=== PATIENT | male | born 1965 | race Caucasian/White ===

== ENCOUNTER 2016-06-27 19:06 | Emergency (ER) | payer OTHER, MEDICARE ==
[~2016-06-27 19:06] MED LIST: <VITAMIN> A + D1 APP TOP; ACCUPRIL20 MG PO; ACETAMINOPHEN325 M1 PO; ADVAIR DISKUS 21 DSK INH; ALBUTEROL 3 ML3 ML INH; AMITRIPTYLINE100 M1 PO; AMITRIPTYLINE100 M2 PO; AMITRIPTYLINE100 MG PO; AMITRIPTYLINE50 MG PO; AMMONIUM LACTATE121 TD; ASPIR 8181 MG PO; AZITHROMYCIN500 MG PO; BACTRIM 400 MG-1 TAB PO; BUSPIRONE HCL10 M1 PO; BUSPIRONE HCL10 MG PO; CARAFATE 1GM1000 MG PO; CARAFATE1 G1 PO; CLOPIDOGREL75 MG PO; CRESTOR 10MG10 MG PO; CRESTOR10 M1 PO; DAILY MULTIPLE1 EACH PO; DILAUDID2 MG PO; DULOXETINE HCL30 MG PO; DULOXETINE30 MG PO; DULOXETINE60 MG PO; DURAGESIC25 MCG TOP; Desitin TOP; ECOTRIN81 M1 PO; FOLIC ACID 1 MG PO; FOLIC ACID0.4 MG PO; FOLIC ACID0.8 M2 PO; FOLIC ACID0.8 MG PO; FUROSEMIDE20 MG PO; GABAPENTIN400 MG PO; GABAPENTIN800 MG PO; GLUCERNA 240 M240 ML PO; IBUPROFEN800 MG PO; LANTUS INS100 UNITS/ SC; LANTUS SOLOS100 U/ML SC; LANTUS100 U/ML SC; LANTUS100 UNIT/1 SC; LEVEMIR 10100 UNITS/ SC; LEVEMIR FL300 UNITS/ SC; LEVEMIR100 U/ML SC; LEVEMIR100 UNIT/1 SC; LISINOPRIL20 MG PO; LOTRIMIN CR1 %/30 GM TOP; MAG-OX 400400 MG PO; MAGNESIUM OXID400 MG PO; MAGNESIUM400 M1 PO; MEROPENEM1 GM IV; MIRALAX17 GM PO; MIRTAZAPINE15 MG PO; MOTRIN 400 MG400 MG PO; MOTRIN 400MG (400 MG PO; MULTIVITAMIN PO; MYSOLINE PO; NEURONTIN800 M1 PO; NEURONTIN800 M2 PO; NEXIUM 40MG40 MG PO; NORVASC 5MG TAB5 MG PO; NOVOLOG FLEX100 U/ML; NOVOLOG100 U/ML SC; NOVOLOG100 UNIT/2 SC; OXYCODONE HCL30 MG PO; PERCOCET 325 MG1 TA2 PO; PRIMIDONE50 M1 PO; PRINIVIL10 MG PO; PROAIR HFA0.09 MG/Ac PO; PROPRANOLOL HCL20 M1 PO; PROPRANOLOL HCL20 MG PO; PROPRANOLOL HCL40 MG PO; QUETIAPINE FUM300 MG PO; QUINAPRIL HCL20 MG PO; QUINAPRIL20 MG PO; RANITIDINE300 MG PO; ROCEPHIN1 GM IM; ROXICODONE30 MG PO; SENOKOT S 50 MG1 TAB PO; SEROQUEL 100MG100 MG PO; SEROQUEL100 M1 PO; SEROQUEL100 MG PO; SEROQUEL300 M1 PO; SPIRIVA 18 MCG18 MCG INH; SUBOXONE 8 MG-1 EACH SL; SUBOXONE 8 MG-21 TAB SL; Senokot S PO; TRAMADOL HCL50 M1 PO; TRAMADOL HCL50 MG PO; TRAMADOL50 MG PO; VANCOMYCIN HC1000 MG IV; VANCOMYCIN1 GM/250 M IV; VITAMIN D1000 UNIT PO; ZANTAC 150MG150 MG PO; ZOFRAN 4 MG TABL4 MG PO
--- NOTE | 2016-06-27 19:37 | ED GI/GU/ABDOMINAL COMPLAINT ---
History of Present Illness General Chief Complaint: General Adult Stated Complaint: HYPERGLYCEMIA Source: patient Exam Limitations: no limitations Allergies Coded Allergies: NO KNOWN ALLERGIES (07/16/15) Reconcile Medications Amitriptyline HCl 100 MG TABLET 1 TAB PO QHS UNKNOWN (Reported) Aspirin (Ecotrin) 81 MG TABLET. 1 TAB PO QAM HEART/BLOOD (Reported) BUPRENORPHINE HCL/NALOXONE HCL (Suboxone 8 MG-2 MG Sl Film) 8 MG-2 MG FILM 3 FILM SL DAILY PAIN (Reported) Buspirone HCl 10 MG TABLET 1 TAB PO TID MENTAL HEALTH (Reported) Cholecalciferol (Vitamin D3) (Vitamin D) 1,000 UNIT TABLET 1 TAB PO QAM SUPPLEMENT (Reported) Duloxetine HCl 30 MG CAPSULE. 1 CAP PO QAM DEPRESSION (Reported) Folic Acid 0.8 MG TABLET 1 TAB PO QAM SUPPLEMENT (Reported) Gabapentin (Neurontin) 800 MG TAB 2 TAB PO QAM NEUROPATHIC PAIN (Reported) Gabapentin (Neurontin) 800 MG TAB 3 TAB PO QPM NEUROPATHIC PAIN (Reported) Insulin Aspart (Novolog) 100 UNIT/1 ML VIAL DIABETES (Reported) glucose insulin dose 80-150mg/dl 5 units 151-200mg/dl 6 units 201-250mg/dl 7 units 251-300mg/dl 8 units 301-350mg/dl 9 units 351-400mg/dl 10units more than 400 please let MD know. Insulin Detemir (Levemir) 100 UNIT/1 ML VIAL 16 UNITS SC BID diabtes Magnesium Oxide (Magnesium) 400 MG CAPSULE 1 CAP PO BID SUPPLEMENT (Reported) Multivitamin (Daily Multiple Vitamin) 1 EACH TABLET 1 TAB PO QAM SUPPLEMENT ( Reported) Primidone 50 MG TABLET 100 MG PO TID UNKNOWN (Reported) Propranolol HCl 20 MG TABLET 1 TAB PO BID BP (Reported) Quetiapine Fumarate (Seroquel) 100 MG TABLET 1 TAB PO 8AM, NOON, 6PM MENTAL HEALTH (Reported) Quetiapine Fumarate (Seroquel) 300 MG TABLET 1 TAB PO QHS MENTAL HEALTH ( Reported) Quinapril HCl (Accupril) 20 MG TABLET 1 TAB PO QAM HEART (Reported) Rosuvastatin Calcium (Crestor) 10 MG TABLET 1 TAB PO QHS CHOLESTEROL ( Reported) Sucralfate (Carafate) 1 GM TABLET 1 TAB PO 4 TIMES/DAY GI (Reported) Tramadol HCl 50 MG TABLET 1 TAB PO Q4H PAIN (Reported) Vancomycin/0.9 % Sod Chloride (Vancomycin-0.9% NaCl 1 G/250) 1 GM/250 ML PLAST..BAG 1 VIAL IV BID osteomyelitis Please draw vancomycin trough levels every week. Vancomycin/0.9 % Sod Chloride (Vancomycin-0.9% NaCl 1 G/250) 1 GM/250 ML PLAST..BAG 1 VIAL IV BID osteomyelitis Please draw vancomycin trough levels every week. PLEASE DOSE VANCOMYCIN FOR A TOTAL OF 4 WEEKS AFTER DEBRIDEMENT. PLEASE TALK TO YOUR RECREATION OFFICER ABOUT THE DURATION. Triage Note: PT BIBA FROM HOME AFTER HAVING >500 READING OF BS TODAY. PT STATES HE HAS NO APPEPTITE. PT HAS A LEFT BELOW THE KNOW AMP AND SORES COVERING HIS WHOLE BODY IN DIFFERENT PROGRESSIONS OF HEALING. Triage Nurses Notes Reviewed? yes HPI: This patient is a 51-year-old male with past medical history including diabetes who is brought in by ambulance today after he had a blood sugar reading at home greater than 500. The patient reported that over the last couple of days he has not had an appetite. He denied any fevers, chills, chest pain, difficulty breathing, abdominal pain, nausea, vomiting, diarrhea, or any urinary symptoms. The patient reported that he checks his blood sugar regularly. He reported that he does take his insulin when he took this morning, but does not remember the name or dosage of his insulin. (ROSALINE STEIN,ALLI) Vital Signs & Intake/Output Vital Signs & Intake/Output Vital Signs Date Time Temp Pulse Resp B/P Pulse O2 O2 Flow FiO2 Ox Delivery Rate 06/28 0156 93 Room Air 06/28 0148 97.8 98 18 146/85 93 Room Air 06/27 2056 97.5 107 18 112/70 93 ED Intake and Output 06/28 0000 06/27 1200 Intake Total 3000 Output Total 200 Balance 2800 Intake, IV 3000 Output, Urine 200 Past History Medical History Any Pertinent Medical History? 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 No (ALLI WAGGONER PA-C) Review of Systems Review of Systems Constitutional: Reports: see HPI. EENTM: Reports: no symptoms. Respiratory: Reports: no symptoms. Cardiovascular: Reports: no symptoms. GI: Reports: no symptoms. Genitourinary: Reports: no symptoms. Musculoskeletal: Reports: no symptoms. Skin: Reports: no symptoms. Neurological/Psychological: Reports: no symptoms. Hematologic/Endocrine: Reports: see HPI. All Other Systems: Reviewed and Negative (ALLI WAGGONER PA-C) Physical Exam Physical Exam Gastrointestinal: normal bowel sounds, soft, non-tender, no organomegaly, NO REBOUND OR GUARDING. NO PERITONEAL SIGNS. NONDISTENDED. NO MASSES APPRECIATED Comments: Well-developed well-nourished person in no acute distress HEENT: Normal EENT exam, head normocephalic, moist mucous membranes Pupils equally round and reactive to light. Neck: Supple, no lymphadenopathy Back: Normal inspection Cardiovascular: Regular rate and rhythm and rhythm with no murmurs, rubs, or gallops Respiratory: Chest nontender. No respiratory distress. Breath sounds clear to auscultation bilaterally Extremity: Normal equal pulses Neuro: Alert oriented x3, cranial nerves II through XII grossly intact. Skin: No appreciable rash on exposed skin, skin is warm and dry. Scattered wounds to the extremities and multiple stages of healing Psych: Mood and affect is normal, memory and judgment is normal. Core Measures ACS in differential dx? No Severe Sepsis Present: No Septic Shock Present: No (ALLI WAGGONER PA-C) Progress Differential Diagnosis: AMI, appendicitis, biliary colic, bowel obstruction, colon cancer, cholecystitis, diverticulitis, gastritis, hepatitis, ischemic bowel, inflamm bowel dis, pancreatitis, PUD/GERD, perforated viscous, UTI/pyelo, hyperglycemia, DKA Initial ED EKG: none (ALLI WAGGONER PA-C) Plan of Care: Orders Procedure Date/time Status COMPREHENSIVE METABOLIC PANEL 06/27 2324 Complete ACETONE 06/27 2324 Complete Add-on Test (ER Only) 06/27 1933 Active LACTIC ACID 06/27 1928 Complete ACETONE 06/27 1928 Complete COMPREHENSIVE METABOLIC PANEL 06/27 1922 Complete CBC WITHOUT DIFFERENTIAL 06/27 1922 Complete Laboratory Tests 06/28/16 0012: Anion Gap 9, Estimated GFR > 60, BUN/Creatinine Ratio 23.0, Glucose 316 H, Calcium 8.0 L, Total Bilirubin 0.3, AST 9 L, ALT 20 L, Alkaline Phosphatase 149 H, Total Protein 6.0 L, Albumin 2.6 L, Globulin 3.4, Albumin/Globulin Ratio 0.8 L, Acetone Level NEGATIVE 06/27/161928: Anion Gap 15, Estimated GFR > 60, BUN/Creatinine Ratio 20.8, Glucose 616 *H, Lactic Acid 2.5 H, Calcium 9.1, Total Bilirubin 0.5, AST 15 L, ALT 21, Alkaline Phosphatase 192 H, Total Protein 7.4, Albumin 3.4 L, Globulin 4.0, Albumin/Globulin Ratio 0.9 L, CBC w Diff NO MAN DIFF REQ, RBC 4.97, MCV 79.3 L , MCH 25.9 L, RDW 16.1 H, MPV 7.1 L, Gran % 86.0 H, Lymphocytes % 10.5 L, Monocytes % 2.8, Eosinophils % 0.5, Basophils % 0.2, Absolute Granulocytes 10.5 H, Absolute Lymphocytes 1.3, Absolute Monocytes 0.3, Absolute Eosinophils 0.1, Absolute Basophils 0, PUBS MCHC 32.7 L, Acetone Level POSITIVE AT 1:4 DIL Departure Departure Disposition: HOME OR SELF CARE Condition: Stable Clinical Impression Primary Impression: Hyperglycemia Referrals: MARILYN WU,FERNANDO Bond (PCP/Family) Additional Instructions: take medicaiton as directed Departure Forms: Customer Survey General Discharge Information (ROSALINE STEIN,ALLI) PA/GROUNDING ENGINEER Co-Sign Statement Statement: ED Attending supervision documentation- [] I saw and evaluated the patient. I have also reviewed all the pertinent lab results and diagnostic results. I agree with the findings and the plan of care as documented in the PA's/GROUNDING ENGINEER's documentation. [X] I have reviewed the ED Record and agree with the PA's/GROUNDING ENGINEER's documentation. [] Additions or exceptions (if any) to the PAs/GROUNDING ENGINEER's note and plan are summarized below: [] (KIKI WU,FERNANDO Kwon)
[2016-06-27 19:40] LABS: ABSOLUTE BASOPHIL COUNT 0 /CUMM (0.0-0.2); ABSOLUTE EOSINOPHIL COUNT 0.1 /CUMM (0.0-0.7); ABSOLUTE GRANULOCYTE CT 10.5 /CUMM (1.4-6.5); ABSOLUTE LYMPH COUNT 1.3 /CUMM (1.2-3.4); ABSOLUTE MONOCYTE COUNT 0.3 /CUMM (0.10-0.60); BASOPHIL % 0.2 % (0.0-2.0); EOSINOPHIL % 0.5 % (0-5); HEMATOCRIT 39.4 % (42-52); MEAN CORPUSCULAR HGB 25.9 PG (27.0-31.0); MEAN CORPUSCULAR HGB CONC 32.7 G/DL (33.0-37.0); MEAN CORPUSCULAR VOLUME 79.3 FL (80.0-94.0); MEAN PLATELET VOLUME 7.1 FL (7.4-10.4); PLATELET COUNT 354 /CUMM (130-400); RBC DISTRIBUTION WIDTH 16.1 % (11.5-14.5); RED BLOOD CELL CT 4.97 /CUMM (4.70-6.10); WHITE BLOOD CELL COUNT 12.2 /CUMM (4.8-10.8)
[2016-06-28 01:48] VITALS: BP 146/85
[2016-09-07] MEDS ORDERED: KEFLEX500 M1 PO (21:42)
== END 2016-06-28 02:01 ==
LOC: ERH 19:06
PROVIDERS: Physician Assistant
DX: E11.65 Type 2 diabetes mellitus with hyperglycemia (principal); Z79.4 Long term (current) use of insulin
CPT/HCPCS: 96372; 96374; 96376; J1815

== ENCOUNTER 2016-08-04 20:27 | Emergency (ER) | payer OTHER, MEDICARE ==
--- NOTE | 2016-08-04 20:37 | ED AMS/SEIZURE/WEAK/DIZZY ---
History of Present Illness General Chief Complaint: General Adult Stated Complaint: BIBA HYPERGLYCEMIA, AMS Source: patient Exam Limitations: no limitations Vital Signs & Intake/Output Vital Signs & Intake/Output Vital Signs Date Time Temp Pulse Resp B/P B/P Pulse O2 O2 Flow FiO2 Mean Ox Delivery Rate 08/05 0203 97.1 122 18 136/84 95 Room Air 08/04 2332 97.8 126 20 126/78 97 Room Air 08/04 2038 99.9 131 20 144/91 96 Room Air Allergies Coded Allergies: NO KNOWN ALLERGIES (07/16/15) Reconcile Medications Amitriptyline HCl 100 MG TABLET 1 TAB PO QHS UNKNOWN (Reported) Aspirin (Ecotrin) 81 MG TABLET.DR 1 TAB PO QAM HEART/BLOOD (Reported) BUPRENORPHINE HCL/NALOXONE HCL (Suboxone 8 MG-2 MG Sl Film) 8 MG-2 MG FILM 3 FILM SL DAILY PAIN (Reported) Buspirone HCl 10 MG TABLET 1 TAB PO TID MENTAL HEALTH (Reported) Cholecalciferol (Vitamin D3) (Vitamin D) 1,000 UNIT TABLET 1 TAB PO QAM SUPPLEMENT (Reported) Duloxetine HCl 30 MG CAPSULE.DR 1 CAP PO QAM DEPRESSION (Reported) Folic Acid 0.8 MG TABLET 1 TAB PO QAM SUPPLEMENT (Reported) Gabapentin (Neurontin) 800 MG TAB 2 TAB PO QAM NEUROPATHIC PAIN (Reported) Gabapentin (Neurontin) 800 MG TAB 3 TAB PO QPM NEUROPATHIC PAIN (Reported) Insulin Aspart (Novolog) 100 UNIT/1 ML VIAL DIABETES (Reported) glucose insulin dose 80-150mg/dl 5 units 151-200mg/dl 6 units 201-250mg/dl 7 units 251-300mg/dl 8 units 301-350mg/dl 9 units 351-400mg/dl 10units more than 400 please let MD know. Insulin Detemir (Levemir) 100 UNIT/1 ML VIAL 16 UNITS SC BID diabtes Magnesium Oxide (Magnesium) 400 MG CAPSULE 1 CAP PO BID SUPPLEMENT (Reported) Multivitamin (Daily Multiple Vitamin) 1 EACH TABLET 1 TAB PO QAM SUPPLEMENT ( Reported) Primidone 50 MG TABLET 100 MG PO TID UNKNOWN (Reported) Propranolol HCl 20 MG TABLET 1 TAB PO BID BP (Reported) Quetiapine Fumarate (Seroquel) 100 MG TABLET 1 TAB PO 8AM, NOON, 6PM MENTAL HEALTH (Reported) Quetiapine Fumarate (Seroquel) 300 MG TABLET 1 TAB PO QHS MENTAL HEALTH ( Reported) Quinapril HCl (Accupril) 20 MG TABLET 1 TAB PO QAM HEART (Reported) Rosuvastatin Calcium (Crestor) 10 MG TABLET 1 TAB PO QHS CHOLESTEROL ( Reported) Sucralfate (Carafate) 1 GM TABLET 1 TAB PO 4 TIMES/DAY GI (Reported) Tramadol HCl 50 MG TABLET 1 TAB PO Q4H PAIN (Reported) Vancomycin/0.9 % Sod Chloride (Vancomycin-0.9% NaCl 1 G/250) 1 GM/250 ML PLAST..BAG 1 VIAL IV BID osteomyelitis Please draw vancomycin trough levels every week. Vancomycin/0.9 % Sod Chloride (Vancomycin-0.9% NaCl 1 G/250) 1 GM/250 ML PLAST..BAG 1 VIAL IV BID osteomyelitis Please draw vancomycin trough levels every week. PLEASE DOSE VANCOMYCIN FOR A TOTAL OF 4 WEEKS AFTER DEBRIDEMENT. PLEASE TALK TO YOUR IMPLANT COORDINATOR ABOUT THE DURATION. Triage Nurses Notes Reviewed? yes Onset: Abrupt Duration: hour(s): Timing: single episode today Injury Environment: home Severity: mild, moderate Modifying Factors: Improves With: rest. Associated Symptoms: elevated sugar HPI: 51-year-old gentleman history of peripheral vascular disease and diabetes presents with increased lethargy and a glucose greater than 500. Upon arrival, he states that he feels fine. He would like to go home. He states that his girlfriend called, "but I don't know why. I feel fine." He denies fever chills nausea vomiting diarrhea. he states that his glucoses normally in the 200 to 300s. He denies chest pain shortness of breath fever cough phlegm diarrhea. Past History Medical History Any Pertinent Medical History? 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 No Review of Systems Review of Systems Constitutional: Reports: no symptoms. EENTM: Reports: no symptoms. Respiratory: Reports: no symptoms. Cardiovascular: Reports: no symptoms. GI: Reports: no symptoms. Genitourinary: Reports: no symptoms. Musculoskeletal: Reports: no symptoms. Skin: Reports: no symptoms. Neurological/Psychological: Reports: no symptoms. Hematologic/Endocrine: Reports: no symptoms. Immunologic/Allergic: Reports: no symptoms. All Other Systems: Reviewed and Negative Physical Exam Physical Exam General Appearance: well developed/nourished, no apparent distress Head: atraumatic, normal appearance Eyes: Bilateral: normal appearance. Ears, Nose, Throat: normal pharynx, normal ENT inspection Neck: normal inspection, supple, full range of motion Respiratory: normal breath sounds, chest non-tender, no respiratory distress, quiet respiration, lungs clear Cardiovascular: regular rate/rhythm Gastrointestinal: normal bowel sounds, soft, non-tender, no organomegaly Back: normal inspection, normal range of motion Extremities: left BKA. Right lower extremity with a quarter size deep ulceration. No sign of active infection or drainage. Nontender palpation. Neurologic/Psych: no motor/sensory deficits, awake, alert, oriented x 3 Skin: intact, normal color, warm/dry Core Measures ACS in differential dx? No CVA/TIA Diagnosis: No Severe Sepsis Present: No Septic Shock Present: No Progress Differential Diagnosis: hyperglycemia versus dehydration versus other. Plan of Care: Orders Procedure Date/time Status MIXED VENOUS BLOOD GAS (GEN) 08/04 2038 Complete TROPONIN LEVEL 08/04 2038 Complete ETHANOL 08/04 2038 Complete COMPREHENSIVE METABOLIC PANEL 08/04 2038 Complete CBC WITHOUT DIFFERENTIAL 08/04 2038 Complete ACETONE 08/04 2038 Complete Current Medications Sig/Jonny Start time Last Medication Dose Stop Time Status Admin Insulin Human Regular 10 UNITS ONCE ONE 08/05 329 CAN (NovoLIN R) 08/05 033 Laboratory Tests 08/04/162124: Bicarbonate Actual 23, Mixed VBG pH 7.37, Mixed VBG pCO2 39 L, Mixed VBG O2 Saturation 33 L, Carboxyhemoglobin 1.1 L, O2 Concentration % R/A, Phlebotomy Draw Site VENOUS 08/04/162054: Anion Gap 15, Estimated GFR > 60, BUN/Creatinine Ratio 17.0, Glucose 348 H, Calcium 8.8, Total Bilirubin 0.4, AST 14 L, ALT 26, Alkaline Phosphatase 228 H , Troponin I 0.02, Total Protein 8.0, Albumin 3.9, Globulin 4.1, Albumin/ Globulin Ratio 1.0 L, CBC w Diff MAN DIFF ORDERED, RBC 5.07, MCV 80.3, MCH 26.3 L, RDW 16.7 H, MPV 6.7 L, Gran % 91.3 H, Lymphocytes % 5.2 L, Monocytes % 3.4, Eosinophils % 0, Basophils % 0.1, Absolute Granulocytes 11.6 H, Segmented Neutrophils 80 H, Band Neutrophils 7 H, Absolute Lymphocytes 0.7 L, Lymphocytes 9 L, Monocytes 4, Absolute Monocytes 0.4, Absolute Eosinophils 0, Absolute Basophils 0, Platelet Estimate ADEQUATE, Normochromic RBCs VERIFIED, PUBS MCHC 32.7 L, Serum Alcohol < 10.0, Acetone Level POSITIVE AT 1:4 DIL 08/04/162038: Urine Color Cancelled, Urine Clarity Cancelled, Urine pH Cancelled, Ur Specific [place] Cancelled, Urine Protein Cancelled, Urine Ketones Cancelled, Urine Nitrite Cancelled, Urine Bilirubin Cancelled, Urine Urobilinogen Cancelled, Ur Leukocyte Esterase Cancelled, Ur Microscopic Cancelled, Urine Hemoglobin Cancelled, Urine Glucose Cancelled Diagnostic Imaging: Viewed by Me: Radiology Read. Discussed w/RAD: Radiology Read. CXR Impression: no acute abnormality, no infiltrates, normal size heart, normal mediastinum Initial ED EKG: normal axis, normal intervals, normal p-waves, normal QRS complex, normal sinus rhythm Comments: PATIENT: BRANDIN PEREA PRESENT AGE: 51 PATIENT ACCOUNT NO: [id number] : 65 LOCATION: [facility] ORDERING PHYSICIAN: CORRINA REN MD SERVICE DATE: 08/04/16 EXAM TYPE: RAD - XRY-PORTABLE CHEST XRAY EXAMINATION: XR PORTABLE CHEST CLINICAL INFORMATION: Cough COMPARISON: Prior chest July 2015 TECHNIQUE: Portable frontal view of the chest was obtained. FINDINGS: No significant abnormality is noted involving the heart, lungs, mediastinum, bony thorax or soft tissues. IMPRESSION: Unremarkable examination. DICTATED BY: ELENA CASTILLO MD DATE/TIME DICTATED:08/04/162246 STOCK SUPERVISOR:ROXANNA DATE/TIME TRANSCRIBED:08/04/162246 CONFIDENTIAL, DO NOT COPY WITHOUT APPROPRIATE AUTHORIZATION. <Electronically signed in Other Vendor System> SIGNED BY: ELENA CASTILLO MD 08/04 Departure Departure Disposition: HOME OR SELF CARE Condition: Stable Clinical Impression Primary Impression: Hyperglycemia Referrals: FERNANDO SANDERS MD (PCP/Family) Departure Forms: Customer Survey General Discharge Information Comments 08/05/2016, 0 20 a.m.: Patient feels well. He pulled out his IV. He declined a head CT. He is ANO 3. He denies pain discomfort. He would like to go home. He has no concerns. He was given insulin. His glucose readings have improved. 08/05/16, 5:06am... glucose in 200's... pt safe for discharge.
[2016-08-04 21:06] LABS: ABSOLUTE BASOPHIL COUNT 0 /CUMM (0.0-0.2); ABSOLUTE EOSINOPHIL COUNT 0 /CUMM (0.0-0.7); ABSOLUTE GRANULOCYTE CT 11.6 /CUMM (1.4-6.5); ABSOLUTE LYMPH COUNT 0.7 /CUMM (1.2-3.4); ABSOLUTE MONOCYTE COUNT 0.4 /CUMM (0.10-0.60); BASOPHIL % 0.1 % (0.0-2.0); EOSINOPHIL % 0 % (0-5); GRANULOCYTE % 91.3 % (42.2-75.2); HEMATOCRIT 40.8 % (42-52); MEAN CORPUSCULAR HGB 26.3 PG (27.0-31.0); MEAN CORPUSCULAR HGB CONC 32.7 G/DL (33.0-37.0); MEAN CORPUSCULAR VOLUME 80.3 FL (80.0-94.0); MEAN PLATELET VOLUME 6.7 FL (7.4-10.4); PLATELET COUNT 398 /CUMM (130-400); RBC DISTRIBUTION WIDTH 16.7 % (11.5-14.5); RED BLOOD CELL CT 5.07 /CUMM (4.70-6.10); WHITE BLOOD CELL COUNT 12.7 /CUMM (4.8-10.8)
--- NOTE | 2016-08-04 22:51 | RADIOLOGY REPORT ---
EXAMINATION: XR PORTABLE CHEST CLINICAL INFORMATION: Cough COMPARISON: Prior chest July 2015 TECHNIQUE: Portable frontal view of the chest was obtained. FINDINGS: No significant abnormality is noted involving the heart, lungs, mediastinum, bony thorax or soft tissues. IMPRESSION: Unremarkable examination.
[2016-08-05 02:03] VITALS: BP 136/84
[2016-08-05] MEDS ORDERED: LANTUS SOL100 UNIT/1 SC (16:58)
[2016-08-05] MEDS ORDERED: PROPRANOLOL HCL40 M1 PO (17:00)
[2016-08-05] MEDS ORDERED: NEXIUM40 M1 PO (17:00)
[2016-08-05] MEDS ORDERED: REGRANEX15 GM TOP (17:00)
[2016-08-05] MEDS ORDERED: VENTOLIN HFA18 GM INH (17:01)
[2016-08-05] MEDS ORDERED: ADVAIR 250-501 EACH INH (17:01)
[2016-08-05] MEDS ORDERED: RANITIDINE HCL300 M1 PO (17:01)
[2016-09-07] MEDS ORDERED: KEFLEX500 M1 PO (21:42)
== END 2016-08-05 06:42 ==
LOC: ERH 20:27
PROVIDERS: Pediatrics
DX: E10.65 Type 1 diabetes mellitus with hyperglycemia (principal)
CPT/HCPCS: 96372; 96374; G0480; J1815

== ENCOUNTER 2016-08-05 16:15 | Inpatient (IN) | payer OTHER, MEDICARE ==
[~2016-08-05] VITALS: Ht 177.8 cm; Wt 61.2 kg
--- NOTE | 2016-08-05 16:24 | ED GENERAL ADULT ---
History of Present Illness General Chief Complaint: General Adult Stated Complaint: BIBA WITH LATHARGIC Source: patient, family, old records, EMS Exam Limitations: no limitations Vital Signs & Intake/Output Vital Signs & Intake/Output Vital Signs Date Time Temp Pulse Resp B/P B/P Pulse O2 O2 Flow FiO2 Mean Ox Delivery Rate 08/05 2130 98.7 118 18 164/82 100 08/05 2049 98.6 119 14 141/83 08/05 1910 Nasal 2.0L Cannula 08/05 1910 98.6 123 18 142/79 100 Nasal 2.0L Cannula 08/05 1825 123 15 146/78 08/05 1618 97.6 126 14 130/78 100 Nasal 4.0L Cannula Allergies Coded Allergies: NO KNOWN ALLERGIES (07/16/15) Reconcile Medications Albuterol Sulfate (Ventolin Hfa) 90 MCG HFA.AER.AD 2 PUF INH PRN COPD ( Reported) Amitriptyline HCl 100 MG TABLET 1 TAB PO QHS UNKNOWN (Reported) Becaplermin (Regranex) 0.01 % GEL..GRAM. 1 AAMIR TOP DAILY WOUND RIGHT FOOT ( Reported) Buprenorphine HCl/Naloxone HCl (Suboxone 8 MG-2 MG Sl Film) 8 MG-2 MG FILM 3 STR SL DAILY CHRONIC PAIN (Reported) Buspirone HCl 10 MG TABLET 1 TAB PO TID MENTAL HEALTH (Reported) Duloxetine HCl 30 MG CAPSULE.DR 1 CAP PO QAM DEPRESSION (Reported) Esomeprazole (Nexium) 40 MG CAPSULE.DR 1 CAP PO DAILY GI (Reported) Fluticasone/Salmeterol (Advair 250-50 Diskus) 250 MCG-50 MCG/DOSE BLST.W.DEV 1 PUF INH BID COPD (Reported) Gabapentin (Neurontin) 800 MG TABLET 2 TAB PO QAM NERVE PAIN (Reported) Gabapentin (Neurontin) 800 MG TABLET 3 TAB PO QPM NERVE PAIN (Reported) Insulin Aspart (Novolog) 100 UNIT/1 ML VIAL DIABETES (Reported) glucose insulin dose 80-150mg/dl 5 units 151-200mg/dl 6 units 201-250mg/dl 7 units 251-300mg/dl 8 units 301-350mg/dl 9 units 351-400mg/dl 10units more than 400 please let know. Insulin Glargine,Hum.rec.anlog (Lantus Solostar) 100 UNIT/ML (3 ML) INSULN.PEN 21 UNITS SC BID DM (Reported) Primidone 50 MG TABLET 100 MG PO TID UNKNOWN (Reported) Propranolol HCl 40 MG TABLET 1 TAB PO BID BP (Reported) Quetiapine Fumarate (Seroquel) 100 MG TABLET 1 TAB PO 8AM, NOON, 6PM MENTAL HEALTH (Reported) Quetiapine Fumarate (Seroquel) 300 MG TABLET 1 TAB PO QHS MENTAL HEALTH ( Reported) Quinapril HCl (Accupril) 20 MG TABLET 1 TAB PO QAM HEART (Reported) Ranitidine HCl 300 MG TABLET 1 TAB PO QPM GI (Reported) Rosuvastatin Calcium (Crestor) 10 MG TABLET 1 TAB PO QHS CHOLESTEROL ( Reported) Sucralfate (Carafate) 1 GM TABLET 1 TAB PO 4 TIMES/DAY GI (Reported) Tramadol HCl 50 MG TABLET 1 TAB PO Q4H PAIN (Reported) Triage Nurses Notes Reviewed? yes HPI: Patient was seen in the emergency department last night for anorexia and hyperglycemia. Patient was hydrated and he felt better and he was sent home. This morning he was lethargic. The visiting nurse came out and changed his bandages on his chronic wounds. This afternoon the lethargy got worse and his sugar again went up into the 300s. Patient returns for reevaluation. Patient states he has nausea and dry heaving but there is no vomiting. There is no diarrhea. He denies any chest pain or shortness of breath. He had some chills and he had a tympanic temperature 99.9 on the ambulance however he is afebrile here. (KIKI WU,FERNANDO Kwon) Past History Travel History Traveled to [place] past 21 day No Medical History Any Pertinent Medical History? 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 No (KIKI WU,FERNANDO Kwon) Review of Systems Review of Systems Constitutional: Reports: see HPI, malaise, weakness. EENTM: Reports: no symptoms. Respiratory: Reports: no symptoms. Cardiovascular: Reports: no symptoms. GI: Reports: see HPI, nausea. Genitourinary: Reports: no symptoms. Musculoskeletal: Reports: no symptoms. Skin: Reports: no symptoms. Neurological/Psychological: Reports: no symptoms. Hematologic/Endocrine: Reports: no symptoms. Immunologic/Allergic: Reports: no symptoms. All Other Systems: Reviewed and Negative (KIKI WU,FERNANDO Kwon) Physical Exam Physical Exam General Appearance: well developed/nourished, alert, awake, moderate distress Head: atraumatic, normal appearance Eyes: Bilateral: PERRL, EOMI. Ears, Nose, Throat: normal pharynx, DRY MUCOSA Neck: normal inspection, supple, full range of motion Respiratory: normal breath sounds, chest non-tender, no respiratory distress, lungs clear Cardiovascular: regular rate/rhythm, normal peripheral pulses Gastrointestinal: normal bowel sounds, soft, non-tender, no organomegaly Extremities: CHRONIC WOUNDS AND CHRONIC ISCHEMIC CHANGES Neurologic/Psych: no motor/sensory deficits, awake, alert, oriented x 3, normal mood/affect Skin: CHRONIC ISCHEMIC CHANGES Core Measures ACS in differential dx? No CVA/TIA Diagnosis: No Severe Sepsis Present: No Septic Shock Present: No (FERNANDO SWANSON MD) Progress Differential Diagnoses I considered the following diagnoses in my evaluation of the patient: [DKA, ELECTROLYTE ABNORMALITY, AMI] Plan of Care: Orders Procedure Date/time Status Admit to inpatient 08/05 2225 Active Add-on Test (ER Only) 08/05 170 Active EKG 08/05 1708 Active MIXED VENOUS BLOOD GAS (GEN) 08/05 161 Active BLOOD CULTURE 08/05 161 Active URINALYSIS 08/05 161 Complete TROPONIN LEVEL 08/05 161 Complete COMPREHENSIVE METABOLIC PANEL 08/05 161 Complete CBC WITHOUT DIFFERENTIAL 08/05 1618 Complete ACETONE 08/05 161 Complete Laboratory Tests 08/05/16 2150: Urinalysis LIGHT H, Urine Color YEL, Urine Clarity CLEAR, Urine pH 6.0, Ur Specific Vaughan 1.025, Urine Protein >=300 H, Urine Ketones 15 H, Urine Nitrite NEG, Urine Bilirubin NEG@ICTO, Urine Urobilinogen 0.2, Ur Leukocyte Esterase NEG, Ur Microscopic SEDIMENT EXAMINED, Urine RBC 25-50 H, Urine WBC RARE, Urine Bacteria RARE H, Granular Casts FEW H, Urine Mucus RARE, Urine Hemoglobin LARGE H, Urine Glucose >=1000 H 08/05/161928: Anion Gap 16, Estimated GFR > 60, BUN/Creatinine Ratio 25.5 H, Glucose 444 H, Calcium 8.5, Total Bilirubin 0.5, AST 16 L, ALT 33, Alkaline Phosphatase 202 H , Troponin I < 0.01, Total Protein 7.6, Albumin 3.6, Globulin 4.0, Albumin/ Globulin Ratio 0.9 L, CBC w Diff NO MAN DIFF REQ, RBC 4.78, MCV 79.9 L, MCH 26.0 L, RDW 16.7 H, MPV 6.6 L, Gran % 88.7 H, Lymphocytes % 6.0 L, Monocytes % 5.0, Eosinophils % 0.2, Basophils % 0.1, Absolute Granulocytes 8.4 H, Absolute Lymphocytes 0.6 L, Absolute Monocytes 0.5, Absolute Eosinophils 0, Absolute Basophils 0, PUBS MCHC 32.6 L, Acetone Level POSITIVE AT 1:4 DIL Microbiology 08/05 161 BLOOD: Blood Culture - ORD 08/05 1618 BLOOD: Blood Culture - ORD Initial ED EKG: S TACH, NSSTT CHANGES Prior EKG: unchanged Hand-Off Endorsed To: BERRY WU,SHAHRZAD Allen Endorsed Time: 1899 Pending: labs (FERNANDO SWANSON MD) Departure Departure Disposition: STILL A PATIENT Condition: Stable Clinical Impression Primary Impression: Hyperglycemia Referrals: FERNANDO SANDERS MD (PCP/Family) Departure Forms: Customer Survey General Discharge Information (FERNANDO SWANSON MD) Admission Note Spoke With: ROSA KUMAR MD (BERRY WU,SHAHRZAD Allen) Critical Care Note Critical Care Note Critical Care Time: non-applicable (FERNANDO SWANSON MD)
--- NOTE | 2016-08-05 16:38 | NUR ---
EX AT BEDSIDE TO PROVIDE BETTER HISTORY. PT LETHARGIC. ONLY TALKING WHEN FORCED TO. UNABLE TO ANSWER QUESTIONS ABOUT HEIGHT AND WEIGHT. PT WITH VERY POOR VEINS. ATTEMPTED X2 TO PLACE IV AND GET LABS.
--- NOTE | 2016-08-05 16:38 | NUR ---
DANI FROM HOME AFTER EX FOUND HIM TO BE LETHARGIC AND WARM TO TOUCH. PT IDDM WITH GLUCOSE IN THE HIGH 300S. WAS DISCHARGED FROM [facility] LAST NIGHT FOR ELEVATED GLUCOSE AND POOR PO INTAKE. EX STATES HE HAS NOT EATEN IN 3 DAYS. UPON ARRIVAL PT AWAKE, LETHARGIC. SKIN COOL AND DRY. DRESSING ON RIGHT FOOT, RECENT TRANS MET AMP. DENIES PAIN OR SOB. PT NOT TALKING UNLESS FORCED.
[2016-08-05] MEDS ORDERED: LANTUS SOL100 UNIT/1 SC (16:58)
[2016-08-05] MEDS ORDERED: PROPRANOLOL HCL40 M1 PO (17:00)
[2016-08-05] MEDS ORDERED: REGRANEX15 GM TOP (17:00)
[2016-08-05] MEDS ORDERED: NEXIUM40 M1 PO (17:00)
[2016-08-05] MEDS ORDERED: RANITIDINE HCL300 M1 PO (17:01)
[2016-08-05] MEDS ORDERED: VENTOLIN HFA18 GM INH (17:01)
[2016-08-05] MEDS ORDERED: ADVAIR 250-501 EACH INH (17:01)
--- NOTE | 2016-08-05 17:18 | NUR ---
3 UNSUCCESSFUL IV ATTEMPTS
--- NOTE | 2016-08-05 18:26 | NUR ---
22 GUAGE IV PLACED IN UPPER ARM. IVF BOLUS STARTED. UNABLE TO OBTAIN LAB WORK AT PRESENT DUE TO NO SUITABLE VEINS FOR VENIPUNCTURE
--- NOTE | 2016-08-05 19:08 | NUR ---
2 UNSUCCESSFUL ATTEMPTS AT GETTING LAB WORK AND BLOOD CULTURES.
--- NOTE | 2016-08-05 19:37 | NUR ---
DR SMART NOTIFIED THAT BLOOD CULTURES WERE NOT ABLE TO BE DRAWN DUE TO NO VEINS SUITABLE FOR VENIPUNCTURE. SST AND LAV TOP OBTAINED. IVF BOLUS INFUSING. PT REMAINS TACHY AT 125. WILL SEE HOW HEART RATE RESPONDS TO FLUID BOLUS. BERRY AWARE OF TACHYCARDIA. PT GIVEN WATER TO DRINK
[2016-08-05 19:38] LABS: ABSOLUTE BASOPHIL COUNT 0 /CUMM (0.0-0.2); ABSOLUTE EOSINOPHIL COUNT 0 /CUMM (0.0-0.7); ABSOLUTE GRANULOCYTE CT 8.4 /CUMM (1.4-6.5); ABSOLUTE LYMPH COUNT 0.6 /CUMM (1.2-3.4); ABSOLUTE MONOCYTE COUNT 0.5 /CUMM (0.10-0.60); BASOPHIL % 0.1 % (0.0-2.0); EOSINOPHIL % 0.2 % (0-5); GRANULOCYTE % 88.7 % (42.2-75.2); HEMATOCRIT 38.2 % (42-52); MEAN CORPUSCULAR HGB CONC 32.6 G/DL (33.0-37.0); MEAN CORPUSCULAR VOLUME 79.9 FL (80.0-94.0); MEAN PLATELET VOLUME 6.6 FL (7.4-10.4); PLATELET COUNT 371 /CUMM (130-400); RBC DISTRIBUTION WIDTH 16.7 % (11.5-14.5); RED BLOOD CELL CT 4.78 /CUMM (4.70-6.10); WHITE BLOOD CELL COUNT 9.4 /CUMM (4.8-10.8)
--- NOTE | 2016-08-05 20:03 | NUR ---
PT LOGROLL TO REFRESH LINEN AND CHANGE PAJAMA TOP. PT WITH INTACT SKIN TO BUTTOCKS BUT SKIN IS DARK IN COLOR. OPEN SORE ON RIGHT LUCAS. MULIPLE LESIONS IN VARIOUS STAGES OF HEALING ALL OVER BODY. PER FAMILY, DRESSING TO RIGHT FOOT WAS CHANGED BY VISITING NURSE THIS AM.
--- NOTE | 2016-08-05 20:06 | NUR ---
UNABLE TO PROVIDE URINE SAMPLE AT THIS TIME
--- NOTE | 2016-08-05 21:56 | NUR ---
PT VOIDED 350 ML CLEAR, DARK WILLEM URINE. UA SENT TO LAB
--- NOTE | 2016-08-05 23:57 | NUR ---
FINGERSTICK GLUCOSE LEVEL READING 353
--- NOTE | 2016-08-06 00:35 | NUR ---
HOUSE STAFF HERE TO GILDA.
--- NOTE | 2016-08-06 00:42 | History & Physical ---
GHAZALA RODRIGUEZ 08/06/16 0041: General Information and HPI MD Statement: I have seen and personally examined BRANDIN BNOILLA and documented this H&P. The patient is a 51 year old M who presented with a patient stated chief complaint of [DKA]. Source of Information: patient Exam Limitations: patient not a good historian History of Present Illness: This is a 50 YO gentleman with significant past medical history of type 1 diabetes mellitus, previous IV drug user( ?used oxycontin in iv form), osteomyelitis status post left fourth and fifth toe amputation as well as right metatarsal amputation, peripheral vascular disease, depression, previous seizure disorder (not on any seizure medications currently), hypertension, hyperlipidemia, GERD,chronic pain disorder on Suboxone, previous MRSA infection, severe diabetic neuropathy, seen on 08/05/2016 i.e one day prior to today's presentation for elevated blood sugar > 500,however did not want to get admitted , he pulled out his IV and declined a head CT, he left the ER wanting to go home , he was given insulin and as his sugar improved into 200s he was discharged from the ER. However, today morning he comes back again to Er after being sent by girlfriend,as his blood sugar was greater than 450, he was having dry heaves, he was coughing. She says that he hadn't been eating for last 3 days and therefore was concerned, she said she wasn't expecting him to come back from the ER the previous day, as he needed medical care. The patient was reluctant to provide us with any history and just kept saying that his sugar was high and he was just not feeling good.He did not give us any other symptoms. However we talked with the girlfriend ,who said that he has not eaten anything for last 3-4 days, he was taking his regular long-acting insulin but they were little skeptical on giving the short-acting because he wasn't eating. His blood sugar have been a problem to control for last few days. He has been more lethargic and tired.She sees him daily while at home. He denied any fever, chills, diarrhea, constipation, nausea, vomiting.He was dry heaving when his GF saw him. Allergies/Medications Allergies: Coded Allergies: NO KNOWN ALLERGIES (07/16/15) Home Med list Albuterol Sulfate (Ventolin Hfa) 90 MCG HFA.AER.AD 2 PUF INH PRN COPD ( Reported) Amitriptyline HCl 100 MG TABLET 1 TAB PO QHS UNKNOWN (Reported) Becaplermin (Regranex) 0.01 % GEL..GRAM. 1 AAMIR TOP DAILY WOUND RIGHT FOOT ( Reported) Buprenorphine HCl/Naloxone HCl (Suboxone 8 MG-2 MG Sl Film) 8 MG-2 MG FILM 3 STR SL DAILY CHRONIC PAIN (Reported) Buspirone HCl 10 MG TABLET 1 TAB PO TID MENTAL HEALTH (Reported) Duloxetine HCl 30 MG CAPSULE. 1 CAP PO QAM DEPRESSION (Reported) Esomeprazole (Nexium) 40 MG CAPSULE. 1 CAP PO DAILY GI (Reported) Fluticasone/Salmeterol (Advair 250-50 Diskus) 250 MCG-50 MCG/DOSE BLST.W.DEV 1 PUF INH BID COPD (Reported) Gabapentin (Neurontin) 800 MG TABLET 2 TAB PO QAM NERVE PAIN (Reported) Gabapentin (Neurontin) 800 MG TABLET 3 TAB PO QPM NERVE PAIN (Reported) Insulin Aspart (Novolog) 100 UNIT/1 ML VIAL DIABETES (Reported) glucose insulin dose 80-150mg/dl 5 units 151-200mg/dl 6 units 201-250mg/dl 7 units 251-300mg/dl 8 units 301-350mg/dl 9 units 351-400mg/dl 10units more than 400 please let know. Insulin Glargine,Hum.rec.anlog (Lantus Solostar) 100 UNIT/ML (3 ML) INSULN.PEN 21 UNITS SC BID DM (Reported) Primidone 50 MG TABLET 100 MG PO TID UNKNOWN (Reported) Propranolol HCl 40 MG TABLET 1 TAB PO BID BP (Reported) Quetiapine Fumarate (Seroquel) 100 MG TABLET 1 TAB PO 8AM, NOON, 6PM MENTAL HEALTH (Reported) Quetiapine Fumarate (Seroquel) 300 MG TABLET 1 TAB PO QHS MENTAL HEALTH ( Reported) Quinapril HCl (Accupril) 20 MG TABLET 1 TAB PO QAM HEART (Reported) Ranitidine HCl 300 MG TABLET 1 TAB PO QPM GI (Reported) Rosuvastatin Calcium (Crestor) 10 MG TABLET 1 TAB PO QHS CHOLESTEROL ( Reported) Sucralfate (Carafate) 1 GM TABLET 1 TAB PO 4 TIMES/DAY GI (Reported) Tramadol HCl 50 MG TABLET 1 TAB PO Q4H PAIN (Reported) Compliance With Home Meds: FAIR Past History Travel History Traveled to [place] past 21 day No Medical History Neurological: peripheral neuropathy EENT: NONE Cardiovascular: hypertension, PVD Respiratory: COPD Gastrointestinal: diverticulitis, GERD, GASTROPARESIS Hepatic: NONE Renal: NONE Musculoskeletal: osteomyelitis, multiple amputations Psychiatric: anxiety, chronic pain disorder, depression Endocrine: diabetes, diabetic ketoacidosis Blood Disorders: MRSA Cancer(s): NONE 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 Home Who Do You Live With? self Services at Home: Nursing Primary Language: [place] Smoking Status: Current Everyday Smoker ETOH Use: denies use Illicit Drug Use: denies illicit drug use Name of POA/HCP: Spencer Chaudhari Functional Ability ADLs Independent: dressing, eating, toileting, bathing. Ambulation: cane, walker IADLs Independent: finances. Unknown: shopping, housework, food prep, telephone, transportation, medication admin. Review of Systems Review of Systems Constitutional: Reports: malaise, weakness. Denies: chills, diaphoresis, fever, unexplained weight loss. EENTM: Denies: blurred vision, double vision, visual changes, eye pain, eye drainage. Cardiovascular: Denies: chest pain, edema, orthopena, palpitations, peripheral edema. Respiratory: Denies: cough, hemoptysis, orthopnea, short of breath, sputum production. GI: Reports: abdominal pain, nausea. Denies: bloating, constipation, diarrhea, distention, bowel incontinence, melena, bloody stool, changes in stool, vomiting , steatorrhea. Genitourinary: Denies: discharge, dysuria, frequency, hematuria. Musculoskeletal: Denies: back pain, gout, joint pain, joint swelling. Skin: Reports: erythema, lesions. Neurological/Psychological: Reports: no symptoms. Hematologic/Endocrine: Reports: no symptoms. Immunologic/Allergic: Reports: no symptoms. All Other Systems: Reviewed and Negative Exam & Diagnostic Data Last 24 Hrs of Vital Signs/I&O Vital Signs Date Time Temp Pulse Resp B/P B/P Pulse O2 O2 Flow FiO2 Mean Ox Delivery Rate 08/06 0329 98 Nasal 2.0L Cannula 08/06 0311 97.7 128 20 180/100 98 Nasal 2.0L Cannula 08/06 0108 115 20 135/98 100 Nasal Cannula 08/05 2131 98.7 118 18 164/82 100 08/05 2050 98.6 119 14 141/83 08/05 1911 Nasal 2.0L Cannula 08/05 191 98.6 123 18 142/79 100 Nasal 2.0L Cannula 08/05 1825 123 15 146/78 08/05 1618 97.6 126 14 130/78 100 Nasal 4.0L Cannula Intake & Output 08/06 0800 08/06 0000 08/05 1600 Intake Total 1500 1000 Output Total 400 350 Balance 1100 650 Intake, IV 1500 1000 Output, Urine 400 350 Patient 63.503 kg Weight Weight Estimated Measurement Method Physical Exam General Appearance Alert, Oriented X3, very minimal talking Skin lesion on the right foot, small 2 cm lesion, pus present, base nonhealing, pale, another lesion on the montiel of right tibia, oval 2X4cm, again pale with some pus on pressing from side, another lesion og the lateral aspect of left hand, few other small lesions 2/2 to picking. Skin Temp/Moisture Exam: Cool/Dry Sepsis Skin Exam (color): Normal for Ethnicity HEENT Atraumatic, PERRLA, EOMI Neck Supple, No JVD, No thryomegaly Lymphatic no lad Cardiovascular Normal S1, Normal S2, No Murmurs, tachycardic Lungs Clear to Auscultation, Normal Air Movement Abdomen Normal Bowel Sounds, Soft, No Tenderness Neurological Normal Speech, Strength at 5/5 X4 Ext, Normal Tone, Sensation Intact Extremities No Clubbing, No Cyanosis, No Edema, Normal Pulses, lesion as described in skin Vascular Normal Pulses Sepsis Peripheral Pulse Location: Radial Sepsis Peripheral Pulse Exam: Normal Sepsis Cap Refill Exam: <2 Sec Last 24 Hrs of Labs/Bart: Laboratory Tests 08/06/16 0045: Anion Gap 13, Estimated GFR > 60, BUN/Creatinine Ratio 28.9 H, Glucose 307 H, Calcium 7.8 L, Total Bilirubin 0.4, AST 15 L, ALT 24, Alkaline Phosphatase 149 H, Total Protein 6.2 L, Albumin 2.8 L, Globulin 3.4, Albumin/Globulin Ratio 0.8 L 08/05/162149: Urinalysis LIGHT H, Urine Color YEL, Urine Clarity CLEAR, Urine pH 6.0, Ur Specific [place] 1.025, Urine Protein >=300 H, Urine Ketones 15 H, Urine Nitrite NEG, Urine Bilirubin NEG@ICTO, Urine Urobilinogen 0.2, Ur Leukocyte Esterase NEG, Ur Microscopic SEDIMENT EXAMINED, Urine RBC 25-50 H, Urine WBC RARE, Urine Bacteria RARE H, Granular Casts FEW H, Urine Mucus RARE, Urine Hemoglobin LARGE H, Urine Glucose >=1000 H 08/05/161928: Anion Gap 16, Estimated GFR > 60, BUN/Creatinine Ratio 25.5 H, Glucose 444 H, Calcium 8.5, Total Bilirubin 0.5, AST 16 L, ALT 33, Alkaline Phosphatase 202 H , Troponin I < 0.01, Total Protein 7.6, Albumin 3.6, Globulin 4.0, Albumin/ Globulin Ratio 0.9 L, CBC w Diff NO MAN DIFF REQ, RBC 4.78, MCV 79.9 L, MCH 26.0 L, RDW 16.7 H, MPV 6.6 L, Gran % 88.7 H, Lymphocytes % 6.0 L, Monocytes % 5.0, Eosinophils % 0.2, Basophils % 0.1, Absolute Granulocytes 8.4 H, Absolute Lymphocytes 0.6 L, Absolute Monocytes 0.5, Absolute Eosinophils 0, Absolute Basophils 0, PUBS MCHC 32.6 L, Acetone Level POSITIVE AT 1:4 DIL Microbiology 08/06 57 LOWER RESP: Respiratory Culture - ORD 08/06 57 LOWER RESP: Gram Stain - ORD 08/05 2149 URINE ROUT: Urine Culture - RECD 08/05 1618 BLOOD: Blood Culture - ORD 08/05 1618 BLOOD: Blood Culture - ORD Diagnostic Data EKG Results Sinus rhythm, tachycardic at 123, OR of 168, QTC of 447 Assessment/Plan Assessment: In summary this is a 50-year-old gentleman with past medical history of type 1 diabetes mellitus complicated with diabetic neuropathy, osteomyelitis status post left fourth and fifth toe amputation as well as right metatarsal amputation , peripheral vascular disease, depression, hypertension, hyperlipidemia, chronic pain disorder on some oxygen on, previous MRSA infection, chronic nonhealing lesions on the foot as well as montiel of tibia, on the left hand and various other places (worsened due to uncontrolled scratching behavior), seen in the ER yesterday for hyperglycemia, sent home as the patient did not want to stay after blood sugar in 200s, was sent intact to [facility] ER today due to concern of worsening lethargy, hyperglycemia, decreased by mouth intake. Vitals at the emergency department were MAXIMUM TEMPERATURE of 97.6, pulse of 126, respiration of 14, blood pressure 130/78, he was 100% saturating on 4 L, was gradually titrated down to 2 L. Relevant lab : No white count, A/H of 12.5/38.2 (stable), platelets 371. Sodium of 125, when corrected for hyperglycemia of 444, sodium was 133, Ag : 16, bicarb :18 Liver function tests, mostly normal, alkaline phosphatase 202, troponin negative less than 0.01. Blood cultures, urine cultures, lower respiratory cultures prior to giving antibiotics. EKG showed normal sinus tachycardia. UA showed protein greater than 300, ketones positive, rare WBCs,25 to 50 RBCs. Problem list alongwith assesment and plan : #1 Mild diabetic ketoacidosis * Mr. Bonilla was found to be hyperglycemic at 444, serum acetone was positive, anion gap was 16, bicarbonate was low at 18. * Patient was started on insulin drip. * Ct insulin Gtt, titrate per protocol,ct tomonitor fingersticks and continue IV normal saline with KCl,once her sugars are below 250 will switch to D5 half- normal saline. * Case discussed with , he is to see the patient in a.m. * We'll switch to subcutaneous insulin in the morning. * keep patient npo for now,Once switch to oral diet,start novolog SS. * Patient does not have a white count, is tachycardic, however the blood pressure is stable, 1 point for sepsis, looking for trigger that put the patient into DKA, there is a likely possibility that his chronic wound in the foot are infected as they have been draining pus. * He has had a history of previous MRSA infection. * Due to the repeated presentation with lethargy, weakness, decreased by mouth intake, tachycardia, DKA with hyperglycemia, even though the patient does not have typical signs of sepsis,we would like to cover him with one time of IV vancomycin and Unasyn, ID consult in a.m. for further management of the chronic wound. #2 Diabetic foot. * The wounds in the right lower leg are pretty much in nonhealing status with pockets of pus. * We will start of IV vancomycin 1 gm q12 and IV Unasyn q6 * Continue to follow blood cultures, jorge cultures. * MRI of right foot, also tibial montiel area to rule out Osteomyelitis. * ID consult in a.m. * Dr. Denise consult in a.m. for the chronic nonhealing wound, MRI of the foot to rule out osteomyelitis. * Wound care consult for chronic nonhealing wound secondary to scratching. * Check HbA1c. #3 History of depression, anxiety, chronic pain syndrome. * We will hold all his medications for now however will restart it from tomorrow once the patient starts taking by mouth. * Continue Seroquel 300 mg every afternoon. * Continue gabapentin 1600 mg every morning, patient takes gabapentin 3 tablets of 800 mg QPM i.e 2400 mg which is a very high dosage. * We'll hold off ordering the p.m. dose for now. * I confirmed the dosage with patient's GF and however need further confirmation in am. * Ct buspirone 10 mg 3 times a day from a.m. tomorrow once the patient starts eating. #4 Diabetic nueropathy. * Continue Cymbalta 30 mg every morning. * Follow hba1c * Dr Feliz to see patient in am. #5 H/o HTN. * Ct quinipril at home dosage * monitor BP closely. #6 H/o hyperlipidemia * Ct crestor #7 H/o GERD * Ct prevacid. #8 H/o chronic pain syndrome. * Patient takes suboxone * Please confirm in am. #9 H/O picking disorder * ct primidone and propanolol at home dosage. We discussed the CODE STATUS this patient, he said that he does not want resuscitation or intubation however when we talked with the GF she said that she discussed this with him earlier that the evening and she will be talking to him about being full code tomorrow, he did say to her that he wanted everything done therefore we'll keep him full code untill tomorrow when the girlfriend talks to him and clarifies the CODE STATUS. FC for now. Patient is nothing by mouth, switch to consistent carbohydrate 3 once takes oral diet. Mild/moderate and severe pain pathway. DVT prophylaxis with Lovenox. As Ranked By This Provider Problem List: 1. DIABETIC KETOACIDOSIS Core Measures/Miscellaneous Acute Coronary Syndrome ACS Diagnosis: No Cerebrovascular Accident CVA/TIA Diagnosis: No Congestive Heart Failure CHF Diagnosis: No Venous Thromboembolism VTE Risk Factors: Age > 40 No Mech VTE prophylaxis d/t: No contraindications No VTE Pharm Prophylaxis d/t: No contraindications VTE Diagnosis: No VTE Type: NONE VTE Confirmed by (Test): NONE Severe Sepsis Severe Sepsis Present: No Septic Shock Septic Shock Present: No Miscellaneous Documentation Attending Case Discussed With: ROSA KUMAR MD Primary Care Physician: FERNANDO FELIZ MD Patient sees these Specialists Dr feliz Level of Patient Care: Critical Care (CRI) Resident Review Statement Resident Statement: admitted by resident ROSA KUMAR 08/06/16 0404: Attending MD Review Statement Attending Statement Attending MD Statement: examined this patient, discuss w/resident/PA/CORRECTIONAL OFFICER SERGEANT, agreed w/resident/PA/CORRECTIONAL OFFICER SERGEANT, reviewed EMR data (avail), reviewed images, amended to note Attending Assessment/Plan: Cc: Lethargy and weakness PMH: COPD, depression, anxiety, insulin-dependent diabetes, HTN, HLD, diabetic neuropathy, current smoker, history of opiate dependence and IV abuse, tendency of skin picking, left lower extremity BKA, right lower extremity transMetatarsal amputation, multiple osteomyelitis, PVD Patient was brought in ER by his girlfriend for decreased by mouth intake, generalized lethargy and weakness. Patient was just not himself according to her. Patient was brought in yesterday in ER for hyperglycemia, was hydrated with IV fluids given insulin and was discharged home once blood sugars were under control. Patient had been having hyperglycemia since last 3 days according to home health nurse visits even though patient is not eating anything. Because patient was not eating much they have not been giving him his sliding scale insulin. Patient has chronic nonhealing wounds, girlfriend called the patient was not particularly worried about any of these wounds.. Patient has skin picking habit. Patient does not provide any detailed history and denies everything Except honestly admitting that he picks on his skin. Vitals: Afebrile, tachycardia, RR 20, blood pressure 130/78, saturating well on room air On exam: A O 3, no acute distress, lethargic, cachectic, no JVD, mucosa dry, multiple skin scars throughout the body. superficial wounds: Lateral aspect of left upper extremity, lateral aspect of right upper extremity, lateral aspect near the right knee. Patient has superficial wound on montiel on the right side, with superficial punctate pus discharge. The right lower extremity has transmetatarsal amputation plantar aspect has 2 cm ulcer deep, boggy feeling on the plantar aspect, squeezes pus out from the ulcer. CVS: S1-S2 tachycardia. RS: Clear to auscultate bilaterally. Abdomen: Soft, NT, ND, bowel sounds present. Peripheral pulses decreased in volume Labs: WBC 9.4, neutrophils 88%, hemoglobin 12.5, hematocrit 38.2, platelet 371. At presentation sodium 125, chloride 92, bicarbonate 18, anion gap 16, BUN 28, creatinine 1.1, glucose 444, calcium 8.5, AST 16, ALT 33, alkaline phosphatase 202. Acetone level positive 1:4 dilution UA positive for ketones, RBC 25-50 A and P Patient is poor historian, history obtained from his friend who helps him and his medications and daily activities but does not live with him. She found him more lethargic and not himself in last 2-3 days, decreased by mouth intake, hyperglycemia so she brought him in the ER. Patient has chronic nonhealing wound on right lower extremity for which he follows up with [facility], visit 1 week back. Patient denies any recent antibiotic use or any recent infections. On a examination right lower extremity foot ulcer and montiel lesion looks secondarily infected with pus discharge. Plantar aspect ulcer has a bogginess to palpate and squeezes pus. Patient also is in mild DKA with hyperglycemia. Has been persistently hyperglycemic in last 3 days. Patient was started on insulin drip in ER + DKA + Diabetic foot infection + Uncontrolled diabetes + Depression, anxiety + Previous MRSA infection + Diabetic neuropathy - Admit to ICU - BMP every 4 hours - Continue insulin drip, titrate to every hourly fingersticks - Consult endocrinology in a.m. - Once the gap closes change insulin deep trip to basal and sliding scale insulin - Continue aggressive hydration as patient persists to be tachycardic - Nothing by mouth - Check lactic acid - Repeat EKG in a.m. - Trend troponin 1 more set - Podiatry consultation - Wound care consult, ID consult - Continue vancomycin and Unasyn - MRI of the right foot - Blood cultures, UA urine culture, U tox - Continue all his home medications Patient states that he does not want to be resuscitated and wants to be DNR/DNI. Patient's girlfriend states that patient is severely depressed and previously when she had discussed with him patient was full code, currently she request him to be full code and she will come and speak to him again in morning regarding the CODE STATUS. TTS 30 min
--- NOTE | 2016-08-06 00:50 | NUR ---
CMP DRAWN AFTER GREAT DIFFICULTY AND SENT TO LAB.
--- NOTE | 2016-08-06 00:59 | NUR ---
FINGERSTICK GLUCOSE LEVEL READING 287
--- NOTE | 2016-08-06 01:30 | NUR ---
HOUSE STAFF HERE. DR PENA AT BEDSIDE--DRSGS REMOVED FROM RLE --OPEN WOUND PRESENT OOZING SEROUS AND PURULENT DRAINAGE. REDRESSED W/GAUZE AND CHASE. OP SITES APPLIED TO OPEN WOUNDS PRESENT ON BOTH ELBOWS AND R CALF.
--- NOTE | 2016-08-06 01:59 | NUR ---
FINGERSTICK GLUCOSE LEVEL READING 310
--- NOTE | 2016-08-06 02:25 | NUR ---
REPORT CALLED TO ADRY WHITTAKER
[2016-08-06 03:11] VITALS: BP 180/100
--- NOTE | 2016-08-06 03:34 | NUR ---
ADMITTD A 51 YEAR OLD MALE FROM HOME BECAUSE OF ELEVATED BS. FAMILY STATED THAT HE WAS LETHARGIC. HE WAS GIVEN 2LITERS OF NS IN THE ER. ACCUCHECKS WAS IN THE 300'S IN THE ER. PT WAS STARTED ON INSULIN GTT. NS +40 MEQ KCL AT 100ML/H STARTED WELL
--- NOTE | 2016-08-06 04:06 | Admission Certification ---
Admission Certification Certification Statement - As attending physician, I certify that at the time of - admission, based on clinical presentation, severity of - symptoms, need for further diagnostic testing and - therapeutic interventions, and risk of adverse outcomes - without in-hospital treatment, in my clinical assessment, - this patient requires an acute hospital stay for a minimum - of two nights or longer. I have also considered psychsocial - factors such as support system, advanced age, financial - issues, cognitive issues, and failed out-patient treatments, - past re-admission history, safety of patient, and lack of - compliance as applicable. Specific rationale supporting this admission is: DKA, diabetic foot infection
--- NOTE | 2016-08-06 05:13 | NUR ---
ACCUCHECK Q1H, INSULIN GTT AT 2MG ORDERED. D51/2NS + 20 MEQ KCL AT 100 INFUSING ORDERED. SATURATION 99% ON 2L O2. DENIES PAIN AT HIS TIME.
--- NOTE | 2016-08-06 07:46 | NUR ---
Physical therapy: Orders for PT eval and treat received. Per nsg, patient not stable at this time for PT eval. Will cancel PT for today and follow up with patient tomorrow as appropriate. Thank you.
--- NOTE | 2016-08-06 07:58 | PN- Housestaff ---
SONIA WU,LISA 08/06/16 0758: Subjective Follow-up For: DKA Diabetic foot infection Uncontrolled DM Depression, anxiety Previous MRSA infection Diabetic neuropathy Complaints: Patient hungry for food and thirsty Tele-Events Since Last Visit: No telemetry events, NSR. Subjective: Patient seen and examined at bedside this AM. He was sitting comfortably in bed in no acute distress requesting a diet as he is hungry and thirsty. He denies chest pain, shortness of breath, nauea, vomiting or other complaints. Review of Systems Constitutional: Denies: chills, fever. EENTM: Denies: visual changes, hearing changes, nasal congestion. Cardiovascular: Denies: chest pain, palpitations. Respiratory: Denies: cough, short of breath. Gastrointestinal: Denies: abdominal pain, nausea, vomiting. Genitourinary: Denies: dysuria. Musculoskeletal: Denies: joint pain. Skin: Reports: lesions (R foot 2cm with pus). Denies: rash. Neurological/Psychological: Denies: confusion, headache. Hematologic/Endocrine: Denies: bruising. Objective Last 24 Hrs of Vital Signs/I&O Vital Signs Date Time Temp Pulse Resp B/P B/P Pulse O2 O2 Flow FiO2 Mean Ox Delivery Rate 08/06 0914 118 180/90 08/06 0800 100.0 126 22 158/82 100 Nasal 2.0L Cannula 08/06 0800 100 Nasal 2.0L Cannula 08/06 0400 99 Nasal 2.0L Cannula 08/06 0329 98 Nasal 2.0L Cannula 08/06 0311 97.7 128 20 180/100 98 Nasal 2.0L Cannula 08/06 0108 115 20 135/98 100 Nasal Cannula 08/05 2131 98.7 118 18 164/82 100 08/05 2050 98.6 119 14 141/83 08/05 1911 Nasal 2.0L Cannula 08/05 191 98.6 123 18 142/79 100 Nasal 2.0L Cannula 08/05 1825 123 15 146/78 08/05 1618 97.6 126 14 130/78 100 Nasal 4.0L Cannula Intake & Output 08/06 1600 08/06 0800 08/06 0000 Intake Total 2108 1000 Output Total 800 350 Balance 1308 650 Intake, IV 2007 1000 Intake, Oral 100 Output, Urine 800 350 Patient 135 lb 140 lb Weight Weight Estimated Measurement Method Physical Exam General Appearance: Alert, Oriented X3, Cooperative, No Acute Distress Skin: Right foot 2 cm lesion with pus present, right tibial montiel 2x4 cm lesion that is pale with some pus noted Skin Temp/Moisture Exam: Warm/Dry HEENT: Atraumatic, PERRLA, Slightly dry mucous membranes Neck: Supple, No JVD Lymphatic: Cervical nl Cardiovascular: Regular Rate, Normal S1, Normal S2 Lungs: Normal Air Movement Abdomen: Normal Bowel Sounds, Soft, No Tenderness Neurological: Normal Speech, Normal Tone Extremities: No Clubbing, No Cyanosis, No Edema Current Medications: Current Medications Sig/Jonny Start time Last Medication Dose Route Stop Time Status Admin Amitriptyline HCl 100 MG AT BEDTIME 08/06 2199 AC PO Ampicillin Sodium/ 1,500 MG Q6H 08/06 0930 AC Sulbactam Sodium IV Sodium Chloride 100 ML Atorvastatin Calcium 40 MG QPM 08/06 2200 AC PO Buspirone HCl 10 MG TID 08/06 1000 AC 08/06 PO 0914 Duloxetine HCl 30 MG QAM 08/06 1000 AC 08/06 PO 0914 Gabapentin 1,600 MG QAM 08/06 1000 DC PO Gabapentin 1,600 MG QAM 08/06 1000 AC 08/06 PO 0915 Insulin Aspart 0 TIDAC 08/06 1200 DC SC Insulin Aspart 0 TIDAC/HS 08/06 1200 AC 08/06 SC 1135 Insulin Detemir 15 UNITS BID 08/06 1000 08/06 SC 0924 Insulin Human Regular 100 UNIT Q24H 08/06 0045 AC 08/06 Sodium Chloride 100 ML IV 0230 Insulin Human Regular 100 UNIT ONCE ONE 08/05 2030 DC 08/05 Sodium Chloride 100 ML IV 08/05 Magnesium Oxide 400 MG ONE ONE 08/06 1215 UNVr PO 08/06 1216 Omeprazole 40 MG DAILY AC 08/06 0700 AC 08/06 PO 0914 Potassium Chloride 20 MEQ Q10H 08/06 0415 DC 08/06 Dextrose/Sodium 1,000 ML IV 0520 Chloride Potassium Chloride 40 MEQ Q10H 08/06 0115 DC 08/06 Sodium Chloride 1,000 ML IV 0125 Potassium Chloride 40 MEQ .Q10H 08/06 0030 CAN Sodium Chloride 1,000 ML IV Primidone 100 MG TID 08/06 1000 AC 08/06 PO 0914 Propranolol HCl 40 MG BID 08/06 1000 AC 08/06 PO 0914 Quetiapine Fumarate 300 MG QPM 08/06 2200 AC PO Quetiapine Fumarate 100 MG 0800,1200,1800 08/06 0800 AC 08/06 PO 1136 Sodium Chloride 1,000 ML Q13H 08/06 1100 AC 08/06 IV 1139 Sodium Chloride 1,000 ML BOLUS ONE 08/05 1630 DC 08/05 IV 08/05 1729 1830 Sodium Chloride 1,000 ML BOLUS ONE 08/05 1630 DC 08/05 IV 08/05 1729 2003 Vancomycin HCl 1,000 MG 0800,2000 08/06 0800 AC 08/06 Sodium Chloride 250 ML IV 1000 Last 24 Hrs of Lab/Bart Results Last 24 Hrs of Labs/Mics: Laboratory Tests 08/06/16 0940: Anion Gap 12, Estimated GFR > 60, Glucose 259 H, Calcium 8.2 L, Phosphorus 2.7 , Magnesium 1.6, Total Bilirubin 0.3, AST 13 L, ALT 18 L, Troponin I Pending, Albumin 3.1 L 08/06/16 0848: Lactic Acid Cancelled 08/06/16 0700: Lactic Acid 1.0, CBC w Diff MAN DIFF ORDERED, RBC 3.92 L, MCV 80.3, MCH 26.4 L , RDW 16.7 H, MPV 7.5, Gran % 85.3 H, Lymphocytes % 6.8 L, Monocytes % 7.2, Eosinophils % 0.2, Basophils % 0.5, Absolute Granulocytes 8.7 H, Segmented Neutrophils 80 H, Band Neutrophils 6 H, Absolute Lymphocytes 0.7 L, Lymphocytes 8 L, Monocytes 6, Absolute Monocytes 0.7 H, Absolute Eosinophils 0 , Absolute Basophils 0, Platelet Estimate VERIFIED BY SMEAR, Anisocytosis 1+, PUBS MCHC 32.8 L 08/06/16 0045: Anion Gap 13, Estimated GFR > 60, BUN/Creatinine Ratio 28.9 H, Glucose 307 H, Calcium 7.8 L, Total Bilirubin 0.4, AST 15 L, ALT 24, Alkaline Phosphatase 149 H, Total Protein 6.2 L, Albumin 2.8 L, Globulin 3.4, Albumin/Globulin Ratio 0.8 L 08/05/16 2150: Urine Opiates Screen 108.00, Methadone Screen 91, Barbiturate Screen 740 H, Ur Phencyclidine Scrn < 6.00, Amphetamines Screen < 100, U Benzodiazepines Scrn > 800 H, Urine Cocaine Screen < 50, Urine Cannabis Screen < 5.00, Urinalysis LIGHT H, Urine Color YEL, Urine Clarity CLEAR, Urine pH 6.0, Ur Specific [place] 1.025, Urine Protein >=300 H, Urine Ketones 15 H, Urine Nitrite NEG, Urine Bilirubin NEG@ICTO, Urine Urobilinogen 0.2, Ur Leukocyte Esterase NEG, Ur Microscopic SEDIMENT EXAMINED, Urine RBC 25-50 H, Urine WBC RARE, Urine Bacteria RARE H, Granular Casts FEW H, Urine Mucus RARE, Urine Hemoglobin LARGE H, Urine Glucose >=1000 H 08/05/161928: Anion Gap 16, Estimated GFR > 60, BUN/Creatinine Ratio 25.5 H, Glucose 444 H, Hemoglobin A1c Pending, Calcium 8.5, Total Bilirubin 0.5, AST 16 L, ALT 33, Alkaline Phosphatase 202 H, Troponin I < 0.01, Total Protein 7.6, Albumin 3.6, Globulin 4.0, Albumin/Globulin Ratio 0.9 L, CBC w Diff NO MAN DIFF REQ, RBC 4.78, MCV 79.9 L, MCH 26.0 L, RDW 16.7 H, MPV 6.6 L, Gran % 88.7 H, Lymphocytes % 6.0 L, Monocytes % 5.0, Eosinophils % 0.2, Basophils % 0.1, Absolute Granulocytes 8.4 H, Absolute Lymphocytes 0.6 L, Absolute Monocytes 0.5, Absolute Eosinophils 0, Absolute Basophils 0, PUBS MCHC 32.6 L, Acetone Level POSITIVE AT 1:4 DIL Microbiology 08/06 0940 BLOOD: Blood Culture - RECD 08/06 09 BLOOD: Blood Culture - RECD 08/06 0400 UPPER RESP: Surveillance Culture - RECD 08/06 57 LOWER RESP: Respiratory Culture - COLB 08/06 57 LOWER RESP: Gram Stain - COLB 08/05 2149 URINE ROUT: Urine Culture - RECD 08/05 1618 BLOOD: Blood Culture - CAN Cancelled: 08/05 1618 BLOOD: Blood Culture - CAN Cancelled: SPECIMEN NOT RECEIVED IN LABORATORY Assessment/Plan Assessment: Mr. Bonilla is a 51 year old male with PMH COPD, IDDM, diabetic neuropathy, HTN, HLD, current tobacco abuse, history of opiate abuse, depression, anxiety, LLE BKA, RLE transmetatarsal amputation, several episdoes of osteomyelitis and PVD who presents with chief complaint of weakness, lethargy, decreased oral intake and high blood glucose levels. Of note, patient was noted to have decreased oral intake for three days prior to admission and therefore was not given his sliding scale insulin by his visiting nurse. In the ED: Vital signs showed T 97.6, HR 126, RR 14, BP 130/78 and O2 saturation of 100% on 4 L NC. Labs showed WBC 9.4, 88% neutrophils, H&H 12.5/38.2, Plt 371, Na 125, Cl 92, HCO3 18, AG 16, BUN/cre 28/1.1, Glu 444, + acetone, Ca 8.5, AST 16, ALT 33, Alk phos 202, UA with +ketones and 25-50 RBCs. EKG showed sinus tachycardia. Patient was admitted to the ICU and the following is the management: 1. DKA in the setting of uncontrolled IDDM * Patient initially admitted to ICU for insulin drip, DMP Q4 hours and aggressive hydration/electrolyte repletion * Anion gap and bicarbonate have normalized * Endocrinology consult appreciated * Patient's FSGs more appropriate this AM, insulin drip discontinued and patient started on 15 U SC levemir BID with NSS before meals and at bedtime as instructed by Dr. Mariely MD * Accuchecks changed from Q1 to TIDAC/HS * NS at 75 cc/h as patient remains hyponatremic * Diabetic diet (CC2) * Continue with electrolyte/BMP monitoring and aggressively replete electrolytes 2. 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 Michael MD) pending cultures * MRI right foot is pending * Continue neurontin for peripheral neuropathy * Blood cultures drawn this AM given before first dose of antibiotics! Follow up results 3. Depression, anxiety, chronic pain syndrome, picking disorder * Patient denies SI/HI at this point in time * Continue home medications, including amitriptyline, buspar, cymbalta, seroquel * Continue primidone and propanolol at home doses * Suboxone prescribed by Dr. Giovanni Ramsay MD in [place] according to patient - office contacted without answer, will need to confirm suboxone dose tomorrow 4. Previous MRSA infection * Continue isolation 5. HTN, HLD, GERD * Continue prilosec 40 mg PO daily * Lipitor 40 mg PO QPM * Quinipril on hold as SBP 90-100, restart once BP more stable FULL CODE DVTP: Lovenox SC Diet: CC2 Problem List: 1. Diabetes 2. DKA (diabetic ketoacidoses) Pain Ratin Pain Location: n/a Pain Goal: Remain pain free Pain Plan: PRN mild pain pathway. Tomorrow's Labs & Rationales: CBC (monitor for leukocytosis) ICU bundle (electrolyte repletion in setting of DKA) SERJIO WU,[facility] 08/06/16 1243: Attending MD Review Statement Attending Statement Attending MD Statement: examined this patient, discuss w/resident/PA/PEGA DEVELOPER, agreed w/resident/PA/PEGA DEVELOPER, discussed with family, reviewed EMR data (avail), discussed with nursing, discussed with case mgmt, reviewed images, amended to note Attending Assessment/Plan: Patient sitting comfortably in bed. Did not offer any complaints other than he was hungry and thirsty. Was admitted for early diabetic ketoacidosis. Has been seen by solution sales senior executive, appreciate their input. Follow-up endocrine recommendations. Follow-up wound care and podiatry. Continue with the current antibiotic regimen for now. Blood cultures were not sent and were canceled last evening , please resend the blood cultures and Follow-up results. ? Blood culture results reliability given patient has already received antibiotics.
[2016-08-06 08:00] VITALS: BP 158/82
[2016-08-06 08:15] LABS: ABSOLUTE BASOPHIL COUNT 0 /CUMM (0.0-0.2); ABSOLUTE EOSINOPHIL COUNT 0 /CUMM (0.0-0.7); ABSOLUTE GRANULOCYTE CT 8.7 /CUMM (1.4-6.5); ABSOLUTE LYMPH COUNT 0.7 /CUMM (1.2-3.4); ABSOLUTE MONOCYTE COUNT 0.7 /CUMM (0.10-0.60); BASOPHIL % 0.5 % (0.0-2.0); EOSINOPHIL % 0.2 % (0-5); GRANULOCYTE % 85.3 % (42.2-75.2); MEAN CORPUSCULAR HGB 26.4 PG (27.0-31.0); MEAN CORPUSCULAR HGB CONC 32.8 G/DL (33.0-37.0); MEAN CORPUSCULAR VOLUME 80.3 FL (80.0-94.0); MEAN PLATELET VOLUME 7.5 FL (7.4-10.4); PLATELET COUNT 354 /CUMM (130-400); RBC DISTRIBUTION WIDTH 16.7 % (11.5-14.5); RED BLOOD CELL CT 3.92 /CUMM (4.70-6.10); WHITE BLOOD CELL COUNT 10.2 /CUMM (4.8-10.8)
[2016-08-06 08:28] LABS: HEMATOCRIT 31.5 % (42-52)
--- NOTE | 2016-08-06 09:29 | Cons- Endocrinology ---
General Information and HPI Consulting Request Date of Consult: 08/06/16 Requested By: medical team Reason for Consult: Diabetic ketoacidosis Source of Information: patient, old records Exam Limitations: no limitations History of Present Illness: This 51-year-old male with a known history of diabetes mellitus type 1 with was sent to the emergency room by ambulance by his friend because he was lethargic. The patient had some nausea and vomiting. In speaking with the patient he readily admits that he has not been taking all of his insulin. He takes a cardiac medication for chronic pain syndrome and sometimes sleeps through his pre-meal insulin. He is very noncompliant on his diabetic regimen at home. Unfortunately he has had a left [id number] amputation for peripheral vascular disease and infection and still has infection despite a partial amputation in his other foot which is the right foot. He is followed by Dr. Patiño, a computer specialist in [place]. He denies any fever or chills. In the ER he was found to have diabetic ketoacidosis. Allergies/Medications Allergies: Coded Allergies: NO KNOWN ALLERGIES (07/16/15) Home Med List: Albuterol Sulfate (Ventolin Hfa) 90 MCG HFA.AER.AD 2 PUF INH PRN COPD ( Reported) Amitriptyline HCl 100 MG TABLET 1 TAB PO QHS UNKNOWN (Reported) Becaplermin (Regranex) 0.01 % GEL..GRAM. 1 AAMIR TOP DAILY WOUND RIGHT FOOT ( Reported) Buprenorphine HCl/Naloxone HCl (Suboxone 8 MG-2 MG Sl Film) 8 MG-2 MG FILM 3 STR SL DAILY CHRONIC PAIN (Reported) Buspirone HCl 10 MG TABLET 1 TAB PO TID MENTAL HEALTH (Reported) Duloxetine HCl 30 MG CAPSULE.DR 1 CAP PO QAM DEPRESSION (Reported) Esomeprazole (Nexium) 40 MG CAPSULE.DR 1 CAP PO DAILY GI (Reported) Fluticasone/Salmeterol (Advair 250-50 Diskus) 250 MCG-50 MCG/DOSE BLST.W.DEV 1 PUF INH BID COPD (Reported) Gabapentin (Neurontin) 800 MG TABLET 2 TAB PO QAM NERVE PAIN (Reported) Gabapentin (Neurontin) 800 MG TABLET 3 TAB PO QPM NERVE PAIN (Reported) Insulin Aspart (Novolog) 100 UNIT/1 ML VIAL DIABETES (Reported) glucose insulin dose 80-150mg/dl 5 units 151-200mg/dl 6 units 201-250mg/dl 7 units 251-300mg/dl 8 units 301-350mg/dl 9 units 351-400mg/dl 10units more than 400 please let know. Insulin Glargine,Hum.rec.anlog (Lantus Solostar) 100 UNIT/ML (3 ML) INSULN.PEN 21 UNITS SC BID DM (Reported) Primidone 50 MG TABLET 100 MG PO TID UNKNOWN (Reported) Propranolol HCl 40 MG TABLET 1 TAB PO BID BP (Reported) Quetiapine Fumarate (Seroquel) 100 MG TABLET 1 TAB PO 8AM, NOON, 6PM MENTAL HEALTH (Reported) Quetiapine Fumarate (Seroquel) 300 MG TABLET 1 TAB PO QHS MENTAL HEALTH ( Reported) Quinapril HCl (Accupril) 20 MG TABLET 1 TAB PO QAM HEART (Reported) Ranitidine HCl 300 MG TABLET 1 TAB PO QPM GI (Reported) Rosuvastatin Calcium (Crestor) 10 MG TABLET 1 TAB PO QHS CHOLESTEROL ( Reported) Sucralfate (Carafate) 1 GM TABLET 1 TAB PO 4 TIMES/DAY GI (Reported) Tramadol HCl 50 MG TABLET 1 TAB PO Q4H PAIN (Reported) Current Medications: Current Medications Sig/Jonny Start time Last Medication Dose Route Stop Time Status Admin Amitriptyline HCl 100 MG AT BEDTIME 08/06 2199 AC PO Ampicillin Sodium/ 1,500 MG Q6H 08/06 0930 AC Sulbactam Sodium IV Sodium Chloride 100 ML Atorvastatin Calcium 40 MG QPM 08/06 2200 AC PO Buspirone HCl 10 MG TID 08/06 1000 AC 08/06 PO 0914 Duloxetine HCl 30 MG QAM 08/06 1000 AC 08/06 PO 0914 Gabapentin 1,600 MG QAM 08/06 1000 DC PO Gabapentin 1,600 MG QAM 08/06 1000 AC 08/06 PO 0915 Insulin Aspart 0 TIDAC 08/06 1200 AC SC Insulin Detemir 15 UNITS BID 08/06 1000 AC 08/06 SC 0924 Insulin Human Regular 100 UNIT Q24H 08/06 0045 AC 08/06 Sodium Chloride 100 ML IV 0230 Insulin Human Regular 100 UNIT ONCE ONE 08/05 2029 DC 08/05 Sodium Chloride 100 ML IV 08/05 Omeprazole 40 MG DAILY AC 08/06 0700 AC 08/06 PO 0914 Potassium Chloride 20 MEQ Q10H 08/06 0415 AC 08/06 Dextrose/Sodium 1,000 ML IV 0520 Chloride Potassium Chloride 40 MEQ Q10H 08/06 0115 DC 08/06 Sodium Chloride 1,000 ML IV 0125 Potassium Chloride 40 MEQ .Q10H 08/06 0030 CAN Sodium Chloride 1,000 ML IV Primidone 100 MG TID 08/06 1000 AC 08/06 PO 0914 Propranolol HCl 40 MG BID 08/06 1000 AC 08/06 PO 0914 Quetiapine Fumarate 300 MG QPM 08/06 2200 AC PO Quetiapine Fumarate 100 MG 0800,1200,1800 08/06 0800 AC 08/06 PO 0915 Sodium Chloride 1,000 ML BOLUS ONE 08/05 1630 DC 08/05 IV 08/05 1729 1830 Sodium Chloride 1,000 ML BOLUS ONE 08/05 1630 DC 08/05 IV 08/05 1729 2004 Vancomycin HCl 1,000 MG 0800,2000 08/06 0800 AC Sodium Chloride 250 ML IV Review of Systems Review of Systems Constitutional: Denies: chills, fever. Cardiovascular: Denies: chest pain. Respiratory: Denies: short of breath. GI: Denies: nausea, vomiting. Musculoskeletal: Denies: back pain. Skin: Reports: lesions (right foot). Neurological/Psychological: Reports: anxiety, depressed, numbness, paresthesia. Hematologic/Endocrine: Reports: polyuria, polydipsia. 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 Home Who Do You Live With? self Services at Home: Nursing Primary Language: Indonesian Smoking Status: Current Everyday Smoker ETOH Use: denies use Illicit Drug Use: denies illicit drug use Name of POA/HCP: Spencer Chaudhari Functional Ability ADLs Independent: dressing, eating, toileting, bathing. Ambulation: cane, walker IADLs Independent: finances. Unknown: shopping, housework, food prep, telephone, transportation, medication admin. ECHO Results (as available) Date of last Echo 07/19/15 EF% 60 Exam & Diagnostic Data Last 24 Hrs of Vital Signs/I&O Vital Signs Date Time Temp Pulse Resp B/P B/P Pulse O2 O2 Flow FiO2 Mean Ox Delivery Rate 08/06 0400 99 Nasal 2.0L Cannula 08/06 0329 98 Nasal 2.0L Cannula 08/06 310 97.7 128 20 180/100 98 Nasal 2.0L Cannula 08/06 0108 115 20 135/98 100 Nasal Cannula 08/05 2130 98.7 118 18 164/82 100 08/05 2049 98.6 119 14 141/83 08/05 1910 Nasal 2.0L Cannula 08/05 1910 98.6 123 18 142/79 100 Nasal 2.0L Cannula 08/05 1825 123 15 146/78 08/05 161 97.6 126 14 130/78 100 Nasal 4.0L Cannula Intake & Output 08/06 1600 08/06 0800 08/06 0000 Intake Total 2108 1000 Output Total 800 350 Balance 1308 650 Intake, IV 2007 1000 Intake, Oral 100 Output, Urine 800 350 Patient 135 lb 140 lb Weight Weight Estimated Measurement Method Vital Signs Date Time Temp Pulse Resp B/P B/P Pulse O2 O2 Flow FiO2 Mean Ox Delivery Rate 08/06 0400 99 Nasal 2.0L Cannula 08/06 328 98 Nasal 2.0L Cannula 08/06 310 97.7 128 20 180/100 98 Nasal 2.0L Cannula 08/06 0108 115 20 135/98 100 Nasal Cannula 08/05 2130 98.7 118 18 164/82 100 08/05 2049 98.6 119 14 141/83 08/05 1910 Nasal 2.0L Cannula 08/05 1910 98.6 123 18 142/79 100 Nasal 2.0L Cannula 08/05 1825 123 15 146/78 08/05 1618 97.6 126 14 130/78 100 Nasal 4.0L Cannula Intake & Output 08/06 1600 08/06 0800 08/06 0000 Intake Total 8 1000 Output Total 800 350 Balance 1308 650 Intake, IV 2007 1000 Intake, Oral 100 Output, Urine 800 350 Patient 135 lb 140 lb Weight Weight Estimated Measurement Method Physical Exam General Appearance: alert, awake, thin Head: normal appearance Eyes: Bilateral: normal appearance. Neck: normal inspection Respiratory: normal breath sounds Cardiovascular: regular rate/rhythm Gastrointestinal: normal bowel sounds, soft Extremities: left [id number]-[id number] amputation. Right foot is bandaged and draining Skin: infection right foot Labs/Bart Results: Laboratory Tests 08/06 08/06 08/06 0848 0700 0045 Chemistry Sodium (137 - 145 mmol/L) 126 L Potassium (3.5 - 5.1 mmol/L) 3.9 Chloride (98 - 107 mmol/L) 98 Carbon Dioxide (22 - 30 mmol/L) 15 L Anion Gap (5 - 16) 13 BUN (9 - 20 mg/dL) 26 H Creatinine (0.7 - 1.2 mg/dL) 0.9 Estimated GFR (>60 ml/min) > 60 BUN/Creatinine Ratio (7 - 25 %) 28.9 H Glucose (65 - 99 mg/dL) 307 H Lactic Acid (0.7 - 2.1 mmol/L) Cancelled 1.0 Calcium (8.4 - 10.2 mg/dL) 7.8 L Total Bilirubin (0.2 - 1.3 mg/dL) 0.4 AST (17 - 59 U/L) 15 L ALT (21 - 72 U/L) 24 Alkaline Phosphatase (< 127 U/L) 149 H Total Protein (6.3 - 8.2 g/dL) 6.2 L Albumin (3.5 - 5.0 g/dL) 2.8 L Globulin (1.9 - 4.2 gm/dL) 3.4 Albumin/Globulin Ratio (1.1 - 2.2 %) 0.8 L Hematology CBC w Diff MAN DIFF ORDERED WBC (4.8 - 10.8 /CUMM) 10.2 RBC (4.70 - 6.10 /CUMM) 3.92 L Hgb (14.0 - 18.0 G/DL) 10.3 L Hct (42 - 52 %) 31.5 L MCV (80.0 - 94.0 FL) 80.3 MCH (27.0 - 31.0 PG) 26.4 L RDW (11.5 - 14.5 %) 16.7 H Plt Count (130 - 400 /CUMM) 354 MPV (7.4 - 10.4 FL) 7.5 Gran % (42.2 - 75.2 %) 85.3 H Lymphocytes % (20.5 - 51.1 %) 6.8 L Monocytes % (1.7 - 9.3 %) 7.2 Eosinophils % (0 - 5 %) 0.2 Basophils % (0.0 - 2.0 %) 0.5 Absolute Granulocytes (1.4 - 6.5 /CUMM) 8.7 H Segmented Neutrophils (42.2 - 75.2 %) Pending Absolute Lymphocytes (1.2 - 3.4 /CUMM) 0.7 L Absolute Monocytes (0.10 - 0.60 /CUMM) 0.7 H Absolute Eosinophils (0.0 - 0.7 /CUMM) 0 Absolute Basophils (0.0 - 0.2 /CUMM) 0 PUBS MCHC (33.0 - 37.0 G/DL) 32.8 L 05/20 2150 Toxicology Urine Opiates Screen (>2000 NG/ML) 108.00 Methadone Screen (>300 NG/ML) 91 Barbiturate Screen (>200 NG/ML) 740 H Ur Phencyclidine Scrn (>25 NG/ML) < 6.00 Amphetamines Screen (>1000 NG/ML) < 100 U Benzodiazepines Scrn (>200 NG/ML) > 800 H Urine Cocaine Screen (>300 NG/ML) < 50 Urine Cannabis Screen (>50 NG/ML) < 5.00 Urines Urinalysis LIGHT H Urine Color (YEL,AMB,STR) YEL Urine Clarity (CLEAR) CLEAR Urine pH (5.0 - 8.0) 6.0 Ur Specific [place] (1.001 - 1.035) 1.025 Urine Protein (NEG,<30 MG/DL) >=300 H Urine Ketones (NEG) 15 H Urine Nitrite (NEG) NEG Urine Bilirubin (NEG) NEG@ICTO Urine Urobilinogen (0.1 - 1.0 EU/dl) 0.2 Ur Leukocyte Esterase (NEG) NEG Ur Microscopic SEDIMENT EXAMINED Urine RBC (0 - 5 /HPF) 25-50 H Urine WBC (0 - 2 /HPF) RARE Urine Bacteria (NEG/NONE) RARE H Granular Casts (NONE /LPF) FEW H Urine Mucus (FEW,NONE) RARE Urine Hemoglobin (NEG) LARGE H Urine Glucose (N MG/DL) >=1000 H 08/05 1928 Chemistry Sodium (137 - 145 mmol/L) 125 L Potassium (3.5 - 5.1 mmol/L) 4.9 Chloride (98 - 107 mmol/L) 92 L Carbon Dioxide (22 - 30 mmol/L) 18 L Anion Gap (5 - 16) 16 BUN (9 - 20 mg/dL) 28 H Creatinine (0.7 - 1.2 mg/dL) 1.1 Estimated GFR (>60 ml/min) > 60 BUN/Creatinine Ratio (7 - 25 %) 25.5 H Glucose (65 - 99 mg/dL) 444 H Hemoglobin A1c (4.2 - 5.8 %) Pending Calcium (8.4 - 10.2 mg/dL) 8.5 Total Bilirubin (0.2 - 1.3 mg/dL) 0.5 AST (17 - 59 U/L) 16 L ALT (21 - 72 U/L) 33 Alkaline Phosphatase (< 127 U/L) 202 H Troponin I (<0.11 ng/ml) < 0.01 Total Protein (6.3 - 8.2 g/dL) 7.6 Albumin (3.5 - 5.0 g/dL) 3.6 Globulin (1.9 - 4.2 gm/dL) 4.0 Albumin/Globulin Ratio (1.1 - 2.2 %) 0.9 L Hematology CBC w Diff NO MAN DIFF REQ WBC (4.8 - 10.8 /CUMM) 9.4 RBC (4.70 - 6.10 /CUMM) 4.78 Hgb (14.0 - 18.0 G/DL) 12.5 L Hct (42 - 52 %) 38.2 L MCV (80.0 - 94.0 FL) 79.9 L MCH (27.0 - 31.0 PG) 26.0 L RDW (11.5 - 14.5 %) 16.7 H Plt Count (130 - 400 /CUMM) 371 MPV (7.4 - 10.4 FL) 6.6 L Gran % (42.2 - 75.2 %) 88.7 H Lymphocytes % (20.5 - 51.1 %) 6.0 L Monocytes % (1.7 - 9.3 %) 5.0 Eosinophils % (0 - 5 %) 0.2 Basophils % (0.0 - 2.0 %) 0.1 Absolute Granulocytes (1.4 - 6.5 /CUMM) 8.4 H Absolute Lymphocytes (1.2 - 3.4 /CUMM) 0.6 L Absolute Monocytes (0.10 - 0.60 /CUMM) 0.5 Absolute Eosinophils (0.0 - 0.7 /CUMM) 0 Absolute Basophils (0.0 - 0.2 /CUMM) 0 PUBS MCHC (33.0 - 37.0 G/DL) 32.6 L Toxicology Acetone Level (NEGATIVE) POSITIVE AT 1:4 DIL Assessment/Plan Assessment/Plan This 51-year-old male with a known history of type 1 diabetes with severe complications came to emergency room because of lethargy nausea and vomiting. He was found to be in early diabetic ketoacidosis. He was treated with an insulin drip overnight. His anion gap has normalized and his bicarbonate is normal. The patient still has evidence of hyponatremia. I would continue him on normal saline today at 75 mL per hour repeat his labs later on today around 4 PM. At this point we can order a diabetic diet and switch the patient to subcutaneous insulin. We should begin Levemir 15 units twice a day the first dose stat. We should also place him on sliding scale NovoLog before meals. Sliding-scale NovoLog before meals should be 80-150 give 6 units NovoLog, 151- 200 give 8 units NovoLog, 201-250 give 10 units NovoLog, 251-300 give 11 units NovoLog, 301-350 give 12 units NovoLog, 351-400 give 13 units NovoLog. The insulin drip can be shut off one hour after the first dose of Levemir and the first dose of NovoLog. A separate sliding-scale NovoLog should be written for bedtime. Bedtime sliding -scale NovoLog should be less than 250 give no insulin, 251-300 give 2 units NovoLog, 301-350 give 3 units NovoLog, 351-400 give 4 units NovoLog. The patient needs to be pancultured in view of the infection in his foot. Consult Acknowledgment - Thank you for your consult request.
--- NOTE | 2016-08-06 15:20 | NUR ---
Wound Care Assessment: Patient presents with multiple areas of skin breakdown that were present on admission. Bilateral upper extremities present with full thickness wounds to each forarms with a mixture of moist white/yellow slough and pale pink wound beds- Areas do not appear to be related to pressure. Coccyx and buttocks appear intact with no areas of pressure injury however buttocks is hyperpigmented. He is s/p a right transmetatarsal amputation- surgical site is healed however a diabetic ulcer is noted to the platar aspect of the amp site measuring 2.5 X 2 X 0.5cm. 100% pale pink moist wound bed. with no s/s of infection- Right montiel presets with a full thickness wound measuring 7.5 X 4cm- wound bed is mixed with moist yellow slough and moist pale pink tissue. Periwound is unremarkable. Scant amounts of serosangenous drainage is noted. Multiple areas of healed previous wounds are noted to his BLE- An additional full thickness wound is noted to his right outter thigh. 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 He is currently admitted to the [facility] but is a general medicine hold. Impression: Diabetic ulcer. noted to the r amp site. Multiple areas of full thickness wounds to his extremties. Healed areas also noted. Recommendations: Dr. Denise consulted and to be in for evaluation. Wounds currently cleaned by this RN- petroleum gauze applied to areas FB a DPD. Patient remains on a catergory 2 mattress. He was educated on turning and repositioning as well as wound care. Nutrition consult. Please follow up podiatry recommendations on wound care once evaluated. Full thickness wounds to BUE can be cleaned with normal saline daily followed by adaptic (petroleum gauze if adaptic not available) and then a DPD. Please notify wound care with any further decline.
--- NOTE | 2016-08-06 15:47 | Event Note ---
Event Note Event Note: Patient's pain specialist Dr. Spencer Ramsay MD ([phone]) was contacted in regards to patient's suboxone dose. Dr. Ramsay reported that Peterson takes 24 mg total, with 2 tabs in the AM and 1 tab in the evening. This has been ordered. Dr. Sobia MD is available for any further questions and can be contacted at the number above.
[2016-08-06 16:00] VITALS: BP 136/82
--- NOTE | 2016-08-06 18:16 | NUR ---
PATIENT HAVING LOW GRADE FEVERS THROUGHOUT THE DAY: 100.0, 99.5, 100.4, 100.0. 650 MG PO TYLENOL GIVEN AND DR. SCOTT AWARE. PATIENT DENIES FEELING WARM/HEAT AND DOES NOT FEEL WARM TO THE TOUCH. TURNED HEAT DOWN IN THE ROOM. CONTINUING TO MONITOR,
[2016-08-06 22:53] VITALS: BP 132/78
--- NOTE | 2016-08-07 03:58 | NUR ---
NURSE NOTE: PT HAS YET TO VOID SINCE I ARRIVED AT 7PM. SCHOOL PSYCHOMETRIST AWARE. PT REFUSING STRAIGHT CATH AT THIS TIME. SCHOOL PSYCHOMETRIST TO COME TALK TO PATIENT.WILL CONTINUE TO MONITOR.
[2016-08-07 07:12] VITALS: BP 106/62
--- NOTE | 2016-08-07 07:13 | PN- Housestaff ---
GUSTAVO WU,JON 08/07/16 0713: Subjective Follow-up For: dka possibly right foot osteomyelitis Subjective: patient's sugar was 66,166,70,169,263,278,281,284. we decreased levemir and novolog ss as per Dr. Schuster [facility]. patient adamently refuses MRI of right foot, and does not want any other ase certified technician to see him. He wants to follow up with Dr. Scott Patiño at [facility]. Despite multiple attempts by Dr. Jackson, Dr. Schmid, and myself to convince him to get the MRI here and we would forward the results to Dr. Patiño, he still refused. labs reviewed, na still 130, k 3.6, repleted with 1x kdur. leukocytosis improved. Review of Systems Constitutional: Reports: see HPI. Objective Last 24 Hrs of Vital Signs/I&O Vital Signs Date Time Temp Pulse Resp B/P B/P Pulse O2 O2 Flow FiO2 Mean Ox Delivery Rate 08/07 1259 105 110/70 08/07 0712 98.6 83 18 106/62 94 Room Air 08/06 2253 99.0 64 18 132/78 98 Room Air 08/06 2133 64 130/78 08/06 1721 100.0 08/06 1600 98 Room Air Room Air 08/06 1600 100.0 88 18 136/82 98 Room Air Room Air Intake & Output 08/07 1600 08/07 0800 08/07 0000 Intake Total 840 465 Output Total 375 Balance 465 465 Intake, IV 600 225 Intake, Oral 240 240 Output, Urine 375 Physical Exam General Appearance: Alert, Oriented X3, Cooperative, No Acute Distress HEENT: Atraumatic, PERRLA Cardiovascular: Regular Rate, Normal S1, Normal S2, No Murmurs Lungs: Clear to Auscultation, Normal Air Movement Abdomen: Normal Bowel Sounds, Soft, No Tenderness Neurological: Normal Speech Extremities: left bka right transmetatarsal amputation draining purulent material Current Medications: Current Medications Sig/Jonny Start time Last Medication Dose Route Stop Time Status Admin Acetaminophen 650 MG ONCE ONE 08/06 1715 DC 08/06 PO 08/06 1716 1721 Amitriptyline HCl 100 MG AT BEDTIME 08/06 2199 AC 08/06 PO 2127 Atorvastatin Calcium 40 MG QPM 08/06 2199 AC 08/06 PO 2128 Buprenorphine/ 2 TAB 0800 08/07 0800 AC 08/07 Naloxone SL 0824 Buprenorphine/ 1 TAB QPM 08/06 2200 AC 08/06 Naloxone SL 204 Buspirone HCl 10 MG TID 08/06 1000 AC 08/07 PO 0948 Ceftazidime 1,000 MG IQ8 08/06 1600 AC 08/07 IV 0807 Duloxetine HCl 30 MG QAM 08/06 1000 AC 08/07 PO 0948 Enoxaparin Sodium 40 MG DAILY 08/06 1306 AC 08/07 SC 0948 Gabapentin 1,600 MG QAM 08/06 1000 AC 08/07 PO 0948 Insulin Aspart 0 TIDAC/HS 08/06 1200 AC 08/07 SC 1257 Insulin Detemir 12 UNITS BID 08/07 1000 AC 08/07 SC 1257 Insulin Detemir 15 UNITS BID 08/06 1000 DC 08/06 SC 2315 Magnesium Sulfate 1 GM ONCE ONE 08/06 1630 OH 08/06 Dextrose/Water 100 ML IV 08/06 2028 1714 Metronidazole 500 MG IQ8 08/06 1600 AC 08/07 N/A 1 UNIT IV 0808 Omeprazole 40 MG DAILY AC 08/06 0700 08/07 PO 0533 Patient Medication 1 ED .STK-MED ONE 08/07 1249 DC Teaching ED 08/07 1250 Phosphate 250 MG PC AND AT BEDTIME 08/07 1300 AC 08/07 PO 08/07 210 1257 Phosphate 250 MG ONCE ONE 08/06 1630 DC 08/06 PO 08/06 1631 1720 Potassium Chloride 40 MEQ ONCE ONE 08/07 0900 DC 08/07 PO 08/07 0901 0949 Primidone 100 MG TID 08/06 1000 AC 08/07 PO 0949 Propranolol HCl 40 MG BID 08/06 1000 AC 08/07 PO 1259 Quetiapine Fumarate 300 MG QPM 08/06 2200 AC 08/06 PO 2128 Quetiapine Fumarate 100 MG 0800,1200,1800 08/06 0800 AC 08/07 PO 1258 Sodium Chloride 1,000 ML Q13H 08/06 1100 AC 08/06 IV 1139 Vancomycin HCl 1,000 MG 0800,2000 08/06 0800 AC 08/06 Sodium Chloride 250 ML IV 2128 Last 24 Hrs of Lab/Bart Results Last 24 Hrs of Labs/Mics: Laboratory Tests 08/07/16 0745: Anion Gap 7, Estimated GFR > 60, Glucose 65, Calcium 7.7 L, Phosphorus 2.3 L, Magnesium 1.9, Total Bilirubin 0.2, AST 21, ALT 29, Albumin 2.3 L, TSH 1.380, Free T4 1.41, Cortisol AM Sample 24.4 H, CBC w Diff NO MAN DIFF REQ, RBC 3.36 L, MCV 80.1, MCH 26.5 L, RDW 17.0 H, MPV 6.8 L, Gran % 78.8 H, Lymphocytes % 12.2 L, Monocytes % 7.9, Eosinophils % 0.9, Basophils % 0.2, Absolute Granulocytes 6.2, Absolute Lymphocytes 1.0 L, Absolute Monocytes 0.6, Absolute Eosinophils 0.1, Absolute Basophils 0, PUBS MCHC 33.1 08/06/16 2345: Anion Gap 9, Estimated GFR > 60, Glucose 166 H, Calcium 7.5 L, Phosphorus 2.4 L, Magnesium 1.9, Total Bilirubin 0.3, AST 32, ALT 21, Albumin 2.4 L 08/06/16 1600: Sodium Cancelled, Potassium Cancelled, Chloride Cancelled, Carbon Dioxide Cancelled, Anion Gap Cancelled, BUN Cancelled, Creatinine Cancelled, Glucose Cancelled, Calcium Cancelled, Phosphorus Cancelled, Magnesium Cancelled, Total Bilirubin Cancelled, AST Cancelled, ALT Cancelled, Albumin Cancelled 08/06/16 1520: Anion Gap 8, Estimated GFR > 60, Glucose 150 H, Calcium 7.9 L, Phosphorus 2.4 L, Magnesium 1.6, Total Bilirubin 0.2, AST 14 L, ALT 23, Troponin I 0.02, Albumin 2.9 L Assessment/Plan Assessment: Mr. Bonilla is a 51 year old male with PMH COPD, IDDM, diabetic neuropathy, HTN, HLD, current tobacco abuse, history of opiate abuse, depression, anxiety, LLE BKA, RLE transmetatarsal amputation, several episodes of osteomyelitis and PVD who presents with chief complaint of weakness, lethargy, decreased oral intake and high blood glucose levels. Of note, patient was noted to have decreased oral intake for three days prior to admission and therefore was not given his sliding scale insulin by his visiting nurse. In the ED: Vital signs showed T 97.6, HR 126, RR 14, BP 130/78 and O2 saturation of 100% on 4 L NC. Labs showed WBC 9.4, 88% neutrophils, H&H 12.5/38.2, Plt 371, Na 125, Cl 92, HCO3 18, AG 16, BUN/cre 28/1.1, Glu 444, + acetone, Ca 8.5, AST 16, ALT 33, Alk phos 202, UA with +ketones and 25-50 RBCs. EKG showed sinus tachycardia. Patient was admitted to the ICU for DKA and subsequently was transferred to general medicine once he was off the insulin drip and transitioned to SC insulin. # DKA in the setting of uncontrolled IDDM - Anion gap and bicarbonate have normalized * Patient initially admitted to ICU for insulin drip, now on GM on SC insulin * Endocrinology consult appreciated * Insulin levemir 12 bid, and novolog ss as per Dr. Schuster * Accuchecks TIDAC/HS * NS at 75 cc/h as patient remains hyponatremic * Diabetic diet (CC2) * Continue with electrolyte/BMP monitoring and aggressively replete electrolytes # Diabetic foot infection - Right foot lesion noted on admission, 2 cm with nonhealing base that is pale and there is noted pus drainage * Wound care consult placed, thinks it is all diabetic ulcers * Patient refuses further workup with MRI, refuses to be seen by other podiatrists. Wants to follow up with his own ase certified technician, Dr. 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 Michael MD) pending cultures. Blood cultures was drawn before first dose of antibiotics! Follow up results * Continue neurontin for peripheral neuropathy # Depression, anxiety, chronic pain syndrome, picking disorder * Patient denies SI/HI at this point in time * Continue home medications, including amitriptyline, buspar, cymbalta, seroquel * Continue primidone and propanolol at home doses * Suboxone prescribed by Dr. Giovanni Ramsay MD in [place], continue 24 mg daily # Previous MRSA infection * Continue isolation # HTN, HLD, GERD * Continue prilosec 40 mg PO daily * Lipitor 40 mg PO QPM * Quinipril on hold as SBP around 100, restart once BP more stable FULL CODE DVTP: Lovenox SC Diet: CC2 Problem List: 1. DIABETIC KETOACIDOSIS 2. Foot osteomyelitis, right Pain Ratin Pain Location: none Pain Goal: Remain pain free Pain Plan: mild pp Tomorrow's Labs & Rationales: cbc bep mg phos electrolyte repletion droppin h/h DVT/Prophylaxis: mechanical, pharmacological FANIANNA 08/07/16 1442: Attending MD Review Statement Attending Statement Attending MD Statement: examined this patient, discuss w/resident/PA/OIL BOILER, agreed w/resident/PA/OIL BOILER, discussed with family, reviewed EMR data (avail), discussed with nursing, discussed with case mgmt, reviewed images, amended to note Attending Assessment/Plan: Patient admitted for early DKA, possible foot infection, vital stable, refusing MRI of foot. + Diabetes uncontrolled. + DKA resolved + Possible diabetic infection. + Diabetic neuropathy - f/u endocrinology, insulin at d/c. - refusing Podiatry consultation and Eval of diabetic foot. refusing MRI. - ID consulted on broad spectrum abx, f/u ID and abx choice f/u cultures - MRI of the right foot. - Pain control - gi/dvt prophylaxis Patient non coperative with further eval, abx as per ID. anticipate d/c soon.
--- NOTE | 2016-08-07 07:45 | PN- Diabetes ---
Assessment/Plan Assessment: Patient states he feels okay this morning. States that he is eating well. However his blood sugar was low both after supper last night and also this morning his fingerstick sugar before breakfast is only 66. We need to reduce the patient's insulin. Plan: Suggest reduce the patient's Levemir to 12 units twice a day. In addition we need to adjust the patient's sliding scale NovoLog. Sliding-scale NovoLog before meals should be 80-150 give 4 units NovoLog, 151- 200 give 5 units NovoLog, 201-250 give 6 units NovoLog, 251-300 give 7 units NovoLog, 301-350 give 8 units NovoLog, 351-400 give 9 units NovoLog. Bedtime sliding-scale NovoLog can stay the same. The patient has drainage from his right foot and we need to await his blood cultures. His serum sodium when last on was 129 and we should keep him on the normal saline today. We should check a free T4, TSH and a.m. cortisol. Subjective Subjective: Feels okay Review of Systems Constitutional: Denies: chills, fever. Cardiovascular: Denies: chest pain. Respiratory: Denies: short of breath. Gastrointestinal: Denies: abdominal pain, nausea, vomiting. Skin: Reports: no symptoms. Objective Last 24 Hrs of Vital Signs/I&O Vital Signs Date Time Temp Pulse Resp B/P B/P Pulse O2 O2 Flow FiO2 Mean Ox Delivery Rate 08/08 711 98.6 83 18 106/62 94 Room Air 08/06 2253 99.0 64 18 132/78 98 Room Air 08/06 2133 64 130/78 08/06 1721 100.0 08/06 1600 98 Room Air Room Air 08/06 1600 100.0 88 18 136/82 98 Room Air Room Air 08/06 0914 118 180/90 08/06 0800 100.0 126 22 158/82 100 Nasal 2.0L Cannula 08/06 0800 100 Nasal 2.0L Cannula Intake & Output 08/07 0800 08/07 0000 08/06 1600 Intake Total 798 206 5639 Output Total 375 450 Balance 036 715 6716 Intake, IV 848 016 9771 Intake, Oral 240 240 400 Output, Urine 375 450 Vital Signs Date Time Temp Pulse Resp B/P B/P Pulse O2 O2 Flow FiO2 Mean Ox Delivery Rate 05/22 0712 98.6 83 18 106/62 94 Room Air 08/06 2253 99.0 64 18 132/78 98 Room Air 08/06 2133 64 130/78 08/06 1721 100.0 08/06 1600 98 Room Air Room Air 08/06 1600 100.0 88 18 136/82 98 Room Air Room Air 08/06 0914 118 180/90 08/06 0800 100.0 126 22 158/82 100 Nasal 2.0L Cannula 08/06 0800 100 Nasal 2.0L Cannula Intake & Output 08/07 0800 08/07 0000 08/06 1600 Intake Total 339 210 3200 Output Total 375 450 Balance 850 423 2785 Intake, IV 100 311 9324 Intake, Oral 240 240 400 Output, Urine 375 450 Physical Exam General Appearance: no apparent distress, alert, awake, thin Head: normal appearance Neck: normal inspection Respiratory: normal breath sounds Abdomen: normal bowel sounds Extremities: Right foot bandaged and draining Current Medications: Vital Signs Result Date Time Pulse Ox 94 08/07 0712 B/P 106/62 08/07 0712 O2 Delivery Room Air 08/07 07 Temp 98.6 08/07 0712 Pulse 83 08/07 0712 Resp 18 08/07 0712 O2 Flow Rate Room Air 08/06 1600 Current Medications Sig/Jonny Start time Last Medication Dose Route Stop Time Status Admin Acetaminophen 650 MG ONCE ONE 08/06 1715 DC 08/06 PO 08/06 1716 1721 Amitriptyline HCl 100 MG AT BEDTIME 08/06 2200 AC 08/06 PO 2127 Ampicillin Sodium/ 1,500 MG Q6H 08/06 0930 DC Sulbactam Sodium IV Sodium Chloride 100 ML Atorvastatin Calcium 40 MG QPM 08/06 2200 AC 08/06 PO 212 Buprenorphine/ 2 TAB 0800 08/07 0800 AC Naloxone SL Buprenorphine/ 1 TAB QPM 08/06 2200 AC 08/06 Naloxone SL 2042 Buspirone HCl 10 MG TID 08/06 1000 AC 08/06 PO 212 Ceftazidime 1,000 MG IQ8 08/06 1600 AC 08/07 IV 0000 Duloxetine HCl 30 MG QAM 08/06 1000 AC 08/06 PO 0914 Enoxaparin Sodium 40 MG DAILY 08/06 1306 AC 08/06 SC 1505 Gabapentin 1,600 MG QAM 08/06 1000 DC PO Gabapentin 1,600 MG QAM 08/06 1000 AC 08/06 PO 0915 Insulin Aspart 0 TIDAC 08/06 1200 DC SC Insulin Aspart 0 TIDAC/HS 08/06 1200 AC 08/06 SC 1720 Insulin Detemir 15 UNITS BID 08/06 1000 AC 08/06 SC 2315 Insulin Human Regular 100 UNIT Q24H 08/06 0045 DC 08/06 Sodium Chloride 100 ML IV 0230 Magnesium Oxide 400 MG ONE ONE 08/06 1215 DC 08/06 PO 08/06 1216 1505 Magnesium Sulfate 1 GM ONCE ONE 08/06 1630 DC 08/06 Dextrose/Water 100 ML IV 08/06 2029 1714 Metronidazole 500 MG IQ8 08/06 1600 AC 08/07 N/A 1 UNIT IV 0000 Omeprazole 40 MG DAILY AC 08/06 0700 AC 08/07 PO 0533 Phosphate 250 MG ONCE ONE 08/06 1630 DC 08/06 PO 08/06 1631 1720 Potassium Chloride 20 MEQ Q10H 08/06 0415 DC 08/06 Dextrose/Sodium 1,000 ML IV 0520 Chloride Primidone 100 MG TID 08/06 1000 AC 08/06 PO 2128 Propranolol HCl 40 MG BID 08/06 1000 AC 08/06 PO 2133 Quetiapine Fumarate 300 MG QPM 08/06 2200 AC 08/06 PO 2128 Quetiapine Fumarate 100 MG 0800,1200,1800 08/06 0800 AC 08/06 PO 1715 Sodium Chloride 1,000 ML Q13H 08/06 1100 AC 08/06 IV 1139 Vancomycin HCl 1,000 MG 0800,2000 08/06 0800 AC 08/06 Sodium Chloride 250 ML IV 2128 Findings Pertinent Lab/Bart Results: Laboratory Tests 08/06 08/06 08/06 08/06 08/06 2345 1600 1520 0940 0848 Chemistry Sodium (137 - 145 mmol/L) 129 L Cancelled 130 L 131 L Potassium (3.5 - 5.1 mmol/L) 3.9 Cancelled 4.1 4.3 Chloride (98 - 107 mmol/L) 100 Cancelled 100 98 Carbon Dioxide (22 - 30 mmol/L) 20 L Cancelled 23 20 L Anion Gap (5 - 16) 9 Cancelled 8 12 BUN (9 - 20 mg/dL) 17 Cancelled 17 20 Creatinine (0.7 - 1.2 mg/dL) 0.8 Cancelled 0.9 0.9 Estimated GFR (>60 ml/min) > 60 > 60 > 60 Glucose (65 - 99 mg/dL) 166 H Cancelled 150 H 259 H Lactic Acid Cancelled Calcium (8.4 - 10.2 mg/dL) 7.5 L Cancelled 7.9 L 8.2 L Phosphorus (2.5 - 4.5 mg/dL) 2.4 L Cancelled 2.4 L 2.7 Magnesium (1.6 - 2.3 mg/dL) 1.9 Cancelled 1.6 1.6 Total Bilirubin (0.2 - 1.3 mg/dL) 0.3 Cancelled 0.2 0.3 AST (17 - 59 U/L) 32 Cancelled 14 L 13 L ALT (21 - 72 U/L) 21 Cancelled 23 18 L Troponin I (<0.11 ng/ml) 0.02 0.03 Albumin (3.5 - 5.0 g/dL) 2.4 L Cancelled 2.9 L 3.1 L
[2016-08-07 08:51] LABS: ABSOLUTE BASOPHIL COUNT 0 /CUMM (0.0-0.2); ABSOLUTE EOSINOPHIL COUNT 0.1 /CUMM (0.0-0.7); ABSOLUTE GRANULOCYTE CT 6.2 /CUMM (1.4-6.5); ABSOLUTE MONOCYTE COUNT 0.6 /CUMM (0.10-0.60); BASOPHIL % 0.2 % (0.0-2.0); EOSINOPHIL % 0.9 % (0-5); GRANULOCYTE % 78.8 % (42.2-75.2); HEMATOCRIT 26.9 % (42-52); MEAN CORPUSCULAR HGB 26.5 PG (27.0-31.0); MEAN CORPUSCULAR HGB CONC 33.1 G/DL (33.0-37.0); MEAN CORPUSCULAR VOLUME 80.1 FL (80.0-94.0); MEAN PLATELET VOLUME 6.8 FL (7.4-10.4); PLATELET COUNT 289 /CUMM (130-400); RED BLOOD CELL CT 3.36 /CUMM (4.70-6.10); WHITE BLOOD CELL COUNT 7.9 /CUMM (4.8-10.8)
--- NOTE | 2016-08-07 14:33 | Discharge Summary ---
See Addendum Visit Information Visit Dates Admission Date: 08/05/16 Discharge Date: 08/08/16 Hospital Course Course Attending Physician: ANNA MOHR MD Primary Care Physician: FERNANDO SCHUSTER MD Hospital Course: Mr. Bonilla is a 51 year old male with PMH COPD, IDDM, diabetic neuropathy, HTN, HLD, current tobacco abuse, history of opiate abuse, depression, anxiety, LLE BKA, RLE transmetatarsal amputation, several episodes of osteomyelitis and PVD who presents with chief complaint of weakness, lethargy, decreased oral intake and high blood glucose levels. Of note, patient was noted to have decreased oral intake for three days prior to admission and therefore was not given his sliding scale insulin by his visiting nurse. In the ED: Vital signs showed T 97.6, HR 126, RR 14, BP 130/78 and O2 saturation of 100% on 4 L NC. Labs showed WBC 9.4, 88% neutrophils, H&H 12.5/38.2, Plt 371, Na 125, Cl 92, HCO3 18, AG 16, BUN/cre 28/1.1, Glu 444, + acetone, Ca 8.5, AST 16, ALT 33, Alk phos 202, UA with +ketones and 25-50 RBCs. EKG showed sinus tachycardia. Patient was admitted to the ICU for DKA and subsequently was transferred to general medicine once he was off the insulin drip and transitioned to SC insulin. On the day of discharge, the patient has an episode of hypoglycemia, with blood sugar of 50. We gave juices to him, but even after that his blood sugar remained low. We gave IV, 25 gram of dextrose. After 20 minutes, blood sugar, came up to 80. We discussed with Dr. Schuster, and he changed the sliding scale and advised to observe the patient for next 24-hour period. After getting IV dextrose, patient felt more comfortable and wanted to go home. We told him about the risk of having hypoglycemia and its complication including fall, seizures, including . He was adament about leaving. He called the ride and wanted to leave without even taking the discharge prescriptions. We gave him prescription, and he left absconded. 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 Patient adamently refuses MRI of right foot to evaluate for possible osteomyelitis, and does not want any other section maintainer to see him. He wants to follow up with Dr. Kurt Patiño at [facility]. Despite multiple attempts by Dr. Mohr, Dr. Schmid, and myself to convince him to get the MRI here and we would forward the results to Dr. Patiño, he still refused. On further ID evaluation by Dr. Rodriguez, he felt that although he may have underlying osteomyelitis of the right foot, there does not appear to be any acute inflammation of the foot and his right anterior tibial ulcer does not have any surrounding cellulitis; therefore he can be followed off antibiotics and followed up at [facility]. Allergies: Coded Allergies: NO KNOWN ALLERGIES (07/16/15) Disposition Summary Disposition Principal Diagnosis: Diabetic ketoacidosis Additional Diagnosis: Right foot infection, possible osteomyelitis Discharge Disposition: home health services Discharge Instructions General Discharge Information Code Status: Full Code Patient's Diet: Diabetic diet Patient's Activity: As tolerated Follow-Up Instructions/Appts: You were seen/treated for: Diabetic ketoacidosis Special Instructions: Please follow up with Dr. Schuster and Dr. Patiño in 1 week. You need further workup for your foot infection. patient had episode of hypoglycemia and advised to stay in hospital for 24 hrs but he refused for it. he denies to stay . we told him risk of fall, seizures, including but he refused for it. Medications at Discharge Discharge Medications: Stop taking the following medications: Insulin Glargine,Hum.rec.anlog (Lantus Solostar) 100 UNIT/ML (3 ML) INSULN.PEN Inject into fatty tissue TWICE DAILY Continue taking these medications: Buprenorphine HCl/Naloxone HCl (Suboxone 8 MG-2 MG Sl Film) 8 MG-2 MG FILM 3 Strip SUBLINGUAL DAILY Instructions: 2 in am 1 in pm Comments: Last Taken: 08/08/16 Time: 8:30 AM Gabapentin (Neurontin) 800 MG TABLET 2 Tablet ORAL Every Morning Comments: Last Taken: 08/08/16 Time: 9:30 AM (1600MG GIVEN IN AM) Gabapentin (Neurontin) 800 MG TABLET 3 Tablet ORAL Every night Comments: NOT GIVEN IN HOSPITAL Quinapril HCl (Accupril) 20 MG TABLET 1 Tablet ORAL Every Morning Comments: Last Taken: 08/08/16 Time: 9:30 AM (RECEIVED LISINOPRIL 20MG PO) Rosuvastatin Calcium (Crestor) 10 MG TABLET 1 Tablet ORAL TAKE AT BEDTIME Comments: Last Taken: 08/07/16 Time: 9:30 PM Quetiapine Fumarate (Seroquel) 100 MG TABLET 1 Tablet ORAL 8AM, NOON, 6PM Comments: Last Taken:07/23/15 Time:1200 Quetiapine Fumarate (Seroquel) 300 MG TABLET 1 Tablet ORAL TAKE AT BEDTIME Comments: Last Taken: 08/08/15 Time: 9:30 PM Buspirone HCl (Buspirone HCl) 10 MG TABLET 1 Tablet ORAL THREE TIMES DAILY Comments: Last Taken: 08/09/15 Time: 9:30 AM Amitriptyline HCl (Amitriptyline HCl) 100 MG TABLET 1 Tablet ORAL TAKE AT BEDTIME Comments: Last Taken: 08/08/15 Time: 9:30 PM Duloxetine HCl (Duloxetine HCl) 30 MG CAPSULE.DR 1 Capsule ORAL Every Morning Comments: Last Taken: 08/09/15 Time: 9:30 AM Primidone (Primidone) 50 MG TABLET 100 Milligram ORAL THREE TIMES DAILY Comments: Last Taken: 08/09/15 Time: 9:30 AM Sucralfate (Carafate) 1 GM TABLET 1 Tablet ORAL 4 TIMES A DAY Comments: Last Taken:07/23/15 Time:0900 Tramadol HCl (Tramadol HCl) 50 MG TABLET 1 Tablet ORAL Q4H Comments: NOT GIVEN IN HOSPITAL Becaplermin (Regranex) 0.01 % GEL..GRAM. 1 Application On the skin DAILY Qty = 15 Comments: NOT GIVEN IN HOSPITAL Esomeprazole (Nexium) 40 MG CAPSULE.DR 1 Capsule ORAL DAILY Qty = 30 Comments: NOT GIVEN IN HOSPITAL Propranolol HCl (Propranolol HCl) 40 MG TABLET 1 Tablet ORAL TWICE DAILY Qty = 60 Comments: Last Taken: 08/08/16 Time: 9:30 AM Albuterol Sulfate (Ventolin Hfa) 90 MCG HFA.AER.AD 2 Puff Inhale through mouth as needed for COPD Qty = 18 Comments: NOT GIVEN IN HOSPITAL Fluticasone/Salmeterol (Advair 250-50 Diskus) 250 MCG-50 MCG/DOSE BLST.W.DEV 1 Puff Inhale through mouth TWICE DAILY Qty = 60 Comments: NOT GIVEN IN HOSPITAL Ranitidine HCl (Ranitidine HCl) 300 MG TABLET 1 Tablet ORAL Every night Qty = 30 Comments: NOT GIVEN IN HOSPITAL Start taking the following new medications: Insulin Aspart (Novolog) 100 UNIT/ML VIAL 0 Units Inject into fatty tissue BEFORE MEALS AND AT BEDTIME Qty = 60 No Refills Instructions: blood sugar before meals less than 80 initiate hypoglycemia 80-150 4 units 151-200 5 units 201-250 6 units 251-300 7 units 301-350 8 units 351-400 9 units more than 400 10 units, call MD bed time insulin below 80 - initiate hypoglycemia protocol below 250 - no insulin 251-300 - 2 units 301-350 - 3 units 351-400 - 4 units If more than 400 Units - 4 units, call MD Comments: Last Taken: 08/08/16 Time: 8:30 AM Insulin Detemir (Levemir) 100 UNIT/ML VIAL 12 Units Inject into fatty tissue TWICE DAILY Days = 30 No Refills Comments: Last Taken: 08/08/16 Time: 9:30 AM Copies To: MARILYN WU,FERNANDO Bond; KURT PATIÑO DPM Attending MD Review Statement Documenting Attending: FANI WU,ANNA
[2016-08-07] MEDS ORDERED: LEVEMIR100 UNIT/1 SC (14:35)
[2016-08-07] MEDS ORDERED: NOVOLOG100 UNIT/2 SC (14:35)
--- NOTE | 2016-08-07 14:38 | Patient Discharge Instructions ---
Discharge Instructions General Discharge Information You were seen/treated for: Diabetic ketoacidosis Special Instructions: Please follow up with Dr. Schuster and Dr. Patiño in 1 week. You need further workup for your foot infection. patient had episode of hypoglycemia and advised to stay in hospital for 24 hrs but he refused for it. he denies to stay . we told him risk of fall, seizures, including but he refused for it. Diet Continue normal diet: Yes Recommended Diet: Diabetic Activity Full Activity/No Limits: Yes Acute Coronary Syndrome Inclusion Criteria At DC or during hospital stay patient has or had the following: ACS DIAGNOSIS No Discharge Core Measures Meds if any: Prescribed or Continued at Discharge Meds if any: NOT Prescribed or Continued at Discharge Congestive Heart Failure Inclusion Criteria At DC or during hospital stay patient has or had the following: CHF DIAGNOSIS No Discharge Core Measures Meds if any: Prescribed or Continued at Discharge Meds if any: NOT Prescribed or Continued at Discharge Cerebrovascular accident Inclusion Criteria At DC or during hospital stay patient has or had the following: CVA/TIA Diagnosis No Discharge Core Measures Meds if any: Prescribed or Continued at Discharge Meds if any: NOT Prescribed or Continued at Discharge Venous thromboembolism Inclusion Criteria VTE Diagnosis No VTE Type NONE VTE Confirmed by (Test) NONE Discharge Core Measures - Per Current guidelines, there needs to be overlap - treatment for the first 5 days of Warfarin therapy. - If discharged on Warfarin prior to 5 days of - overlap therapy, the patient will need to be - assessed for post discharge needs including - *Post discharge parental anticoagulation - *Warfarin and/or parental anticoagulation education - *Follow up date to check INR post discharge At least 5 days overlap therapy as Inpatient No Meds if any: Prescribed or Continued at Discharge Note: Overlap Therapy is Warfarin and Anticoagulant Meds if any: NOT Prescribed or Continued at Discharge
[2016-08-07 15:01] VITALS: BP 110/60
--- NOTE | 2016-08-07 16:20 | Cons- Infect Disease ---
General Information and HPI Consulting Request Date of Consult: 08/07/16 Requested By: ANNA MOHR MD Reason for Consult: Rule out osteomyelitis right foot Source of Information: patient, old records History of Present Illness: This is a 51-year-old man with diabetes, with peripheral vascular disease, status post left BKA within the past year and a more remote right TMA, with a chronic nonhealing ulcer on the plantar aspect of the right foot, followed regularly by Dr. 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 On admission he was awake but lethargic. He was afebrile. Laboratory data revealed a white blood cell count of 9000, glucose 444, BUN/creatinine 28 and 1.1, sodium 125, acetone positive at 1:4, alkaline phosphatase 202. Urinalysis 25-50 RBC/rare WBC'. Chest x-ray was negative. He was given IV fluids, placed on an insulin drip and admitted to the ICU. On August 06 he had a low-grade fever of 100 and he was begun on Vancomycin and Unasyn. After discussion with me, given the report of purulent drainage from his foot, his antibiotics were changed to Vancomycin, Flagyl and Ceftazidime. He continued to have a low-grade fever during the day but has since defervesced and his white blood cell count has remained normal. His blood sugars have been low and his insulin is being corrected. At present he offers no complaints. This morning he was catheterized for 375 mL of urine but he states he has voided on his own since. He does not want any further evaluation of his right foot here as he is followed at [facility]. Allergies/Medications Allergies: Coded Allergies: NO KNOWN ALLERGIES (07/16/15) Home Med List: Albuterol Sulfate (Ventolin Hfa) 90 MCG HFA.AER.AD 2 PUF INH PRN COPD ( Reported) Amitriptyline HCl 100 MG TABLET 1 TAB PO QHS UNKNOWN (Reported) Becaplermin (Regranex) 0.01 % GEL..GRAM. 1 AAMIR TOP DAILY WOUND RIGHT FOOT ( Reported) Buprenorphine HCl/Naloxone HCl (Suboxone 8 MG-2 MG Sl Film) 8 MG-2 MG FILM 3 STR SL DAILY CHRONIC PAIN (Reported) 2 in am 1 in pm Buspirone HCl 10 MG TABLET 1 TAB PO TID MENTAL HEALTH (Reported) Duloxetine HCl 30 MG CAPSULE. 1 CAP PO QAM DEPRESSION (Reported) Esomeprazole (Nexium) 40 MG CAPSULE. 1 CAP PO DAILY GI (Reported) Fluticasone/Salmeterol (Advair 250-50 Diskus) 250 MCG-50 MCG/DOSE BLST.W.DEV 1 PUF INH BID COPD (Reported) Gabapentin (Neurontin) 800 MG TABLET 2 TAB PO QAM NERVE PAIN (Reported) Gabapentin (Neurontin) 800 MG TABLET 3 TAB PO QPM NERVE PAIN (Reported) Insulin Aspart (Novolog) 100 UNIT/1 ML VIAL DIABETES (Reported) glucose insulin dose 80-150mg/dl 5 units 151-200mg/dl 6 units 201-250mg/dl 7 units 251-300mg/dl 8 units 301-350mg/dl 9 units 351-400mg/dl 10units more than 400 please let know. Insulin Aspart (Novolog) 100 UNIT/ML VIAL 0 UNITS SC TIDAC/HS diabetes blood sugar before meals bedtime less than 80 initiate hypoglycemia initiate hypoglycemia 80-150 4 units 0 unit 151-200 5 units 0 unit 201-250 6 units 0 unit 251-300 7 units 2 units 301-350 8 units 3 units 351-400 9 units 4 units more than 400 10 units, call 4 units, call Insulin Detemir (Levemir) 100 UNIT/ML VIAL 12 UNITS SC BID diabetes Insulin Glargine,Hum.rec.anlog (Lantus Solostar) 100 UNIT/ML (3 ML) INSULN.PEN 21 UNITS SC BID DM (Reported) Primidone 50 MG TABLET 100 MG PO TID UNKNOWN (Reported) Propranolol HCl 40 MG TABLET 1 TAB PO BID BP (Reported) Quetiapine Fumarate (Seroquel) 100 MG TABLET 1 TAB PO 8AM, NOON, 6PM MENTAL HEALTH (Reported) Quetiapine Fumarate (Seroquel) 300 MG TABLET 1 TAB PO QHS MENTAL HEALTH ( Reported) Quinapril HCl (Accupril) 20 MG TABLET 1 TAB PO QAM HEART (Reported) Ranitidine HCl 300 MG TABLET 1 TAB PO QPM GI (Reported) Rosuvastatin Calcium (Crestor) 10 MG TABLET 1 TAB PO QHS CHOLESTEROL ( Reported) Sucralfate (Carafate) 1 GM TABLET 1 TAB PO 4 TIMES/DAY GI (Reported) Tramadol HCl 50 MG TABLET 1 TAB PO Q4H PAIN (Reported) Past History Travel History Traveled to [place] past 21 day No Medical History Neurological: peripheral neuropathy EENT: NONE Cardiovascular: hypertension, PVD, MRSA endocarditis Respiratory: COPD Gastrointestinal: diverticulitis, GERD, GASTROPARESIS Hepatic: NONE Renal: NONE Musculoskeletal: osteomyelitis Psychiatric: anxiety, chronic pain disorder, depression Endocrine: diabetes, diabetic ketoacidosis Blood Disorders: MRSA Cancer(s): NONE 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 Home Who Do You Live With? self Services at Home: Nursing Primary Language: Albanian Smoking Status: Current Everyday Smoker ETOH Use: denies use Illicit Drug Use: denies illicit drug use Name of POA/HCP: Spencer Chaudhari Functional Ability ADLs Independent: dressing, eating, toileting, bathing. Ambulation: cane, walker IADLs Independent: finances. Unknown: shopping, housework, food prep, telephone, transportation, medication admin. ECHO Results (as available) Date of last Echo 07/19/15 EF% 60 Review of Systems Review of Systems All Other Systems: Reviewed and Negative Exam & Diagnostic Data Last 24 Hrs of Vital Signs/I&O Vital Signs Date Time Temp Pulse Resp B/P B/P Pulse O2 O2 Flow FiO2 Mean Ox Delivery Rate 08/07 1501 98.0 80 18 110/60 94 Room Air 08/07 1259 105 110/70 08/07 0712 98.6 83 18 106/62 94 Room Air 08/06 2253 99.0 64 18 132/78 98 Room Air 08/06 2133 64 130/78 08/06 1721 100.0 Intake & Output 08/07 1600 08/07 0800 08/07 0000 Intake Total 840 465 Output Total 400 375 Balance -400 465 465 Intake, IV 600 225 Intake, Oral 240 240 Output, Urine 400 375 Patient 135 lb Weight Physical Exam Other Physical Findings: He is awake and alert in no acute distress. MAXIMUM TEMPERATURE 100. Skin reveals multiple excoriations/scars/superficial ulcerations. HEENT exam is negative. Neck is supple with no adenopathy. Lungs are clear. Heart regular rhythm with no murmur. Abdomen is soft, nontender with positive bowel sounds. Back no CVA tenderness. Extremities status post left BKA; status post right TMA with a plantar ulcer, with no surrounding inflammation; right anterior tibial ulcer with no surrounding inflammation. Neuro neuropathy right foot. Last 24 Hours of Lab Results: Laboratory Tests 08/07 08/06 0745 2345 Chemistry Sodium (137 - 145 mmol/L) 130 L 129 L Potassium (3.5 - 5.1 mmol/L) 3.6 3.9 Chloride (98 - 107 mmol/L) 102 100 Carbon Dioxide (22 - 30 mmol/L) 21 L 20 L Anion Gap (5 - 16) 7 9 BUN (9 - 20 mg/dL) 14 17 Creatinine (0.7 - 1.2 mg/dL) 0.8 0.8 Estimated GFR (>60 ml/min) > 60 > 60 Glucose (65 - 99 mg/dL) 65 166 H Calcium (8.4 - 10.2 mg/dL) 7.7 L 7.5 L Phosphorus (2.5 - 4.5 mg/dL) 2.3 L 2.4 L Magnesium (1.6 - 2.3 mg/dL) 1.9 1.9 Total Bilirubin (0.2 - 1.3 mg/dL) 0.2 0.3 AST (17 - 59 U/L) 21 32 ALT (21 - 72 U/L) 29 21 Albumin (3.5 - 5.0 g/dL) 2.3 L 2.4 L TSH (0.270 - 4.200 uIU/mL) 1.380 Free T4 (0.64 - 1.79 ng/dL) 1.41 Cortisol AM Sample (4.46 - 22.7 ug/dL) 24.4 H Hematology CBC w Diff NO MAN DIFF REQ WBC (4.8 - 10.8 /CUMM) 7.9 RBC (4.70 - 6.10 /CUMM) 3.36 L Hgb (14.0 - 18.0 G/DL) 8.9 L Hct (42 - 52 %) 26.9 L MCV (80.0 - 94.0 FL) 80.1 MCH (27.0 - 31.0 PG) 26.5 L RDW (11.5 - 14.5 %) 17.0 H Plt Count (130 - 400 /CUMM) 289 MPV (7.4 - 10.4 FL) 6.8 L Gran % (42.2 - 75.2 %) 78.8 H Lymphocytes % (20.5 - 51.1 %) 12.2 L Monocytes % (1.7 - 9.3 %) 7.9 Eosinophils % (0 - 5 %) 0.9 Basophils % (0.0 - 2.0 %) 0.2 Absolute Granulocytes (1.4 - 6.5 /CUMM) 6.2 Absolute Lymphocytes (1.2 - 3.4 /CUMM) 1.0 L Absolute Monocytes (0.10 - 0.60 /CUMM) 0.6 Absolute Eosinophils (0.0 - 0.7 /CUMM) 0.1 Absolute Basophils (0.0 - 0.2 /CUMM) 0 PUBS MCHC (33.0 - 37.0 G/DL) 33.1 Last 24 Hours of Bart Results: Blood cultures 2 August 06 negative Urine culture August 05 negative Diagnostic Data Recent Imaging Findings: Chest x-ray August 04 negative Assessment/Plan Assessment/Plan Impression: This is a 51-year-old man with diabetes, with secondary peripheral neuropathy and peripheral vascular disease, status post left BKA and right TMA, with a chronic, nonhealing plantar ulcer on the right foot, followed regularly at [facility], admitted on August 05 with DKA, and found to have a low-grade fever with a normal white blood cell count. Though he may have underlying osteomyelitis of the right foot there does not appear to be any acute inflammation of the foot and his right anterior tibial ulcer does not have any surrounding cellulitis; therefore I feel he can be followed off antibiotics and followed up at [facility]. Suggestion: 1. Further management of his right foot per his psychiatric orderly at [facility] 2. Discontinue Vancomycin, Flagyl and Ceftazidime and follow off antibiotics Consult Acknowledgment - Thank you for your consult request.
[2016-08-07 21:31] VITALS: BP 134/80
[2016-08-08 07:21] VITALS: BP 124/80
--- NOTE | 2016-08-08 07:25 | PN- Housestaff ---
See Addendum MOE WU,BARRY 08/08/16 0724: Subjective Follow-up For: Diabetic ketoacidosis Right foot osteomyelitis Complaints: no complaints Subjective: Patient is seen and examined at bedside. He was not having any active complaints.. Review of Systems Constitutional: Denies: no symptoms. Comments: Patient denies for any active complaints Objective Last 24 Hrs of Vital Signs/I&O Vital Signs Date Time Temp Pulse Resp B/P B/P Pulse O2 O2 Flow FiO2 Mean Ox Delivery Rate 08/08 0721 98.5 86 18 124/80 91 Room Air 08/07 2131 99 18 134/80 95 Room Air 08/07 2125 99 134/86 08/07 1501 98.0 80 18 110/60 94 Room Air 08/07 1259 105 110/70 Intake & Output 08/08 0800 08/08 0000 08/07 1600 Intake Total 600 Output Total 1250 952 400 Balance -1250 -352 -400 Intake, IV 600 Output, Stool 2 Output, Urine 1250 950 400 Patient 61.235 kg Weight Physical Exam General Appearance: Alert, Oriented X3, Cooperative, No Acute Distress Skin: areas of hyperpigmentation and wounds are dressed. HEENT: Atraumatic, PERRLA, EOMI Neck: Supple, No JVD Cardiovascular: Normal S1, Normal S2 Lungs: Clear to Auscultation, Normal Air Movement Abdomen: Soft, No Tenderness Neurological: Normal Speech Extremities: right foot is dressed, left foot is BKA Vascular: weak pulses Current Medications: Current Medications Sig/Jonny Start time Last Medication Dose Route Stop Time Status Admin Amitriptyline HCl 100 MG AT BEDTIME 08/06 2199 AC 08/07 PO 2120 Atorvastatin Calcium 40 MG QPM 08/06 2200 AC 08/07 PO 2120 Buprenorphine/ 2 TAB 0800 08/07 0800 AC 08/07 Naloxone SL 0824 Buprenorphine/ 1 TAB QPM 08/06 2199 AC 08/07 Naloxone SL 211 Buspirone HCl 10 MG TID 08/06 1000 AC 08/07 PO 212 Ceftazidime 1,000 MG IQ8 08/06 1600 DC 08/07 IV 1634 Duloxetine HCl 30 MG QAM 08/06 1000 AC 08/07 PO 0948 Enoxaparin Sodium 40 MG DAILY 08/06 1306 AC 08/07 SC 0948 Gabapentin 1,600 MG QAM 08/06 1000 AC 08/07 PO 0948 Insulin Aspart 0 TIDAC/HS 08/06 1200 AC 08/07 SC 1832 Insulin Detemir 12 UNITS BID 08/07 1000 AC 08/07 SC 2118 Metronidazole 500 MG IQ8 08/06 1600 DC 08/07 N/A 1 UNIT IV 0808 Omeprazole 40 MG DAILY AC 08/06 0700 AC 08/08 PO 0509 Patient Medication 1 ED .STK-MED ONE 08/07 1249 DC Teaching ED 08/07 1250 Phosphate 250 MG PC AND AT BEDTIME 08/07 1300 DC 08/07 PO 08/07 2101 2122 Potassium Chloride 40 MEQ ONCE ONE 08/07 0900 DC 08/07 PO 08/07 0901 0949 Primidone 100 MG TID 08/06 1000 AC 08/07 PO 2121 Propranolol HCl 40 MG BID 08/06 1000 AC 08/07 PO 2125 Quetiapine Fumarate 300 MG QPM 08/06 2200 AC 08/07 PO 2120 Quetiapine Fumarate 100 MG 0800,1200,1800 08/06 0800 AC 08/07 PO 1833 Sodium Chloride 1,000 ML Q13H 08/06 1100 AC 08/07 IV 2127 Vancomycin HCl 1,000 MG 0800,2000 08/06 0800 DC 08/07 Sodium Chloride 250 ML IV 1633 Last 24 Hrs of Lab/Bart Results Last 24 Hrs of Labs/Mics: Laboratory Tests 08/08/16 0737: Sodium Pending, Potassium Pending, Chloride Pending, Carbon Dioxide Pending, Anion Gap Pending, BUN Pending, Creatinine Pending, BUN/Creatinine Ratio Pending , Phosphorus Pending, Magnesium Pending, CBC w Diff Pending, WBC Pending, RBC Pending, Hgb Pending, Hct Pending, MCV Pending, MCH Pending, RDW Pending, Plt Count Pending, MPV Pending, PUBS MCHC Pending Assessment/Plan Assessment: Mr. Bonilla is a 51 year old male with PMH COPD, IDDM, diabetic neuropathy, HTN, HLD, current tobacco abuse, history of opiate abuse, depression, anxiety, LLE BKA, RLE transmetatarsal amputation, several episodes of osteomyelitis and PVD who presents with chief complaint of weakness, lethargy, decreased oral intake and high blood glucose levels. Of note, patient was noted to have decreased oral intake for three days prior to admission and therefore was not given his sliding scale insulin by his visiting nurse. In the ED: Vital signs showed T 97.6, HR 126, RR 14, BP 130/78 and O2 saturation of 100% on 4 L NC. Labs showed WBC 9.4, 88% neutrophils, H&H 12.5/38.2, Plt 371, Na 125, Cl 92, HCO3 18, AG 16, BUN/cre 28/1.1, Glu 444, + acetone, Ca 8.5, AST 16, ALT 33, Alk phos 202, UA with +ketones and 25-50 RBCs. EKG showed sinus tachycardia. Patient was admitted to the ICU for DKA and subsequently was transferred to general medicine once he was off the insulin drip and transitioned to SC insulin. Vital signs -temperature 98.5, pulse 86, respiratory rate 18, blood pressure 120 /80, SPO2 91% on room air Blood sugar -134, 150, 105, 66 Plan - Patient Left Absconded - I was told that the patient has an episode of hypoglycemia, with blood sugar of 50. We gave juices to him, but even after that his blood sugar remained low. We gave IV, 25 gram of dextrose. After 20 minutes, blood sugar, came up to 80. We discussed with Dr. Schuster, and he changed the sliding scale and advised to observe the patient for next 24-hour period. After giving IV dextrose. Patient felt more comfortable and later he started saying that he wanted to go home. We told him about the risk of having hypoglycemia and its complication including fall, seizures, including . Despite of all mesures, he wanted to leave. He called the ride and wanted to leave without even taking the discharge prescriptions. We gave him prescription, and he left absconded. # DKA in the setting of uncontrolled IDDM # Diabetic foot infection # Depression, anxiety, chronic pain syndrome, picking disorder # Previous MRSA infection # HTN, HLD, GERD CODE status -FULL CODE DVTP - Lovenox SC Diet - CC2 Problem List: 1. DKA (diabetic ketoacidoses) 2. Foot osteomyelitis, right 3. Hyponatremia 4. Anemia of chronic disorder Pain Ratin Pain Location: right foot Pain Goal: Remain pain free Pain Plan: Avoid NSAIDs Tomorrow's Labs & Rationales: none required as patient is discharging DVT/Prophylaxis: mechanical, pharmacological FANIANNA 08/08/16 1043: Attending MD Review Statement Attending Statement Attending MD Statement: examined this patient, discuss w/resident/PA/CLIENT ACCOUNT SPECIALIST, agreed w/resident/PA/CLIENT ACCOUNT SPECIALIST, discussed with family, reviewed EMR data (avail), discussed with nursing, discussed with case mgmt, reviewed images, amended to note Attending Assessment/Plan: Patient admitted for early DKA, possible foot infection, vital stable, refusing MRI of foot. + Diabetes uncontrolled. + DKA resolved + Possible diabetic infection. + Diabetic neuropathy - f/u endocrinology, insulin at d/c. - refusing Podiatry consultation and Eval of diabetic foot. refusing MRI. - ID consulted on broad spectrum abx, f/u ID recommend monitor off abx as he is not coperative. - MRI of the right foot as o/p. - Pain control - gi/dvt prophylaxis Patient discharge today and need to follow up with his [employer] supervisor as soon as possible. + Diabetes uncontrolled. + DKA resolved + Possible diabetic infection. + Diabetic neuropathy - f/u endocrinology, insulin at d/c. - refusing Podiatry consultation and Eval of diabetic foot. refusing MRI. - ID consulted on broad spectrum abx, f/u ID recommend monitor off abx as he is not coperative. - MRI of the right foot as o/p. - Pain control - gi/dvt prophylaxis Patient discharge today and need to follow up with his [employer] supervisor as soon as possible.
--- NOTE | 2016-08-08 07:42 | PN- Diabetes ---
Assessment/Plan Assessment: Patient states he feels okay this morning. States that he is eating well. We reduced his insulin yesterday. He is presently on Levemir 12 units twice a day and sliding scale NovoLog starting with 4 units for sugar of 80-150. Fingerstick blood sugars yesterday were improved. He had no further low blood sugars. The patient's serum sodium was 1:30 yesterday. His thyroid tests and his serum cortisol are in a good range. Plan: Suggest continue the present insulin. Recheck labs. If his sodium is improved we can discontinue the IV fluids. The patient needs further attention to the infection in his right foot but he prefers that he see his usual sales merchandising specialist Dr. Patiño. The patient's insulin at home is different than the doses we are using in the hospital. This is because he often forgets to take his insulin. He was on 20 of Lantus twice a day at home. We have sent the nurse to his house to try to bring about compliance but he is alone a great deal of the time. We should encourage him to be on a regimen similar to what we are using in the hospital Subjective Subjective: Feels okay Review of Systems Constitutional: Denies: chills, fever. Cardiovascular: Denies: chest pain. Respiratory: Denies: short of breath. Gastrointestinal: Denies: nausea, vomiting. Objective Last 24 Hrs of Vital Signs/I&O Vital Signs Date Time Temp Pulse Resp B/P B/P Pulse O2 O2 Flow FiO2 Mean Ox Delivery Rate 08/08 720 98.5 86 18 124/80 91 Room Air 08/07 2130 99 18 134/80 95 Room Air 08/07 2124 99 134/86 08/07 1501 98.0 80 18 110/60 94 Room Air 08/07 1259 105 110/70 Intake & Output 08/08 0800 08/08 0000 08/07 1600 Intake Total 600 Output Total 1250 952 400 Balance -1250 -352 -400 Intake, IV 600 Output, Stool 2 Output, Urine 1250 950 400 Patient 135 lb Weight Vital Signs Date Time Temp Pulse Resp B/P B/P Pulse O2 O2 Flow FiO2 Mean Ox Delivery Rate 08/08 0621 98.5 86 18 124/80 91 Room Air 08/07 2130 99 18 134/80 95 Room Air 05/22 2125 99 134/86 08/07 1501 98.0 80 18 110/60 94 Room Air 08/07 1259 105 110/70 Intake & Output 08/08 0800 08/08 0000 08/07 1600 Intake Total 600 Output Total 1250 952 400 Balance -1250 -352 -400 Intake, IV 600 Output, Stool 2 Output, Urine 1250 950 400 Patient 135 lb Weight Physical Exam General Appearance: alert, awake, comfortable Head: normal appearance Neck: normal inspection Respiratory: normal breath sounds Cardiovascular: regular rate/rhythm Abdomen: normal bowel sounds Extremities: right foot bandaged Current Medications: Current Medications Sig/Jonny Start time Last Medication Dose Route Stop Time Status Admin Amitriptyline HCl 100 MG AT BEDTIME 08/06 2200 AC 08/07 PO 2120 Atorvastatin Calcium 40 MG QPM 08/06 2200 AC 08/07 PO 212 Buprenorphine/ 2 TAB 0800 08/07 0800 AC 08/07 Naloxone SL 0824 Buprenorphine/ 1 TAB QPM 08/06 2200 AC 08/07 Naloxone SL 211 Buspirone HCl 10 MG TID 08/06 1000 AC 08/07 PO 212 Ceftazidime 1,000 MG IQ8 08/06 1600 DC 08/07 IV 1634 Duloxetine HCl 30 MG QAM 08/06 1000 AC 08/07 PO 0948 Enoxaparin Sodium 40 MG DAILY 08/06 1306 AC 08/07 SC 0948 Gabapentin 1,600 MG QAM 08/06 1000 AC 08/07 PO 0948 Insulin Aspart 0 TIDAC/HS 08/06 1200 AC 08/07 IA 1832 Insulin Detemir 12 UNITS BID 08/07 1000 AC 08/07 IA 2118 Insulin Detemir 15 UNITS BID 08/06 1000 DC 08/06 IA 2315 Metronidazole 500 MG IQ8 08/06 1600 DC 08/07 N/A 1 UNIT IV 0808 Omeprazole 40 MG DAILY AC 08/06 0700 AC 08/08 PO 0509 Patient Medication 1 ED .STK-MED ONE 08/07 1249 DC Teaching ED 08/07 1250 Phosphate 250 MG PC AND AT BEDTIME 08/07 1300 DC 08/07 PO 08/07 2100 212 Potassium Chloride 40 MEQ ONCE ONE 08/07 0900 DC 08/07 PO 08/07 0901 0949 Primidone 100 MG TID 08/06 1000 AC 08/07 PO 212 Propranolol HCl 40 MG BID 08/06 1000 AC 08/07 PO 2125 Quetiapine Fumarate 300 MG QPM 08/06 2200 AC 08/07 PO 2120 Quetiapine Fumarate 100 MG 0800,1200,1800 08/06 0800 AC 08/07 PO 1833 Sodium Chloride 1,000 ML Q13H 08/06 1100 AC 08/07 IV 2127 Vancomycin HCl 1,000 MG 0800,2000 08/06 0800 DC 08/07 Sodium Chloride 250 ML IV 1633 Findings Pertinent Lab/Bart Results: Laboratory Tests 08/08 08/07 0737 0745 Chemistry Sodium (137 - 145 mmol/L) Pending 130 L Potassium (3.5 - 5.1 mmol/L) Pending 3.6 Chloride (98 - 107 mmol/L) Pending 102 Carbon Dioxide (22 - 30 mmol/L) Pending 21 L Anion Gap (5 - 16) Pending 7 BUN (9 - 20 mg/dL) Pending 14 Creatinine (0.7 - 1.2 mg/dL) Pending 0.8 Estimated GFR (>60 ml/min) > 60 BUN/Creatinine Ratio Pending Glucose (65 - 99 mg/dL) 65 Calcium (8.4 - 10.2 mg/dL) 7.7 L Phosphorus (2.5 - 4.5 mg/dL) Pending 2.3 L Magnesium (1.6 - 2.3 mg/dL) Pending 1.9 Total Bilirubin (0.2 - 1.3 mg/dL) 0.2 AST (17 - 59 U/L) 21 ALT (21 - 72 U/L) 29 Albumin (3.5 - 5.0 g/dL) 2.3 L TSH (0.270 - 4.200 uIU/mL) 1.380 Free T4 (0.64 - 1.79 ng/dL) 1.41 Cortisol AM Sample (4.46 - 22.7 ug/dL) 24.4 H Hematology CBC w Diff Pending NO MAN DIFF REQ WBC (4.8 - 10.8 /CUMM) Pending 7.9 RBC (4.70 - 6.10 /CUMM) Pending 3.36 L Hgb (14.0 - 18.0 G/DL) Pending 8.9 L Hct (42 - 52 %) Pending 26.9 L MCV (80.0 - 94.0 FL) Pending 80.1 MCH (27.0 - 31.0 PG) Pending 26.5 L RDW (11.5 - 14.5 %) Pending 17.0 H Plt Count (130 - 400 /CUMM) Pending 289 MPV (7.4 - 10.4 FL) Pending 6.8 L Gran % (42.2 - 75.2 %) 78.8 H Lymphocytes % (20.5 - 51.1 %) 12.2 L Monocytes % (1.7 - 9.3 %) 7.9 Eosinophils % (0 - 5 %) 0.9 Basophils % (0.0 - 2.0 %) 0.2 Absolute Granulocytes (1.4 - 6.5 /CUMM) 6.2 Absolute Lymphocytes (1.2 - 3.4 /CUMM) 1.0 L Absolute Monocytes (0.10 - 0.60 /CUMM) 0.6 Absolute Eosinophils (0.0 - 0.7 /CUMM) 0.1 Absolute Basophils (0.0 - 0.2 /CUMM) 0 PUBS MCHC (33.0 - 37.0 G/DL) Pending 33.1
[2016-08-08] MEDS ORDERED: NOVOLOG100 UNIT/2 SC ×4 (07:51→13:02)
[2016-08-08 09:01] LABS: ABSOLUTE BASOPHIL COUNT 0 /CUMM (0.0-0.2); ABSOLUTE EOSINOPHIL COUNT 0.2 /CUMM (0.0-0.7); ABSOLUTE GRANULOCYTE CT 5.9 /CUMM (1.4-6.5); ABSOLUTE MONOCYTE COUNT 0.5 /CUMM (0.10-0.60); BASOPHIL % 0.1 % (0.0-2.0); EOSINOPHIL % 2.3 % (0-5); GRANULOCYTE % 78.5 % (42.2-75.2); HEMATOCRIT 29.5 % (42-52); MEAN CORPUSCULAR HGB 26.2 PG (27.0-31.0); MEAN CORPUSCULAR HGB CONC 32.9 G/DL (33.0-37.0); MEAN CORPUSCULAR VOLUME 79.8 FL (80.0-94.0); MEAN PLATELET VOLUME 6.9 FL (7.4-10.4); PLATELET COUNT 326 /CUMM (130-400); RBC DISTRIBUTION WIDTH 17.6 % (11.5-14.5); WHITE BLOOD CELL COUNT 7.5 /CUMM (4.8-10.8)
[2016-08-08 09:29] VITALS: BP 126/82
--- NOTE | 2016-08-08 12:46 | NUR ---
NURSING NOTE: AT 1140 BS <50 NIGHAT ROSA #[id number] AWARE AND 2 JUICES GIVEN. AT 1200 BS RECHECKED AND STILL <50 PT REFUSING TO EAT OR DRINK ANYTHING ELSE PT STILL DROWSY BUT AROUSABLE HE WAS THIS AM. NIGHAT ROSA #[id number] AWARE AND CAME TO BEDSIDE TO ASSESS 12.5GM OF DEXTOSE GIVEN IV AT 1206 AND ANOTHER 12.5GM AT 1213. BS RECHECKED AT 1240 AND WAS 84. NIGHAT ROSA #176 AWARE. DISCHARGE CANCELLED AT PRESENT. PT BECOMING VERY AGTITATED AND STATING HE IS GOING TO LEAVE. NIGHAT ROSA #[id number] AND FINN [facility] #[id number] AWARE. PT REFUSING TO STAY FOR MONITIORING. . TO COME TO ROOM TO DISCUSS WITH PT.
--- NOTE | 2016-08-08 13:08 | NUR ---
NURSING NOTE: PT LEFT AMA. REFUSED TO SIGN AMA PAPERWORK WITH THE MD OR NURSING. PT ALSO REFUSED TO WAIT FOR PRECRIPTIONS AND PAPERWORK TO BE PRINTED. DR. MOHR AT BEDSIDE ALSO TO TALK WITH PT BUT PT STILL REFUSES TO STAY.
--- NOTE | 2016-08-08 13:09 | Event Note ---
Event Note Event Note: I was told that the patient has an episode of hypoglycemia, with blood sugar of 50. We gave juices to him, but even after that his blood sugar remained low. We gave IV, 25 gram of dextrose. After 20 minutes, blood sugar, came up to 80. We discussed with Dr. Schuster, and he changed the sliding scale and advised to observe the patient for next 24-hour period. After giving IV dextrose. Patient felt more comfortable and later he started saying that he wanted to go home. We told him about the risk of having hypoglycemia and its complication including fall, seizures, including . Despite of all mesures, he wanted to leave. He called the ride and wanted to leave without even taking the discharge prescriptions. We gave him prescription, and he left absconded. Resident Dr Schmid and Dr Jackson is aware.
--- NOTE | 2016-08-08 16:01 | Discharge Summary ---
Visit Information Visit Dates Admission Date: 08/05/16 Discharge Date: 08/08/16 Hospital Course Course Attending Physician: ANNA MOHR MD Primary Care Physician: FERNANDO SCHUSTER MD Hospital Course: Mr. Bonilla is a 51 year old male with PMH COPD, IDDM, diabetic neuropathy, HTN, HLD, current tobacco abuse, history of opiate abuse, depression, anxiety, LLE BKA, RLE transmetatarsal amputation, several episodes of osteomyelitis and PVD who presents with chief complaint of weakness, lethargy, decreased oral intake and high blood glucose levels. In the ED: Vital signs showed T 97.6, HR 126, RR 14, BP 130/78 and O2 saturation of 100% on 4 L NC. Labs showed WBC 9.4, 88% neutrophils, H&H 12.5/38.2, Plt 371, Na 125, Cl 92, HCO3 18, AG 16, BUN/cre 28/1.1, Glu 444, + acetone, Ca 8.5, AST 16, ALT 33, Alk phos 202, UA with +ketones and 25-50 RBCs. EKG showed sinus tachycardia. Diabetic ketoacidosis, episodes of hypoglycemia - Patient was admitted to the ICU for DKA and subsequently was transferred to general medicine once he was off the insulin drip and transitioned to SC insulin. Dr. Schuster was regularly followed him and was adjusting his sliding scale according to the requirement. On 08/08/2016, he had an episode of hypoglycemia of 50 milligram of blood sugar and required IV dextrose supplementation. We adjusted his sliding-scale and advised him for 24 hours of observation. He declined for any measures and remained adamant to go home. We discussed about the consequences of episodes of recurrent hypoglycemia including falls, seizures and even . Despite of knowing all the consequences. He wanted to go home.He called his ride and left. He wanted to leave, even without the prescription and discharge recommendation. Anyhow, we were able to give him the scale of insulin dosing according to blood sugar level. Allergies: Coded Allergies: NO KNOWN ALLERGIES (07/16/15) Disposition Summary Disposition Principal Diagnosis: Diabetic ketoacidosis, recurrent hypoglycemia Additional Diagnosis: type 1 diabetes mellitus, diabetic neuropathy osteomyelitis status post left fourth and fifth toe amputation as well as right metatarsal amputation Left below-knee amputation Hyperlipidemia Hypertension GERD Chronic pain medication-on Suboxone History of MRSA infection History of IV drug abuse Discharge Disposition: Left against medical advise Discharge Instructions General Discharge Information Code Status: Full Code Patient's Diet: Diabetic heart healthy diet Patient's Activity: As tolerated Follow-Up Instructions/Appts: Please follow-up with your log chain worker and primary care physician as soon as possible. Please take the insulin as advised Please watch for episodes of hypoglycemia, which may lead to dizziness, seizures , falls and even . Medications at Discharge Discharge Medications: Stop taking the following medications: Insulin Glargine,Hum.rec.anlog (Lantus Solostar) 100 UNIT/ML (3 ML) INSULN.PEN Inject into fatty tissue TWICE DAILY Continue taking these medications: Buprenorphine HCl/Naloxone HCl (Suboxone 8 MG-2 MG Sl Film) 8 MG-2 MG FILM 3 Strip SUBLINGUAL DAILY Instructions: 2 in am 1 in pm Comments: Last Taken: 08/08/16 Time: 8:30 AM Gabapentin (Neurontin) 800 MG TABLET 2 Tablet ORAL Every Morning Comments: Last Taken: 08/08/16 Time: 9:30 AM (1600MG GIVEN IN AM) Gabapentin (Neurontin) 800 MG TABLET 3 Tablet ORAL Every night Comments: NOT GIVEN IN HOSPITAL Quinapril HCl (Accupril) 20 MG TABLET 1 Tablet ORAL Every Morning Comments: Last Taken: 08/08/16 Time: 9:30 AM (RECEIVED LISINOPRIL 20MG PO) Rosuvastatin Calcium (Crestor) 10 MG TABLET 1 Tablet ORAL TAKE AT BEDTIME Comments: Last Taken: 08/07/16 Time: 9:30 PM Quetiapine Fumarate (Seroquel) 100 MG TABLET 1 Tablet ORAL 8AM, NOON, 6PM Comments: Last Taken:07/23/15 Time:1200 Quetiapine Fumarate (Seroquel) 300 MG TABLET 1 Tablet ORAL TAKE AT BEDTIME Comments: Last Taken: 08/08/15 Time: 9:30 PM Buspirone HCl (Buspirone HCl) 10 MG TABLET 1 Tablet ORAL THREE TIMES DAILY Comments: Last Taken: 08/09/15 Time: 9:30 AM Amitriptyline HCl (Amitriptyline HCl) 100 MG TABLET 1 Tablet ORAL TAKE AT BEDTIME Comments: Last Taken: 08/08/15 Time: 9:30 PM Duloxetine HCl (Duloxetine HCl) 30 MG CAPSULE.DR 1 Capsule ORAL Every Morning Comments: Last Taken: 08/09/15 Time: 9:30 AM Primidone (Primidone) 50 MG TABLET 100 Milligram ORAL THREE TIMES DAILY Comments: Last Taken: 08/09/15 Time: 9:30 AM Sucralfate (Carafate) 1 GM TABLET 1 Tablet ORAL 4 TIMES A DAY Comments: Last Taken:07/23/15 Time:0900 Tramadol HCl (Tramadol HCl) 50 MG TABLET 1 Tablet ORAL Q4H Comments: NOT GIVEN IN HOSPITAL Becaplermin (Regranex) 0.01 % GEL..GRAM. 1 Application On the skin DAILY Qty = 15 Comments: NOT GIVEN IN HOSPITAL Esomeprazole (Nexium) 40 MG CAPSULE.DR 1 Capsule ORAL DAILY Qty = 30 Comments: NOT GIVEN IN HOSPITAL Propranolol HCl (Propranolol HCl) 40 MG TABLET 1 Tablet ORAL TWICE DAILY Qty = 60 Comments: Last Taken: 08/08/16 Time: 9:30 AM Albuterol Sulfate (Ventolin Hfa) 90 MCG HFA.AER.AD 2 Puff Inhale through mouth as needed for COPD Qty = 18 Comments: NOT GIVEN IN HOSPITAL Fluticasone/Salmeterol (Advair 250-50 Diskus) 250 MCG-50 MCG/DOSE BLST.W.DEV 1 Puff Inhale through mouth TWICE DAILY Qty = 60 Comments: NOT GIVEN IN HOSPITAL Ranitidine HCl (Ranitidine HCl) 300 MG TABLET 1 Tablet ORAL Every night Qty = 30 Comments: NOT GIVEN IN HOSPITAL Start taking the following new medications: Insulin Aspart (Novolog) 100 UNIT/ML VIAL 0 Units Inject into fatty tissue BEFORE MEALS AND AT BEDTIME Qty = 60 No Refills Instructions: blood sugar before meals less than 80 initiate hypoglycemia 80-150 4 units 151-200 5 units 201-250 6 units 251-300 7 units 301-350 8 units 351-400 9 units more than 400 10 units, call bed time insulin below 80 - initiate hypoglycemia protocol below 250 - no insulin 251-300 - 2 units 301-350 - 3 units 351-400 - 4 units If more than 400 Units - 4 units, call Comments: Last Taken: 08/08/16 Time: 8:30 AM Insulin Detemir (Levemir) 100 UNIT/ML VIAL 12 Units Inject into fatty tissue TWICE DAILY Days = 30 No Refills Comments: Last Taken: 08/08/16 Time: 9:30 AM Copies To: MARILYN WU,FERNANDO Bond Attending MD Review Statement Documenting Attending: ANNA MOHR MD
[2016-09-07] MEDS ORDERED: KEFLEX500 M1 PO (21:42)
== END 2016-08-08 13:07 | disposition left against medical advice (07) | DRG 638 ==
LOC: ERH 16:15 → ERHI 22:25 → 2NB 22:25 → ENRESERV 08-06 02:04 → CRI 08-06 02:25 → 2NB 08-06 18:38 → ENPENDDIS 08-08 11:01 → 2NB 08-08 13:07
PROVIDERS: Emergency Medicine; Internal Medicine; Radiology Diagnostic Radiology; Student in an Organized Health Care Education/Training Program; ADMIT Internal Medicine
DX: E10.10 Type 1 diabetes mellitus with ketoacidosis without coma (principal); F11.20 Opioid dependence, uncomplicated; E10.621 Type 1 diabetes mellitus with foot ulcer; G62.9 Polyneuropathy, unspecified; E10.42 Type 1 diabetes mellitus with diabetic polyneuropathy; E87.1 Hypo-osmolality and hyponatremia; Z79.4 Long term (current) use of insulin; F17.210 Nicotine dependence, cigarettes, uncomplicated; Z91.14 Patient's other noncompliance with medication regimen; I10 Essential (primary) hypertension; J44.9 Chronic obstructive pulmonary disease, unspecified; K21.9 Gastro-esophageal reflux disease without esophagitis; F41.8 Other specified anxiety disorders; E78.5 Hyperlipidemia, unspecified; F17.200 Nicotine dependence, unspecified, uncomplicated; Z89.512 Acquired absence of left leg below knee
CPT/HCPCS: 2NBP; ERO; 36415; 80307; 81001; 82436; 87040; 87070; 87086; 93005; 93010; 96361; 96372; 96374; 97161-GP; G0480; J0713; J1650; J1815; J3370; J7040; J7042

== ENCOUNTER 2016-08-25 18:34 | Emergency (ER) | payer OTHER, MEDICARE ==
[~2016-08-25] VITALS: Ht 177.8 cm; Wt 68.0 kg
[~2016-08-25 18:34] MED LIST changes: +ADVAIR 250-501 EACH INH; +LANTUS SOL100 UNIT/1 SC; +NEXIUM40 M1 PO; +PROPRANOLOL HCL40 M1 PO; +RANITIDINE HCL300 M1 PO; +REGRANEX15 GM TOP; +VENTOLIN HFA18 GM INH
--- NOTE | 2016-08-25 18:47 | ED AMS/SEIZURE/WEAK/DIZZY ---
History of Present Illness General Chief Complaint: General Adult Stated Complaint: BIBA FOR HYPOGLYCEMIA Source: patient, old records, EMS Exam Limitations: poor historian Vital Signs & Intake/Output Vital Signs & Intake/Output Vital Signs Date Time Temp Pulse Resp B/P B/P Pulse O2 O2 Flow FiO2 Mean Ox Delivery Rate 08/26 2155 97.4 103 20 161/96 97 Nasal 4.0L Cannula 08/25 1853 96.9 100 20 140/85 95 Nasal Cannula 08/25 1851 94 Nasal 4.0L Cannula 08/25 1836 95.6 103 20 118/65 91 Nasal 4.0L Cannula Allergies Coded Allergies: NO KNOWN ALLERGIES (07/16/15) Reconcile Medications Albuterol Sulfate (Ventolin Hfa) 90 MCG HFA.AER.AD 2 PUF INH PRN COPD ( Reported) Amitriptyline HCl 100 MG TABLET 1 TAB PO QHS UNKNOWN (Reported) Becaplermin (Regranex) 0.01 % GEL..GRAM. 1 AAMIR TOP DAILY WOUND RIGHT FOOT ( Reported) Buprenorphine HCl/Naloxone HCl (Suboxone 8 MG-2 MG Sl Film) 8 MG-2 MG FILM 3 STR SL DAILY CHRONIC PAIN (Reported) 2 in am 1 in pm Buspirone HCl 10 MG TABLET 1 TAB PO TID MENTAL HEALTH (Reported) Duloxetine HCl 30 MG CAPSULE.DR 1 CAP PO QAM DEPRESSION (Reported) Esomeprazole (Nexium) 40 MG CAPSULE.DR 1 CAP PO DAILY GI (Reported) Fluticasone/Salmeterol (Advair 250-50 Diskus) 250 MCG-50 MCG/DOSE BLST.W.DEV 1 PUF INH BID COPD (Reported) Gabapentin (Neurontin) 800 MG TABLET 2 TAB PO QAM NERVE PAIN (Reported) Gabapentin (Neurontin) 800 MG TABLET 3 TAB PO QPM NERVE PAIN (Reported) Insulin Aspart (Novolog) 100 UNIT/ML VIAL 0 UNITS SC TIDAC/HS diabetes blood sugar before meals less than 80 initiate hypoglycemia 80-150 4 units 151-200 5 units 201-250 6 units 251-300 7 units 301-350 8 units 351-400 9 units more than 400 10 units, call bed time insulin below 80 - initiate hypoglycemia protocol below 250 - no insulin 251-300 - 2 units 301-350 - 3 units 351-400 - 4 units If more than 400 Units - 4 units, call Insulin Detemir (Levemir) 100 UNIT/ML VIAL 12 UNITS SC BID diabetes Primidone 50 MG TABLET 100 MG PO TID UNKNOWN (Reported) Propranolol HCl 40 MG TABLET 1 TAB PO BID BP (Reported) Quetiapine Fumarate (Seroquel) 100 MG TABLET 1 TAB PO 8AM, NOON, 6PM MENTAL HEALTH (Reported) Quetiapine Fumarate (Seroquel) 300 MG TABLET 1 TAB PO QHS MENTAL HEALTH ( Reported) Quinapril HCl (Accupril) 20 MG TABLET 1 TAB PO QAM HEART (Reported) Ranitidine HCl 300 MG TABLET 1 TAB PO QPM GI (Reported) Rosuvastatin Calcium (Crestor) 10 MG TABLET 1 TAB PO QHS CHOLESTEROL ( Reported) Sucralfate (Carafate) 1 GM TABLET 1 TAB PO 4 TIMES/DAY GI (Reported) Tramadol HCl 50 MG TABLET 1 TAB PO Q4H PAIN (Reported) Triage Nurses Notes Reviewed? yes HPI: Patient presents for evaluation of a hypoglycemic episode. Patient treated initially with oral glucose but then upon a coal inspector intercept, patient was administered IM glucagon (IV unable to be established). Initial blood glucose level in the field 20. This dropped to 17. Upon arrival to the emergency department the patient seems to be waking up. He knows he is in the [facility] emergency department. He has virtually no recall of the events prior to his arrival. (BERRY WU,SHAHRZAD Allen) Past History Travel History Traveled to [place] past 21 day No Medical History Any Pertinent Medical History? 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 No (MIKAL WU,CORRINA Watts) Review of Systems Review of Systems Constitutional: Reports: no symptoms. EENTM: Reports: no symptoms. Respiratory: Reports: no symptoms. Cardiovascular: Reports: no symptoms. GI: Reports: no symptoms. Genitourinary: Reports: no symptoms. Musculoskeletal: Reports: no symptoms. Skin: Reports: no symptoms. Neurological/Psychological: Reports: no symptoms. Hematologic/Endocrine: Reports: no symptoms. Immunologic/Allergic: Reports: no symptoms. All Other Systems: Reviewed and Negative (BERRY WU,SHAHRZAD Allen) Physical Exam Physical Exam General Appearance: SEE BELOW Comments: Gen.: Thin but otherwise Well-nourished, well-developed, lethargic. Head: Normocephalic, atraumatic. Eyes: Normal inspection bilaterally Ears: Normal inspection bilaterally Nose: Normal inspection Throat/mouth : Moist mucosa Neck: Supple, full range of motion, no goiter Heart: Regular rate and rhythm, no murmurs rubs or gallops Lungs: Clear to auscultation bilaterally with normal air entry Chest: Nontender Back: Normal range of motion Abdomen: Soft, nontender, nondistended, normal bowel sounds Extremities: Normal range of motion grossly, equal radial pulses, no cyanosis clubbing or edema Neurologic: Cranial nerves grossly intact, paucity of speech Skin: warm and dry Psychiatric: Calm, cooperative, no apparent delusions or hallucinations (BERRY WU,SHAHRZAD Allen) Core Measures ACS in differential dx? No CVA/TIA Diagnosis: No Severe Sepsis Present: No Septic Shock Present: No (MIKAL WU,CORRINA Watts) Progress Differential Diagnosis: INSULIN INDUCED HYPOGLYCEMIA Plan of Care: Orders Procedure Date/time Status Regular Diet 08/26 B Active TSH REFLEX 08/25 1845 Complete LIPASE 08/25 1845 Complete COMPREHENSIVE METABOLIC PANEL 08/25 1845 Complete CBC WITHOUT DIFFERENTIAL 08/25 1845 Complete Laboratory Tests 08/25/161926: Anion Gap 12, Estimated GFR 53 L, BUN/Creatinine Ratio 14.3, Glucose 183 H, Calcium 9.8, Total Bilirubin 0.4, AST 16 L, ALT 25, Alkaline Phosphatase 203 H , Total Protein 8.6 H, Albumin 3.9, Globulin 4.7 H, Albumin/Globulin Ratio 0.8 L, Lipase 13 L, TSH &T3 &Free T4 Intrp 1.030, CBC w Diff NO MAN DIFF REQ, RBC 4.99, MCV 81.1, MCH 25.9 L, RDW 18.3 H, MPV 6.7 L, Gran % 81.3 H, Lymphocytes % 12.9 L, Monocytes % 4.0, Eosinophils % 1.2, Basophils % 0.6, Absolute Granulocytes 8.4 H, Absolute Lymphocytes 1.3, Absolute Monocytes 0.4, Absolute Eosinophils 0.1, Absolute Basophils 0.1, PUBS MCHC 31.9 L Initial ED EKG: none Comments: 193: Patient is awake alert and conversant. His memory is coming back regarding the events of today. Patient signed out to Dr. Horowitz for repeat fingerstick blood glucose determination. (BERRY WU,SHAHRZAD Allen) Departure Departure Condition: Stable Referrals: MARILYN WU,FERNANDO Bond (PCP/Family) Departure Forms: Customer Survey General Discharge Information (BERRY WU,SHAHRZAD Allen) Departure Disposition: HOME OR SELF CARE Clinical Impression Primary Impression: Hypoglycemia Comments 08/25/16, 22:10.... pt feeling better... glucose in low 300's. He is feeling well and would like to go home... Given that he just had low glucose, and his baseline glucose is in the 200's, we will not give more insulin this evening. He will resume his insulin regimen in the AM. (MIKAL WU,CORRINA Watts)
[2016-08-25 19:49] LABS: ABSOLUTE BASOPHIL COUNT 0.1 /CUMM (0.0-0.2); ABSOLUTE EOSINOPHIL COUNT 0.1 /CUMM (0.0-0.7); ABSOLUTE GRANULOCYTE CT 8.4 /CUMM (1.4-6.5); ABSOLUTE LYMPH COUNT 1.3 /CUMM (1.2-3.4); ABSOLUTE MONOCYTE COUNT 0.4 /CUMM (0.10-0.60); BASOPHIL % 0.6 % (0.0-2.0); EOSINOPHIL % 1.2 % (0-5); GRANULOCYTE % 81.3 % (42.2-75.2); HEMATOCRIT 40.5 % (42-52); MEAN CORPUSCULAR HGB 25.9 PG (27.0-31.0); MEAN CORPUSCULAR HGB CONC 31.9 G/DL (33.0-37.0); MEAN CORPUSCULAR VOLUME 81.1 FL (80.0-94.0); MEAN PLATELET VOLUME 6.7 FL (7.4-10.4); PLATELET COUNT 450 /CUMM (130-400); RBC DISTRIBUTION WIDTH 18.3 % (11.5-14.5); RED BLOOD CELL CT 4.99 /CUMM (4.70-6.10); WHITE BLOOD CELL COUNT 10.3 /CUMM (4.8-10.8)
[2016-08-25 21:56] VITALS: BP 161/96
[2016-09-07] MEDS ORDERED: KEFLEX500 M1 PO (21:42)
== END 2016-08-25 22:25 ==
LOC: ERH 18:34
PROVIDERS: Emergency Medicine
DX: E11.649 Type 2 diabetes mellitus with hypoglycemia without coma (principal); Z79.4 Long term (current) use of insulin
CPT/HCPCS: 96374

== ENCOUNTER 2017-02-26 13:34 | Observation (INO) | payer OTHER, MEDICARE ==
[~2017-02-26] VITALS: Ht 177.8 cm; Wt 68.0 kg
[~2017-02-26 13:34] MED LIST changes: +AUGMENTIN 875-1 EACH PO; +BACTRIM DS TAB1 EACH PO; +KALEXATE15 GM PO; +KEFLEX500 M1 PO; +MAGNESIUM OXID400 M1 PO; +SPIRIVA18 MCG INH; +VITAMIN D31000 UNI2 PO
--- NOTE | 2017-02-26 14:43 | ED GENERAL ADULT ---
History of Present Illness General Chief Complaint: General Adult Stated Complaint: HERE FOR ADMISSION Source: patient, old records Exam Limitations: no limitations Vital Signs & Intake/Output Vital Signs & Intake/Output Vital Signs Date Time Temp Pulse Resp B/P B/P Pulse O2 O2 Flow FiO2 Mean Ox Delivery Rate 02/26 1447 98.6 98 16 123/78 02/26 1340 98.6 103 18 95/62 98 Room Air Allergies Coded Allergies: NO KNOWN ALLERGIES (07/16/15) Reconcile Medications Albuterol Sulfate (Ventolin Hfa) 90 MCG HFA.AER.AD 2 PUF INH PRN COPD ( Reported) Amitriptyline HCl 100 MG TABLET 1 TAB PO QHS UNKNOWN (Reported) Amoxicillin/Potassium Clav (Augmentin 875-125 Tablet) 875 MG-125 MG TABLET 1 TAB PO BID ABSCESS Buprenorphine HCl/Naloxone HCl (Suboxone 8 MG-2 MG Sl Film) 8 MG-2 MG FILM 2 STR SL DAILY CHRONIC PAIN (Reported) Buprenorphine HCl/Naloxone HCl (Suboxone 8 MG-2 MG Sl Film) 8 MG-2 MG FILM 1 STR SL QPM CHRONIC PAIN (Reported) Buspirone HCl 10 MG TABLET 1 TAB PO TID MENTAL HEALTH (Reported) Cholecalciferol (Vitamin D3) 1,000 UNIT TABLET 1 TAB PO DAILY VITAMIN SUPPORT (Reported) Duloxetine HCl 30 MG CAPSULE.DR 1 CAP PO QAM DEPRESSION (Reported) Esomeprazole (Nexium) 40 MG CAPSULE.DR 1 CAP PO DAILY GI (Reported) Fluticasone/Salmeterol (Advair 250-50 Diskus) 250 MCG-50 MCG/DOSE BLST.W.DEV 1 PUF INH BID COPD (Reported) Folic Acid 0.8 MG TABLET 1 TAB PO DAILY VITAMIN SUPPORT (Reported) Gabapentin (Neurontin) 800 MG TABLET 1 TAB PO TID PAIN (Reported) Insulin Aspart (Novolog) 100 UNIT/ML VIAL 0 UNITS SC TIDAC/HS diabetes blood sugar before meals less than 80 initiate hypoglycemia 80-150 4 units 151-200 5 units 201-250 6 units 251-300 7 units 301-350 8 units 351-400 9 units more than 400 10 units, call bed time insulin below 80 - initiate hypoglycemia protocol below 250 - no insulin 251-300 - 2 units 301-350 - 3 units 351-400 - 4 units If more than 400 Units - 4 units, call Insulin Glargine,Hum.rec.anlog (Lantus Solostar) 100 UNIT/ML (3 ML) INSULN.PEN 20 UNITS SC BID DM (Reported) Magnesium Oxide 400 MG TABLET 1 TAB PO BID SUPPLEMENT (Reported) Multivitamin (Daily Multiple Vitamin) 1 EACH TABLET 1 TAB PO DAILY VITAMIN SUPPORT (Reported) Primidone 50 MG TABLET 100 MG PO TID UNKNOWN (Reported) Propranolol HCl 40 MG TABLET 1 TAB PO BID BP (Reported) Quetiapine Fumarate (Seroquel) 100 MG TABLET 1 TAB PO 8AM, NOON, 6PM MENTAL HEALTH (Reported) Quetiapine Fumarate (Seroquel) 300 MG TABLET 1 TAB PO QHS MENTAL HEALTH ( Reported) Quinapril HCl (Accupril) 20 MG TABLET 1 TAB PO QAM HEART (Reported) Rosuvastatin Calcium (Crestor) 10 MG TABLET 1 TAB PO QHS CHOLESTEROL ( Reported) Sodium Polystyrene Sulfonate (Kalexate) 15 GRAM POWD.PACK 15 G PO ONCE DAILY PRN HYPER K Sucralfate (Carafate) 1 GM TABLET 1 TAB PO 4 TIMES/DAY GI (Reported) Sulfamethoxazole/Trimethoprim (Bactrim Ds Tablet) 800 MG-160 MG TABLET 1 TAB PO BID ABSCESS Tiotropium [place] (Spiriva) 18 MCG CAP.W.DEV 1 CAP INH DAILY BREATHING PROBLEMS (Reported) Tramadol HCl 50 MG TABLET 1 TAB PO Q4H PRN PAIN (Reported) Triage Note: 52 YO MALE TO TRIAGE FOR ADMISSION FOR ABNL EKG AND POTASSIUM 5.2. Triage Nurses Notes Reviewed? yes Onset: Abrupt Duration: day(s):, constant, continues in ED Timing: recent history No Modifying Factors: none HPI: 52-year-old male comes into emergency room for further evaluation of high potassium. Patient was seen here oh today. Patient had an elevated potassium with any EKG changes. Patient left AMA. He comes back in for admission at this time. Currently denies any chest pain or shortness of breath. Patient has a history of diabetes. Denies any other associated symptoms with her (Herson Lim) Past History Travel History Traveled to [place] past 21 day No Medical History Any Pertinent Medical History? 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 No (Herson Lim) Review of Systems Review of Systems Constitutional: Reports: no symptoms. EENTM: Reports: no symptoms. Respiratory: Reports: no symptoms. Cardiovascular: Reports: no symptoms. GI: Reports: no symptoms. Genitourinary: Reports: no symptoms. Musculoskeletal: Reports: no symptoms. Skin: Reports: see HPI. Neurological/Psychological: Reports: no symptoms. Hematologic/Endocrine: Reports: no symptoms. Immunologic/Allergic: Reports: no symptoms. All Other Systems: Reviewed and Negative (Herson Lim) Physical Exam Physical Exam General Appearance: well developed/nourished, alert, awake Head: atraumatic Eyes: Bilateral: normal appearance, EOMI. Ears, Nose, Throat: normal ENT inspection, hearing grossly normal Neck: normal inspection Respiratory: no respiratory distress Cardiovascular: regular rate/rhythm Back: normal inspection Extremities: no edema, WOUND LEFT ANTERIOR SHOULDER, NO ERYTHEMA, SOME WHITE DISCHARGE IN cENTER, CRUSTING SCAB, Neurologic/Psych: awake, alert, oriented x 3 Skin: warm/dry Core Measures ACS in differential dx? No CVA/TIA Diagnosis: No Sepsis Present: No Sepsis Focused Exam Completed? No (Herson Lim) Progress Differential Diagnoses I considered the following diagnoses in my evaluation of the patient: Hyperkalemia, dehydration, DKA, hyperglycemia, cardiac arrhythmia, Plan of Care: Orders Procedure Date/time Status Consistent Carbohydrate 3 02/27 B Active CBC WITHOUT DIFFERENTIAL 02/27 500 Active BASIC ELECTROLYTES PLUS BUN&CR 02/27 500 Active EKG 02/27 0500 Active Consistent Carbohydrate 3 02/26 D Complete BASIC ELECTROLYTES PLUS BUN&CR 02/26 2100 Active Saline Lock 02/26 1722 Active Pathway - chart 02/26 1722 Active House Staff 02/26 1722 Active Code Status 02/26 1722 Active Patient Data 02/[address] in observation 02/26 1611 Active ED Holding Orders 02/26 1611 Active Vital Signs 02/26 1611 Active Code Status 02/26 1611 Complete Telemetry/Briefcase Sewer 02/26 1447 Active MAGNESIUM 02/26 1447 Complete CBC WITHOUT DIFFERENTIAL 02/26 1447 Complete BASIC METABOLIC PANEL 02/26 1447 Complete EKG 02/26 1447 Active VTE Mechanical Prophylaxis 02/26 UNK Active Vital Signs 02/26 UNK Active Intake & Output 02/26 UNK Active FingerStick- Glucose 02/26 UNK Active Current Medications Sig/Jonny Start time Last Medication Dose Stop Time Status Admin Dextrose 12.5 GM ONCE ONE 02/26 1800 UNVr (Dextrose 50%) 02/26 1801 Insulin Aspart 0 TIDAC 02/26 1730 UNVr (NovoLOG) Acetaminophen 500 MG Q6P PRN 02/26 1715 UNVr (Tylenol) Laboratory Tests 02/26/17 1510: Anion Gap 10, Estimated GFR 53 L, BUN/Creatinine Ratio 12.1, Glucose 169 H, Calcium 9.2, Magnesium 1.9, CBC w Diff NO MAN DIFF REQ, RBC 4.07 L, MCV 78.0 L , MCH 25.0 L, RDW 18.8 H, MPV 6.4 L, Gran % 68.0, Lymphocytes % 23.8, Monocytes % 6.9, Eosinophils % 1.1, Basophils % 0.2, Absolute Granulocytes 6.5, Absolute Lymphocytes 2.3, Absolute Monocytes 0.7 H, Absolute Eosinophils 0.1, Absolute Basophils 0, PUBS MCHC 32.0 L Initial ED EKG: normal sinus rhythm, rate (93) (Herson Lim) Departure Departure Disposition: STILL A PATIENT Condition: Stable Clinical Impression Primary Impression: Acute electrocardiogram changes Secondary Impressions: Hyperkalemia Referrals: Nader Schuster MD (PCP/Family) Departure Forms: Customer Survey General Discharge Information (Herson Lim) Observation Note Spoke With: Jade WU,Shanda Spencer Physician Advisor Notified: KIKI WU,JESSIE. Place Patient In: Non-ED OBS Care Area Rationale for Observation: My rational for observation is as follows [HYPERGLYCEMIA AND HYPERKALEMIA WITH EKG CHANGES. CALCIUM, INSULIN, IV FLUIDS, ENDOCRINE CONSULT]. PA/LIBRARY TECHNICAL ASSISTANT Co-Sign Statement Statement: ED Attending supervision documentation- [X] I saw and evaluated the patient. I have also reviewed all the pertinent lab results and diagnostic results. I agree with the findings and the plan of care as documented in the PA's/LIBRARY TECHNICAL ASSISTANT's documentation. [X] I have reviewed the ED Record and agree with the PA's/LIBRARY TECHNICAL ASSISTANT's documentation. [] Additions or exceptions (if any) to the PAs/LIBRARY TECHNICAL ASSISTANT's note and plan are summarized below: [SEE ABOVE NOTE] (Kiki WU,Nader Kwon) Critical Care Note Critical Care Note Critical Care Time: 30-74 min (35) (Herson Lim)
[2017-02-26 15:23] LABS: ABSOLUTE BASOPHIL COUNT 0 /CUMM (0.0-0.2); ABSOLUTE EOSINOPHIL COUNT 0.1 /CUMM (0.0-0.7); ABSOLUTE GRANULOCYTE CT 6.5 /CUMM (1.4-6.5); ABSOLUTE LYMPH COUNT 2.3 /CUMM (1.2-3.4); ABSOLUTE MONOCYTE COUNT 0.7 /CUMM (0.10-0.60); BASOPHIL % 0.2 % (0.0-2.0); EOSINOPHIL % 1.1 % (0-5); HEMATOCRIT 31.7 % (42-52); MEAN PLATELET VOLUME 6.4 FL (7.4-10.4); PLATELET COUNT 704 /CUMM (130-400); RBC DISTRIBUTION WIDTH 18.8 % (11.5-14.5); RED BLOOD CELL CT 4.07 /CUMM (4.70-6.10); WHITE BLOOD CELL COUNT 9.6 /CUMM (4.8-10.8)
--- NOTE | 2017-02-26 16:58 | History & Physical ---
NaseemLua 02/26/17 6980: General Information and HPI MD Statement: I have seen and personally examined BRANDIN PEREA and documented this H&P. The patient is a 52 year old M who presented with a patient stated chief complaint of increased serum potassium level and EKG changes. []. Source of Information: patient, family, old records, ED note Exam Limitations: no limitations History of Present Illness: 52-year-old male, current smoker (30 cigarettes per day since the age of 16), past medical history of hypertension, DM, peripheral neuropathy, peripheral vascular disease, MRSA endocarditis, COPD, diverticulitis, GERD, gastroparesis, osteomyelitis, chronic pain syndrome, depression, diabetic ketoacidosis, hyperlipidemia, opiate abuse on Suboxone, left leg below-knee amputation, right foot transmetatarsal amputation and anxiety came to ED today for follow-up his left shoulder wound and was found to have hyperkalemia with EKG changes. Patient was with his power of commercial real estate attorney who brought the patient for follow-up of left shoulder wound. Patient reported that he came in to ED on last Sunday and in ED his left shoulder abscess was drained and the check the blood work and patient was found to have hyperkalemia. He was given Kayexalate 2 doses in ED and was sent home. On Sunday again patient came for follow-up of left shoulder on and us and was done and he was sent home. Today again he came in for the follow-up of wound and blood work was done to see potassium level and he was found to have hyperkalemia and EKG was done that was showing T-wave changes. Patient reported that he is following Dr. Schuster as a primary care and patient also having visiting nurse at home who is coming 3 times a week and is in close contact with Dr. Schuster. He should also reported that he is scheduled for right little toe amputation tomorrow morning with Dr. Aguirre's office. He also reported that he has appointment with senior marketing data analyst on coming Sunday. Patient was admitted last time in June 2016 and [facility] for diabetic ketoacidosis. Patient also reported that he is following a out patient Addiction clinic for Suboxone. Patient was addicted to OxyContin and she used to take 80 mg 5 times a day. Now he is trying to get rid of the OxyContin addiction and on Suboxone. ED course: Vitals: Temperature 98.6, pulse 103, respiratory 18, blood pressure 95/62, oxygen saturation 98% on room air. Labs: WBC count 9.6, hemoglobin 10.2, hematocrit 31.7, platelet count 704, sodium 136, potassium 5.4, BUN 17, creatinine 1.4 glucose 511, 169, calcium 9.2, Patient had hyperglycemia and hyperkalemia in ED and given insulin and iv fluids with calcium gluconate. His glucose level improved with insulin and iv fluids. 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 self Services at Home: Nursing Primary Language: Wolof Name of POA/HCP: Spencer Chaudhari Functional Ability ADLs Independent: dressing, eating, toileting, bathing. Ambulation: cane, walker IADLs Independent: finances. Unknown: shopping, housework, food prep, telephone, transportation, medication admin. Review of Systems Review of Systems Constitutional: Reports: no symptoms. EENTM: Reports: no symptoms. Cardiovascular: Reports: no symptoms. Respiratory: Reports: no symptoms. GI: Reports: no symptoms. Genitourinary: Reports: no symptoms. Musculoskeletal: Reports: no symptoms. Skin: Reports: no symptoms. Neurological/Psychological: Reports: no symptoms. Exam & Diagnostic Data Last 24 Hrs of Vital Signs/I&O Vital Signs Date Time Temp Pulse Resp B/P B/P Pulse O2 O2 Flow FiO2 Mean Ox Delivery Rate 02/26 1447 98.6 98 16 123/78 02/26 1340 98.6 103 18 95/62 98 Room Air Intake & Output 02/26 1600 02/26 0800 02/26 0000 Intake Total Output Total Balance Patient 150 lb Weight Weight Reported by Patient Measurement Method Physical Exam General Appearance Alert, Oriented X3, Cooperative, No Acute Distress Skin WOUND ON LEFT SHOULDER Skin Temp/Moisture Exam: Warm/Dry Sepsis Skin Exam (color): Normal for Ethnicity HEENT Atraumatic, PERRLA, EOMI Neck Supple Cardiovascular Normal S1, Normal S2 Lungs Clear to Auscultation, decreased breath sounds on left side compare to right side. Abdomen Soft, No Tenderness Neurological Normal Speech, Normal Tone Extremities No Edema, Left LEG BKA, RIGHT FOOT TRANSMETATARSAL AMPUTATION Assessment/Plan Assessment: 52-year-old male, current smoker (30 cigarettes per day since the age of 16), past medical history of hypertension, DM, peripheral neuropathy, peripheral vascular disease, MRSA endocarditis, COPD, diverticulitis, GERD, gastroparesis, osteomyelitis, chronic pain syndrome, depression, diabetic ketoacidosis, hyperlipidemia, opiate abuse on Suboxone, left leg below-knee amputation, right foot transmetatarsal amputation and anxiety came to ED today for follow-up his left shoulder wound and was found to have hyperkalemia with EKG changes. Considering patient's significant past medical history of cardiac risk factor including diabetes, peripheral vascular disease and amputations due to diabetes. Also considering patient's hyperkalemia with EKG changes we will keep the patient in telemetry unit under observation for 24 hours. We will risk stratify the patient for cardiac event in perioperative period. Hyperkalemia with EKG changes; -We will monitor the BEP for potassium and EKGs for cardiac event. -Serial EKGs and drops to rule out any cardiac ischemic injury. -Cardiac consult and possible echocardiogram for cardiac risk stratification for perioperative. -Calcium gluconate for hyperkalemia with EKG changes to protect the heart for arrhythmia. -In dextrose IV 50% with NovoLog insulin. -Kayexalate if needed. Acute kidney injury: -Could be due to decreased oral intake, Bactrim use and use of ARBs can precipitate the injury. -Gentle iv hydration -we will check the BEP tomorrow. -Monitor input and output -Hold the ARBs for now considering renal dysfunction. -we will hold the Bactrim for now. History of COPD: We'll continue the home medication including albuterol and spiriva inhaler. -TRC nebulize as needed. Diabetic foot wound on right little finger: Patient is scheduled for right middle finger amputation tomorrow. -We'll keep the patient nothing by mouth overnight for amputation tomorrow. -If patient remained stable overnight and his hyperkalemia would improve, possibly patient can get amputation tomorrow from Dr. Aguirre. -We will follow the cardiology recommendation if he clears the patient for surgery tomorrow. DM: -We will continue his home dose of levemir 18 units twice a day and novolog on sliding scale. -Accu-check Opioid dependency: -Patient is getting suboxane for opioid dependency, we will continue it. DVT Prophylaxis: Mechanical and heparin s/c CODE STATUS: Full code As Ranked By This Provider Problem List: 1. Hyperkalemia 2. Acute kidney injury Core Measures/Misc (12/03) Acute Coronary Syndrome ACS Diagnosis: No Congestive Heart Failure Congestive Heart Failure Diagnosis No Cerebrovascular Accident CVA/TIA Diagnosis: No VTE (View Protocol) VTE Risk Factors Age>40 No Mechanical VTE Prophylaxis d/t N/A MechProphylax Ordered No VTE Pharm Prophylaxis d/t NA PharmProphylax ordered Sepsis (View protocol) Sepsis Present: No Ry Vogt 02/26/171956: Resident Review Statement Resident Statement: examined this patient, discussed with r d intern, agreed with r d intern, reviewed EMR data (avail), discussed with nursing, discussed with case mgmt, reviewed images, amended to note Other Findings: This is 52-year-old male, current smoker, with a history of hypertension, DM- insulin-dependent, peripheral neuropathy, peripheral vascular disease, MRSA endocarditis, COPD, diverticulitis, GERD, gastroparesis, osteomyelitis, chronic pain syndrome, depression, diabetic ketoacidosis, hyperlipidemia, opiate abuse on Suboxone, left leg below-knee amputation, right foot transmetatarsal amputation and anxiety came to ED today for follow-up his left shoulder wound and was found to have hyperkalemia with EKG changes. Patient was with his power of commercial real estate attorney who brought the patient for follow-up of left shoulder wound. Patient came to the ED for dressing change and to check his wound and Detrol for him And he signed AMA to follow-up with his methadone clinic pain the patient came back to get the rest of the treatment as his potassium was elevated that was 5.4. In the ED patient received 10 units of regular insulin, dextrose, calcium gluconate and he received Kayexalate. The EKG showed tented T waves that the secondary to hyperkalemia most likely. The patient is scheduled to get his right first finger operation with the plastic surgeon Dr. Aguirre tomorrow morning, will inform Dr. Aguirre and he stated that his potassium under control he was taken tomorrow at 7:30 AM and that will be under local anesthesia with some IV sedation. She was started on Augmentin and Bactrim due to the left shoulder lesion, the culture of the left shoulder came back as staph aureus. Physical examination, lab and imaging as above. Assessment: -Hyperkalemia/EKG changes: This is most likely mild multifactorial keeping the patient presentation to the ED with blood glucose of 511, also the patient on ARBs medication that exacerbate the potassium level. -Right finger lesion: If the patient remained stable overnight patient will go to the OR with Dr. Aguirre. We will need to check his potassium and EKG prior to that. -EVIE: That can be due to his decrease oral intake with this hydration also it can be due to the Bactrim that he is on and Augmentin. Plan: -Admit patient to telemetry floor -Vitals every shift -Check the patient potassium level at 9 PM -Hold the patient HOME medication of ARBs -Redose with by mouth Kayexalate if needed -Continue the patient by mouth antibiotic -IV fluid hydration at 125 mL per hour -Recheck the patient BEP 5 AM -EKG to be done at 5 AM -Accu-Chek, insulin sliding scale, Levemir 18 units twice a day -TRC nebs as needed -Carbohydrate consistent diet, keep the patient nothing by mouth midnight -Continue the patient home medication -Pain pathway -DVT prophylaxis patient will get only 1 dose for subcutaneous heparin and will hold it for the OR in the morning. -Full code Marian Hansenjovan 03/06/17 1026: General Information and HPI Allergies/Medications Home Med list Albuterol Sulfate (Ventolin Hfa) 90 MCG HFA.AER.AD 2 PUF INH PRN COPD ( Reported) Amitriptyline HCl 100 MG TABLET 1 TAB PO QHS UNKNOWN (Reported) Buprenorphine HCl/Naloxone HCl (Suboxone 8 MG-2 MG Sl Film) 8 MG-2 MG FILM 2 STR SL DAILY CHRONIC PAIN (Reported) Buprenorphine HCl/Naloxone HCl (Suboxone 8 MG-2 MG Sl Film) 8 MG-2 MG FILM 1 STR SL QPM CHRONIC PAIN (Reported) Buspirone HCl 10 MG TABLET 1 TAB PO TID MENTAL HEALTH (Reported) Cholecalciferol (Vitamin D3) 1,000 UNIT TABLET 1 TAB PO DAILY VITAMIN SUPPORT (Reported) Duloxetine HCl 30 MG CAPSULE. 1 CAP PO QAM DEPRESSION (Reported) Esomeprazole (Nexium) 40 MG CAPSULE. 1 CAP PO DAILY GI (Reported) Fluticasone/Salmeterol (Advair 250-50 Diskus) 250 MCG-50 MCG/DOSE BLST.W.DEV 1 PUF INH BID COPD (Reported) Folic Acid 0.8 MG TABLET 1 TAB PO DAILY VITAMIN SUPPORT (Reported) Gabapentin (Neurontin) 800 MG TABLET 1 TAB PO TID PAIN (Reported) Insulin Aspart (Novolog) 100 UNIT/ML VIAL 0 UNITS SC TIDAC/HS DM BEFORE MEALS Blood Insulin Sugar Units <80 0 81-150 4 151-200 6 201-250 8 251-300 10 301-350 12 351-400 14 >400 16 and Call Doctor AT BEDTIME Blood Insulin Sugar Units <80 0 81-100 0 101-200 0 201-250 0 251-300 2 301-350 3 351-400 4 >400 5 Insulin Glargine,Hum.rec.anlog (Lantus Solostar) 100 UNIT/ML (3 ML) INSULN.PEN 16 UNIT SC BID DM . Magnesium Oxide 400 MG TABLET 1 TAB PO BID SUPPLEMENT (Reported) Multivitamin (Daily Multiple Vitamin) 1 EACH TABLET 1 TAB PO DAILY VITAMIN SUPPORT (Reported) Primidone 50 MG TABLET 100 MG PO TID UNKNOWN (Reported) Propranolol HCl 40 MG TABLET 1 TAB PO BID BP (Reported) Quetiapine Fumarate (Seroquel) 100 MG TABLET 1 TAB PO 8AM, NOON, 6PM MENTAL HEALTH (Reported) Quetiapine Fumarate (Seroquel) 300 MG TABLET 1 TAB PO QHS MENTAL HEALTH ( Reported) Quinapril HCl (Accupril) 20 MG TABLET 1 TAB PO QAM HEART (Reported) Rosuvastatin Calcium (Crestor) 10 MG TABLET 1 TAB PO QHS CHOLESTEROL ( Reported) Sucralfate (Carafate) 1 GM TABLET 1 TAB PO 4 TIMES/DAY GI (Reported) Sulfamethoxazole/Trimethoprim (Bactrim Ds Tablet) 800 MG-160 MG TABLET 1 TAB PO BID ABSCESS Tiotropium [place] (Spiriva) 18 MCG CAP.W.DEV 1 CAP INH DAILY BREATHING PROBLEMS (Reported) Tramadol HCl 50 MG TABLET 1 TAB PO Q4H PRN PAIN (Reported) Attending MD Review Statement Attending Statement Attending MD Statement: examined this patient, discuss w/resident/PA/SCORER HELPER, agreed w/resident/PA/SCORER HELPER, reviewed EMR data (avail), discussed with nursing Attending Assessment/Plan: Agree with the above assessment and plan. Please see my separate attending note for more details.
--- NOTE | 2017-02-26 17:02 | PN- Att Addend ---
Attending MD Review Statement Attending Statement Attending MD Statement: examined this patient, discuss w/resident/PA/LABORATORY SAMPLER, agreed w/resident/PA/LABORATORY SAMPLER, reviewed EMR data (avail), discussed w/nursing, discussed w/ case mgmt Attending Assessment/Plan: Laboratory Tests 02/26/17 1510: Anion Gap 10, Estimated GFR 53 L, BUN/Creatinine Ratio 12.1, Glucose 169 H, Calcium 9.2, Magnesium 1.9, CBC w Diff NO MAN DIFF REQ, RBC 4.07 L, MCV 78.0 L , MCH 25.0 L, RDW 18.8 H, MPV 6.4 L, Gran % 68.0, Lymphocytes % 23.8, Monocytes % 6.9, Eosinophils % 1.1, Basophils % 0.2, Absolute Granulocytes 6.5, Absolute Lymphocytes 2.3, Absolute Monocytes 0.7 H, Absolute Eosinophils 0.1, Absolute Basophils 0, PUBS MCHC 32.0 L Vital Signs Date Time Temp Pulse Resp B/P B/P Pulse O2 O2 Flow FiO2 Mean Ox Delivery Rate 02/26 1447 98.6 98 16 123/78 02/26 1340 98.6 103 18 95/62 98 Room Air 52 year M with PMH COPD- active 1PPD smoker since age 16, IDDM- non compliant, diabetic neuropathy, HTN, HLD, history of opiate abuse- on suboxone , depression , anxiety, LLE BKA in june of 2015, RLE transmetatarsal amputation, several episodes of osteomyelitis and PVD who was recently seen in ER on 02/21/17 and was put on kayexelate for hyperkalemai. Pt came back for recheck this am and was found to have high K and EKG changes but pt left AMA as he had to go to suboxone clinic. Pt came back this afternoon and was found to have high BS in 500 range and still high K and EKG changes from hyperkalemia. Pt was given calcium gluconate, insulin and iv fluids by ER . Hyperkalemia- monitor on telemetry. repeat K in few hours. control BS better. EVIE- baseline creatinine around 1.0, will give him iv fluids . control bs better. Hyperglycemia-his BS are better now after insulin given by ER and will restart on his home regimen. Pt non complaint with his diet and his Last A1c was 11 according to pt. last a1c in system was around 13 in july of this year. will get endo consult Ulcer on hand- pt says he is scheduled for surgery with Dr Aguirre tomorrow. ER is going to inform him about the patieng being in the hospital.
[2017-02-26 21:31] VITALS: BP 136/82
[2017-02-27 07:00] LABS: ABSOLUTE BASOPHIL COUNT 0 /CUMM (0.0-0.2); ABSOLUTE EOSINOPHIL COUNT 0.2 /CUMM (0.0-0.7); ABSOLUTE GRANULOCYTE CT 6.5 /CUMM (1.4-6.5); ABSOLUTE LYMPH COUNT 1.7 /CUMM (1.2-3.4); ABSOLUTE MONOCYTE COUNT 0.7 /CUMM (0.10-0.60); BASOPHIL % 0.2 % (0.0-2.0); EOSINOPHIL % 1.7 % (0-5); GRANULOCYTE % 71.9 % (42.2-75.2); MEAN CORPUSCULAR HGB CONC 32.7 G/DL (33.0-37.0); MEAN CORPUSCULAR VOLUME 76.4 FL (80.0-94.0); MEAN PLATELET VOLUME 6.3 FL (7.4-10.4); PLATELET COUNT 646 /CUMM (130-400); RBC DISTRIBUTION WIDTH 18.1 % (11.5-14.5); RED BLOOD CELL CT 3.32 /CUMM (4.70-6.10)
[2017-02-27 07:05] VITALS: BP 124/72
[2017-02-27 07:12] LABS: HEMATOCRIT 25.3 % (42-52)
--- NOTE | 2017-02-27 08:43 | Operative Report ---
Operative/Inv Procedure Report Surgery Date: 02/27/17 Name of Procedure: Amputation right small finger Pre-Operative Diagnosis: Rule out osteomyelitis chronic wound right small finger Post-Operative Diagnosis: Same Estimated Blood Loss: scant Surgeon/Care Nurse Rn: Ba Ivan MD Anesthesia: moderate sedation Operative/Procedure Note Note: Patient was counseled Feliz procedure the alternatives risks and expected outcomes as relates to his request for surgical intervention to remove the right small finger that is nonfunctional has had a chronic wound and continues to drain from the PIP joint dorsally and is likely chronically infected. Informed consent was signed. Was taken to the operative room placed supine on the table. Intravenous sedation was given. A digital block was placed. A volar flap was developed fishmouth fashion and after completing amputation through the proximal portion of the proximal phalanx it was sutured into position. Specimen was sent for pathologic analysis. As applied ends dictation
--- NOTE | 2017-02-27 08:48 | PN- Plastic Surgery ---
Surgical Brief Attending Note Brief Attending Note: Patient is status post right small finger amputation. Sutures dissolve. Patient may wash hands with soap and water daily and cover with Band-Aid and mupirocin each day. If the wound opens it will not be closed and will be allowed to granulate. No long-term antibiotics needed as likely infected portion (or not) has been removed. Patient has history of VRE and MRSA but is on ? Amoxicillin.
--- NOTE | 2017-02-27 09:18 | PN- Housestaff ---
NaseemLua 02/27/17 0918: Subjective Follow-up For: Post amputation of right little finger Hyperkalemia EVIE Tele-Events Since Last Visit: No overnight events patient remained in sinus rhythm with heart rate 8792 Subjective: No overnight events patient remained afebrile overnight. Patient seen and examined this morning on bedside. He was lying in bed comfortably. He was nothing by mouth and waiting to go for amputation of the right hand little finger. He denied any chest pain, short of breath, nausea, vomiting, chills, fever, abdominal pain dysuria. Review of Systems Constitutional: Reports: no symptoms. EENTM: Reports: no symptoms. Cardiovascular: Reports: no symptoms. Respiratory: Reports: no symptoms. Gastrointestinal: Reports: no symptoms. Genitourinary: Reports: no symptoms. Musculoskeletal: Reports: no symptoms. Neurological/Psychological: Reports: no symptoms. Objective Last 24 Hrs of Vital Signs/I&O Vital Signs Date Time Temp Pulse Resp B/P B/P Pulse O2 O2 Flow FiO2 Mean Ox Delivery Rate 02/27 1016 89 110/70 02/27 0930 94 Nasal 2.0L Cannula 02/27 0705 97.7 124 20 124/72 93 Nasal Cannula 02/27 0024 87 128/84 02/26 2131 97.9 96 20 136/82 92 Room Air 02/26 2031 96.6 88 18 137/94 92 02/26 1830 97.8 75 18 133/75 98 Room Air 02/26 1605 96 Room Air 02/26 1447 98.6 98 16 123/78 02/26 1340 98.6 103 18 95/62 98 Room Air Intake & Output 02/27 1600 02/27 0800 02/27 0000 Intake Total 1100 Output Total 450 Balance -450 1100 Intake, IV 1100 Output, Urine 450 Patient 150 lb Weight Physical Exam General Appearance: Alert, Oriented X3, Cooperative, No Acute Distress Skin Temp/Moisture Exam: Warm/Dry HEENT: Atraumatic, PERRLA, EOMI Neck: Supple Cardiovascular: Normal S1, Normal S2 Lungs: Clear to Auscultation Abdomen: Soft, No Tenderness Neurological: Normal Speech, Normal Tone Extremities: No Edema, Left leg BKA, Right foot transmetatarsal amputation Assessment/Plan Assessment: 52-year-old male, current smoker (30 cigarettes per day since the age of 16), past medical history of hypertension, DM, peripheral neuropathy, peripheral vascular disease, MRSA endocarditis, COPD, diverticulitis, GERD, gastroparesis, osteomyelitis, chronic pain syndrome, depression, diabetic ketoacidosis, hyperlipidemia, opiate abuse on Suboxone, left leg below-knee amputation, right foot transmetatarsal amputation and anxiety came to ED today for follow-up his left shoulder wound and was found to have hyperkalemia with EKG changes. Considering patient's significant past medical history of cardiac risk factor including diabetes, peripheral vascular disease and amputations due to diabetes. Also considering patient's hyperkalemia with EKG changes we will keep the patient in telemetry unit under observation for 24 hours. We will risk stratify the patient for cardiac event in perioperative period. Patient got the amputation of right little finger and he already have uncontrolled diabetes mellitus so due to surgical stress his blood sugar level will go up so patient might need inpatient admission to control his blood sugar level and also hyperkalemia. Post amputation of right little finger: -Patient went for the amputation of right little finger today. -Considering stress of surgery there is a risk that patients blood sugar will remain on control and might be patient need inpatient admission. We will also check patient's potassium level. -We will follow the surgery recommendations. Hyperkalemia with EKG changes; -We will monitor the BEP for potassium and EKGs for cardiac event. -Serial EKGs and drops to rule out any cardiac ischemic injury. -Cardiac consult and possible echocardiogram for cardiac risk stratification for perioperative. -Calcium gluconate for hyperkalemia with EKG changes to protect the heart for arrhythmia. -In dextrose IV 50% with NovoLog insulin. -Kayexalate if needed. Acute kidney injury: -Could be due to decreased oral intake, Bactrim use and use of ARBs can precipitate the injury. -Gentle iv hydration -we will check the BEP tomorrow. -Monitor input and output -Hold the ARBs for now considering renal dysfunction. -we will hold the Bactrim for now. History of COPD: We'll continue the home medication including albuterol and spiriva inhaler. -TRC nebulize as needed. DM: -We will continue his home dose of levemir 18 units twice a day and novolog on sliding scale. -Accu-check Opioid dependency: -Patient is getting suboxane for opioid dependency, we will continue it. DVT Prophylaxis: Mechanical and heparin s/c CODE STATUS: Full code Problem List: 1. Hyperkalemia 2. Acute kidney injury 3. Amputation of right little finger 4. Status post amputation Pain Ratin Pain Location: none Pain Goal: Remain pain free Pain Plan: tylenol for mild pain Tomorrow's Labs & Rationales: cbc/bep Yael Jackson 02/27/17 1100: Attending MD Review Statement Attending Statement Attending MD Statement: examined this patient, discuss w/resident/PA/FIRE PROTECTION SPECIALIST, agreed w/resident/PA/FIRE PROTECTION SPECIALIST, discussed with family, reviewed EMR data (avail), discussed with nursing, discussed with case mgmt, reviewed images, amended to note Attending Assessment/Plan: 52 o/m with pmh of DM inuslin dependent poor compliacne comes to ER wit generalsied weakness and now seen s/p amputation of his right hand finger done by plastic surgery during this admission. Patient is admitted to telemetry with hyperkalemia and hyperglycemia with acute kidney injury. Patient creatinine has improved with fluids. Patient hyperglycemia is still uncontrolled. Endocrinoogy consult. Cont routine wound care. His blood sugars control remains challenge in view of his non complaince and surgery. I anticipate >2 midnight stay 2/2 his acute medical problems.
--- NOTE | 2017-02-27 12:00 | Cons- Endocrinology ---
General Information and HPI Consulting Request Date of Consult: 02/27/17 Requested By: medical team Reason for Consult: management of diabetes type 1 Source of Information: patient, old records Exam Limitations: no limitations History of Present Illness: 52-year-old male, current smoker with past medical history of hypertension, DM type 1 with multiple DKA in the past, peripheral neuropathy, peripheral vascular disease, MRSA endocarditis, COPD, diverticulitis, GERD, gastroparesis, osteomyelitis, chronic pain, depression, hyperlipidemia, opiate abuse on Suboxone, left below-knee amputation, right foot transmetatarsal amputation and anxiety was admitted for his left shoulder infection along with hyperglycemia, hyperkalemia with EKG changes. Clinically he is better. he underwent right 5th finger surgical removal this morning. Patient was back to the floor. He is still on NS 125 ml/hour. He was put on Levemir 18 units twice a day, Novolog coverage before meals. His FSGs were in the 200s. Allergies/Medications Allergies: Coded Allergies: NO KNOWN ALLERGIES (07/16/15) Home Med List: Albuterol Sulfate (Ventolin Hfa) 90 MCG HFA.AER.AD 2 PUF INH PRN COPD ( Reported) Amitriptyline HCl 100 MG TABLET 1 TAB PO QHS UNKNOWN (Reported) Amoxicillin/Potassium Clav (Augmentin 875-125 Tablet) 875 MG-125 MG TABLET 1 TAB PO BID ABSCESS Buprenorphine HCl/Naloxone HCl (Suboxone 8 MG-2 MG Sl Film) 8 MG-2 MG FILM 2 STR SL DAILY CHRONIC PAIN (Reported) Buprenorphine HCl/Naloxone HCl (Suboxone 8 MG-2 MG Sl Film) 8 MG-2 MG FILM 1 STR SL QPM CHRONIC PAIN (Reported) Buspirone HCl 10 MG TABLET 1 TAB PO TID MENTAL HEALTH (Reported) Cholecalciferol (Vitamin D3) 1,000 UNIT TABLET 1 TAB PO DAILY VITAMIN SUPPORT (Reported) Duloxetine HCl 30 MG CAPSULE.DR 1 CAP PO QAM DEPRESSION (Reported) Esomeprazole (Nexium) 40 MG CAPSULE.DR 1 CAP PO DAILY GI (Reported) Fluticasone/Salmeterol (Advair 250-50 Diskus) 250 MCG-50 MCG/DOSE BLST.W.DEV 1 PUF INH BID COPD (Reported) Folic Acid 0.8 MG TABLET 1 TAB PO DAILY VITAMIN SUPPORT (Reported) Gabapentin (Neurontin) 800 MG TABLET 1 TAB PO TID PAIN (Reported) Insulin Aspart (Novolog) 100 UNIT/ML VIAL 0 UNITS SC TIDAC/HS diabetes blood sugar before meals less than 80 initiate hypoglycemia 80-150 4 units 151-200 5 units 201-250 6 units 251-300 7 units 301-350 8 units 351-400 9 units more than 400 10 units, call bed time insulin below 80 - initiate hypoglycemia protocol below 250 - no insulin 251-300 - 2 units 301-350 - 3 units 351-400 - 4 units If more than 400 Units - 4 units, call Insulin Glargine,Hum.rec.anlog (Lantus Solostar) 100 UNIT/ML (3 ML) INSULN.PEN 20 UNITS SC BID DM (Reported) Magnesium Oxide 400 MG TABLET 1 TAB PO BID SUPPLEMENT (Reported) Multivitamin (Daily Multiple Vitamin) 1 EACH TABLET 1 TAB PO DAILY VITAMIN SUPPORT (Reported) Primidone 50 MG TABLET 100 MG PO TID UNKNOWN (Reported) Propranolol HCl 40 MG TABLET 1 TAB PO BID BP (Reported) Quetiapine Fumarate (Seroquel) 100 MG TABLET 1 TAB PO 8AM, NOON, 6PM MENTAL HEALTH (Reported) Quetiapine Fumarate (Seroquel) 300 MG TABLET 1 TAB PO QHS MENTAL HEALTH ( Reported) Quinapril HCl (Accupril) 20 MG TABLET 1 TAB PO QAM HEART (Reported) Rosuvastatin Calcium (Crestor) 10 MG TABLET 1 TAB PO QHS CHOLESTEROL ( Reported) Sodium Polystyrene Sulfonate (Kalexate) 15 GRAM POWD.PACK 15 G PO ONCE DAILY PRN HYPER K Sucralfate (Carafate) 1 GM TABLET 1 TAB PO 4 TIMES/DAY GI (Reported) Sulfamethoxazole/Trimethoprim (Bactrim Ds Tablet) 800 MG-160 MG TABLET 1 TAB PO BID ABSCESS Tiotropium Geronimo (Spiriva) 18 MCG CAP.W.DEV 1 CAP INH DAILY BREATHING PROBLEMS (Reported) Tramadol HCl 50 MG TABLET 1 TAB PO Q4H PRN PAIN (Reported) Review of Systems Review of Systems Constitutional: Reports: see HPI. Cardiovascular: Denies: chest pain. Respiratory: Denies: short of breath. GI: Denies: abdominal pain. Genitourinary: Denies: dysuria. Hematologic/Endocrine: Denies: polyuria, polydipsia. 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 self Services at Home: Nursing Primary Language: Norwegian Smoking Status: Current Everyday Smoker Name of POA/HCP: Spencer Chaudhari Functional Ability ADLs Independent: dressing, eating, toileting, bathing. Ambulation: cane, walker IADLs Independent: finances. Unknown: shopping, housework, food prep, telephone, transportation, medication admin. Exam & Diagnostic Data Last 24 Hrs of Vital Signs/I&O Vital Signs Date Time Temp Pulse Resp B/P B/P Pulse O2 O2 Flow FiO2 Mean Ox Delivery Rate 02/27 1100 Nasal 2.0L Cannula 02/27 1100 94 Nasal 2.0L Cannula 02/27 1016 89 110/70 02/27 0930 94 Nasal 2.0L Cannula 02/27 0705 97.7 124 20 124/72 93 Nasal Cannula 02/27 0024 87 128/84 02/26 2131 97.9 96 20 136/82 92 Room Air 02/26 2031 96.6 88 18 137/94 92 02/26 1830 97.8 75 18 133/75 98 Room Air 02/26 1605 96 Room Air 02/26 1447 98.6 98 16 123/78 02/26 1340 98.6 103 18 95/62 98 Room Air Intake & Output 02/27 1600 02/27 0800 02/27 0000 Intake Total 1100 Output Total 450 Balance -450 1100 Intake, IV 1100 Output, Urine 450 Patient 150 lb 150 lb Weight Physical Exam General Appearance: no apparent distress Neck: normal inspection Respiratory: lungs clear Cardiovascular: regular rate/rhythm Gastrointestinal: soft Extremities: s/p amputations Labs/Bart Results: Laboratory Tests 02/27 02/27 02/26 0710 0600 2120 Chemistry Sodium (137 - 145 mmol/L) 134 L 132 L 135 L Potassium (3.5 - 5.1 mmol/L) 5.2 H 5.6 H 5.1 Chloride (98 - 107 mmol/L) 104 103 103 Carbon Dioxide (22 - 30 mmol/L) 25 25 25 Anion Gap (5 - 16) 5 4 L 8 BUN (9 - 20 mg/dL) 16 16 15 Creatinine (0.7 - 1.2 mg/dL) 1.2 1.3 H 1.4 H Estimated GFR (>60 ml/min) > 60 58 L 53 L BUN/Creatinine Ratio (7 - 25 %) 13.3 12.3 10.7 Hematology CBC w Diff MAN DIFF ORDERED WBC (4.8 - 10.8 /CUMM) 9.0 RBC (4.70 - 6.10 /CUMM) 3.32 L Hgb (14.0 - 18.0 G/DL) 8.3 L Hct (42 - 52 %) 25.3 L MCV (80.0 - 94.0 FL) 76.4 L MCH (27.0 - 31.0 PG) 25.0 L RDW (11.5 - 14.5 %) 18.1 H Plt Count (130 - 400 /CUMM) 646 H MPV (7.4 - 10.4 FL) 6.3 L Gran % (42.2 - 75.2 %) 71.9 Lymphocytes % (20.5 - 51.1 %) 18.7 L Monocytes % (1.7 - 9.3 %) 7.5 Eosinophils % (0 - 5 %) 1.7 Basophils % (0.0 - 2.0 %) 0.2 Absolute Granulocytes (1.4 - 6.5 /CUMM) 6.5 Absolute Lymphocytes (1.2 - 3.4 /CUMM) 1.7 Absolute Monocytes (0.10 - 0.60 /CUMM) 0.7 H Absolute Eosinophils (0.0 - 0.7 /CUMM) 0.2 Absolute Basophils (0.0 - 0.2 /CUMM) 0 Platelet Estimate (ADEQUATE) INCREASED Hypochromic-Microcytic 1+ Anisocytosis 1+ Microcytic Cells 1+ PUBS MCHC (33.0 - 37.0 G/DL) 32.7 L 02/26 1510 Chemistry Sodium (137 - 145 mmol/L) 136 L Potassium (3.5 - 5.1 mmol/L) 5.4 H Chloride (98 - 107 mmol/L) 103 Carbon Dioxide (22 - 30 mmol/L) 23 Anion Gap (5 - 16) 10 BUN (9 - 20 mg/dL) 17 Creatinine (0.7 - 1.2 mg/dL) 1.4 H Estimated GFR (>60 ml/min) 53 L BUN/Creatinine Ratio (7 - 25 %) 12.1 Glucose (65 - 99 mg/dL) 169 H Calcium (8.4 - 10.2 mg/dL) 9.2 Magnesium (1.6 - 2.3 mg/dL) 1.9 Hematology CBC w Diff NO MAN DIFF REQ WBC (4.8 - 10.8 /CUMM) 9.6 RBC (4.70 - 6.10 /CUMM) 4.07 L Hgb (14.0 - 18.0 G/DL) 10.2 L Hct (42 - 52 %) 31.7 L MCV (80.0 - 94.0 FL) 78.0 L MCH (27.0 - 31.0 PG) 25.0 L RDW (11.5 - 14.5 %) 18.8 H Plt Count (130 - 400 /CUMM) 704 H MPV (7.4 - 10.4 FL) 6.4 L Gran % (42.2 - 75.2 %) 68.0 Lymphocytes % (20.5 - 51.1 %) 23.8 Monocytes % (1.7 - 9.3 %) 6.9 Eosinophils % (0 - 5 %) 1.1 Basophils % (0.0 - 2.0 %) 0.2 Absolute Granulocytes (1.4 - 6.5 /CUMM) 6.5 Absolute Lymphocytes (1.2 - 3.4 /CUMM) 2.3 Absolute Monocytes (0.10 - 0.60 /CUMM) 0.7 H Absolute Eosinophils (0.0 - 0.7 /CUMM) 0.1 Absolute Basophils (0.0 - 0.2 /CUMM) 0 PUBS MCHC (33.0 - 37.0 G/DL) 32.0 L Assessment/Plan Assessment/Plan 52-year-old male, current smoker with past medical history of hypertension, DM type 1 with multiple DKA in the past, peripheral neuropathy, peripheral vascular disease, MRSA endocarditis, COPD, diverticulitis, GERD, gastroparesis, osteomyelitis, chronic pain, depression, hyperlipidemia, opiate abuse on Suboxone, left below-knee amputation, right foot transmetatarsal amputation and anxiety was admitted for his left shoulder infection along with hyperglycemia, hyperkalemia with EKG changes. Clinically he is better. he underwent right 5th finger surgical removal this morning. DM management: 1. discontinue IVF; 2. continue Levemir 18 units twice a day; 3. adjust Novolog coverage before meals and add Novolog coverage at bedtime; detail see the inpatient DM orders; 4. monitor FSGs. will follow. Inpatient Diabetes Orders Before Each Meal: Bolus Insulin: Novolog < 80 mg/dl: no coverage 80-100 mg/dl: 4 units 101-120 mg/dl: 4 units 121-150 mg/dl: 4 units 151-200 mg/dl: 6 units 201-250 mg/dl: 8 units 251-300 mg/dl: 10 units 301-350 mg/dl: 12 units 351-400 mg/dl: 14 units > 400 mg/dl: 16 units Bedtime: Bolus Insulin: Novolog < 80 mg/dl: no coverage 80-100 mg/dl: no coverage 101-120 mg/dl: no coverage 121-150 mg/dl: no coverage 151-200 mg/dl: no coverage 201-250 mg/dl: no coverage 251-300 mg/dl: 2 units 301-350 mg/dl: 3 units 351-400 mg/dl: 4 units > 400 mg/dl: 5 units Consult Acknowledgment - Thank you for your consult request.
[2017-02-27 15:10] VITALS: BP 136/88
[2017-02-27 22:51] VITALS: BP 154/98
--- NOTE | 2017-02-28 05:42 | Patient Discharge Instructions ---
Discharge Instructions General Discharge Information You were seen/treated for: Hyperglycemia Hyperkalemia Amputation of right little finger Watch for these problems: Lightheadedness, nausea, vomiting, chest pain and weakness. If you experience any of these symptoms come to ED or call to your pcp. Special Instructions: Follow up with your primary care physician in one week. Follow up with DR. Ivan in one week. Follow up with endo to adjust your suger medication Diet Recommended Diet: Diabetic Activity Activity Self Limited: Yes Acute Coronary Syndrome Inclusion Criteria At DC or during hospital stay patient has or had the following: ACS DIAGNOSIS No Discharge Core Measures Meds if any: Prescribed or Continued at Discharge Meds if any: NOT Prescribed or Continued at Discharge Congestive Heart Failure Inclusion Criteria At DC or during hospital stay patient has or had the following: CHF DIAGNOSIS No Discharge Core Measures Meds if any: Prescribed or Continued at Discharge Meds if any: NOT Prescribed or Continued at Discharge Cerebrovascular accident Inclusion Criteria At DC or during hospital stay patient has or had the following: CVA/TIA Diagnosis No Discharge Core Measures Meds if any: Prescribed or Continued at Discharge Meds if any: NOT Prescribed or Continued at Discharge Venous thromboembolism Inclusion Criteria VTE Diagnosis No VTE Type NONE VTE Confirmed by (Test) NONE Discharge Core Measures - Per Current guidelines, there needs to be overlap - treatment for the first 5 days of Warfarin therapy. - If discharged on Warfarin prior to 5 days of - overlap therapy, the patient will need to be - assessed for post discharge needs including - *Post discharge parental anticoagulation - *Warfarin and/or parental anticoagulation education - *Follow up date to check INR post discharge At least 5 days overlap therapy as Inpatient No Meds if any: Prescribed or Continued at Discharge Note: Overlap Therapy is Warfarin and Anticoagulant Meds if any: NOT Prescribed or Continued at Discharge
[2017-02-28 06:47] VITALS: BP 116/80
--- NOTE | 2017-02-28 08:06 | PN- Housestaff ---
[place] 02/28/17 0806: Subjective Follow-up For: Post amputation of right little finger Hyperkalemia EVIE Tele-Events Since Last Visit: No overnight events patient remained in sinus rhythm with heart rate [id number] Subjective: No overnight events patient remained afebrile overnight. Patient seen and examined this morning her bedside. He denied any chest pain, short of breath, nausea, vomiting, chills comfortably, abdominal pain dysuria. Patient got the impression of right little finger yesterday. His blood sugar is under control this morning it was 71 and there is no complaint of pain in right hand. Review of Systems Constitutional: Reports: no symptoms. EENTM: Reports: no symptoms. Cardiovascular: Reports: no symptoms. Respiratory: Reports: no symptoms. Gastrointestinal: Reports: no symptoms. Genitourinary: Reports: no symptoms. Musculoskeletal: Reports: no symptoms. Neurological/Psychological: Reports: no symptoms. Objective Last 24 Hrs of Vital Signs/I&O Vital Signs Date Time Temp Pulse Resp B/P B/P Pulse O2 O2 Flow FiO2 Mean Ox Delivery Rate 02/28 0910 82 116/80 02/28 0647 98.5 97 20 116/80 96 Room Air 02/28 0000 Room Air Room Air 02/27 2251 99.6 107 16 154/98 94 Room Air 02/27 2126 114 02/27 1600 Room Air 02/27 1510 98.4 91 20 136/88 94 Room Air 02/27 1100 Nasal 2.0L Cannula 02/27 1100 94 Nasal 2.0L Cannula Intake & Output 02/28 1600 02/28 0800 02/28 0000 Intake Total 400 580 Output Total 925 Balance 400 -345 Intake, Oral 400 580 Output, Urine 925 Physical Exam General Appearance: Alert, Oriented X3, Cooperative, No Acute Distress Skin Temp/Moisture Exam: Warm/Dry HEENT: Atraumatic, PERRLA, EOMI Neck: Supple Cardiovascular: Normal S1, Normal S2 Lungs: Clear to Auscultation Abdomen: Soft, No Tenderness Neurological: Normal Speech, Normal Tone Extremities: LEFT BKA and right transmetatarsal amputation., right hand little finger amputation with dressing. Assessment/Plan Assessment: 52-year-old male, current smoker (30 cigarettes per day since the age of 16), past medical history of hypertension, DM, peripheral neuropathy, peripheral vascular disease, MRSA endocarditis, COPD, diverticulitis, GERD, gastroparesis, osteomyelitis, chronic pain syndrome, depression, diabetic ketoacidosis, hyperlipidemia, opiate abuse on Suboxone, left leg below-knee amputation, right foot transmetatarsal amputation and anxiety came to ED today for follow-up his left shoulder wound and was found to have hyperkalemia with EKG changes. Considering patient's significant past medical history of cardiac risk factor including diabetes, peripheral vascular disease and amputations due to diabetes. Also considering patient's hyperkalemia with EKG changes we will keep the patient in telemetry unit under observation for 24 hours. We will risk stratify the patient for cardiac event in perioperative period. Patient got the amputation of right little finger and he already have uncontrolled diabetes mellitus so due to surgical stress his blood sugar level will go up so patient might need inpatient admission to control his blood sugar level and also hyperkalemia. Post amputation of right little finger: -Patient went for the amputation of right little finger today. -Considering stress of surgery there is a risk that patients blood sugar will remain on control and might be patient need inpatient admission. We will also check patient's potassium level. -We will follow the surgery recommendations. -Patient will follow Dr. Aguirre as outpatient for further recommendations of wound care of the right amputated little finger. And patient will follow Dr. Schuster who is his primary care physician for diabetes.(02/28/17) Hyperkalemia with EKG changes;(resolved) -We will monitor the BEP for potassium and EKGs for cardiac event. -Serial EKGs and drops to rule out any cardiac ischemic injury. -Cardiac consult and possible echocardiogram for cardiac risk stratification for perioperative. -Calcium gluconate for hyperkalemia with EKG changes to protect the heart for arrhythmia. -In dextrose IV 50% with NovoLog insulin. -Kayexalate if needed. -Today his potassium level is 4.8.(02/28/17) Acute kidney injury:(improving) -Could be due to decreased oral intake, Bactrim use and use of ARBs can precipitate the injury. -Gentle iv hydration -we will check the BEP tomorrow. -Monitor input and output -Hold the ARBs for now considering renal dysfunction. -we will hold the Bactrim for now. -Today his creatinine level is 1.2.(02/28/17) History of COPD: We'll continue the home medication including albuterol and spiriva inhaler. -TRC nebulize as needed. DM: -We will continue his home dose of levemir 18 units twice a day and novolog on sliding scale. -Accu-check -We'll change the Levemir dose to 16 units twice a day and also NovoLog sliding scale according to the duco polisher recommendations.(02/28/17) Opioid dependency: -Patient is getting suboxane for opioid dependency, we will continue it. DVT Prophylaxis: Mechanical and heparin s/c CODE STATUS: Full code Problem List: 1. Status post amputation 2. Amputation of right little finger 3. Hyperkalemia 4. Acute kidney injury Pain Ratin Pain Location: none Pain Goal: Remain pain free Pain Plan: tyelnol for mild pain Tomorrow's Labs & Rationales: none Yael Jackson 02/28/17 1053: Attending MD Review Statement Attending Statement Attending MD Statement: examined this patient, discuss w/resident/PA/[employer], agreed w/resident/PA/[employer], discussed with family, reviewed EMR data (avail), discussed with nursing, discussed with case mgmt, reviewed images, amended to note Attending Assessment/Plan: 52 o/m with pmh of DM inuslin dependent poor compliacne comes to ER with generalsied weakness and now seen s/p amputation of his right hand finger done by plastic surgery during this admission. Patient is admitted to telemetry with hyperkalemia and hyperglycemia with acute kidney injury. Patient creatinine has improved with fluids. Patient hyperglycemia is getting better with Endocrinology consult. Cont routine wound care. His blood sugars control remains challenge in view of his non complaince and surgery. Patient needs to follow up closely with his PCP and endocrinology. Patient reinforced compliance and diabetes education.
--- NOTE | 2017-02-28 08:40 | PN- Diabetes ---
Assessment/Plan Assessment: 52-year-old male, current smoker with past medical history of hypertension, DM type 1 with multiple DKA in the past, peripheral neuropathy, peripheral vascular disease, MRSA endocarditis, COPD, diverticulitis, GERD, gastroparesis, osteomyelitis, chronic pain, depression, hyperlipidemia, opiate abuse on Suboxone, left below-knee amputation, right foot transmetatarsal amputation and anxiety was admitted for his left shoulder infection along with hyperglycemia, hyperkalemia with EKG changes. He underwent right 5th finger surgical removal on 02/27/2017. Patient is going home today. He was put on Levemir 18 units twice a day, Novolog coverage beforte meals and Novolog coverage at bedtime. His FSGs were 204, 137, 194, 202 and 76. Plan: 1. decrease Levemir to 16 units twice a day; 2. continue the current Novolog coverage before meals and Novolog coverage at bedtime; 3. monitor FSGs. 4. The discharge plan for diabetes: ---Lantus 16 units twice a day; ---current Novolog coverage before meals; ---f/u in office with Dr. Schuster after discharge ( as per patient, f/u scheduled on 03/06) will follow. Subjective Subjective: He feels better. Objective Last 24 Hrs of Vital Signs/I&O Vital Signs Date Time Temp Pulse Resp B/P B/P Pulse O2 O2 Flow FiO2 Mean Ox Delivery Rate 02/28 0647 98.5 97 20 116/80 96 Room Air 02/28 0000 Room Air Room Air 02/27 2251 99.6 107 16 154/98 94 Room Air 02/27 2126 114 02/27 1600 Room Air 02/27 1510 98.4 91 20 136/88 94 Room Air 02/27 1100 Nasal 2.0L Cannula 02/27 1100 94 Nasal 2.0L Cannula 02/27 1016 89 110/70 02/27 0930 94 Nasal 2.0L Cannula Intake & Output 02/28 1600 02/28 0800 02/28 0000 Intake Total 400 580 Output Total 925 Balance 400 -345 Intake, Oral 400 580 Output, Urine 925 Findings Pertinent Lab/Bart Results: Laboratory Tests 02/28 0615 Chemistry Sodium (137 - 145 mmol/L) 132 L Potassium (3.5 - 5.1 mmol/L) 4.8 Chloride (98 - 107 mmol/L) 103 Carbon Dioxide (22 - 30 mmol/L) 22 Anion Gap (5 - 16) 7 BUN (9 - 20 mg/dL) 16 Creatinine (0.7 - 1.2 mg/dL) 1.2 Estimated GFR (>60 ml/min) > 60 BUN/Creatinine Ratio (7 - 25 %) 13.3
[2017-02-28 09:10] VITALS: BP 116/80
[2017-02-28] MEDS ORDERED: LANTUS SOL100 UNIT/1 SC ×2 (09:33→09:44)
[2017-02-28] MEDS ORDERED: NOVOLOG100 UNIT/2 SC ×2 (09:44→09:58)
[2017-02-28] MEDS ORDERED: BACTRIM DS TAB1 EACH PO (09:50)
--- NOTE | 2017-02-28 10:46 | Discharge Summary ---
Visit Information Visit Dates Admission Date: 02/26/17 Discharge Date: 02/28/17 Hospital Course Course Attending Physician: Yael Jackson MD Primary Care Physician: Nader Schuster MD Hospital Course: 52-year-old male, current smoker (30 cigarettes per day since the age of 16), past medical history of hypertension, DM, peripheral neuropathy, peripheral vascular disease, MRSA endocarditis, COPD, diverticulitis, GERD, gastroparesis, osteomyelitis, chronic pain syndrome, depression, diabetic ketoacidosis, hyperlipidemia, opiate abuse on Suboxone, left leg below-knee amputation, right foot transmetatarsal amputation and anxiety came to ED today for follow-up his left shoulder wound and was found to have hyperkalemia with EKG changes. ED course: Vitals: Temperature 98.6, pulse 103, respiratory 18, blood pressure 95/62, oxygen saturation 98% on room air. Labs: WBC count 9.6, hemoglobin 10.2, hematocrit 31.7, platelet count 704, sodium 136, potassium 5.4, BUN 17, creatinine 1.4 glucose 511, 169, calcium 9.2, Patient had hyperglycemia and hyperkalemia in ED and given insulin and iv fluids with calcium gluconate. His glucose level improved with insulin and iv fluids. Amputation of right little finger: Patient was already scheduled for amputation of right little finger with Dr. Ivan. Patient was kept nothing by mouth in night before and amputation was done next morning. Patient was kept 1 more night after the amputation considering his risk to have hyperglycemia again due to stress of surgery. Patient's blood sugar average remained under control by following the insulin regimen and he was discharged. He was instructed to follow Dr. Ivan as outpatient for further recommendation for wound care. Hyperkalemia with EKG changes: And initially patient was treated for hyperkalemia with calcium gluconate considering his EKG changes. He was found to have hyperglycemia and given IV fluids that improved his hyperglycemia. Later on dextrose 50% along with NovoLog insulin was given to treat the hyperlipidemia. His potassium level came back to 4.8 before he is being discharged. Acute kidney injury: Patient presented with acute kidney injury that could be due to poor oral intake and could be precipitated by Bactrim and ARBs. Gentle IV hydration was done along with monitoring of BEP for creatinine BUN level. Input output was monitored. ARBs were held and restarted again before he being discharged. His creatinine level came back to baseline. History of COPD: We'll continue his home medication including albuterol and Spiriva inhaler. TRC nebulization was offered as needed. Diabetes mellitus: He received NovoLog insulin according sliding scale and Levemir 18 units twice a day to cover the basal requirement. Endocrinology consultation was obtained and his sliding scale for NovoLog was adjusted and Levemir was decreased to 16 units twice a day. Opiate dependency: Suboxone was continued. DVT prophylaxis: Mechanical and subtenons heparin. CODE STATUS: Full code Allergies: Coded Allergies: NO KNOWN ALLERGIES (07/16/15) Pertinent Lab Results: wbc 9.0, Hb 8.3, Hct 25.3, plt 646, Na 132, k 4.8, BUN 16, Cr 1.2 Disposition Summary Disposition Principal Diagnosis: Amputation of right little finger Hyperkalemia with EKG changes. EVIE Additional Diagnosis: DM COPD Opiate dependency Discharge Disposition: home health services Discharge Instructions General Discharge Information Code Status: Full Code Patient's Diet: Diabetic diet Patient's Activity: Self limited Follow-Up Instructions/Appts: Follow up with your pcp in one week. Follow up with orthopedic surgery in one week. Medications at Discharge Discharge Medications: Stop taking the following medications: Insulin Aspart (Novolog) 100 UNIT/ML VIAL Inject into fatty tissue BEFORE MEALS AND AT BEDTIME Qty = 60 Insulin Glargine,Hum.rec.anlog (Lantus Solostar) 100 UNIT/ML (3 ML) INSULN.PEN Inject into fatty tissue TWICE DAILY Qty = 15 Amoxicillin/Potassium Clav (Augmentin 875-125 Tablet) 875 MG-125 MG TABLET ORAL TWICE DAILY Qty = 20 Sodium Polystyrene Sulfonate (Kalexate) 15 GRAM POWD.PACK ORAL ONCE DAILY as needed for HYPER K Qty = 30 Continue taking these medications: Buprenorphine HCl/Naloxone HCl (Suboxone 8 MG-2 MG Sl Film) 8 MG-2 MG FILM 2 Strip SUBLINGUAL DAILY Comments: Last Taken: 02/28/17 Time: 8:10 AM Gabapentin (Neurontin) 800 MG TABLET 1 Tablet ORAL THREE TIMES DAILY Comments: Last Taken: 02/28/17 Time: 6:00 AM Quinapril HCl (Accupril) 20 MG TABLET 1 Tablet ORAL Every Morning Comments: Last Taken: NOT GIVEN IN HOSPITAL Time: Rosuvastatin Calcium (Crestor) 10 MG TABLET 1 Tablet ORAL TAKE AT BEDTIME Comments: Last Taken: 02/27/17 Time: 4:00 PM Quetiapine Fumarate (Seroquel) 100 MG TABLET 1 Tablet ORAL 8AM, NOON, 6PM Comments: Last Taken: 02/28/17 Time: 8:10 AM Quetiapine Fumarate (Seroquel) 300 MG TABLET 1 Tablet ORAL TAKE AT BEDTIME Comments: Last Taken: 02/27/17 Time: 9:30 AM Buspirone HCl (Buspirone HCl) 10 MG TABLET 1 Tablet ORAL THREE TIMES DAILY Comments: Last Taken: 02/28/17 Time: 9:10 AM Amitriptyline HCl (Amitriptyline HCl) 100 MG TABLET 1 Tablet ORAL TAKE AT BEDTIME Comments: Last Taken: 02/27/17 Time: 9:25 PM Duloxetine HCl (Duloxetine HCl) 30 MG CAPSULE.DR 1 Capsule ORAL Every Morning Comments: Last Taken: 02/28/17 Time: 9:10 AM Primidone (Primidone) 50 MG TABLET 100 Milligram ORAL THREE TIMES DAILY Comments: Last Taken: 02/28/17 Time: 9:10 AM Sucralfate (Carafate) 1 GM TABLET 1 Tablet ORAL 4 TIMES A DAY Comments: Last Taken: NOT GIVEN IN HOSPITAL Time: Tramadol HCl (Tramadol HCl) 50 MG TABLET 1 Tablet ORAL Q4H as needed for PAIN Comments: Last Taken: 02/28/17 Time: 3:15 AM Esomeprazole (Nexium) 40 MG CAPSULE.DR 1 Capsule ORAL DAILY Qty = 30 Comments: Last Taken: 02/28/17 Time: 6:30 AM Propranolol HCl (Propranolol HCl) 40 MG TABLET 1 Tablet ORAL TWICE DAILY Qty = 60 Comments: Last Taken: 02/28/17 Time: 9:10 AM Albuterol Sulfate (Ventolin Hfa) 90 MCG HFA.AER.AD 2 Puff Inhale through mouth as needed for COPD Qty = 18 Comments: Last Taken: NOT GIVEN IN HOSPITAL Time: Fluticasone/Salmeterol (Advair 250-50 Diskus) 250 MCG-50 MCG/DOSE BLST.W.DEV 1 Puff Inhale through mouth TWICE DAILY Qty = 60 Comments: Last Taken: 02/28/17 Time: 9:15 AM Buprenorphine HCl/Naloxone HCl (Suboxone 8 MG-2 MG Sl Film) 8 MG-2 MG FILM 1 Strip SUBLINGUAL Every night Comments: Last Taken: 02/27/17 Time: 9:25 PM Folic Acid (Folic Acid) 0.8 MG TABLET 1 Tablet ORAL DAILY Comments: Last Taken: NOT GIVEN IN HOSPITAL Time: Magnesium Oxide (Magnesium Oxide) 400 MG TABLET 1 Tablet ORAL TWICE DAILY Comments: Last Taken: NOT GIVEN IN HOSPITAL Time: Multivitamin (Daily Multiple Vitamin) 1 EACH TABLET 1 Tablet ORAL DAILY Comments: Last Taken: NOT GIVEN IN HOSPITAL Time: Cholecalciferol (Vitamin D3) 1,000 UNIT TABLET 1 Tablet ORAL DAILY Comments: Last Taken: NOT GIVEN IN HOSPITAL Time: Tiotropium [place] (Spiriva) 18 MCG CAP.W.DEV 1 Capsule Inhale through mouth DAILY Comments: Last Taken: 02/28/17 Time: 9:10 AM Sulfamethoxazole/Trimethoprim (Bactrim Ds Tablet) 800 MG-160 MG TABLET 1 Tablet ORAL TWICE DAILY Qty = 16 Comments: Last Taken: 02/28/17 Time: 9:10 AM This prescription has been renewed Start taking the following new medications: Insulin Glargine,Hum.rec.anlog (Lantus Solostar) 100 UNIT/ML (3 ML) INSULN.PEN 16 Unit Inject into fatty tissue TWICE DAILY Qty = 15 No Refills Instructions: . Comments: Last Taken: 02/28/17 Time: 11:00 AM Insulin Aspart (Novolog) 100 UNIT/ML VIAL 0 Units Inject into fatty tissue BEFORE MEALS AND AT BEDTIME Qty = 20 No Refills Instructions: BEFORE MEALS Blood Insulin Sugar Units <80 0 81-150 4 151-200 6 201-250 8 251-300 10 301-350 12 351-400 14 >400 16 and Call Doctor AT BEDTIME Blood Insulin Sugar Units <80 0 81-100 0 101-200 0 201-250 0 251-300 2 301-350 3 351-400 4 >400 5 Comments: Last Taken: 02/27/17 Time: 9:25 PM Copies To: Mariely WU,Nader Bond; Moncho WU,Ba Feliciano MD Review Statement Documenting Attending: Manuel WU,Yael Other Findings: 52 o/m with pmh of DM inuslin dependent poor compliacne comes to ER with generalsied weakness and now seen s/p amputation of his right hand finger done by plastic surgery during this admission. Patient is admitted to telemetry with hyperkalemia and hyperglycemia with acute kidney injury. Patient creatinine has improved with fluids. Patient hyperglycemia is getting better with Endocrinology consult. Cont routine wound care. His blood sugars control remains challenge in view of his non complaince and surgery. Patient needs to follow up closely with his PCP and endocrinology. Patient reinforced compliance and diabetes education.
== END 2017-02-28 11:30 | disposition home health service (06) ==
LOC: ERH 13:34 → 1NO 16:11 → ERHI 16:11 → 1NO 16:11 → ENRESERV 18:48 → ENTRNSPT 20:36 → 1NO 21:04 → CMPTRNSPT 21:16 → 1NO 02-27 07:39 → ENTRNSPT 02-27 09:09 → EDTRNSPT 02-27 09:19 → EDTRNSPTSTS 02-27 09:19 → EDTRNSPT 02-27 09:20 → CMPTRNSPT 02-27 09:38 → ENPENDDIS 02-28 10:46 → ENTRNSPT 02-28 11:15 → EDTRNSPTSTS 02-28 11:28 → EDTRNSPT 02-28 11:28 → 1NO 02-28 11:30 → CMPTRNSPT 02-28 11:43
PROVIDERS: Internal Medicine Hematology & Oncology; Physician Assistant Medical
DX: M89.9 Disorder of bone, unspecified (principal); L83 Acanthosis nigricans; L85.8 Other specified epidermal thickening; L91.9 Hypertrophic disorder of the skin, unspecified; E10.42 Type 1 diabetes mellitus with diabetic polyneuropathy; E10.65 Type 1 diabetes mellitus with hyperglycemia; E23.2 Diabetes insipidus; I38 Endocarditis, valve unspecified; E87.5 Hyperkalemia; J44.9 Chronic obstructive pulmonary disease, unspecified; I10 Essential (primary) hypertension; K31.84 Gastroparesis; Z79.4 Long term (current) use of insulin; F11.20 Opioid dependence, uncomplicated; F17.210 Nicotine dependence, cigarettes, uncomplicated; Z86.14 Personal history of Methicillin resistant Staphylococcus aureus infection; Z89.512 Acquired absence of left leg below knee; R94.31 Abnormal electrocardiogram [ECG] [EKG]
CPT/HCPCS: 1328; 1530; 1748; 87070; 87075; 36415; 82436; 88305; 93005; 93010; 96372; 96374; G0378; J0610; J1644; J1815

== ENCOUNTER 2017-06-07 13:47 | Inpatient (IN) | payer OTHER, MEDICARE ==
[~2017-06-07] VITALS: Ht 177.8 cm; Wt 68.5 kg
--- NOTE | 2017-06-07 13:59 | ED GENERAL ADULT ---
History of Present Illness General Chief Complaint: General Adult Stated Complaint: BIBA, UNRESPONSIVE Source: EMS Exam Limitations: unable to give history, not alert/orientated, physical impairment Vital Signs & Intake/Output Vital Signs & Intake/Output Vital Signs Date Time Temp Pulse Resp B/P B/P Pulse O2 O2 Flow FiO2 Mean Ox Delivery Rate 06/07 2152 97.4 103 19 175/98 06/07 2000 99 BIPAP 40% 06/07 1955 94 97 06/07 1828 95.5 06/07 1822 90 16 162/84 100 BIPAP 55% 06/07 1716 95.2 91 18 194/99 100 BIPAP 55% 06/07 1557 95.1 89 22 137/85 100 Non 100% ReBreather 06/07 1440 98 26 145/85 100 Non 10L ReBreather 06/07 1417 100 Non 100% ReBreather 06/07 1415 100 Non 10L ReBreather 06/07 1351 95.9 104 20 148/76 98 Non 100% ReBreather Allergies Coded Allergies: NO KNOWN ALLERGIES (07/16/15) Reconcile Medications Albuterol Sulfate (Ventolin Hfa) 90 MCG HFA.AER.AD 2 PUF INH PRN COPD ( Reported) Amitriptyline HCl 100 MG TABLET 1 TAB PO QHS UNKNOWN (Reported) Buprenorphine HCl/Naloxone HCl (Suboxone 8 MG-2 MG Sl Film) 8 MG-2 MG FILM 2 STR SL DAILY CHRONIC PAIN (Reported) Buprenorphine HCl/Naloxone HCl (Suboxone 8 MG-2 MG Sl Film) 8 MG-2 MG FILM 1 STR SL QPM CHRONIC PAIN (Reported) Buspirone HCl 10 MG TABLET 1 TAB PO TID MENTAL HEALTH (Reported) Cholecalciferol (Vitamin D3) 1,000 UNIT TABLET 1 TAB PO DAILY VITAMIN SUPPORT (Reported) Duloxetine HCl 30 MG CAPSULE.DR 1 CAP PO QAM DEPRESSION (Reported) Esomeprazole (Nexium) 40 MG CAPSULE.DR 1 CAP PO DAILY GI (Reported) Fluticasone/Salmeterol (Advair 250-50 Diskus) 250 MCG-50 MCG/DOSE BLST.W.DEV 1 PUF INH BID COPD (Reported) Folic Acid 0.8 MG TABLET 1 TAB PO DAILY VITAMIN SUPPORT (Reported) Gabapentin (Neurontin) 800 MG TABLET 1 TAB PO TID PAIN (Reported) Insulin Aspart (Novolog) 100 UNIT/ML VIAL 0 UNITS SC TIDAC/HS DM BEFORE MEALS Blood Insulin Sugar Units <80 0 81-150 4 151-200 6 201-250 8 251-300 10 301-350 12 351-400 14 >400 16 and Call Doctor AT BEDTIME Blood Insulin Sugar Units <80 0 81-100 0 101-200 0 201-250 0 251-300 2 301-350 3 351-400 4 >400 5 Magnesium Oxide 400 MG TABLET 1 TAB PO BID SUPPLEMENT (Reported) Multivitamin (Daily Multiple Vitamin) 1 EACH TABLET 1 TAB PO DAILY VITAMIN SUPPORT (Reported) Primidone 50 MG TABLET 100 MG PO TID UNKNOWN (Reported) Propranolol HCl 40 MG TABLET 1 TAB PO BID BP (Reported) Quetiapine Fumarate (Seroquel) 100 MG TABLET 1 TAB PO 8AM, NOON, 6PM MENTAL HEALTH (Reported) Quetiapine Fumarate (Seroquel) 300 MG TABLET 1 TAB PO QHS MENTAL HEALTH ( Reported) Quinapril HCl (Accupril) 20 MG TABLET 1 TAB PO QAM HEART (Reported) Ranitidine HCl 150 MG CAPSULE 300 MG PO DAILY GERD (Reported) Rosuvastatin Calcium (Crestor) 10 MG TABLET 1 TAB PO QHS CHOLESTEROL ( Reported) Sucralfate (Carafate) 1 GM TABLET 1 TAB PO 4 TIMES/DAY GI (Reported) Tramadol HCl 50 MG TABLET 1 TAB PO Q6 PAIN (Reported) Triage Nurses Notes Reviewed? yes Onset: Abrupt Duration: hour(s): Timing: recent history HPI: 06/07/17 52-year-old man brought in by ambulance for altered mental status and respiratory distress. According to EMS, they were called earlier today to the patient's house for a hypoglycemic episode. However when they arrived his sugar had come up and he was oriented 3 this was one hour prior to the second call. EMS was subsequently called for altered mental status. In the emergency department his oxygen saturation initially was in the 80s. He is placed on oxygen and a came up to 100%. He does have bilateral rhonchi. Fingerstick was 145. Past History Travel History Traveled to [place] past 21 day No Medical History Any Pertinent Medical History? see below for history Neurological: peripheral neuropathy EENT: NONE Cardiovascular: hypertension, PVD, MRSA endocarditis Respiratory: COPD Gastrointestinal: diverticulitis, GERD, GASTROPARESIS Hepatic: NONE Renal: NONE Musculoskeletal: osteomyelitis Psychiatric: anxiety, chronic pain disorder, depression Endocrine: diabetes, diabetic ketoacidosis, hypoglycemia Blood Disorders: MRSA Cancer(s): NONE [employer]/Reproductive: NONE Other Medical Hx: COPD, IDDM, diabetic neuropathy, HTN, HLD, current tobacco abuse, history of opiate abuse, depression, anxiety, LLE BKA, RLE transmetatarsal amputation, several episodes of osteomyelitis and PVD History of MRSA: Yes History of VRE: Yes History of CDIFF: No Influenza Vaccine: 12/17/16 Surgical History Surgical History: RIGHT TMA LEFT BKA Psychosocial History Who do you live with Patient/Self Services at Home Nursing What is your primary language Icelandic Tobacco Use: UN ETOH Use: 6 Illicit Drug Use: UTD Family History Family History, If Any: Non-contributory Hx Contributory? No Review of Systems Review of Systems Constitutional: Denies: fever. EENTM: Reports: no symptoms. Respiratory: Reports: short of breath. Cardiovascular: Denies: chest pain. GI: Denies: abdominal pain. Genitourinary: Reports: no symptoms. Musculoskeletal: Reports: no symptoms. Skin: Reports: no symptoms. Neurological/Psychological: Reports: see HPI. Hematologic/Endocrine: Reports: see HPI. Immunologic/Allergic: Reports: see HPI. Physical Exam Physical Exam General Appearance: awake, lethargic, severe distress Head: atraumatic, normal appearance Eyes: Bilateral: normal appearance, PERRL, EOMI. Ears, Nose, Throat: normal ENT inspection Neck: supple Respiratory: no respiratory distress, rhonchi Cardiovascular: tachycardia Peripheral Pulses: 3+ radial (R), 3+ radial (L) Gastrointestinal: soft, non-tender Back: decreased range of motion Extremities: right toes amputated, left BKA Neurologic/Psych: awake, responds minimally to pain Skin: multiple lower extremity ulcers Core Measures ACS in differential dx? No CVA/TIA Diagnosis: Yes Sepsis Present: No Sepsis Focused Exam Completed? No Progress Differential Diagnoses I considered the following diagnoses in my evaluation of the patient: Hypoglycemia, sepsis, alcohol intoxication, substance abuse, ARDS, aspiration pneumonia] Plan of Care: Orders Procedure Date/time Status Nothing by Mouth 06/08 B Active CBC WITHOUT DIFFERENTIAL 06/08 499 Active BASIC ELECTROLYTES PLUS BUN&CR 06/08 499 Active Wound Care/Dressing 06/08 2019 Active Weight 06/08 2019 Active Turn and Reposition 06/08 2019 Active Teach/Educate 06/08 2019 Active Skin Integrity Protocol 06/08 2019 Active Skin/Pressure Ulcer Assess (Sk 06/08 2019 Active Pain Treatment and Response 06/08 2019 Active Nutritional Intake, Monitor 06/08 2019 Active Isolation 06/08 2019 Active Patient Care Conference 06/08 2019 Active Activity/Ambulation 06/08 2019 Active ARTERIAL BLOOD GAS (GEN) 06/07 2000 Complete VRE ACTIVE SURVIELLANCE 06/07 193 Active ACTIVE SURVEILLANCE NARES 06/07 193 Active Code Status 06/07 1832 Active TRC EVALUATION (GEN) 06/07 1803 Active OXYGEN SETUP (GEN) 06/07 180 Complete Pathway - chart 06/07 1803 Active House Staff 06/07 1803 Active LOWER RESPIRATORY CULTURE 06/07 1803 Active EKG 06/07 1712 Active Admit to inpatient 06/07 1654 Active Patient Data 06/07 1640 Active Intake & Output 06/07 1602 Active Add-on Test (ER Only) 06/07 1419 Active BLOOD CULTURE 06/07 1419 Active ARTERIAL BLOOD GAS (GEN) 06/07 1410 Complete Gao, Insertion/Removal/Asses 06/07 1410 Active CULTURE,URINE 06/07 1410 Active URINE DRUG SCREEN FOR ER ONLY 06/07 1410 Complete LACTIC ACID 06/07 1410 Complete ETHANOL 06/07 1410 Complete COMPREHENSIVE METABOLIC PANEL 06/07 1410 Complete CBC WITHOUT DIFFERENTIAL 06/07 1410 Complete BIPAP 06/07 UNK Complete Lab Add-on Test 06/07 UNK Active VTE Mechanical Prophylaxis 06/07 UNK Active Vital Signs 06/07 UNK Active Precautions 06/07 UNK Active FingerStick- Glucose 06/07 UNK Active Current Medications Sig/Jonny Start time Last Medication Dose Stop Time Status Admin Atorvastatin Calcium 40 MG 1700 06/08 1700 AC (Lipitor) Duloxetine HCl 30 MG QAM 06/08 1000 AC (Cymbalta) Lisinopril 20 MG DAILY 06/08 1000 AC (Prinivil) Buprenorphine/ 2 TAB 0800 06/08 0800 AC Naloxone (Suboxone) Omeprazole 40 MG DAILY AC 06/08 0700 AC (Prilosec) Amitriptyline HCl 100 MG AT BEDTIME 06/07 2200 AC 06/07 (Elavil 50 MG Tablet) 2152 Budesonide/ 2 PUF BID 06/07 2199 AC 06/07 Formoterol Fumarate 2157 (Symbicort) Buprenorphine/ 1 TAB QPM 06/07 2199 AC 06/07 Naloxone 2157 (Suboxone) Buspirone HCl 10 MG TID 06/07 2199 AC 06/07 (Buspar) 2152 Famotidine 20 MG BID 06/07 2199 AC 06/07 (Pepcid) 2153 Gabapentin 800 MG TID 06/07 2199 AC 06/07 (Neurontin) 2154 Primidone 100 MG TID 06/07 2199 AC 06/07 (Mysoline 50MG. 2153 Tablet) Propranolol HCl 40 MG BID 06/07 2199 AC 06/07 (Inderal 40 MG 2152 Tablet) Quetiapine Fumarate 300 MG QPM 06/07 2199 AC 06/07 (Seroquel) 2154 Sucralfate 1,000 MG 4 TIMES/DAY 06/07 2199 AC 06/07 (Carafate) 2153 Quetiapine Fumarate 100 MG 0800,1200,1700 06/07 1930 AC (Seroquel) Albuterol Sulfate 2 PUF Q6P PRN 06/07 1915 AC (Ventolin) Ampicillin Sodium/ 3,000 MG Q6 06/07 1801 AC 06/07 Sulbactam Sodium 1821 (Unasyn) Sodium Chloride 100 ML (Normal Saline 0.9%) Acetaminophen 1,000 MG Q6P PRN 06/07 1800 AC (Ofirmev) Dextrose/Sodium 1,000 ML .Q10H 06/07 1800 AC 06/07 Chloride 1820 (D5W-1/2 Normal Saline 1000ML) Enoxaparin Sodium 40 MG DAILY 06/07 1759 AC 06/07 (Lovenox) 1820 Dextrose/Sodium 1,000 ML ONCE ONE 06/07 1700 AC 06/07 Chloride 06/08 0259 1400 (D5-Normal Saline) Dextrose/Water 1,000 ML ONCE ONE 06/07 1600 CAN (D5W 1000) 06/08 0159 Laboratory Tests 06/07/17 1900: pH 7.31 L, pCO2 48 H, pO2 137 H, HCO3 24, ABG O2 Sat (Measured) 98.0, Carboxyhemoglobin 0.9 L, O2 Concentration % 55, Respiration Rate 16, O2 Delivery Method BIPAP, Vent Mode ST, Expiratory Pressure 6, Inspiratory Pressure 18, Phlebotomy Draw Site RIGHT RADIAL 06/07/17 1541: Urine Opiates Screen 143, Methadone Screen 81, Barbiturate Screen 527 H, Ur Phencyclidine Scrn < 6.00, Amphetamines Screen < 100, U Benzodiazepines Scrn > 800 H, Urine Cocaine Screen < 50, Urine Cannabis Screen < 5.00 06/07/17 1500: Anion Gap 11, Estimated GFR > 60, BUN/Creatinine Ratio 14.2, Glucose 22 *L, Lactic Acid 1.4, Calcium 9.6, Total Bilirubin 0.4, AST 14 L, ALT 17 L, Alkaline Phosphatase 159 H, Total Protein 8.0, Albumin 3.6, Globulin 4.4 H, Albumin/Globulin Ratio 0.8 L, CBC w Diff NO MAN DIFF REQ, RBC 4.71, MCV 74.7 L , MCH 23.3 L, MCHC 31.2 L, RDW 19.5 H, MPV 6.7 L, Gran % 68.6, Lymphocytes % 21.9, Monocytes % 6.6, Eosinophils % 2.9, Basophils % 0, Absolute Granulocytes 6.6 H, Absolute Lymphocytes 2.1, Absolute Monocytes 0.6, Absolute Eosinophils 0.3, Absolute Basophils 0, Serum Alcohol < 10.0 06/07/17 1310: pH 7.28 *L, pCO2 51 H, pO2 101 H, HCO3 24, ABG O2 Sat (Measured) 94.0 L, P-50 (Temp Corrected) Y, Carboxyhemoglobin 2.9, O2 Concentration % 100%, Temperature 95.9 L, O2 Delivery Method NRB, Phlebotomy Draw Site LEFT RADIAL Microbiology 06/07 1921 UPPER RESP: Surveillance Culture - RECD 06/07 1921 GI: Surveillance Culture - RECD 06/07 180 LOWER RESP: Respiratory Culture - ORD 06/07 180 LOWER RESP: Gram Stain - ORD 06/07 1541 URINE ROUT: Urine Culture - RECD 06/07 1525 BLOOD: Blood Culture - RECD 06/07 1500 BLOOD: Blood Culture - RECD With this bilateral lower or EKG is nonspecific but is changed if she needs to come right into the room. He was not Initial ED EKG: NSR, nonspecific ST T wave chg Departure Departure Disposition: STILL A PATIENT Condition: Stable Clinical Impression Primary Impression: Hypercapnic respiratory failure Secondary Impressions: Hypoglycemia Referrals: Mariely WU,Nader Bond (PCP/Family) Departure Forms: Customer Survey General Discharge Information Admission Note Spoke With: Rafa WU,Ivis Documentation of Exam: Documentation of any treatments & extenuating circumstances including Concerns Regarding Discharge (functional status, medication knowledge or non-compliance, living conditions, etc.) that warrant an admission rather than observation: [The patient needs admission for refractory hypoglycemia and altered mental status. He needs neuro checks every 6 hours, he needs pulmonary and endocrinology consultations] Critical Care Note Critical Care Note Critical Care Time: 30-74 min Comments: The patient was treated with multiple doses of D50, he was started on intravenous dextrose. He was treated with oxygen and BiPAP. He is placed on a electronic device monitor. He was admitted to the ICU for further care. CT scan of the head was negative. Chest x-ray did not show infiltrate. His oxygen saturation improved to 100%. He was initially lethargic and responsive only to pain. Over time in the ED he became completely oriented 3, he denied any chest pain or other complaints.
--- NOTE | 2017-06-07 15:10 | RADIOLOGY REPORT ---
EXAMINATION: XR PORTABLE CHEST CLINICAL INFORMATION: Status post vomiting. Rule out aspiration. COMPARISON: Chest radiograph 08/04/2016. TECHNIQUE: Portable frontal view of the chest was obtained. FINDINGS: There is no focal consolidation. There are low lung volumes. There is elevation of the right hemidiaphragm and associated subsegmental atelectasis. There is no pneumothorax. The cardiomediastinal silhouette appears normal. The osseous structures are intact allowing for degenerative changes of the right glenohumeral joint. IMPRESSION: Low lung volumes. No focal consolidation.
--- NOTE | 2017-06-07 15:13 | CT SCAN REPORT ---
EXAMINATION: CT HEAD WITHOUT CONTRAST CLINICAL INFORMATION: Altered mental status. Rule out intracranial hemorrhage. COMPARISON: Head CT 03/06/2015. TECHNIQUE: Contiguous axial imaging was performed from the skull base to vertex without intravenous administration of contrast. The acquired images are motion degraded. Image acquisition was repeated. DLP: 1403 mGy-cm. FINDINGS: There is no gross intracranial hemorrhage, large infarction, or mass lesion. There is no extra-axial collection. The ventricles are normal in size and configuration without evidence of hydrocephalus. There is moderate paranasal sinus mucosal thickening without fluid levels. The mastoids and middle ear cavities are clear. IMPRESSION: Within the limits of the motion degraded study there is no acute intracranial abnormality.
[2017-06-07 16:03] LABS: ABSOLUTE BASOPHIL COUNT 0 /CUMM (0.0-0.2); ABSOLUTE EOSINOPHIL COUNT 0.3 /CUMM (0.0-0.7); ABSOLUTE GRANULOCYTE CT 6.6 /CUMM (1.4-6.5); ABSOLUTE LYMPH COUNT 2.1 /CUMM (1.2-3.4); ABSOLUTE MONOCYTE COUNT 0.6 /CUMM (0.10-0.60); BASOPHIL % 0 % (0.0-2.0); EOSINOPHIL % 2.9 % (0-5); HEMATOCRIT 35.1 % (42-52); MEAN CORPUSCULAR HGB 23.3 PG (27.0-31.0); MEAN CORPUSCULAR HGB CONC 31.2 G/DL (33.0-37.0); MEAN CORPUSCULAR VOLUME 74.7 FL (80.0-94.0); MEAN PLATELET VOLUME 6.7 FL (7.4-10.4); RBC DISTRIBUTION WIDTH 19.5 % (11.5-14.5); RED BLOOD CELL CT 4.71 /CUMM (4.70-6.10); WHITE BLOOD CELL COUNT 9.6 /CUMM (4.8-10.8)
[2017-06-07 16:18] LABS: GRANULOCYTE % 68.6 % (42.2-75.2); PLATELET COUNT 672 /CUMM (130-400)
--- NOTE | 2017-06-07 17:43 | PN- Att Addend ---
Attending Addendum Attending Brief Note 52-year-old male, current smoker (30 cigarettes per day since the age of 16), past medical history of hypertension, DM, peripheral neuropathy, peripheral vascular disease, MRSA endocarditis, COPD, diverticulitis, GERD, gastroparesis, osteomyelitis, chronic pain syndrome, depression, diabetic ketoacidosis, hyperlipidemia, opiate abuse on Suboxone, left leg below-knee amputation, right foot transmetatarsal amputation and anxiety brought in to ER for altered mental state and hypoglycemic state. History is very limited as patient obtunded .Apparently EMS was called when patient was found to be hypoglycemic and altered. His friends tried to give him some orange juice while he was obtunded. In the emergency room patient's BRCA was was found to be 22 and he was found to be hypoxic. Respiratory therapist suctioned orangeish vomitus therefore it is likely a possibility that he had aspirated on the orange juice. When I saw the patient he was up tended and difficult to arouse. He could not answer any of my questions. His ABG shows respiratory acidosis with pH of 7.28. And patient did wake up for a few moments he did mention that he has taken his insulin this morning although it is not clear how many units and what kind of insulin he took. Vital Signs Date Time Temp Pulse Resp B/P B/P Pulse O2 O2 Flow FiO2 Mean Ox Delivery Rate 06/07 1716 95.2 91 18 194/99 100 BIPAP 55% 06/07 1557 95.1 89 22 137/85 100 Non 100% ReBreather 06/07 1440 98 26 145/85 100 Non 10L ReBreather 06/07 1417 100 Non 100% ReBreather 06/07 1415 100 Non 10L ReBreather 06/07 1351 95.9 104 20 148/76 98 Non 100% ReBreather on exam; Obtunded difficult to arouse. Cv; s1,s2, rrr resp; mostly clear abd; soft, nt, bs+ ext; left BKA. Laboratory Tests 06/07 06/07 1541 1500 Chemistry Sodium (137 - 145 mmol/L) 137 Potassium (3.5 - 5.1 mmol/L) 4.4 Chloride (98 - 107 mmol/L) 101 Carbon Dioxide (22 - 30 mmol/L) 25 Anion Gap (5 - 16) 11 BUN (9 - 20 mg/dL) 17 Creatinine (0.7 - 1.2 mg/dL) 1.2 Estimated GFR (>60 ml/min) > 60 BUN/Creatinine Ratio (7 - 25 %) 14.2 Glucose (65 - 99 mg/dL) 22 *L Lactic Acid (0.7 - 2.1 mmol/L) 1.4 Calcium (8.4 - 10.2 mg/dL) 9.6 Total Bilirubin (0.2 - 1.3 mg/dL) 0.4 AST (17 - 59 U/L) 14 L ALT (21 - 72 U/L) 17 L Alkaline Phosphatase (< 127 U/L) 159 H Total Protein (6.3 - 8.2 g/dL) 8.0 Albumin (3.5 - 5.0 g/dL) 3.6 Globulin (1.9 - 4.2 gm/dL) 4.4 H Albumin/Globulin Ratio (1.1 - 2.2 %) 0.8 L Hematology CBC w Diff NO MAN DIFF REQ WBC (4.8 - 10.8 /CUMM) 9.6 RBC (4.70 - 6.10 /CUMM) 4.71 Hgb (14.0 - 18.0 G/DL) 11.0 L Hct (42 - 52 %) 35.1 L MCV (80.0 - 94.0 FL) 74.7 L MCH (27.0 - 31.0 PG) 23.3 L MCHC (33.0 - 37.0 G/DL) 31.2 L RDW (11.5 - 14.5 %) 19.5 H Plt Count (130 - 400 /CUMM) 672 H MPV (7.4 - 10.4 FL) 6.7 L Gran % (42.2 - 75.2 %) 68.6 Lymphocytes % (20.5 - 51.1 %) 21.9 Monocytes % (1.7 - 9.3 %) 6.6 Eosinophils % (0 - 5 %) 2.9 Basophils % (0.0 - 2.0 %) 0 Absolute Granulocytes (1.4 - 6.5 /CUMM) 6.6 H Absolute Lymphocytes (1.2 - 3.4 /CUMM) 2.1 Absolute Monocytes (0.10 - 0.60 /CUMM) 0.6 Absolute Eosinophils (0.0 - 0.7 /CUMM) 0.3 Absolute Basophils (0.0 - 0.2 /CUMM) 0 Toxicology Urine Opiates Screen (>2000 NG/ML) 143 Methadone Screen (>300 NG/ML) 81 Barbiturate Screen (>200 NG/ML) 527 H Ur Phencyclidine Scrn (>25 NG/ML) < 6.00 Amphetamines Screen (>1000 NG/ML) < 100 U Benzodiazepines Scrn (>200 NG/ML) > 800 H Urine Cocaine Screen (>300 NG/ML) < 50 Urine Cannabis Screen (>50 NG/ML) < 5.00 Serum Alcohol (<10 MG/DL) < 10.0 06/07 1310 Blood Gas pH (7.35 - 7.45 PH) 7.28 *L pCO2 (35 - 45 TORR) 51 H pO2 (80 - 100 TORR) 101 H HCO3 (21 - 28 MEQ/L) 24 ABG O2 Sat (Measured) (>96.0 %) 94.0 L P-50 (Temp Corrected) Y Carboxyhemoglobin (1.5 - 5.0 %) 2.9 O2 Concentration % 100% Temperature (97.0 - 100.0 FARH) 95.9 L O2 Delivery Method NRB Miscellaneous Phlebotomy Draw Site LEFT RADIAL A/P; 52-year-old male, current smoker (30 cigarettes per day since the age of 16 ), past medical history of hypertension, DM, peripheral neuropathy, peripheral vascular disease, MRSA endocarditis, COPD, diverticulitis, GERD, gastroparesis, osteomyelitis, chronic pain syndrome, depression, diabetic ketoacidosis, hyperlipidemia, opiate abuse on Suboxone, left leg below-knee amputation, right foot transmetatarsal amputation and anxiety will be admitted to ICU with the altered mental state, unconsciousness likely secondary to hypercarbia and hypoglycemia, severe hypoglycemia likely secondary to insulin. Patient also likely has developed aspiration pneumonia. His U tox is also positive for barbiturates as well as benzodiazepines. Patient admitted to Intensive care unit. I told respiratory therapist to try BiPAP on him and will repeat ABG in the next couple of hours. Please consult critical care attending. We'll start the patient on Unasyn for possible aspiration pneumonia. Follow up psutum cx. He has received amps of D50 in the emergency room and he has been started on D5 IV fluids. Please consult endocrinology and patient would likely require D10 if remains hypoglycemic. Frequent monitoring of blood sugars. Please confirm the rest of his home medications. Patient should be kept nothing by mouth until more awake. Pt hypothermic, Will need warming blanket. DVT prophylaxis: Lovenox. Considered as full code until he is more awake.
--- NOTE | 2017-06-07 17:58 | History & Physical ---
Lily WU,Moises 06/07/17 6174: General Information and HPI History of Present Illness: 52 year old man with past medical history significant for insulin-dependent diabetes mellitus, PVD status post multiple amputations, MRSA endocarditis, and COPD not on home oxygen brought in by ambulance for evaluation of shortness breath and altered mental status. Per ED records EMS was contacted for a hypoglycemic episode at home and upon arrival the patient's sugar had corrected and he was reportedly oriented to person, place, and time for which the EMS service apparently left. A second call to EMS was placed after patient developed altered mental status. He is brought to the [place] ED for evaluation. In triage his oxygen was found to be initially somewhere in the 80s for which she was placed on supplemental oxygen which quickly corrected. Currently patient is maintained on BiPAP and is somnolent/lethargic. He follows simple commands but quickly goes back to sleep. When asked if he has any pain or complaints he shakes his head indicating no. Further subjective complaints and review of systems are unavailable. Collateral information obtained from patients power of sports attorney Spencer whom reports that patient reportedly took 38 units of tresiba this morning and 6 units of "fast acting insulin" after finding his glucose was over 200 and was seen to be acting weird. Blood sugar was subsequently found to be low which reportedly improved with some "juice". Past medical history- as above, additionally hypertension, hyperlipidemia, GERD, gastroparesis, PVD, right fifth digit amputation, right transmetatarsal amputation, left below knee amputation, current cigarette use, anxiety, depression, opiate abuse on suboxone, history of DKA, chronic pain, MRSA endocarditis Social History Collateral information obtained from patient's geological specialist Deeajy whom is present during the interview reveals that patient is normally compliant with all his medications and doctor's appointments. He receives help from his girlfriend Spencer with his medications. He is otherwise independent in personal IADLs, but depends on his caretakers for cooking, cleaning, laundry, travel. Currently still smoking, does not drink. Has history of drug abuse. Allergies/Medications Allergies: Coded Allergies: NO KNOWN ALLERGIES (07/16/15) Home Med list Albuterol Sulfate (Ventolin Hfa) 90 MCG HFA.AER.AD 2 PUF INH PRN COPD ( Reported) Amitriptyline HCl 100 MG TABLET 1 TAB PO QHS UNKNOWN (Reported) Buprenorphine HCl/Naloxone HCl (Suboxone 8 MG-2 MG Sl Film) 8 MG-2 MG FILM 2 STR SL DAILY CHRONIC PAIN (Reported) Buprenorphine HCl/Naloxone HCl (Suboxone 8 MG-2 MG Sl Film) 8 MG-2 MG FILM 1 STR SL QPM CHRONIC PAIN (Reported) Buspirone HCl 10 MG TABLET 1 TAB PO TID MENTAL HEALTH (Reported) Cholecalciferol (Vitamin D3) 1,000 UNIT TABLET 1 TAB PO DAILY VITAMIN SUPPORT (Reported) Duloxetine HCl 30 MG CAPSULE.DR 1 CAP PO QAM DEPRESSION (Reported) Esomeprazole (Nexium) 40 MG CAPSULE.DR 1 CAP PO DAILY GI (Reported) Fluticasone/Salmeterol (Advair 250-50 Diskus) 250 MCG-50 MCG/DOSE BLST.W.DEV 1 PUF INH BID COPD (Reported) Folic Acid 0.8 MG TABLET 1 TAB PO DAILY VITAMIN SUPPORT (Reported) Gabapentin (Neurontin) 800 MG TABLET 1 TAB PO TID PAIN (Reported) Insulin Aspart (Novolog) 100 UNIT/ML VIAL 0 UNITS SC TIDAC/HS DM BEFORE MEALS Blood Insulin Sugar Units <80 0 81-150 4 151-200 6 201-250 8 251-300 10 301-350 12 351-400 14 >400 16 and Call Doctor AT BEDTIME Blood Insulin Sugar Units <80 0 81-100 0 101-200 0 201-250 0 251-300 2 301-350 3 351-400 4 >400 5 Magnesium Oxide 400 MG TABLET 1 TAB PO BID SUPPLEMENT (Reported) Multivitamin (Daily Multiple Vitamin) 1 EACH TABLET 1 TAB PO DAILY VITAMIN SUPPORT (Reported) Primidone 50 MG TABLET 100 MG PO TID UNKNOWN (Reported) Propranolol HCl 40 MG TABLET 1 TAB PO BID BP (Reported) Quetiapine Fumarate (Seroquel) 100 MG TABLET 1 TAB PO 8AM, NOON, 6PM MENTAL HEALTH (Reported) Quetiapine Fumarate (Seroquel) 300 MG TABLET 1 TAB PO QHS MENTAL HEALTH ( Reported) Quinapril HCl (Accupril) 20 MG TABLET 1 TAB PO QAM HEART (Reported) Ranitidine HCl 150 MG CAPSULE 300 MG PO DAILY GERD (Reported) Rosuvastatin Calcium (Crestor) 10 MG TABLET 1 TAB PO QHS CHOLESTEROL ( Reported) Sucralfate (Carafate) 1 GM TABLET 1 TAB PO 4 TIMES/DAY GI (Reported) Tramadol HCl 50 MG TABLET 1 TAB PO Q6 PAIN (Reported) Past History Travel History Traveled to [place] past 21 day No Medical History Neurological: peripheral neuropathy EENT: NONE Cardiovascular: hypertension, PVD, MRSA endocarditis Respiratory: COPD Gastrointestinal: diverticulitis, GERD, GASTROPARESIS Hepatic: NONE Renal: NONE Musculoskeletal: osteomyelitis Psychiatric: anxiety, chronic pain disorder, depression Endocrine: diabetes, diabetic ketoacidosis, hypoglycemia Blood Disorders: MRSA Cancer(s): NONE MEDIA PLANNER / BUYER/Reproductive: NONE Other Medical Hx: COPD, IDDM, diabetic neuropathy, HTN, HLD, current tobacco abuse, history of opiate abuse, depression, anxiety, LLE BKA, RLE transmetatarsal amputation, several episodes of osteomyelitis and PVD History of MRSA: Yes History of VRE: Yes History of CDIFF: No Influenza Vaccine: 12/17/16 Surgical History Surgical History: RIGHT TMA LEFT BKA Past Family/Social History Family History Relations & Conditions if any Non-contributory Psychosocial History Who Do You Live With? self Services at Home: Nursing Primary Language: Ch[place] ETOH Use: 6 Illicit Drug Use: UTD Name of POA/HCP: Spencer Chaudhari Functional Ability ADLs Independent: dressing, eating, toileting, bathing. Ambulation: cane, walker IADLs Independent: finances. Unknown: shopping, housework, food prep, telephone, transportation, medication admin. Review of Systems Review of Systems Constitutional: Reports: see HPI. Exam & Diagnostic Data Last 24 Hrs of Vital Signs/I&O Vital Signs Date Time Temp Pulse Resp B/P B/P Pulse O2 O2 Flow FiO2 Mean Ox Delivery Rate 06/07 1828 95.5 06/07 1822 90 16 162/84 100 BIPAP 55% 06/07 1716 95.2 91 18 194/99 100 BIPAP 55% 06/07 1557 95.1 89 22 137/85 100 Non 100% ReBreather 06/07 1440 98 26 145/85 100 Non 10L ReBreather 06/07 1417 100 Non 100% ReBreather 06/07 1415 100 Non 10L ReBreather 06/07 1351 95.9 104 20 148/76 98 Non 100% ReBreather Physical Exam General Appearance No Acute Distress, somnolent, lethargic Skin Multiple skin lesions/wounds in various stages of healing Skin Temp/Moisture Exam: Cool/Dry Sepsis Skin Exam (color): Normal for Ethnicity HEENT Atraumatic, Mucous Membr. moist/pink Neck Supple Cardiovascular Regular Rate, Normal S1, Normal S2 Lungs Normal Air Movement, scattered rhonchi Abdomen Normal Bowel Sounds, Soft, No Tenderness, No Hepatospenomegaly, No Masses Neurological limited exam, speech not assessed, spontaneous movement of all four extremities Extremities No Clubbing, No Cyanosis, No Edema, No Tenderness/Swelling, faint peripheral pulses Last 24 Hrs of Labs/Bart: Laboratory Tests 06/07/17 1541: Urine Opiates Screen 143, Methadone Screen 81, Barbiturate Screen 527 H, Ur Phencyclidine Scrn < 6.00, Amphetamines Screen < 100, U Benzodiazepines Scrn > 800 H, Urine Cocaine Screen < 50, Urine Cannabis Screen < 5.00 06/07/17 1500: Anion Gap 11, Estimated GFR > 60, BUN/Creatinine Ratio 14.2, Glucose 22 *L, Lactic Acid 1.4, Calcium 9.6, Total Bilirubin 0.4, AST 14 L, ALT 17 L, Alkaline Phosphatase 159 H, Total Protein 8.0, Albumin 3.6, Globulin 4.4 H, Albumin/Globulin Ratio 0.8 L, CBC w Diff NO MAN DIFF REQ, RBC 4.71, MCV 74.7 L , MCH 23.3 L, MCHC 31.2 L, RDW 19.5 H, MPV 6.7 L, Gran % 68.6, Lymphocytes % 21.9, Monocytes % 6.6, Eosinophils % 2.9, Basophils % 0, Absolute Granulocytes 6.6 H, Absolute Lymphocytes 2.1, Absolute Monocytes 0.6, Absolute Eosinophils 0.3, Absolute Basophils 0, Serum Alcohol < 10.0 06/07/17 1310: pH 7.28 *L, pCO2 51 H, pO2 101 H, HCO3 24, ABG O2 Sat (Measured) 94.0 L, P-50 (Temp Corrected) Y, Carboxyhemoglobin 2.9, O2 Concentration % 100%, Temperature 95.9 L, O2 Delivery Method NRB, Phlebotomy Draw Site LEFT RADIAL Microbiology 06/07 1802 LOWER RESP: Respiratory Culture - ORD 06/07 1802 LOWER RESP: Gram Stain - ORD 06/07 1541 URINE ROUT: Urine Culture - RECD 06/07 1525 BLOOD: Blood Culture - RECD 06/07 1500 BLOOD: Blood Culture - RECD Assessment/Plan Assessment: 52 year old man with multiple medical problems significant for insulin-dependent diabetes mellitus, COPD, tobacco use, and diabetic ketoacidosis seen for evaluation of altered mental status found to have hypercarbia with hypoglycemia. ED Course -Vitals: Temp 95.1-95.9, HR 89-104, RR 20-26, SPEP 137-148, O2 98-100% on 100% FiO2 via nonrebreather -CBC: WBC 9.6, hemoglobin 11.0, hematocrit 35.1, platelets 672 -BMP: Sodium 137, potassium 4.4, chloride 101, CO2 25, urea 17, creatinine 1.2, anion gap 11, glucose 22 -LFT: AST 14, ALT 17, ALP 159 -Miscellaneous: Lactic acid 1.4, EtOH <10 -ABG: PH 7.28/PCO2 51/PO2 101/bicarbonate 24 -Urine toxicology: Positive for benzodiazepines and barbiturates -EKG: Normal sinus rhythm, HR 90, DE 192, QTC 490, no ST segment changes -CT head without IV contrast: Within the limits of the motion degraded study there is no acute intracranial abnormality -CXR: Low lung volumes without focal consolidation -ED interventions: * D5 amp 2 * D5 normal saline 1 L * Narcan 0.4 mg once * Blood cultures 2 * Urine culture Patient's altered mental status may have initially been due to hypoglycemia of unclear etiology. Currently collateral information regarding events of this morning are unavailable, however it is possible patient took his insulin without adequately eating. This may have caused the initial decreased awareness with relative hypoventilation causing hypercarbia. Patient received several rounds of D5 pushes in the ED in addition to D5 normal saline maintenance fluids. He continues to drop his blood sugar despite this for which he will be monitored with frequent fingersticks. It is possible that he aspirated during this for which blood/sputum cultures were obtained and empiric Unasyn was started. Management of patient's hypoglycemia in the context of insulin-dependent diabetes was discussed with legal assistant Dr. grier whom agreed with frequent Accu-Cheks with continuation of maintenance fluids. Patient developed hypertensive urgency in the ED possibly due to physiologic stress and fluids in the context of diastolic heart failure which will be monitored. Problem List -Acute hypoxic/hypercarbic respiratory failure, likely due to hypoglycemia -Severe hypoglycemia, possibly due to insulin use without eating -Possible aspiration pneumonia -Hypertensive urgency -Thrombocytosis, likely reactive -Insulin-dependent diabetes mellitus -History of diabetic ketoacidosis -Opiate abuse, on suboxone -COPD, not on home oxygen -History of MRSA endocarditis -Hypertension -Hyperlipidemia -Anxiety/depression -GERD -Gastroparesis -Current tobacco user -Peripheral vascular disease -Right foot transmetatarsal amputation -Right fifth digit amputation -Left below knee amputation Plan -ICU Admission -Ins & Outs -Gao Catheter -Aspiration precautions -TRC -BiPAP -Accuchecks Q1H -D5 1/2 NS @ 100 mL/hr -Unasyn 3 g IV Q6H -Hold novolog and tresiba -Endo consult for hypoglycemia -Pulmonology consult for respiratory failure -Blood/urine/sputum cultures -Repeat ABG -Daily CBC, ICU bundle -Pain control with acetaminophen -NPO for AMS -DVT PPx with lovenox -FULL CODE, confirm code status with POA when able -Contact BENJI Spencer [phone] with updates As Ranked By This Provider Problem List: 1. Hypercapnic respiratory failure 2. Hypoglycemia Core Measures/Misc (12/03) Acute Coronary Syndrome ACS Diagnosis: No Congestive Heart Failure Congestive Heart Failure Diagnosis No Cerebrovascular Accident CVA/TIA Diagnosis: No VTE (View Protocol) VTE Risk Factors Age>40 No Mechanical VTE Prophylaxis d/t N/A MechProphylax Ordered No VTE Pharm Prophylaxis d/t NA PharmProphylax ordered Sepsis (View protocol) Sepsis Present: No Ivis Craig MD 06/08/17 1507: Attending MD Review Statement Attending Statement Attending MD Statement: examined this patient, discuss w/resident/PA/ARCHITECTURAL DESIGN LECTURER, agreed w/resident/PA/ARCHITECTURAL DESIGN LECTURER, reviewed EMR data (avail), discussed with nursing, reviewed images, amended to note Attending Assessment/Plan: Also see my separate addendum.
[2017-06-07] MEDS ORDERED: RANITIDINE HCL150 M2 PO (18:55)
[2017-06-07] MEDS ORDERED: ADVAIR 250-501 EACH INH (18:55)
[2017-06-07] MEDS ORDERED: TRAMADOL HCL50 M1 PO (18:56)
[2017-06-08] VITALS: BP 128/70
[2017-06-08 05:32] LABS: HEMATOCRIT 31.5 % (42-52); MEAN CORPUSCULAR HGB 23.2 PG (27.0-31.0); MEAN CORPUSCULAR HGB CONC 30.8 G/DL (33.0-37.0); MEAN CORPUSCULAR VOLUME 75.5 FL (80.0-94.0); MEAN PLATELET VOLUME 7.4 FL (7.4-10.4); PLATELET COUNT 478 /CUMM (130-400); RBC DISTRIBUTION WIDTH 19.4 % (11.5-14.5); RED BLOOD CELL CT 4.18 /CUMM (4.70-6.10)
[2017-06-08 05:46] LABS: WHITE BLOOD CELL COUNT 14.5 /CUMM (4.8-10.8)
--- NOTE | 2017-06-08 07:32 | Cons- CRCU ---
Chiquita WU,Misael 06/08/17 0731: General Information and HPI Consulting Request Requested By: Dr. Craig Reason for Consult: Hypoglycemia Acute hypoxic hypercarbic respiratory failure Source of Information: patient, old records History of Present Illness: Patient is a 52-year-old male with past medical history of insulin-dependent diabetes, PVD status post multiple amputations, MRSA endocarditis, COPD not on home oxygen presenting this admission for shortness of breath and altered mental status. Patient was found to be hypoglycemic by EMS at home initially his mentation was fine and glucose was corrected. A second call to EMS was placed on the same day after patient became confused and he was seen in the ED at [place]. Per patient 's power of commercial attorney he took 38 units of tissue but this morning along with 6 units of short-acting insulin after his glucose was checked and was above 200. On admission patient's glucose was found to be 22. Patient on admission was found to be confused. He received several rounds of D5 pushes in the ED along with D5 normal saline IV. Patient also takes opiates for chronic pain. Received Narcan 0.4 mg 1 in the ED. Patient was found to have desatted to the 80s requiring oxygen. Patient was placed on BiPAP. Patient's PCP is Dr. cShuster. Today patient was upset because his right foot and leg dressings were removed without his knowledge. Patient denies any dizziness, lightheadedness, tremors, nausea/vomiting, abdominal pain, chest pain, shortness of breath, fever/chills, constipation/diarrhea. Patient is mostly concerned about losing his right leg. Allergies/Medications Allergies: Coded Allergies: NO KNOWN ALLERGIES (07/16/15) Home Med List: Albuterol Sulfate (Ventolin Hfa) 90 MCG HFA.AER.AD 2 PUF INH PRN COPD ( Reported) Amitriptyline HCl 100 MG TABLET 1 TAB PO QHS UNKNOWN (Reported) Buprenorphine HCl/Naloxone HCl (Suboxone 8 MG-2 MG Sl Film) 8 MG-2 MG FILM 2 STR SL DAILY CHRONIC PAIN (Reported) Buprenorphine HCl/Naloxone HCl (Suboxone 8 MG-2 MG Sl Film) 8 MG-2 MG FILM 1 STR SL QPM CHRONIC PAIN (Reported) Buspirone HCl 10 MG TABLET 1 TAB PO TID MENTAL HEALTH (Reported) Cholecalciferol (Vitamin D3) 1,000 UNIT TABLET 1 TAB PO DAILY VITAMIN SUPPORT (Reported) Duloxetine HCl [address] De Jesus CAP PO QAM DEPRESSION (Reported) Esomeprazole (Nexium) 40 MG CAPSULE. 1 CAP PO DAILY GI (Reported) Fluticasone/Salmeterol (Advair 250-50 Diskus) 250 MCG-50 MCG/DOSE BLST.W.DEV 1 PUF INH BID COPD (Reported) Folic Acid 0.8 MG TABLET 1 TAB PO DAILY VITAMIN SUPPORT (Reported) Gabapentin (Neurontin) 800 MG TABLET 1 TAB PO TID PAIN (Reported) Insulin Aspart (Novolog) 100 UNIT/ML VIAL 0 UNITS SC TIDAC/HS DM BEFORE MEALS Blood Insulin Sugar Units <80 0 81-150 4 151-200 6 201-250 8 251-300 10 301-350 12 351-400 14 >400 16 and Call Doctor AT BEDTIME Blood Insulin Sugar Units <80 0 81-100 0 101-200 0 201-250 0 251-300 2 301-350 3 351-400 4 >400 5 Magnesium Oxide 400 MG TABLET 1 TAB PO BID SUPPLEMENT (Reported) Multivitamin (Daily Multiple Vitamin) 1 EACH TABLET 1 TAB PO DAILY VITAMIN SUPPORT (Reported) Primidone 50 MG TABLET 100 MG PO TID UNKNOWN (Reported) Propranolol HCl 40 MG TABLET 1 TAB PO BID BP (Reported) Quetiapine Fumarate (Seroquel) 100 MG TABLET 1 TAB PO 8AM, NOON, 6PM MENTAL HEALTH (Reported) Quetiapine Fumarate (Seroquel) 300 MG TABLET 1 TAB PO QHS MENTAL HEALTH ( Reported) Quinapril HCl (Accupril) 20 MG TABLET 1 TAB PO QAM HEART (Reported) Ranitidine HCl 150 MG CAPSULE 300 MG PO DAILY GERD (Reported) Rosuvastatin Calcium (Crestor) 10 MG TABLET 1 TAB PO QHS CHOLESTEROL ( Reported) Sucralfate (Carafate) 1 GM TABLET 1 TAB PO 4 TIMES/DAY GI (Reported) Tramadol HCl 50 MG TABLET 1 TAB PO Q6 PAIN (Reported) Current Medications: Current Medications Sig/Jonny Start time Last Medication Dose Route Stop Time Status Admin Acetaminophen 1,000 MG Q6P PRN 06/07 1800 AC IV Albuterol Sulfate 2 PUF Q6P PRN 06/07 1915 AC INH Amitriptyline HCl 100 MG AT BEDTIME 06/07 2199 AC 06/07 PO 2153 Ampicillin Sodium/ 0 .STK-MED ONE 06/07 1812 DC Sulbactam Sodium .ROUTE Ampicillin Sodium/ 3,000 MG Q6 06/07 1801 AC 06/08 Sulbactam Sodium IV 1147 Sodium Chloride 100 ML Atorvastatin Calcium 40 MG 1700 06/08 1700 AC PO Budesonide/ 2 PUF BID 06/07 2200 AC 06/08 Formoterol Fumarate INH 1104 Buprenorphine/ 2 TAB 0800 06/08 0800 AC 06/08 Naloxone SL 0905 Buprenorphine/ 1 TAB QPM 06/07 2200 AC 06/07 Naloxone SL 2158 Buspirone HCl 10 MG TID 06/07 2200 AC 06/08 PO 1102 Calcium Carbonate 500 MG DAILY PRN 06/08 1200 AC 06/08 PO 1158 Dextrose 25 GM ONCE ONE 06/07 1700 DC 06/07 IV 06/07 1701 1650 Dextrose 25 GM ONCE ONE 06/07 1700 DC 06/07 IV 06/07 1701 1520 Dextrose 0 .STK-MED ONE 06/07 1659 DC IV Dextrose/Sodium 1,000 ML .Q20H 06/07 1800 AC 06/08 Chloride IV 0505 Dextrose/Sodium 1,000 ML ONCE ONE 06/07 1700 DC 06/07 Chloride IV 06/08 0259 1400 Dextrose/Water 1,000 ML ONCE ONE 06/07 1600 CAN IV 06/08 0159 Duloxetine HCl 30 MG QAM 06/08 1000 AC 06/08 PO 1103 Enoxaparin Sodium 0 .STK-MED ONE 06/07 1812 DC SC Enoxaparin Sodium 40 MG DAILY 06/07 1759 AC 06/08 SC 1103 Famotidine 20 MG BID 06/07 2200 AC 06/08 PO 1103 Gabapentin 800 MG TID 06/07 2200 AC 06/08 PO 1103 Insulin Aspart 0 TIDAC 06/08 1200 AC 06/08 SC 1147 Insulin Detemir 8 UNITS BID 06/08 1014 AC 06/08 SC 1104 Lisinopril 20 MG DAILY 06/08 1200 AC 06/08 PO 1158 Lisinopril 20 MG DAILY 06/08 1000 CAN PO Naloxone HCl 0.4 MG ONCE ONE 06/07 1700 DC 06/07 IV 06/07 1701 1355 Naloxone HCl 0.4 MG ONCE ONE 06/07 1600 DC IM 06/07 1601 Naloxone HCl 0 .STK-MED ONE 06/07 1358 DC .ROUTE Nicotine 21 MG DAILY 06/08 1000 AC 06/08 TOP 1102 Omeprazole 40 MG DAILY AC 06/08 0700 AC 06/08 PO 0626 Primidone 100 MG TID 06/07 2200 AC 06/08 PO 1103 Propranolol HCl 40 MG BID 06/08 1215 AC 06/08 PO 1209 Propranolol HCl 40 MG BID 06/07 2200 DC 06/07 PO 2153 Quetiapine Fumarate 300 MG QPM 06/07 2200 AC 06/07 PO 2155 Quetiapine Fumarate 100 MG 0800,1200,1700 06/07 1930 AC 06/08 PO 1245 Sodium Chloride 1,000 ML BOLUS ONE 06/07 1415 DC IV 06/07 1614 Sucralfate 1,000 MG 4 TIMES/DAY 06/07 2200 AC 06/08 PO 1147 Review of Systems Review of Systems Constitutional: Reports: no symptoms. EENTM: Reports: no symptoms. Cardiovascular: Reports: no symptoms. Respiratory: Reports: no symptoms. GI: Reports: no symptoms. Genitourinary: Reports: no symptoms. Musculoskeletal: Reports: no symptoms. Skin: Reports: see HPI. Neurological/Psychological: Reports: anxiety. Hematologic/Endocrine: Reports: no symptoms. 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 Home Who Do You Live With? self Services at Home: Nursing Primary Language: Korean Smoking Status: Current Everyday Smoker ETOH Use: 6 Illicit Drug Use: UTD Name of POA/HCP: Spencer Chaudhari Functional Ability ADLs Independent: dressing, eating, toileting, bathing. Ambulation: cane, walker IADLs Independent: finances. Unknown: shopping, housework, food prep, telephone, transportation, medication admin. Exam & Diagnostic Data Last 24 Hrs of Vital Signs/I&O Vital Signs Date Time Temp Pulse Resp B/P B/P Pulse O2 O2 Flow FiO2 Mean Ox Delivery Rate 06/08 1216 Nasal 4.0L Cannula 06/08 1209 106 160/90 06/08 1200 Nasal 4.0L Cannula 06/08 1200 98.6 108 16 148/95 97 Nasal 4.0L Cannula 06/08 1158 106 160/90 06/08 0830 110 95 06/08 0800 BIPAP 35% 06/08 0800 97.8 108 16 100/70 100 BIPAP 35% 06/08 0544 117 95 06/08 0400 96 BIPAP 35% 06/08 0349 123 96 06/08 0043 117 97 06/08 0000 96 BIPAP 35% 06/08 0000 96.8 112 18 128/70 96 BIPAP 35% 06/07 2240 109 99 06/07 2153 97.4 103 19 175/98 06/07 2000 99 BIPAP 40% 06/07 1955 94 97 06/07 1828 95.5 06/07 1822 90 16 162/84 100 BIPAP 55% 06/07 1716 95.2 91 18 194/99 100 BIPAP 55% 06/07 1557 95.1 89 22 137/85 100 Non 100% ReBreather 06/07 1440 98 26 145/85 100 Non 10L ReBreather 06/07 1417 100 Non 100% ReBreather 06/07 1415 100 Non 10L ReBreather 06/07 1351 95.9 104 20 148/76 98 Non 100% ReBreather Intake & Output 06/08 1600 06/08 0800 06/08 0000 Intake Total 1150 900 520 Output Total 418 996 0521 Balance 870 555 -1280 Intake, IV 350 900 400 Intake, Oral 800 120 Output, Urine 984 008 5227 Patient 140 lb 143 lb Weight Weight Bed scale Measurement Method Physical Exam General Appearance: well developed/nourished, no apparent distress, anxious Head: atraumatic, normal appearance Eyes: Bilateral: PERRL. 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 Cranial Nerves: normal hearing, normal speech, PERRL Last 48 Hrs of Labs/Bart: Laboratory Tests 06/08/17 0955: Urine Color YEL, Urine Clarity CLEAR, Urine pH 6.0, Ur Specific [place] >= 1.030 , Urine Protein >=300 H, Urine Ketones NEG, Urine Nitrite NEG, Urine Bilirubin NEG, Urine Urobilinogen 0.2, Ur Leukocyte Esterase NEG, Ur Microscopic SEDIMENT EXAMINED, Urine RBC 50-75 H, Urine WBC 3-5 H, Urine Bacteria RARE H, Hyaline Casts 10-15 H, Granular Casts 1-3 H, Urine Mucus RARE, Urine Hemoglobin MOD H , Urine Glucose NEG 06/08/17 0732: Sodium Cancelled, Potassium Cancelled, Chloride Cancelled, Carbon Dioxide Cancelled, Anion Gap Cancelled, BUN Cancelled, Creatinine Cancelled, Glucose Cancelled, Calcium Cancelled, Phosphorus Cancelled, Magnesium Cancelled, Total Bilirubin Cancelled, AST Cancelled, ALT Cancelled, Albumin Cancelled 06/08/17 0400: Anion Gap 7, Estimated GFR > 60, BUN/Creatinine Ratio 16.7, Glucose 195 H, Insulin Level 48.6 H, Phosphorus 4.3, Magnesium 1.5 L, Total Bilirubin 0.4, Direct Bilirubin 0.4, AST 11 L, ALT 9 L, Alkaline Phosphatase 122, Total Protein 6.1 L, Albumin 2.6 L, TSH 0.586, Free T4 1.15, Cortisol AM Sample 16.9 , CBC w Diff MAN DIFF ORDERED, RBC 4.18 L, MCV 75.5 L, MCH 23.2 L, MCHC 30.8 L, RDW 19.4 H, MPV 7.4, Segmented Neutrophils 87 H, Band Neutrophils 4, Lymphocytes 6 L, Monocytes 3, Platelet Estimate INCREASED, Hypochromic- Microcytic 2+, Poikilocytosis 1+, Anisocytosis 1+, Target Cells FEW, Stomatocytes 1+, Elliptocytes 1+ 06/07/17 1900: pH 7.31 L, pCO2 48 H, pO2 137 H, HCO3 24, ABG O2 Sat (Measured) 98.0, Carboxyhemoglobin 0.9 L, O2 Concentration % 55, Respiration Rate 16, O2 Delivery Method BIPAP, Vent Mode ST, Expiratory Pressure 6, Inspiratory Pressure 18, Phlebotomy Draw Site RIGHT RADIAL 06/07/17 1541: Urine Opiates Screen 143, Methadone Screen 81, Barbiturate Screen 527 H, Ur Phencyclidine Scrn < 6.00, Amphetamines Screen < 100, U Benzodiazepines Scrn > 800 H, Urine Cocaine Screen < 50, Urine Cannabis Screen < 5.00 06/07/17 1500: Anion Gap 11, Estimated GFR > 60, BUN/Creatinine Ratio 14.2, Glucose 22 *L, Insulin Level 138.9 H, Lactic Acid 1.4, Calcium 9.6, Total Bilirubin 0.4, AST 14 L, ALT 17 L, Alkaline Phosphatase 159 H, Troponin I < 0.01, Total Protein 8.0, Albumin 3.6, Globulin 4.4 H, Albumin/Globulin Ratio 0.8 L, CBC w Diff NO MAN DIFF REQ, RBC 4.71, MCV 74.7 L, MCH 23.3 L, MCHC 31.2 L, RDW 19.5 H, MPV 6.7 L, Gran % 68.6, Lymphocytes % 21.9, Monocytes % 6.6, Eosinophils % 2.9, Basophils % 0, Absolute Granulocytes 6.6 H, Absolute Lymphocytes 2.1, Absolute Monocytes 0.6, Absolute Eosinophils 0.3, Absolute Basophils 0, Serum Alcohol < 10.0 06/07/17 1310: pH 7.28 *L, pCO2 51 H, pO2 101 H, HCO3 24, ABG O2 Sat (Measured) 94.0 L, P-50 (Temp Corrected) Y, Carboxyhemoglobin 2.9, O2 Concentration % 100%, Temperature 95.9 L, O2 Delivery Method NRB, Phlebotomy Draw Site LEFT RADIAL Assessment/Plan CRCU Impression/Plan: Patient is a 52-year-old male with past medical history of insulin-dependent diabetes, peripheral vascular disease status post multiple amputations, MRSA endocarditis, COPD not on home oxygen presenting this admission with altered mental status and shortness of breath. Patient was admitted to the ICU for management of following: Respiratory: Acute hypoxic/hypercarbic respiratory failure, likely due to hypoglycemia and possible aspiration pneumonia Patient was hypoxic to the 80s on admission. Patient had an ABG showing respiratory acidosis with a pH of 7.28 and hypercarbia. Patient required BiPAP overnight. Patient today remains stable on 4 L nasal cannula with no respiratory complaints. Patient is on IV Unasyn for aspiration pneumonia. - Continue IV Unasyn - Continue to monitor WBC - Respiratory therapy on board, continue TRC - Patient does not have a traffic controller cable. Patient will require outpatient follow -up with pulmonology for PFTs for evaluation of COPD. - Wean off oxygen as tolerated - Smoking cessation counseling prior to discharge - Nicotine patch Infection: Suspected aspiration pneumonia - Continue IV Unasyn - Continue to monitor WBC - Follow up cultures Cardiac: History of Hypertension Patient's blood pressure stabilized. Patient was restarted on home medicaitons. Peripheral vascular disease s/p multiple amputations. Patient has nonhealing ulcers on his right plantar surface, right montiel and right hip. - wound care consult placed - wound dressing per danis History of Hyperlipidemia - continue atorvastatin Heme: Thrombocytosis - likely reactive. Platelet count is trending down. - continue to monitor Metabolic: Severe hypoglycemia. History of IDDM. Patient presented with glucose of 22. Insulin level of 138.9 on admission labs. Insulin level today is 48.6. Patient's accuchecks were in the 150s to 250s. Patient remained asymptomatic today. Patient was restarted on levemir at half the dose and novolog sliding scale per endocrinology recommendations. - continue levemir 8 units BID - accuchecks TID/AC - continue novolog SS per endocrinology recs - endocrinology on board. appreciate recommendations. Alimentary: Patient initially on D5NS. Patient's mentation improved and remained asymptomatic. Patient's diet was restarted. - continue diabetic diet GERD - continue omeprazole Neurology: Altered mental status likely 2/2 to severe hypoglycemia and opiate use. Patient' s sugars >150. Patient received 1 dose of narcan in the ED. Patient was alert and oriented x3 this morning. Anxiety/Depression - continue buspar, amitryptiline, quetiapine Chronic pain syndrome/Opiate abuse - continue suboxone Nephrology: None DVT PPx: Lovenox Consult Acknowledgment - Thank you for your consult request. Titus Hidalgo MD 06/08/17 1129: General Information and HPI Consulting Request Date of Consult: 06/08/17 Assessment/Plan CRCU Other Findings/Comments: Titus Camara M.D. have examined this patient, reviewed available EMR data, personally reviewed images, discussed with resident/PA/TROUBLE DISPATCHER, discussed management plan with housestaff and nursing staff, discussed managment plan all of healthcare providers, discussed management plan with patient and/or family, agreed with resident/PA/TROUBLE DISPATCHER. The past history and parts of the chart have been autopopulated. Impression 52-year-old man with a history of diabetes peripheral vascular disease history of MRSA endocarditis and COPD. He presented with a glucose in the 20s likely hypoglycemia secondary to insulin overdose. The plan is to follow-up endocrinology recommendations at this time his blood glucoses in the 200s he can safely eat and we will follow endocrinology input in the meantime he can be transferred to the general medical floors and care consult will be obtained for his right foot care. TTS 35 min Consult Acknowledgment - Thank you for your consult request.
[2017-06-08 08:00] VITALS: BP 100/70
--- NOTE | 2017-06-08 08:51 | Cons- Endocrinology ---
General Information and HPI Consulting Request Date of Consult: 06/08/17 Requested By: ICU Reason for Consult: DM type 1/ severe hypoglycemia Source of Information: patient, old records Exam Limitations: poor historian History of Present Illness: 52 year old man with past medical history significant for diabetes mellitus type 1, PVD status post multiple amputations, MRSA endocarditis, and COPD, was brought in by ambulance for evaluation of shortness breath and altered mental status. His glucose level was in the 20s. As per patient, he took 30 units of tresiba and 7 units of Novolog in the morning yesterday. Since he was admitted, he has been on D5 1/2 NS at 100 ml per hour. His FSGs were between 170 and 232 over the past several hours. He is awake and alert. He is still on BIPAP. Allergies/Medications Allergies: Coded Allergies: NO KNOWN ALLERGIES (07/16/15) Home Med List: Albuterol Sulfate (Ventolin Hfa) 90 MCG HFA.AER.AD 2 PUF INH PRN COPD ( Reported) Amitriptyline HCl 100 MG TABLET 1 TAB PO QHS UNKNOWN (Reported) Buprenorphine HCl/Naloxone HCl (Suboxone 8 MG-2 MG Sl Film) 8 MG-2 MG FILM 2 STR SL DAILY CHRONIC PAIN (Reported) Buprenorphine HCl/Naloxone HCl (Suboxone 8 MG-2 MG Sl Film) 8 MG-2 MG FILM 1 STR SL QPM CHRONIC PAIN (Reported) Buspirone HCl 10 MG TABLET 1 TAB PO TID MENTAL HEALTH (Reported) Cholecalciferol (Vitamin D3) 1,000 UNIT TABLET 1 TAB PO DAILY VITAMIN SUPPORT (Reported) Duloxetine HCl 30 MG CAPSULE.DR 1 CAP PO QAM DEPRESSION (Reported) Esomeprazole (Nexium) 40 MG CAPSULE.DR 1 CAP PO DAILY GI (Reported) Fluticasone/Salmeterol (Advair 250-50 Diskus) 250 MCG-50 MCG/DOSE BLST.W.DEV 1 PUF INH BID COPD (Reported) Folic Acid 0.8 MG TABLET 1 TAB PO DAILY VITAMIN SUPPORT (Reported) Gabapentin (Neurontin) 800 MG TABLET 1 TAB PO TID PAIN (Reported) Insulin Aspart (Novolog) 100 UNIT/ML VIAL 0 UNITS SC TIDAC/HS DM BEFORE MEALS Blood Insulin Sugar Units <80 0 81-150 4 151-200 6 201-250 8 251-300 10 301-350 12 351-400 14 >400 16 and Call Doctor AT BEDTIME Blood Insulin Sugar Units <80 0 81-100 0 101-200 0 201-250 0 251-300 2 301-350 3 351-400 4 >400 5 Magnesium Oxide 400 MG TABLET 1 TAB PO BID SUPPLEMENT (Reported) Multivitamin (Daily Multiple Vitamin) 1 EACH TABLET 1 TAB PO DAILY VITAMIN SUPPORT (Reported) Primidone 50 MG TABLET 100 MG PO TID UNKNOWN (Reported) Propranolol HCl 40 MG TABLET 1 TAB PO BID BP (Reported) Quetiapine Fumarate (Seroquel) 100 MG TABLET 1 TAB PO 8AM, NOON, 6PM MENTAL HEALTH (Reported) Quetiapine Fumarate (Seroquel) 300 MG TABLET 1 TAB PO QHS MENTAL HEALTH ( Reported) Quinapril HCl (Accupril) 20 MG TABLET 1 TAB PO QAM HEART (Reported) Ranitidine HCl 150 MG CAPSULE 300 MG PO DAILY GERD (Reported) Rosuvastatin Calcium (Crestor) 10 MG TABLET 1 TAB PO QHS CHOLESTEROL ( Reported) Sucralfate (Carafate) 1 GM TABLET 1 TAB PO 4 TIMES/DAY GI (Reported) Tramadol HCl 50 MG TABLET 1 TAB PO Q6 PAIN (Reported) Review of Systems Review of Systems Constitutional: Reports: see HPI. Cardiovascular: Denies: chest pain. Respiratory: Reports: short of breath. GI: Denies: abdominal pain. Hematologic/Endocrine: Denies: polyuria, polydipsia. Past History Travel History Traveled to [place] past 21 day No Medical History Neurological: peripheral neuropathy EENT: NONE Cardiovascular: hypertension, PVD, MRSA endocarditis Respiratory: COPD Gastrointestinal: diverticulitis, GERD, GASTROPARESIS Hepatic: NONE Renal: NONE Musculoskeletal: osteomyelitis Psychiatric: anxiety, chronic pain disorder, depression Endocrine: diabetes, diabetic ketoacidosis, hypoglycemia Blood Disorders: MRSA Cancer(s): NONE TOP POLISHER/Reproductive: NONE Other Medical Hx: COPD, IDDM, diabetic neuropathy, HTN, HLD, current tobacco abuse, history of opiate abuse, depression, anxiety, LLE BKA, RLE transmetatarsal amputation, several episodes of osteomyelitis and PVD Surgical History Surgical History: RIGHT TMA LEFT BKA Family History Relations & Conditions If Any: Non-contributory Psychosocial History Where Do You Live? Home Who Do You Live With? self Services at Home: Nursing Primary Language: Romanian Smoking Status: Current Everyday Smoker ETOH Use: 6 Illicit Drug Use: UTD Name of POA/HCP: Spencer Chaudhari Functional Ability ADLs Independent: dressing, eating, toileting, bathing. Ambulation: cane, walker IADLs Independent: finances. Unknown: shopping, housework, food prep, telephone, transportation, medication admin. Exam & Diagnostic Data Last 24 Hrs of Vital Signs/I&O Vital Signs Date Time Temp Pulse Resp B/P B/P Pulse O2 O2 Flow FiO2 Mean Ox Delivery Rate 06/08 0830 110 95 06/08 0544 117 95 06/08 0400 96 BIPAP 35% 06/08 0349 123 96 06/08 0043 117 97 06/08 0000 96 BIPAP 35% 06/08 0000 96.8 112 18 128/70 96 BIPAP 35% 06/07 2240 109 99 06/07 2153 97.4 103 19 175/98 06/07 2000 99 BIPAP 40% 06/07 1955 94 97 06/07 1828 95.5 06/07 1822 90 16 162/84 100 BIPAP 55% 06/07 1716 95.2 91 18 194/99 100 BIPAP 55% 06/07 1557 95.1 89 22 137/85 100 Non 100% ReBreather 06/07 1440 98 26 145/85 100 Non 10L ReBreather 06/07 1417 100 Non 100% ReBreather 06/07 1415 100 Non 10L ReBreather 06/07 1351 95.9 104 20 148/76 98 Non 100% ReBreather Intake & Output 06/08 1600 06/08 0800 06/08 0000 Intake Total 900 520 Output Total 345 1800 Balance 555 -1280 Intake, IV 900 400 Intake, Oral 120 Output, Urine 345 1800 Patient 140 lb 143 lb Weight Weight Bed scale Measurement Method Physical Exam General Appearance: no apparent distress Neck: normal inspection Respiratory: coarse breath sound Gastrointestinal: non-tender Extremities: s/p multiple procedures due to diabetic foot infection and poor circulation. Labs/Bart Results: Laboratory Tests 06/08 06/08 0732 0400 Chemistry Sodium (137 - 145 mmol/L) Cancelled 132 L Potassium (3.5 - 5.1 mmol/L) Cancelled 5.2 H Chloride (98 - 107 mmol/L) Cancelled 103 Carbon Dioxide (22 - 30 mmol/L) Cancelled 22 Anion Gap (5 - 16) Cancelled 7 BUN (9 - 20 mg/dL) Cancelled 15 Creatinine (0.7 - 1.2 mg/dL) Cancelled 0.9 Estimated GFR (>60 ml/min) > 60 BUN/Creatinine Ratio (7 - 25 %) 16.7 Glucose (65 - 99 mg/dL) Cancelled 195 H Insulin Level (3.0 - 25.0 mIU/mL) Pending Calcium Cancelled Phosphorus (2.5 - 4.5 mg/dL) Cancelled 4.3 Magnesium (1.6 - 2.3 mg/dL) Cancelled 1.5 L Total Bilirubin (0.2 - 1.3 mg/dL) Cancelled 0.4 Direct Bilirubin (< 0.4 mg/dL) 0.4 AST (17 - 59 U/L) Cancelled 11 L ALT (21 - 72 U/L) Cancelled 9 L Alkaline Phosphatase (< 127 U/L) 122 Total Protein (6.3 - 8.2 g/dL) 6.1 L Albumin (3.5 - 5.0 g/dL) Cancelled 2.6 L TSH (0.270 - 4.200 uIU/mL) Pending Free T4 (0.64 - 1.79 ng/dL) 1.15 Cortisol AM Sample (4.46 - 22.7 ug/dL) Pending Hematology CBC w Diff MAN DIFF ORDERED WBC (4.8 - 10.8 /CUMM) 14.5 H RBC (4.70 - 6.10 /CUMM) 4.18 L Hgb (14.0 - 18.0 G/DL) 9.7 L Hct (42 - 52 %) 31.5 L MCV (80.0 - 94.0 FL) 75.5 L MCH (27.0 - 31.0 PG) 23.2 L MCHC (33.0 - 37.0 G/DL) 30.8 L RDW (11.5 - 14.5 %) 19.4 H Plt Count (130 - 400 /CUMM) 478 H MPV (7.4 - 10.4 FL) 7.4 Segmented Neutrophils (42.2 - 75.2 %) 87 H Band Neutrophils (0.0 - 5.0 %) 4 Lymphocytes (20.5 - 51.1 %) 6 L Monocytes (1.7 - 9.3 %) 3 Platelet Estimate (ADEQUATE) INCREASED Hypochromic-Microcytic 2+ Poikilocytosis 1+ Anisocytosis 1+ Target Cells FEW Stomatocytes 1+ Elliptocytes 1+ 06/07 06/07 1900 1541 Blood Gas pH (7.35 - 7.45 PH) 7.31 L pCO2 (35 - 45 TORR) 48 H pO2 (80 - 100 TORR) 137 H HCO3 (21 - 28 MEQ/L) 24 ABG O2 Sat (Measured) (>96.0 %) 98.0 Carboxyhemoglobin (1.5 - 5.0 %) 0.9 L O2 Concentration % 55 Respiration Rate (BPM) 16 O2 Delivery Method BIPAP Vent Mode ST Expiratory Pressure (CM H2O P) 6 Inspiratory Pressure (CM H2O P) 18 Miscellaneous Phlebotomy Draw Site RIGHT RADIAL Toxicology Urine Opiates Screen (>2000 NG/ML) 143 Methadone Screen (>300 NG/ML) 81 Barbiturate Screen (>200 NG/ML) 527 H Ur Phencyclidine Scrn (>25 NG/ML) < 6.00 Amphetamines Screen (>1000 NG/ML) < 100 U Benzodiazepines Scrn (>200 NG/ML) > 800 H Urine Cocaine Screen (>300 NG/ML) < 50 Urine Cannabis Screen (>50 NG/ML) < 5.00 06/07 06/07 1500 1310 Blood Gas pH (7.35 - 7.45 PH) 7.28 *L pCO2 (35 - 45 TORR) 51 H pO2 (80 - 100 TORR) 101 H HCO3 (21 - 28 MEQ/L) 24 ABG O2 Sat (Measured) (>96.0 %) 94.0 L P-50 (Temp Corrected) Y Carboxyhemoglobin (1.5 - 5.0 %) 2.9 O2 Concentration % 100% Temperature (97.0 - 100.0 FARH) 95.9 L O2 Delivery Method NRB Chemistry Sodium (137 - 145 mmol/L) 137 Potassium (3.5 - 5.1 mmol/L) 4.4 Chloride (98 - 107 mmol/L) 101 Carbon Dioxide (22 - 30 mmol/L) 25 Anion Gap (5 - 16) 11 BUN (9 - 20 mg/dL) 17 Creatinine (0.7 - 1.2 mg/dL) 1.2 Estimated GFR (>60 ml/min) > 60 BUN/Creatinine Ratio (7 - 25 %) 14.2 Glucose (65 - 99 mg/dL) 22 *L Insulin Level (3.0 - 25.0 mIU/mL) Pending Lactic Acid (0.7 - 2.1 mmol/L) 1.4 Calcium (8.4 - 10.2 mg/dL) 9.6 Total Bilirubin (0.2 - 1.3 mg/dL) 0.4 AST (17 - 59 U/L) 14 L ALT (21 - 72 U/L) 17 L Alkaline Phosphatase (< 127 U/L) 159 H Troponin I (<0.11 ng/ml) < 0.01 Total Protein (6.3 - 8.2 g/dL) 8.0 Albumin (3.5 - 5.0 g/dL) 3.6 Globulin (1.9 - 4.2 gm/dL) 4.4 H Albumin/Globulin Ratio (1.1 - 2.2 %) 0.8 L Hematology CBC w Diff NO MAN DIFF REQ WBC (4.8 - 10.8 /CUMM) 9.6 RBC (4.70 - 6.10 /CUMM) 4.71 Hgb (14.0 - 18.0 G/DL) 11.0 L Hct (42 - 52 %) 35.1 L MCV (80.0 - 94.0 FL) 74.7 L MCH (27.0 - 31.0 PG) 23.3 L MCHC (33.0 - 37.0 G/DL) 31.2 L RDW (11.5 - 14.5 %) 19.5 H Plt Count (130 - 400 /CUMM) 672 H MPV (7.4 - 10.4 FL) 6.7 L Gran % (42.2 - 75.2 %) 68.6 Lymphocytes % (20.5 - 51.1 %) 21.9 Monocytes % (1.7 - 9.3 %) 6.6 Eosinophils % (0 - 5 %) 2.9 Basophils % (0.0 - 2.0 %) 0 Absolute Granulocytes (1.4 - 6.5 /CUMM) 6.6 H Absolute Lymphocytes (1.2 - 3.4 /CUMM) 2.1 Absolute Monocytes (0.10 - 0.60 /CUMM) 0.6 Absolute Eosinophils (0.0 - 0.7 /CUMM) 0.3 Absolute Basophils (0.0 - 0.2 /CUMM) 0 Miscellaneous Phlebotomy Draw Site LEFT RADIAL Toxicology Serum Alcohol (<10 MG/DL) < 10.0 Assessment/Plan Assessment/Plan 52 year old man with past medical history significant for diabetes mellitus type 1, PVD status post multiple amputations, MRSA endocarditis, and COPD, was brought in by ambulance for evaluation of shortness breath and altered mental status. His glucose level was in the 20s. Hypoglycemia is due to insulin overdose. Plan: 1. cut down D5 1/2 NS to 50 ml/hour; 2. when his FSGs are more than 200 x 2, will restart Levemir 8 units twice a day and Novolog coverage when FSG is > 200 ( FSG 200-250, 2 units; 251-300, 4 units, etc) 3. when patient is ready to eat and FSG is more than 200, will stop IVF and start patient on Novolog coverage before meals ( FSG < 150, no coverage; FSG 150 -200, 2 units; FSG 201-250, 4 units, etc); 4. monitor FSGs. 5. check insulin level and am cortisol-- add-on to this am lab. please contact me if there are any questions regarding DM management. will follow. Consult Acknowledgment - Thank you for your consult request.
[2017-06-08 12:00] VITALS: BP 148/95
[2017-06-08 13:00] VITALS: BP 154/89
[2017-06-08 15:07] VITALS: BP 130/80
[2017-06-08 22:05] VITALS: BP 144/78
[2017-06-09 06:57] VITALS: BP 138/78
--- NOTE | 2017-06-09 07:18 | Patient Discharge Instructions ---
Discharge Instructions General Discharge Information You were seen/treated for: Altered mental status second due to hypoglycemia Watch for these problems: In case of chest pain, dizziness, nausea, vomiting, abdominal pain, altered mental status go to the nearest emergency room Special Instructions: Please follow-up with your primary care provider and crew truck driver within 1-2 weeks of discharge Please take insulin TRESIBA 15 units tonight and continue your usual dose of 30 units twice a day. Diet Continue normal diet: Yes Recommended Diet: Diabetic Activity Full Activity/No Limits: Yes Acute Coronary Syndrome Inclusion Criteria At DC or during hospital stay patient has or had the following: ACS DIAGNOSIS No Discharge Core Measures Meds if any: Prescribed or Continued at Discharge Meds if any: NOT Prescribed or Continued at Discharge Congestive Heart Failure Inclusion Criteria At DC or during hospital stay patient has or had the following: CHF DIAGNOSIS No Discharge Core Measures Meds if any: Prescribed or Continued at Discharge Meds if any: NOT Prescribed or Continued at Discharge Cerebrovascular accident Inclusion Criteria At DC or during hospital stay patient has or had the following: CVA/TIA Diagnosis Yes Discharge Core Measures Meds if any: Prescribed or Continued at Discharge Meds if any: NOT Prescribed or Continued at Discharge Venous thromboembolism Inclusion Criteria VTE Diagnosis No VTE Type NONE VTE Confirmed by (Test) NONE Discharge Core Measures - Per Current guidelines, there needs to be overlap - treatment for the first 5 days of Warfarin therapy. - If discharged on Warfarin prior to 5 days of - overlap therapy, the patient will need to be - assessed for post discharge needs including - *Post discharge parental anticoagulation - *Warfarin and/or parental anticoagulation education - *Follow up date to check INR post discharge At least 5 days overlap therapy as Inpatient No Meds if any: Prescribed or Continued at Discharge Note: Overlap Therapy is Warfarin and Anticoagulant Meds if any: NOT Prescribed or Continued at Discharge
[2017-06-09 08:44] LABS: ABSOLUTE BASOPHIL COUNT 0 /CUMM (0.0-0.2)
--- NOTE | 2017-06-09 09:13 | PN- Housestaff ---
Tayler Baez 06/09/17 0912: Subjective Follow-up For: Aspiration pneumonia Hypoglycemia Subjective: Patient seen and examined, he is lying on the bed with no acute distress He remains afebrile , No events overnight, he was asking if he is able to go home today or tomorrow. Vitals remain stable, he is currently on 1L nasal cannula, with O2 94% Review of Systems Constitutional: Reports: no symptoms. EENTM: Reports: no symptoms. Cardiovascular: Reports: no symptoms. Respiratory: Reports: no symptoms. Gastrointestinal: Reports: no symptoms. Genitourinary: Reports: no symptoms. Musculoskeletal: Reports: no symptoms. Objective Last 24 Hrs of Vital Signs/I&O Vital Signs Date Time Temp Pulse Resp B/P B/P Pulse O2 O2 Flow FiO2 Mean Ox Delivery Rate 06/09 0657 98.2 91 20 138/78 94 06/09 0000 97 Nasal 1.0L Cannula 06/08 2205 97.9 100 20 144/78 96 06/08 2118 100 144/78 06/08 1600 97 Nasal 1.0L Cannula 06/08 1507 99.2 95 20 130/80 98 06/08 1300 104 154/89 06/08 1216 Nasal 4.0L Cannula 06/08 1209 106 160/90 06/08 1200 Nasal 4.0L Cannula 06/08 1200 98.6 108 16 148/95 97 Nasal 4.0L Cannula 06/08 1158 106 160/90 Intake & Output 06/09 1600 06/09 0800 06/09 0000 Intake Total 520 520 Output Total 1125 450 Balance -605 70 Intake, IV 120 120 Intake, Oral 400 400 Number 0 Bowel Movements Output, Urine 1125 450 Patient 140 lb Weight Physical Exam General Appearance: Alert, Oriented X3, Cooperative, No Acute Distress Cardiovascular: Regular Rate, Normal S1, Normal S2, No Murmurs Lungs: Normal Air Movement, left basilar rhonchi noted Abdomen: Normal Bowel Sounds, Soft, No Tenderness Extremities: No Cyanosis, No Edema, Normal Pulses Current Medications: At the Dr. Hidalgo seeing the patient via Current Medications Sig/Jonny Start time Last Medication Dose Route Stop Time Status Admin Acetaminophen 1,000 MG Q6P PRN 06/07 1800 AC IV Albuterol Sulfate 2 PUF Q6P PRN 06/07 1915 AC INH Amitriptyline HCl 100 MG AT BEDTIME 06/07 2200 AC 06/08 PO 2117 Ampicillin Sodium/ 3,000 MG Q6 06/07 1801 AC 06/09 Sulbactam Sodium IV 0654 Sodium Chloride 100 ML Atorvastatin Calcium 40 MG 1700 06/08 1700 AC 06/08 PO 1617 Budesonide/ 2 PUF BID 06/08 2200 CAN Formoterol Fumarate INH Budesonide/ 2 PUF BID 06/07 2200 AC 06/09 Formoterol Fumarate INH 0908 Buprenorphine/ 2 TAB 0800 06/08 0800 AC 06/09 Naloxone SL 0913 Buprenorphine/ 1 TAB QPM 06/07 2200 AC 06/08 Naloxone SL 2123 Buspirone HCl 10 MG TID 06/07 2200 AC 06/09 PO 0904 Calcium Carbonate 500 MG DAILY PRN 06/08 1200 AC 06/08 PO 1158 Dextrose/Sodium 1,000 ML .Q20H 06/07 1800 DC 06/08 Chloride IV 0505 Duloxetine HCl 30 MG QAM 06/08 1000 AC 06/09 PO 0904 Enoxaparin Sodium 40 MG DAILY 06/07 1759 AC 06/09 SC 0904 Famotidine 20 MG BID 06/07 2200 AC 06/09 PO 0906 Gabapentin 800 MG TID 06/07 2200 AC 06/09 PO 0905 Insulin Aspart 0 TIDAC 06/08 1200 AC 06/08 SC 1607 Insulin Detemir 8 UNITS BID 06/08 1014 AC 06/08 SC 2118 Lisinopril 20 MG DAILY 06/08 1200 AC 06/09 PO 0906 Magnesium Oxide 400 MG ONE ONE 06/08 1530 DC 06/08 PO 06/08 1531 1629 Nicotine 21 MG DAILY 06/08 1000 AC 06/09 TOP 0906 Omeprazole 40 MG DAILY AC 06/08 0700 AC 06/09 PO 0640 Primidone 100 MG TID 06/07 2200 AC 06/09 PO 0905 Propranolol HCl 40 MG BID 06/08 1215 AC 06/09 PO 0903 Quetiapine Fumarate 300 MG QPM 06/07 2200 AC 06/08 PO 2117 Quetiapine Fumarate 100 MG 0800,1200,1700 06/07 1930 AC 06/09 PO 0903 Sucralfate 1,000 MG 4 TIMES/DAY 06/07 2200 AC 06/09 PO 0904 Tiotropium [place] 1 PUF DAILY 06/09 1000 AC 06/09 INH 0907 Tramadol HCl 50 MG Q4 PRN 06/09 1999 AC PO Last 24 Hrs of Lab/Bart Results Last 24 Hrs of Labs/Mics: Laboratory Tests 06/09/17 0720: Sodiu the workm Pending, Potassium Pending, Chloride Pending, Carbon Dioxide Pending, Anion Gap Pending, BUN Pending, Creatinine Pending, Glucose Pending, Calcium Pending, Phosphorus Pending, Magnesium Pending, Total Bilirubin Pending, AST Pending, ALT Pending, Albumin Pending, CBC w Diff MAN DIFF ORDERED, WBC Pending, RBC Pending, Hgb Pending, Hct Pending, MCV Pending, MCH Pending, MCHC Pending, RDW Pending, Plt Count Pending, MPV Pending, Gran % Pending, Lymphocytes % Pending, Monocytes % Pending, Eosinophils % Pending, Basophils % Pending, Absolute Granulocytes Pending, Segmented Neutrophils Pending, Absolute Lymphocytes Pending, Absolute Monocytes Pending, Absolute Eosinophils Pending, Absolute Basophils Pending 06/08/17 1918: Anion Gap 10, Estimated GFR > 60, BUN/Creatinine Ratio 14.5 Assessment/Plan Assessment: 52 year old man with multiple medical problems significant for insulin-dependent diabetes mellitus, COPD, tobacco use, and diabetic ketoacidosis seen for evaluation of altered mental status found to have hypercarbia with hypoglycemia. Admitted for aspiration pneumonia and hypoglycemia. Patient was initially admitted to ICU for hypothermia and hypoventilation requiring Bipap. He transferred to [facility] last night. Currently on nasal cannula Assessment and Plan: #Aspiration Pneumonia: * Chest x-ray done yesterday with no evidence of consolidation or opacity * He is afebrile with no leukocytosis * Will discuss with attending about the need of antibiotic given improvement in his respiratory status, absence of opacity on chest x-ray, and no leukocytosis * Cultures negative * Wean oxygen aspirated * Continue TRC nebs #Hypoglycemia: * His Accu-Chek remains stable, at 9 AM 64, which is up to 173 at afternoon * We'll continue monitoring his blood sugar * Endocrinology on board we will follow-up recommendations #Hypothermia/resolved #Will continue his other home meds If he remains stable, discharge planning Full code Diabetic diet DVT prophylaxis with SC Lovenox Problem List: 1. Hypoglycemia Pain Ratin Pain Location: - Pain Goal: Remain pain free Pain Plan: - Tomorrow's Labs & Rationales: cbc, bep DVT/Prophylaxis: pharmacological Titus Hidalgo MD 06/09/17 1251: Attending MD Review Statement Attending Statement Attending MD Statement: examined this patient, discuss w/resident/PA/INSERTING MACHINE OPERATOR, agreed w/resident/PA/INSERTING MACHINE OPERATOR, discussed with family, reviewed EMR data (avail), discussed with nursing, discussed with case mgmt, reviewed images, amended to note Attending Assessment/Plan: Impression/Plan 52-year-old man with a history of diabetes peripheral vascular disease history of MRSA endocarditis and COPD. He presented with a glucose in the 20s likely hypoglycemia secondary to insulin overdose. The plan is to follow-up endocrinology recommendations. Discontinue antibiotics at this time. If his glucose remains normal tomorrow will follow up with endocrinology for an outpatient insulin regimen can be discharged tomorrow. DVT prophylaxis at all times.
[2017-06-09 09:40] LABS: ABSOLUTE EOSINOPHIL COUNT 0.3 /CUMM (0.0-0.7); ABSOLUTE GRANULOCYTE CT 6.6 /CUMM (1.4-6.5); ABSOLUTE LYMPH COUNT 2.1 /CUMM (1.2-3.4); ABSOLUTE MONOCYTE COUNT 0.9 /CUMM (0.10-0.60); BASOPHIL % 0.2 % (0.0-2.0); EOSINOPHIL % 2.9 % (0-5); GRANULOCYTE % 67.2 % (42.2-75.2); MEAN CORPUSCULAR HGB CONC 32.4 G/DL (33.0-37.0); MEAN CORPUSCULAR VOLUME 74.1 FL (80.0-94.0); MEAN PLATELET VOLUME 6.9 FL (7.4-10.4); PLATELET COUNT 414 /CUMM (130-400); RBC DISTRIBUTION WIDTH 18.8 % (11.5-14.5); RED BLOOD CELL CT 3.53 /CUMM (4.70-6.10); WHITE BLOOD CELL COUNT 9.9 /CUMM (4.8-10.8)
[2017-06-09 09:53] LABS: HEMATOCRIT 26.1 % (42-52)
--- NOTE | 2017-06-09 13:48 | PN- Diabetes ---
Assessment/Plan Diabetes Assessment: 52 year old man with past medical history significant for diabetes mellitus type 1, PVD status post multiple amputations, MRSA endocarditis, and COPD, was brought in by ambulance for evaluation of shortness breath and altered mental status. His glucose level was in the 20s. Hypoglycemia is due to insulin overdose. His glucose level has been stable and his po intake has improved. His FSGs after lunch was 238. He will receive Novolog 5 units x1 as he received Novolog only 2 units for lunch coverage. Plan: 1. increase Levemir to 10 units twice a day; 2. adjust Novolog coverage before meals; add Novolog coverage at bedtime; detail see the inpatient DM orders; 3. monitor FSGs. will follow. Inpatient Diabetes Orders Before Each Meal: Bolus Insulin: Novolog < 80 mg/dl: no coverage 80-100 mg/dl: 5 units 101-120 mg/dl: 5 units 121-150 mg/dl: 5 units 151-200 mg/dl: 6 units 201-250 mg/dl: 7 units 251-300 mg/dl: 8 units 301-350 mg/dl: 9 units 351-400 mg/dl: 10 units > 400 mg/dl: 11 units Bedtime: Bolus Insulin: Novolog < 80 mg/dl: no coverage 80-100 mg/dl: no coverage 101-120 mg/dl: no coverage 121-150 mg/dl: no coverage 151-200 mg/dl: no coverage 201-250 mg/dl: no coverage 251-300 mg/dl: 2 units 301-350 mg/dl: 3 units 351-400 mg/dl: 4 units > 400 mg/dl: 5 units Subjective Subjective: He feels much better. Objective Last 24 Hrs of Vital Signs/I&O Vital Signs Date Time Temp Pulse Resp B/P B/P Pulse O2 O2 Flow FiO2 Mean Ox Delivery Rate 06/09 08 Nasal 1.0L Cannula 06/09 0657 98.2 91 20 138/78 94 06/09 0000 97 Nasal 1.0L Cannula 06/08 2205 97.9 100 20 144/78 96 06/08 2118 100 144/78 06/08 1600 97 Nasal 1.0L Cannula 06/08 1507 99.2 95 20 130/80 98 Intake & Output 06/09 1600 06/09 0800 06/09 0000 Intake Total 500 520 520 Output Total 1125 450 Balance 500 -605 70 Intake, IV 120 120 Intake, Oral 500 400 400 Number 0 Bowel Movements Output, Urine 1125 450 Patient 140 lb 140 lb Weight Findings Pertinent Lab/Bart Results: Laboratory Tests 06/09 06/08 0720 1918 Chemistry Sodium (137 - 145 mmol/L) 134 L 132 L Potassium (3.5 - 5.1 mmol/L) 4.5 4.9 Chloride (98 - 107 mmol/L) 102 96 L Carbon Dioxide (22 - 30 mmol/L) 25 25 Anion Gap (5 - 16) 7 10 BUN (9 - 20 mg/dL) 16 16 Creatinine (0.7 - 1.2 mg/dL) 1.1 1.1 Estimated GFR (>60 ml/min) > 60 > 60 BUN/Creatinine Ratio (7 - 25 %) 14.5 Glucose (65 - 99 mg/dL) 63 L Calcium (8.4 - 10.2 mg/dL) 8.2 L Phosphorus (2.5 - 4.5 mg/dL) 4.0 Magnesium (1.6 - 2.3 mg/dL) 1.7 Total Bilirubin (0.2 - 1.3 mg/dL) 0.3 AST (17 - 59 U/L) 7 L ALT (21 - 72 U/L) 16 L Albumin (3.5 - 5.0 g/dL) 2.3 L Hematology CBC w Diff MAN DIFF ORDERED WBC (4.8 - 10.8 /CUMM) 9.9 RBC (4.70 - 6.10 /CUMM) 3.53 L Hgb (14.0 - 18.0 G/DL) 8.5 L Hct (42 - 52 %) 26.1 L MCV (80.0 - 94.0 FL) 74.1 L MCH (27.0 - 31.0 PG) 24.0 L MCHC (33.0 - 37.0 G/DL) 32.4 L RDW (11.5 - 14.5 %) 18.8 H Plt Count (130 - 400 /CUMM) 414 H MPV (7.4 - 10.4 FL) 6.9 L Gran % (42.2 - 75.2 %) 67.2 Lymphocytes % (20.5 - 51.1 %) 20.9 Monocytes % (1.7 - 9.3 %) 8.8 Eosinophils % (0 - 5 %) 2.9 Basophils % (0.0 - 2.0 %) 0.2 Absolute Granulocytes (1.4 - 6.5 /CUMM) 6.6 H Absolute Lymphocytes (1.2 - 3.4 /CUMM) 2.1 Absolute Monocytes (0.10 - 0.60 /CUMM) 0.9 H Absolute Eosinophils (0.0 - 0.7 /CUMM) 0.3 Absolute Basophils (0.0 - 0.2 /CUMM) 0 Platelet Estimate (ADEQUATE) ADEQUATE Hypochromic-Microcytic 2+ Poikilocytosis 2+ Anisocytosis 2+ Microcytic Cells 1+
[2017-06-09 14:50] VITALS: BP 130/90
[2017-06-09 22:11] VITALS: BP 140/80
[2017-06-10 06:00] VITALS: BP 160/90
[2017-06-10 08:14] LABS: ABSOLUTE BASOPHIL COUNT 0 /CUMM (0.0-0.2); ABSOLUTE EOSINOPHIL COUNT 0.2 /CUMM (0.0-0.7); ABSOLUTE GRANULOCYTE CT 5.2 /CUMM (1.4-6.5); ABSOLUTE LYMPH COUNT 1.4 /CUMM (1.2-3.4); ABSOLUTE MONOCYTE COUNT 0.5 /CUMM (0.10-0.60); BASOPHIL % 0 % (0.0-2.0); EOSINOPHIL % 2.4 % (0-5); GRANULOCYTE % 71.8 % (42.2-75.2); HEMATOCRIT 28.2 % (42-52); MEAN CORPUSCULAR HGB CONC 32.1 G/DL (33.0-37.0); MEAN CORPUSCULAR VOLUME 74.8 FL (80.0-94.0); MEAN PLATELET VOLUME 6.8 FL (7.4-10.4); RBC DISTRIBUTION WIDTH 19.1 % (11.5-14.5); RED BLOOD CELL CT 3.77 /CUMM (4.70-6.10); WHITE BLOOD CELL COUNT 7.3 /CUMM (4.8-10.8)
--- NOTE | 2017-06-10 08:29 | PN- Housestaff ---
Trinidad Alston 06/10/17 0829: Subjective Follow-up For: Aspiration pneumonia Hypoglycemia Subjective: No complaints or acute events overnight Review of Systems Constitutional: Reports: see HPI. Objective Last 24 Hrs of Vital Signs/I&O Vital Signs Date Time Temp Pulse Resp B/P B/P Pulse O2 O2 Flow FiO2 Mean Ox Delivery Rate 06/10 0600 97.5 94 16 160/90 92 Room Air 06/09 2211 98.1 95 20 140/80 95 Room Air 06/09 2136 95 140/80 06/09 1450 98.0 89 20 130/90 94 Intake & Output 06/10 1600 06/10 0800 06/10 0000 Intake Total 100 250 Output Total 800 800 Balance -700 -550 Intake, Oral 100 250 Output, Urine 800 800 Patient 151 lb Weight Weight Bed scale Measurement Method Physical Exam General Appearance: Alert, Oriented X3, Cooperative, No Acute Distress Cardiovascular: Regular Rate, Normal S1, Normal S2 Lungs: Clear to Auscultation, Normal Air Movement Abdomen: Normal Bowel Sounds, Soft, No Tenderness Current Medications: Current Medications Sig/Jonny Start time Last Medication Dose Route Stop Time Status Admin Acetaminophen 1,000 MG Q6P PRN 06/07 1800 AC IV Albuterol Sulfate 2 PUF Q6P PRN 06/07 1915 AC INH Amitriptyline HCl 100 MG AT BEDTIME 06/07 2199 AC 06/09 PO 2135 Ampicillin Sodium/ 3,000 MG Q6 06/07 1801 DC 06/09 Sulbactam Sodium IV 1142 Sodium Chloride 100 ML Atorvastatin Calcium 40 MG 1700 06/08 1700 AC 06/09 PO 1738 Budesonide/ 2 PUF BID 06/07 2199 AC 06/09 Formoterol Fumarate INH 2138 Buprenorphine/ 2 TAB 0800 06/08 0800 AC 06/09 Naloxone SL 0913 Buprenorphine/ 1 TAB QPM 06/07 2199 AC 06/09 Naloxone SL 2136 Buspirone HCl 10 MG TID 06/07 2199 AC 06/09 PO 2135 Calcium Carbonate 500 MG DAILY PRN 06/08 1200 AC 06/08 PO 1158 Duloxetine HCl 30 MG QAM 06/08 1000 AC 06/09 PO 0904 Enoxaparin Sodium 40 MG DAILY 06/07 1759 AC 06/09 SC 0904 Famotidine 20 MG BID 06/07 2199 AC 06/09 PO 2135 Gabapentin 800 MG TID 06/07 2200 AC 06/09 PO 2135 Insulin Aspart 0 TIDAC/HS 06/09 1700 AC 06/09 SC 1741 Insulin Aspart 5 UNITS ONCE ONE 06/09 1345 DC 06/09 SC 06/09 1346 1347 Insulin Aspart 0 TIDAC 06/08 1200 DC 06/09 SC 1213 Insulin Detemir 6 UNITS BID 06/09 2200 DC SC Insulin Detemir 10 UNITS BID 06/09 2200 AC 06/09 SC 2137 Insulin Detemir 8 UNITS BID 06/08 1014 DC 06/08 SC 2118 Lisinopril 20 MG DAILY 06/08 1200 AC 06/09 PO 0906 Nicotine 21 MG DAILY 06/08 1000 AC 06/09 TOP 0906 Omeprazole 40 MG DAILY AC 06/08 0700 AC 06/10 PO 0637 Primidone 100 MG TID 06/07 2200 AC 06/09 PO 2135 Propranolol HCl 40 MG BID 06/08 1215 AC 06/09 PO 2136 Quetiapine Fumarate 300 MG QPM 06/07 2200 AC 06/09 PO 2135 Quetiapine Fumarate 100 MG 0800,1200,1700 06/07 1930 AC 06/09 PO 1741 Sucralfate 1,000 MG 4 TIMES/DAY 06/07 2200 AC 06/09 PO 2135 Tiotropium Ringling 1 PUF DAILY 06/09 1000 AC 06/09 INH 0907 Tramadol HCl 50 MG Q4 PRN 06/08 2000 AC 06/10 PO 0639 Last 24 Hrs of Lab/Bart Results Last 24 Hrs of Labs/Mics: Laboratory Tests 06/10/17 0730: Sodium Pending, Potassium Pending, Chloride Pending, Carbon Dioxide Pending, Anion Gap Pending, BUN Pending, Creatinine Pending, BUN/Creatinine Ratio Pending , CBC w Diff Pending, WBC Pending, RBC Pending, Hgb Pending, Hct Pending, MCV Pending, MCH Pending, MCHC Pending, RDW Pending, Plt Count Pending, MPV Pending Assessment/Plan Assessment: Mr. Bonilla is a 52 year old man with medical history significant for insulin- dependent diabetes mellitus, COPD, tobacco use, and diabetic ketoacidosis seen for evaluation of altered mental status found to have hypercarbia with hypoglycemia. Admitted for aspiration pneumonia and hypoglycemia. Patient was initially admitted to ICU for hypothermia and hypoventilation requiring Bipap Problem list: Aspiration pneumonia Hypoglycemia Plan: TRC/nebs PRN Possible discharge today Accucheck and Novolog SS Continue Levemir Endo recommendations appreciated Full code Diabetic diet DVT prophylaxis with SC Lovenox Problem List: 1. Hypoglycemia 2. Hypoglycemia Pain Ratin Pain Location: NA Pain Goal: Remain pain free Pain Plan: NA Tomorrow's Labs & Rationales: CBC, BEP Rocky WU,Titus 06/10/17 0934: Attending MD Review Statement Attending Statement Attending MD Statement: examined this patient, discuss w/resident/PA/GROCERY CASHIER, agreed w/resident/PA/GROCERY CASHIER, discussed with family, reviewed EMR data (avail), discussed with nursing, discussed with case mgmt, reviewed images, amended to note Attending Assessment/Plan: Impression/Plan 52-year-old man with a history of diabetes peripheral vascular disease history of MRSA endocarditis and COPD. He presented with a glucose in the 20s likely hypoglycemia secondary to insulin overdose. The plan is to follow-up endocrinology recommendations. Discontinue antibiotics at this time. Awaiting on endocrinology for discharge planning for today to adjust insulin regimen. DVT prophylaxis at all times.
[2017-06-10 09:16] LABS: PLATELET COUNT 415 /CUMM (130-400)
--- NOTE | 2017-06-10 12:42 | PN- Diabetes ---
Assessment/Plan Diabetes Assessment: 52 year old man with past medical history significant for diabetes mellitus type 1, PVD status post multiple amputations, MRSA endocarditis, and COPD, was brought in by ambulance for evaluation of shortness breath and altered mental status. His glucose level was in the 20s. Hypoglycemia is due to insulin overdose. His glucose level has been stable and his po intake has improved. He was put on Levemir 10 units twice a day; Novolog coverage before meals and Novolog coverage at bedtime. His FSGs were 238, 246, 186, 262. He is going home today. Plan: 1. increase Levemir to 15 units twice a day; 2. adjust Novolog coverage before meals; Bolus Insulin: Novolog < 80 mg/dl: no coverage 80-100 mg/dl: 6 units 101-120 mg/dl: 6 units 121-150 mg/dl: 6 units 151-200 mg/dl: 7 units 201-250 mg/dl: 8 units 251-300 mg/dl: 9 units 301-350 mg/dl: 10 units 351-400 mg/dl: 11 units > 400 mg/dl: 12 units 3. discharge plan: --- Tresiba 15 units x 1 tonight as he received Levemir 10 units this morning in hospital; ---start Tresiba 30 units daily tomorrow am; ---continue the Novolog coverage before meals; detail see the above scale. ---f/u with Dr. Schuster next week in the office. Subjective Subjective: He feels better. Objective Last 24 Hrs of Vital Signs/I&O Vital Signs Date Time Temp Pulse Resp B/P B/P Pulse O2 O2 Flow FiO2 Mean Ox Delivery Rate 06/10 0600 97.5 94 16 160/90 92 Room Air 06/09 2211 98.1 95 20 140/80 95 Room Air 06/09 2136 95 140/80 06/09 1450 98.0 89 20 130/90 94 Intake & Output 06/10 1600 06/10 0800 06/10 0000 Intake Total 100 250 Output Total 500 800 800 Balance -500 -700 -550 Intake, Oral 100 250 Output, Urine 500 800 800 Patient 151 lb Weight Weight Bed scale Measurement Method Findings Pertinent Lab/Bart Results: Laboratory Tests 06/10 0730 Chemistry Sodium (137 - 145 mmol/L) 134 L Potassium (3.5 - 5.1 mmol/L) 4.5 Chloride (98 - 107 mmol/L) 101 Carbon Dioxide (22 - 30 mmol/L) 25 Anion Gap (5 - 16) 7 BUN (9 - 20 mg/dL) 14 Creatinine (0.7 - 1.2 mg/dL) 1.0 Estimated GFR (>60 ml/min) > 60 BUN/Creatinine Ratio (7 - 25 %) 14.0 Hematology CBC w Diff NO MAN DIFF REQ WBC (4.8 - 10.8 /CUMM) 7.3 RBC (4.70 - 6.10 /CUMM) 3.77 L Hgb (14.0 - 18.0 G/DL) 9.1 L Hct (42 - 52 %) 28.2 L MCV (80.0 - 94.0 FL) 74.8 L MCH (27.0 - 31.0 PG) 24.0 L MCHC (33.0 - 37.0 G/DL) 32.1 L RDW (11.5 - 14.5 %) 19.1 H Plt Count (130 - 400 /CUMM) 415 H MPV (7.4 - 10.4 FL) 6.8 L Gran % (42.2 - 75.2 %) 71.8 Lymphocytes % (20.5 - 51.1 %) 19.5 L Monocytes % (1.7 - 9.3 %) 6.3 Eosinophils % (0 - 5 %) 2.4 Basophils % (0.0 - 2.0 %) 0 Absolute Granulocytes (1.4 - 6.5 /CUMM) 5.2 Absolute Lymphocytes (1.2 - 3.4 /CUMM) 1.4 Absolute Monocytes (0.10 - 0.60 /CUMM) 0.5 Absolute Eosinophils (0.0 - 0.7 /CUMM) 0.2 Absolute Basophils (0.0 - 0.2 /CUMM) 0
[2017-06-10] MEDS ORDERED: TRESIBA FL100 UNIT/1 INJ ×2 (13:03→13:06)
[2017-06-10] MEDS ORDERED: TRESIBA FL100 UNIT/1 SC (13:18)
[2017-06-10] MEDS ORDERED: NOVOLOG100 UNIT/2 SC ×2 (13:40→13:45)
--- NOTE | 2017-06-10 22:05 | Discharge Summary ---
Visit Information Visit Dates Admission Date: 06/07/17 Discharge Date: 06/10/17 Hospital Course Course Attending Physician: Ivis Craig MD Primary Care Physician: Nader Schuster MD Hospital Course: Mr Bonilla is a 52 year old man with multiple medical problems significant for insulin-dependent diabetes mellitus, COPD, tobacco use, and diabetic ketoacidosis who presented to the ED for evaluation of altered mental status. He was found to have hypercarbia with hypoglycemia. Below is a list of conditions he was seen and treated for: Acute hypoxic/hypercarbic respiratory failure: Patient was hypoxic to the 80s on admission. His ABG showing respiratory acidosis with a pH of 7.28 and hypercarbia. He was admitted to the ICU and Maintained on BiPAP overnight. He was transitioned to 4 L nasal cannula the next day. He was without any respiratory complaints at this time. He was also started on IV Unasyn for possible aspiration pneumonia. His urine culture showed no growth. Blood cultures did not reveal anything by the time of the discharge. Unasyn was discontinued after 3 days of treatment. As his condition improved, oxygen was slowly weaned off. At the time of discharge he was saturating normally on room air. He was discharged in stable disposition. Severe Hypoglycemia: Patient presented with glucose of 22. Insulin level of 138.9 on admission labs. His hypoglycemia was likely due to excess insulin. He received 1 amps of dextrose in the emergency room and he started on D5W IV fluids. Insulin level next day was 48.6. Per endocrinology recommendations patient was restarted on levemir at half the dose initially and novolog sliding scale. As his mentation improved and blood sugars normalized, his levemir was increased to 15 units BID. He was discharged on Tresiba 30 units BID and novolog insulin adjusted per Endocrinology's recommendations. He should follow up with his PCP/ Medical Services Assistant within one week of discharge. Hypothermia: Temperature of 95.9 F on admission. He was placed on a warming blanket. His temperature improved gradually. Was 97.5 F at the time of discharge. DVT Prophylaxis: Maintained with SC Enoxaparin. Allergies: Coded Allergies: NO KNOWN ALLERGIES (07/16/15) Significant Procedures: SERVICE DATE: 06/07/17-1410 EXAM TYPE: CAT - CT HEAD WO IV CONTRAST FINDINGS: There is no gross intracranial hemorrhage, large infarction, or mass lesion. There is no extra-axial collection. The ventricles are normal in size and configuration without evidence of hydrocephalus. There is moderate paranasal sinus mucosal thickening without fluid levels. The mastoids and middle ear cavities are clear. IMPRESSION: Within the limits of the motion degraded study there is no acute intracranial abnormality. SERVICE DATE: 06/07/17 EXAM TYPE: RAD - XRY-PORTABLE CHEST XRAY FINDINGS: There is no focal consolidation. There are low lung volumes. There is elevation of the right hemidiaphragm and associated subsegmental atelectasis. There is no pneumothorax. The cardiomediastinal silhouette appears normal. The osseous structures are intact allowing for degenerative changes of the right glenohumeral joint. IMPRESSION: Low lung volumes. No focal consolidation. Disposition Summary Disposition Principal Diagnosis: Acute hypoxic/hypercarbic respiratory failure Severe Hypoglycemia: Hypothermia Additional Diagnosis: Insulin-dependent diabetes mellitus COPD, Discharge Disposition: home health services Discharge Instructions General Discharge Information Code Status: Full Code Patient's Diet: Diabetic Patient's Activity: As tolerated Follow-Up Instructions/Appts: Please follow-up with your primary care provider and baler operator within 1-2 weeks of discharge Medications at Discharge Discharge Medications: Continue taking these medications: Buprenorphine HCl/Naloxone HCl (Suboxone 8 MG-2 MG Sl Film) 8 MG-2 MG FILM 2 Strip SUBLINGUAL DAILY Comments: Last Taken: 06/10/17 Time: 900AM Gabapentin (Neurontin) 800 MG TABLET 1 Tablet ORAL THREE TIMES DAILY Comments: Last Taken: 06/10/17 Time: 900AM Quinapril HCl (Accupril) 20 MG TABLET 1 Tablet ORAL Every Morning Comments: Last Taken: NOT GIVEN IN HOSPITAL Time: Rosuvastatin Calcium (Crestor) 10 MG TABLET 1 Tablet ORAL TAKE AT BEDTIME Comments: Last Taken: 02/27/17 Time: 4:00 PM Quetiapine Fumarate (Seroquel) 100 MG TABLET 1 Tablet ORAL 8AM, NOON, 6PM Comments: Last Taken: 06/10/17 Time: 1200PM Quetiapine Fumarate (Seroquel) 300 MG TABLET 1 Tablet ORAL TAKE AT BEDTIME Comments: Last Taken: 06/09/17 Time: 9:30 PM Buspirone HCl (Buspirone HCl) 10 MG TABLET 1 Tablet ORAL THREE TIMES DAILY Comments: Last Taken: 06/10/17 Time: 900AM Amitriptyline HCl (Amitriptyline HCl) 100 MG TABLET 1 Tablet ORAL TAKE AT BEDTIME Comments: Last Taken: 06/09/17 Time: 9:25 PM Duloxetine HCl (Duloxetine HCl) 30 MG CAPSULE.DR 1 Capsule ORAL Every Morning Comments: Last Taken: 06/10/17 Time: 900AM Primidone (Primidone) 50 MG TABLET 100 Milligram ORAL THREE TIMES DAILY Comments: Last Taken: 06/10/17 Time: 900AM Sucralfate (Carafate) 1 GM TABLET 1 Tablet ORAL 4 TIMES A DAY Comments: Last Taken: 06/10/17 Time: 900AM Esomeprazole (Nexium) 40 MG CAPSULE.DR 1 Capsule ORAL DAILY Qty = 30 Comments: NOT GIVEN Propranolol HCl (Propranolol HCl) 40 MG TABLET 1 Tablet ORAL TWICE DAILY Qty = 60 Comments: Last Taken: 02/28/17 Time: 9:10 AM Albuterol Sulfate (Ventolin Hfa) 90 MCG HFA.AER.AD 2 Puff Inhale through mouth as needed for COPD Qty = 18 Comments: NOT GIVEN IN HOSPITAL Buprenorphine HCl/Naloxone HCl (Suboxone 8 MG-2 MG Sl Film) 8 MG-2 MG FILM 1 Strip SUBLINGUAL Every night Comments: Last Taken: 06/09/17 Time: 9:25 PM Folic Acid (Folic Acid) 0.8 MG TABLET 1 Tablet ORAL DAILY Comments: Last Taken: NOT GIVEN IN HOSPITAL Time: Magnesium Oxide (Magnesium Oxide) 400 MG TABLET 1 Tablet ORAL TWICE DAILY Comments: Last Taken: NOT GIVEN IN HOSPITAL Time: Multivitamin (Daily Multiple Vitamin) 1 EACH TABLET 1 Tablet ORAL DAILY Comments: Last Taken: NOT GIVEN IN HOSPITAL Time: Cholecalciferol (Vitamin D3) 1,000 UNIT TABLET 1 Tablet ORAL DAILY Comments: Last Taken: NOT GIVEN IN HOSPITAL Time: Ranitidine HCl (Ranitidine HCl) 150 MG CAPSULE 300 Milligram ORAL DAILY Comments: NOT GIVEN Fluticasone/Salmeterol (Advair 250-50 Diskus) 250 MCG-50 MCG/DOSE BLST.W.DEV 1 Puff Inhale through mouth TWICE DAILY Comments: NOT GIVEN Tramadol HCl (Tramadol HCl) 50 MG TABLET 1 Tablet ORAL EVERY SIX HOURS Comments: Last Taken: 06/10/17 Time: 630AM Insulin Degludec (Tresiba Flextouch U-100) 100 UNIT/ML (3 ML) INSULN.PEN 30 Units Inject into fatty tissue TWICE DAILY Days = 30 Comments: NOT GIVEN The following medications have been changed: Old: Insulin Aspart (Novolog) 100 UNIT/ML VIAL 0 Units Inject into fatty tissue BEFORE MEALS AND AT BEDTIME Qty = 20 New: Insulin Aspart (Novolog) 100 UNIT/ML VIAL 0 Units Inject into fatty tissue BEFORE MEALS AND AT BEDTIME Qty = 20 Instructions: BEFORE MEALS Blood Insulin Sugar Units <80 0 81-100 6 101-120 6 121-150 6 151-200 7 201-250 8 251-300 9 301-350 10 351-400 11 More than 400 12units Comments: Last Taken: 06/10/17 Time: 1200PM Copies To: Mariely WU,Nader Bond
== END 2017-06-10 14:26 | disposition home health service (06) | DRG 917 ==
LOC: ERH 13:47 → CRI 16:54 → ERHI 16:54 → ENRESERV 18:45 → ENTRNSPT 18:59 → EDTRNSPTSTS 19:05 → EDTRNSPT 19:05 → CMPTRNSPT 19:22 → CRI 19:30 → ENTRNSPT 06-08 14:32 → EDTRNSPTSTS 06-08 14:36 → 2NA 06-08 14:38 → CMPTRNSPT 06-08 14:45 → 2NA 06-10 08:18 → ENPENDDIS 06-10 13:23 → 2NA 06-10 14:26
PROVIDERS: Emergency Medicine; Internal Medicine; Internal Medicine Interventional Cardiology; Student in an Organized Health Care Education/Training Program
PROC: 5A09357 Assistance with Respiratory Ventilation, Less than 24 Consecutive Hours, Continuous Positive Airway Pressure (ICD-10-PCS; principal; 2017-06-07)
DX: T38.3X1A Poisoning by insulin and oral hypoglycemic [antidiabetic] drugs, accidental (unintentional), initial encounter (principal); J96.01 Acute respiratory failure with hypoxia; J69.0 Pneumonitis due to inhalation of food and vomit; J96.02 Acute respiratory failure with hypercapnia; E87.2 Acidosis; L97.819 Non-pressure chronic ulcer of other part of right lower leg with unspecified severity; E10.649 Type 1 diabetes mellitus with hypoglycemia without coma; E10.42 Type 1 diabetes mellitus with diabetic polyneuropathy; K31.84 Gastroparesis; E10.51 Type 1 diabetes mellitus with diabetic peripheral angiopathy without gangrene; E10.43 Type 1 diabetes mellitus with diabetic autonomic (poly)neuropathy; J44.9 Chronic obstructive pulmonary disease, unspecified; F17.210 Nicotine dependence, cigarettes, uncomplicated; K21.9 Gastro-esophageal reflux disease without esophagitis; G89.4 Chronic pain syndrome; F32.9 Major depressive disorder, single episode, unspecified; E78.5 Hyperlipidemia, unspecified; Y92.009 Unspecified place in unspecified non-institutional (private) residence as the place of occurrence of the external cause; R68.0 Hypothermia, not associated with low environmental temperature; F11.10 Opioid abuse, uncomplicated; I10 Essential (primary) hypertension; F41.9 Anxiety disorder, unspecified; I16.0 Hypertensive urgency; Z79.4 Long term (current) use of insulin; Z86.14 Personal history of Methicillin resistant Staphylococcus aureus infection; Z89.431 Acquired absence of right foot; Z89.512 Acquired absence of left leg below knee
CPT/HCPCS: 2NAP; CCU; 36415; 36592; 71045; 80307; 81001; 82436; 83525; 87040; 87070; 87086; 93005; 93010; 96361; 96365; 96374; 96375; 96376; 99291; G0480; J1650; J2310; J3490; J7042; J7060

== ENCOUNTER 2017-06-20 14:41 | Emergency (ER) | payer OTHER, MEDICARE ==
[~2017-06-20] VITALS: Ht 177.8 cm; Wt 68.0 kg
[~2017-06-20 14:41] MED LIST changes: +RANITIDINE HCL150 M2 PO; +TRESIBA FL100 UNIT/1 INJ; +TRESIBA FL100 UNIT/1 SC
--- NOTE | 2017-06-20 15:11 | ED AMS/SEIZURE/WEAK/DIZZY ---
History of Present Illness General Chief Complaint: Altered Mental Status Stated Complaint: BIBA HYPOGLYCEMIA/UNRESPONSIVENESS Source: patient Exam Limitations: no limitations Vital Signs & Intake/Output Vital Signs & Intake/Output Vital Signs Date Time Temp Pulse Resp B/P B/P Pulse O2 O2 Flow FiO2 Mean Ox Delivery Rate 06/20 1557 102 20 174/88 96 Room Air Room Air 06/20 1532 93 Room Air Room Air 06/20 1445 96 22 160/60 95 Room Air Allergies Coded Allergies: NO KNOWN ALLERGIES (07/16/15) Reconcile Medications Albuterol Sulfate (Ventolin Hfa) 90 MCG HFA.AER.AD 2 PUF INH PRN COPD ( Reported) Amitriptyline HCl 100 MG TABLET 1 TAB PO QHS UNKNOWN (Reported) Buprenorphine HCl/Naloxone HCl (Suboxone 8 MG-2 MG Sl Film) 8 MG-2 MG FILM 2 STR SL DAILY CHRONIC PAIN (Reported) Buprenorphine HCl/Naloxone HCl (Suboxone 8 MG-2 MG Sl Film) 8 MG-2 MG FILM 1 STR SL QPM CHRONIC PAIN (Reported) Buspirone HCl 10 MG TABLET 1 TAB PO TID MENTAL HEALTH (Reported) Cholecalciferol (Vitamin D3) 1,000 UNIT TABLET 1 TAB PO DAILY VITAMIN SUPPORT (Reported) Duloxetine HCl 30 MG CAPSULE.DR 1 CAP PO QAM DEPRESSION (Reported) Esomeprazole (Nexium) 40 MG CAPSULE.DR 1 CAP PO DAILY GI (Reported) Fluticasone/Salmeterol (Advair 250-50 Diskus) 250 MCG-50 MCG/DOSE BLST.W.DEV 1 PUF INH BID COPD (Reported) Folic Acid 0.8 MG TABLET 1 TAB PO DAILY VITAMIN SUPPORT (Reported) Gabapentin (Neurontin) 800 MG TABLET 1 TAB PO TID PAIN (Reported) Insulin Aspart (Novolog) 100 UNIT/ML VIAL 0 UNITS SC TIDAC/HS DM BEFORE MEALS Blood Insulin Sugar Units <80 0 81-100 6 101-120 6 121-150 6 151-200 7 201-250 8 251-300 9 301-350 10 351-400 11 More than 400 12units Insulin Degludec (Tresiba Flextouch U-100) 100 UNIT/ML (3 ML) INSULN.PEN 30 UNITS SC BID DEABETES (Reported) Magnesium Oxide 400 MG TABLET 1 TAB PO BID SUPPLEMENT (Reported) Multivitamin (Daily Multiple Vitamin) 1 EACH TABLET 1 TAB PO DAILY VITAMIN SUPPORT (Reported) Primidone 50 MG TABLET 100 MG PO TID UNKNOWN (Reported) Propranolol HCl 40 MG TABLET 1 TAB PO BID BP (Reported) Quetiapine Fumarate (Seroquel) 100 MG TABLET 1 TAB PO 8AM, NOON, 6PM MENTAL HEALTH (Reported) Quetiapine Fumarate (Seroquel) 300 MG TABLET 1 TAB PO QHS MENTAL HEALTH ( Reported) Quinapril HCl (Accupril) 20 MG TABLET 1 TAB PO QAM HEART (Reported) Ranitidine HCl 150 MG CAPSULE 300 MG PO DAILY GERD (Reported) Rosuvastatin Calcium (Crestor) 10 MG TABLET 1 TAB PO QHS CHOLESTEROL ( Reported) Sucralfate (Carafate) 1 GM TABLET 1 TAB PO 4 TIMES/DAY GI (Reported) Tramadol HCl 50 MG TABLET 1 TAB PO Q6 PAIN (Reported) Triage Nurses Notes Reviewed? yes Onset: Abrupt Duration: unknown duration Timing: single episode today Injury Environment: home HPI: Patient presents after being found unresponsive by family. Patient states the last thing he remembers was going to get Jell-O from the refrigerator. Patient was noted to be hypoglycemic by EMS who administered dextrose with improvement. Upon arrival to the emergency department the patient is awake alert and asking for something to eat. (Kathi WU,Prabhu Lester) Past History Travel History Traveled to [place] past 21 day No Medical History Any Pertinent Medical History? 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 Other Medical Hx: COPD, IDDM, diabetic neuropathy, HTN, HLD, current tobacco abuse, history of opiate abuse, depression, anxiety, LLE BKA, RLE transmetatarsal amputation, several episodes of osteomyelitis and PVD History of MRSA: Yes History of VRE: Yes History of CDIFF: No Influenza Vaccine: 12/17/16 Surgical History Surgical History: RIGHT TMA LEFT BKA Psychosocial History Who do you live with Patient/Self Services at Home Nursing What is your primary language Peruvian Tobacco Use: Current Daily Use Daily Tobacco Use Amount/Type: => 5 Cigarettes daily ETOH Use: denies use Family History Family History, If Any: Non-contributory Hx Contributory? No (Kathi WU,Prabhu Lester) Review of Systems Review of Systems Constitutional: Reports: no symptoms. EENTM: Reports: no symptoms. Respiratory: Reports: no symptoms. Cardiovascular: Reports: no symptoms. GI: Reports: no symptoms. Genitourinary: Reports: no symptoms. Musculoskeletal: Reports: no symptoms. Skin: Reports: no symptoms. Neurological/Psychological: Reports: see HPI. Hematologic/Endocrine: Reports: no symptoms. Immunologic/Allergic: Reports: no symptoms. All Other Systems: Reviewed and Negative (Kathi WU,Prabhu Lester) Physical Exam Physical Exam General Appearance: SEE BELOW Comments: Gen.: Well-nourished, well-developed, no acute respiratory distress. Head: Normocephalic, atraumatic. Eyes: Normal inspection bilaterally Ears: Normal inspection bilaterally Nose: Normal inspection Throat/mouth : Moist mucosa Neck: Supple, full range of motion, no goiter Heart: Regular rate and rhythm, no murmurs rubs or gallops Lungs: Clear to auscultation bilaterally with normal air entry Chest: Nontender Back: Normal range of motion Abdomen: Soft, nontender, nondistended, normal bowel sounds Extremities: Left BKA Neurologic: Cranial nerves grossly intact, speech is clear Skin: warm and dry Psychiatric: Calm, cooperative, no apparent delusions or hallucinations Core Measures ACS in differential dx? No CVA/TIA Diagnosis No Sepsis Present: No Sepsis Focused Exam Completed? No (Kathi WU,Prabhu Lester) Progress Differential Diagnosis: HYPOGLYCEMIA, TRAUMA, SYNCOPE, DYSRHYTHMIA Plan of Care: Orders Procedure Date/time Status Heart Healthy Diet 06/20 D Active BASIC METABOLIC PANEL 06/20 1747 Active TSH REFLEX 06/20 1510 Complete CBC WITHOUT DIFFERENTIAL 06/20 1510 Complete BASIC METABOLIC PANEL 06/20 1510 Complete Current Medications Sig/Jonny Start time Last Medication Dose Stop Time Status Admin Dextrose/Sodium 1,000 ML ONCE ONE 06/20 1500 AC 06/20 Chloride 06/20 2139 1515 (D5-Normal Saline) Laboratory Tests 06/20/17 1635: Anion Gap 8, Estimated GFR 46 L, BUN/Creatinine Ratio 13.8, Glucose 194 H, Calcium 8.5, TSH &T3 &Free T4 Intrp 0.731, CBC w Diff NO MAN DIFF REQ, RBC 4.07 L, MCV 74.2 L, MCH 23.7 L, MCHC 32.0 L, RDW 19.5 H, MPV 6.1 L, Gran % 85.9 H, Lymphocytes % 12.2 L, Monocytes % 1.5 L, Eosinophils % 0.4, Basophils % 0, Absolute Granulocytes 12.1 H, Absolute Lymphocytes 1.7, Absolute Monocytes 0.2, Absolute Eosinophils 0.1, Absolute Basophils 0 Comments: 06/20/2017 3:23:13 PM patient signed out to Dr. 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 (Kathi WU,Prabhu Lester) Initial ED EKG: none (Prabhu Vega DO) Departure Departure Condition: Stable Referrals: Mariely WU,Nader Bond (PCP/Family) Departure Forms: Customer Survey General Discharge Information (Kathi WU,Prabhu Lester) Departure Disposition: STILL A PATIENT Clinical Impression Primary Impression: Hypoglycemia Comments 06/20/17 5:45 PM Patient is awake alert oriented 3. I discussed the patient's care with Nader Schuster MD. His IV glucose was stopped. Fingerstick is being repeated now. Fingerstick was 312. The patient refused repeat serum sodium. He wants to go home. Shared decision-making was utilized in his care. He tolerated a meal tray. He was seen for hypoglycemia. He will return to the emergency department tomorrow at 9 AM for repeat glucose and chemistry. (Prabhu Vega DO)
[2017-06-20 16:40] LABS: ABSOLUTE BASOPHIL COUNT 0 /CUMM (0.0-0.2); ABSOLUTE EOSINOPHIL COUNT 0.1 /CUMM (0.0-0.7); ABSOLUTE GRANULOCYTE CT 12.1 /CUMM (1.4-6.5); ABSOLUTE LYMPH COUNT 1.7 /CUMM (1.2-3.4); ABSOLUTE MONOCYTE COUNT 0.2 /CUMM (0.10-0.60); BASOPHIL % 0 % (0.0-2.0); EOSINOPHIL % 0.4 % (0-5); HEMATOCRIT 30.2 % (42-52); MEAN CORPUSCULAR HGB 23.7 PG (27.0-31.0); MEAN CORPUSCULAR VOLUME 74.2 FL (80.0-94.0); MEAN PLATELET VOLUME 6.1 FL (7.4-10.4); PLATELET COUNT 713 /CUMM (130-400); RBC DISTRIBUTION WIDTH 19.5 % (11.5-14.5); RED BLOOD CELL CT 4.07 /CUMM (4.70-6.10); WHITE BLOOD CELL COUNT 14.1 /CUMM (4.8-10.8)
[2017-06-20 16:41] LABS: GRANULOCYTE % 85.9 % (42.2-75.2)
[2017-06-20 18:50] VITALS: BP 148/84
== END 2017-06-20 18:50 ==
LOC: ERH 14:41
PROVIDERS: Emergency Medicine
DX: E11.649 Type 2 diabetes mellitus with hypoglycemia without coma (principal)
CPT/HCPCS: 96374; J7042

== ENCOUNTER 2017-07-13 08:06 | Emergency (ER) | payer OTHER, MEDICARE ==
[~2017-07-13] VITALS: Ht 172.7 cm; Wt 63.5 kg
[2017-07-13 09:04] LABS: HEMATOCRIT 34.8 % (42-52); MEAN CORPUSCULAR HGB 23.6 PG (27.0-31.0); MEAN CORPUSCULAR HGB CONC 32.7 G/DL (33.0-37.0); MEAN CORPUSCULAR VOLUME 72.1 FL (80.0-94.0); MEAN PLATELET VOLUME 6.6 FL (7.4-10.4); PLATELET COUNT 615 /CUMM (130-400); RBC DISTRIBUTION WIDTH 18.9 % (11.5-14.5); RED BLOOD CELL CT 4.82 /CUMM (4.70-6.10); WHITE BLOOD CELL COUNT 10.3 /CUMM (4.8-10.8)
--- NOTE | 2017-07-13 09:30 | RADIOLOGY REPORT ---
EXAMINATION: XR PORTABLE CHEST CLINICAL INFORMATION: Pneumonia COMPARISON: Chest x-ray most recent prior dated 06/07/2017 TECHNIQUE: Portable frontal view of the chest was obtained. FINDINGS: Cardiomediastinal silhouette is within normal limits. Low right lung volume. Improving aeration noted in the right base. No acute airspace opacity. Triangular shaped opacity projecting upon the right upper lung may be partly attributed to overlying structures. Left lung is clear. Degenerative changes bilateral shoulders. IMPRESSION: Opacity right upper lung partially attributed to overlapping structures. Low lung volumes.
--- NOTE | 2017-07-13 10:56 | ED AMS/SEIZURE/WEAK/DIZZY ---
History of Present Illness General Chief Complaint: General Adult Stated Complaint: BIBA, FOUND UNRESPONSIVE Source: old records, EMS, friend Exam Limitations: clinical condition Vital Signs & Intake/Output Vital Signs & Intake/Output Vital Signs Date Time Temp Pulse Resp B/P B/P Pulse O2 O2 Flow FiO2 Mean Ox Delivery Rate 07/13 1502 98.0 101 14 150/88 99 Nasal 2.0L Cannula 07/13 1354 96 16 160/84 96 Nasal 2.0L Cannula 07/13 1156 86 16 134/88 100 Nasal 2.0L Cannula 07/13 1152 91 16 162/90 100 Nasal 2.0L Cannula 07/13 1151 100 190/104 07/13 1135 97.9 100 16 190/104 98 Nasal 2.0L Cannula 07/13 1106 97.0 99 14 184/102 97 Nasal 3.0L Cannula 07/13 1014 98.3 98 18 169/97 95 Nasal 4.0L Cannula 07/13 0827 100 Nasal 4.0L Cannula 07/13 0822 104 14 185/98 98 Nasal 4.0L Cannula Allergies Coded Allergies: NO KNOWN ALLERGIES (07/16/15) Reconcile Medications Albuterol Sulfate (Ventolin Hfa) 90 MCG HFA.AER.AD 2 PUF INH PRN COPD ( Reported) Amitriptyline HCl 100 MG TABLET 1 TAB PO QHS UNKNOWN (Reported) Buprenorphine HCl/Naloxone HCl (Suboxone 8 MG-2 MG Sl Film) 8 MG-2 MG FILM 2 STR SL DAILY CHRONIC PAIN (Reported) Buprenorphine HCl/Naloxone HCl (Suboxone 8 MG-2 MG Sl Film) 8 MG-2 MG FILM 1 STR SL QPM CHRONIC PAIN (Reported) Buspirone HCl 10 MG TABLET 1 TAB PO TID MENTAL HEALTH (Reported) Cholecalciferol (Vitamin D3) 1,000 UNIT TABLET 1 TAB PO DAILY VITAMIN SUPPORT (Reported) Duloxetine HCl 30 MG CAPSULE.DR 1 CAP PO QAM DEPRESSION (Reported) Esomeprazole (Nexium) 40 MG CAPSULE.DR 1 CAP PO DAILY GI (Reported) Fluticasone/Salmeterol (Advair 250-50 Diskus) 250 MCG-50 MCG/DOSE BLST.W.DEV 1 PUF INH BID COPD (Reported) Folic Acid 0.8 MG TABLET 1 TAB PO DAILY VITAMIN SUPPORT (Reported) Gabapentin (Neurontin) 800 MG TABLET 1 TAB PO TID PAIN (Reported) Insulin Aspart (Novolog) 100 UNIT/ML VIAL 0 UNITS SC TIDAC/HS DM BEFORE MEALS Blood Insulin Sugar Units <80 0 81-100 6 101-120 6 121-150 6 151-200 7 201-250 8 251-300 9 301-350 10 351-400 11 More than 400 12units Insulin Degludec (Tresiba Flextouch U-100) 100 UNIT/ML (3 ML) INSULN.PEN 30 UNITS SC BID DEABETES (Reported) Magnesium Oxide 400 MG TABLET 1 TAB PO BID SUPPLEMENT (Reported) Multivitamin (Daily Multiple Vitamin) 1 EACH TABLET 1 TAB PO DAILY VITAMIN SUPPORT (Reported) Primidone 50 MG TABLET 100 MG PO TID UNKNOWN (Reported) Propranolol HCl 40 MG TABLET 1 TAB PO BID BP (Reported) Quetiapine Fumarate (Seroquel) 100 MG TABLET 1 TAB PO 8AM, NOON, 6PM MENTAL HEALTH (Reported) Quetiapine Fumarate (Seroquel) 300 MG TABLET 1 TAB PO QHS MENTAL HEALTH ( Reported) Quinapril HCl (Accupril) 20 MG TABLET 1 TAB PO QAM HEART (Reported) Ranitidine HCl 150 MG CAPSULE 300 MG PO DAILY GERD (Reported) Rosuvastatin Calcium (Crestor) 10 MG TABLET 1 TAB PO QHS CHOLESTEROL ( Reported) Sucralfate (Carafate) 1 GM TABLET 1 TAB PO 4 TIMES/DAY GI (Reported) Tramadol HCl 50 MG TABLET 1 TAB PO Q6 PAIN (Reported) Triage Note: 52M ARRIVES LETHARGIC W AMS, LAST SEEN NORMAL LAST NIGHT. EMS REPORTS ACCUCHECK OF 31, PT RECEIVED GLUCAGON REPERTOIRE MANAGER AND ARRIVES ACCUCHECK 61 WHICH QUICKLY DROPPED BELOW 50 FOR STAFF. ARRIVES LETHARGIC AND MOANING THAT HE IS COLD. 100% O2 SAT ON HIGH FLOW O2 AND RESP AT BEDSIDE. PT MAINTAINING HIS OWN AIRWAY AT THIS TIME. DIFFICULT IV ACCESS DUE TO POOR VENOUS STRUCTURES. HEALED LESIONS OBSERVED ALL OVER BODY. NO ACTIVE INFECTION OR DRAINAGE NOTED AT THIS TIME. Triage Nurses Notes Reviewed? yes Onset: Just prior to arrival Duration: unknown duration Timing: recent history Injury Environment: home Severity: severe HPI: Prior to admission patient was found obtunded by a neighbor. Upon arrival blood sugar was noted to be 27 IM glucagon administered. Friend who check on him frequently reports he has issues checking blood sugar administering insulin and eating. The friend's spouse who he reports is his visiting nurse suspects he is abusing xanax. There is no reported fever chills nausea vomiting diarrhea abdominal pain chest pain shortness breath headache dysuria rash bleeding. Past History Travel History Traveled to [place] past 21 day No Medical History Any Pertinent Medical History? 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 Other Medical Hx: COPD, IDDM, diabetic neuropathy, HTN, HLD, current tobacco abuse, history of opiate abuse, depression, anxiety, LLE BKA, RLE transmetatarsal amputation, several episodes of osteomyelitis and PVD History of MRSA: Yes History of VRE: Yes History of CDIFF: No Surgical History Surgical History: RIGHT TMA LEFT BKA Psychosocial History Who do you live with Patient/Self Services at Home Nursing What is your primary language Romanian Tobacco Use: Current Daily Use Daily Tobacco Use Amount/Type: => 5 Cigarettes daily Family History Family History, If Any: Non-contributory Hx Contributory? No Review of Systems Review of Systems Constitutional: Reports: see HPI, weakness. EENTM: Reports: no symptoms. Respiratory: Reports: no symptoms. Cardiovascular: Reports: no symptoms. GI: Reports: no symptoms. Genitourinary: Reports: no symptoms. Musculoskeletal: Reports: no symptoms. Skin: Reports: no symptoms. Neurological/Psychological: Reports: see HPI, cognitive dysfunction, weakness. Hematologic/Endocrine: Reports: no symptoms. Immunologic/Allergic: Reports: no symptoms. All Other Systems: Reviewed and Negative Physical Exam Physical Exam General Appearance: well developed/nourished, lethargic, moderate distress Head: atraumatic, normal appearance Eyes: Bilateral: normal appearance, PERRL, EOMI. Ears, Nose, Throat: normal pharynx, normal ENT inspection, hearing grossly normal Neck: normal inspection, supple, full range of motion, no midline tenderness Respiratory: normal breath sounds, chest non-tender, no respiratory distress, quiet respiration, lungs clear Cardiovascular: regular rate/rhythm, normal peripheral pulses, tachycardia, norml femoral pulses equa Peripheral Pulses: 4+ carotid (R), 4+ carotid (L) Gastrointestinal: normal bowel sounds, soft, non-tender, no organomegaly Back: normal inspection, normal range of motion Extremities: normal range of motion Neurologic/Psych: disoriented x 3, motor weakness Reflexes: 2+: bicep (R), bicep (L). Skin: intact, normal color, warm/dry Lymphatic: no anterior cervical emerald Core Measures ACS in differential dx? No CVA/TIA Diagnosis No Sepsis Present: No Sepsis Focused Exam Completed? No Progress Differential Diagnosis: alcohol intoxication, dehydration, drug intoxication, hypoglycemia, pneumonia Plan of Care: Orders Procedure Date/time Status Regular Diet 07/13 L Active URINE DRUG SCREEN FOR ER ONLY 07/13 1101 Complete ARTERIAL BLOOD GAS (GEN) 07/13 0812 Complete TROPONIN LEVEL 07/13 0810 Complete LACTIC ACID 07/13 0810 Complete COMPREHENSIVE METABOLIC PANEL 07/13 0810 Complete CREATINE PHOSPHOKINASE 07/13 0810 Complete CBC WITHOUT DIFFERENTIAL 07/13 0810 Complete EKG 07/13 0810 Active Laboratory Tests 07/13/17 1115: Urine Opiates Screen 161, Methadone Screen 78, Barbiturate Screen 578 H, Ur Phencyclidine Scrn < 6.00, Amphetamines Screen < 100, U Benzodiazepines Scrn > 800 H, Urine Cocaine Screen < 50, Urine Cannabis Screen < 5.00 07/13/17 1110: Lactic Acid Cancelled 07/13/17 0848: Anion Gap 12, Estimated GFR > 60, BUN/Creatinine Ratio 15.0, Glucose 225 H, Lactic Acid 1.2, Calcium 9.1, Total Bilirubin 0.4, AST 20, ALT 18 L, Alkaline Phosphatase 159 H, Creatine Kinase 158, Troponin I < 0.01, Total Protein 7.9, Albumin 3.6, Globulin 4.3 H, Albumin/Globulin Ratio 0.8 L, CBC w Diff MAN DIFF ORDERED, RBC 4.82, MCV 72.1 L, MCH 23.6 L, MCHC 32.7 L, RDW 18.9 H, MPV 6.6 L, Segmented Neutrophils 86 H, Lymphocytes 12 L, Monocytes 2, Platelet Estimate INCREASED, Hypochromic-Microcytic 1+, Poikilocytosis 1+, Anisocytosis 1 +, Microcytic Cells 1+ 07/13/17 0820: pH 7.35, pCO2 44, pO2 92, HCO3 24, ABG O2 Sat (Measured) 94.0 L, Carboxyhemoglobin 3.1, O2 Concentration % 5L, O2 Delivery Method NC, Phlebotomy Draw Site LEFT RADIAL Diagnostic Imaging: Viewed by Me: Radiology Read, CT Scan. Discussed w/RAD: Radiology Read, CT Scan. Radiology Impression: 1. No acute intracranial pathology compared to 06/07/2017. 2. Chronic bilateral maxillary sinus disease. CXR Impression: Opacity right upper lung partially attributed to overlapping structures. Low lung volumes. Initial ED EKG: normal axis, normal intervals, normal p-waves, normal QRS complex, normal sinus rhythm, no ST T wave changes Prior EKG: unchanged Rhythm Strip: sinus tachycardia Comments: No response to narcan. More arousable after romazicon. Departure Departure Time of Disposition: 1809 Disposition: HOME OR SELF CARE Condition: Stable Clinical Impression Primary Impression: Hypoglycemia Secondary Impressions: Benzodiazepine abuse Referrals: Mariely WU,Nader Bond (PCP/Family) Critical Care Note Critical Care Note Critical Care Time: 30-74 min (60)
--- NOTE | 2017-07-13 12:06 | CT SCAN REPORT ---
EXAMINATION: CT HEAD WITHOUT CONTRAST CLINICAL INFORMATION: Altered mental status. COMPARISON: 06/07/2017 TECHNIQUE: Contiguous axial imaging was performed from the skull base to vertex without intravenous administration of contrast. There is some motion degradation of images (also observed on 06/07/2017). DLP: 631 mGy-cm FINDINGS: Brain parenchyma: Normal attenuation. Schmitt-white matter differentiation is well preserved. No evidence of an acute major vascular territory infarction, hemorrhage, mass or midline shift. Cerebrospinal fluid spaces: Unremarkable. No hydrocephalus or extra-axial fluid collections. Cerebellum and brainstem: Unremarkable. The 4th ventricle is midline in position. The cerebellopontine angles are normal. Calvarium and temporomandibular joints: Calvarium is intact. Mastoid air cells and middle ear cavities are well aerated. The TMJs are normal. Paranasal sinuses and orbits: Chronic mucoperiosteal thickening of the right maxillary sinus and, to a lesser extent, left maxillary sinus. There are some frothy secretions in the right maxillary sinus. Lenses are extracted from each globe. IMPRESSION: 1. No acute intracranial pathology compared to 06/07/2017. 2. Chronic bilateral maxillary sinus disease.
[2017-07-13 18:25] VITALS: BP 132/78
== END 2017-07-13 19:52 ==
LOC: ERH 08:06
PROVIDERS: Emergency Medicine
DX: F13.10 Sedative, hypnotic or anxiolytic abuse, uncomplicated (principal); E11.649 Type 2 diabetes mellitus with hypoglycemia without coma
CPT/HCPCS: 71045; 80307; 93005; 93010; 96374; 96375; 99291; J2310

== ENCOUNTER 2017-11-26 17:00 | Inpatient (IN) | payer OTHER, MEDICARE ==
[2017-11-23 11:39] LABS: HEMATOCRIT 30.4 % (42-52); MEAN CORPUSCULAR HGB 23.4 PG (27.0-31.0); MEAN CORPUSCULAR HGB CONC 32.1 G/DL (33.0-37.0); MEAN CORPUSCULAR VOLUME 72.8 FL (80.0-94.0); MEAN PLATELET VOLUME 7.4 FL (7.4-10.4); PLATELET COUNT 576 /CUMM (130-400); RBC DISTRIBUTION WIDTH 22.3 % (11.5-14.5); RED BLOOD CELL CT 4.18 /CUMM (4.70-6.10); WHITE BLOOD CELL COUNT 10.2 /CUMM (4.8-10.8)
[~2017-11-26] VITALS: Ht 160 cm; Wt 60.8 kg
--- NOTE | 2017-11-26 17:05 | ED GENERAL ADULT ---
History of Present Illness General Chief Complaint: General Adult Stated Complaint: BIBA FOR EVAL HYPOGLYCEMIA Source: old records, EMS Exam Limitations: clinical condition Vital Signs & Intake/Output Vital Signs & Intake/Output Vital Signs Date Time Temp Pulse Resp B/P B/P Pulse O2 O2 Flow FiO2 Mean Ox Delivery Rate 11/26 1915 97 20 189/107 100 Non 10L ReBreather 11/26 1711 94.2 96 164/88 Allergies Coded Allergies: NO KNOWN ALLERGIES (07/16/15) Reconcile Medications Albuterol Sulfate (Ventolin Hfa) 90 MCG HFA.AER.AD 2 PUF INH PRN COPD ( Reported) Amitriptyline HCl 100 MG TABLET 1 TAB PO QHS UNKNOWN (Reported) Buprenorphine HCl/Naloxone HCl (Suboxone 8 MG-2 MG Sl Film) 8 MG-2 MG FILM 2 STR SL DAILY CHRONIC PAIN (Reported) Buprenorphine HCl/Naloxone HCl (Suboxone 8 MG-2 MG Sl Film) 8 MG-2 MG FILM 1 STR SL QPM CHRONIC PAIN (Reported) Buspirone HCl 10 MG TABLET 1 TAB PO TID MENTAL HEALTH (Reported) Cholecalciferol (Vitamin D3) 1,000 UNIT TABLET 1 TAB PO DAILY VITAMIN SUPPORT (Reported) Duloxetine HCl 30 MG CAPSULE.DR 1 CAP PO QAM DEPRESSION (Reported) Esomeprazole (Nexium) 40 MG CAPSULE.DR 1 CAP PO DAILY GI (Reported) Fluticasone/Salmeterol (Advair 250-50 Diskus) 250 MCG-50 MCG/DOSE BLST.W.DEV 1 PUF INH BID COPD (Reported) Folic Acid 0.8 MG TABLET 1 TAB PO DAILY VITAMIN SUPPORT (Reported) Gabapentin (Neurontin) 800 MG TABLET 1 TAB PO TID PAIN (Reported) Insulin Aspart (Novolog) 100 UNIT/ML VIAL 0 UNITS SC TIDAC/HS DM BEFORE MEALS Blood Insulin Sugar Units <80 0 81-100 6 101-120 6 121-150 6 151-200 7 201-250 8 251-300 9 301-350 10 351-400 11 More than 400 12units Insulin Degludec (Tresiba Flextouch U-100) 100 UNIT/ML (3 ML) INSULN.PEN 30 UNITS SC BID DEABETES (Reported) Magnesium Oxide 400 MG TABLET 1 TAB PO BID SUPPLEMENT (Reported) Multivitamin (Daily Multiple Vitamin) 1 EACH TABLET 1 TAB PO DAILY VITAMIN SUPPORT (Reported) Primidone 50 MG TABLET 100 MG PO TID UNKNOWN (Reported) Propranolol HCl 40 MG TABLET 1 TAB PO BID BP (Reported) Quetiapine Fumarate (Seroquel) 100 MG TABLET 1 TAB PO 8AM, NOON, 6PM MENTAL HEALTH (Reported) Quetiapine Fumarate (Seroquel) 300 MG TABLET 1 TAB PO QHS MENTAL HEALTH ( Reported) Quinapril HCl (Accupril) 20 MG TABLET 1 TAB PO QAM HEART (Reported) Ranitidine HCl 150 MG CAPSULE 300 MG PO DAILY GERD (Reported) Rosuvastatin Calcium (Crestor) 10 MG TABLET 1 TAB PO QHS CHOLESTEROL ( Reported) Sucralfate (Carafate) 1 GM TABLET 1 TAB PO 4 TIMES/DAY GI (Reported) Tramadol HCl 50 MG TABLET 1 TAB PO Q6 PAIN (Reported) Triage Note: PT BIBA AFTER BEING FOUND UNRESPONSIVE BY NEIGHBOR. PER EMS ON ARRIVAL PT BREATHING VERY SHALLOW, BLOOD SUGAR 12 AT THAT TIME. PT ARRIVES BEING BAGGED BY EMS. l HUMERAL IO IN PLACE BY EMS WITH D10W INFUSING. PT OPENED EYES TO VERBAL STIMULI. RT AT BEDSIDE PLACING PT ON NONREBREATHER Triage Nurses Notes Reviewed? yes HPI: Patient was found unresponsive with a fingerstick of 11. EMS was unable to obtain IV access so they gave him 1 mg of glucagon without any relief and then some swelling got an intraosseous into his left humerus. Patient was given D10. Patient arrived at the emergency department several responsive. Past History Travel History Traveled to [place] past 21 day No Medical History Any Pertinent Medical History? 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 Other Medical Hx: COPD, IDDM, diabetic neuropathy, HTN, HLD, current tobacco abuse, history of opiate abuse, depression, anxiety, LLE BKA, RLE transmetatarsal amputation, several episodes of osteomyelitis and PVD History of MRSA: Yes History of VRE: Yes History of CDIFF: No Surgical History Surgical History: RIGHT TMA LEFT BKA Psychosocial History Who do you live with Patient/Self Services at Home Nursing What is your primary language Citizen Of [place] Tobacco Use: Quit >30 days ago ETOH Use: occasional use, 5 Illicit Drug Use: hISTORY OF OPIATE ABUSE Family History Family History, If Any: Non-contributory Hx Contributory? No Review of Systems Review of Systems Constitutional: Reports: see HPI. Physical Exam Physical Exam General Appearance: lethargic, moderate distress Head: atraumatic, normal appearance Eyes: Bilateral: PERRL, EOMI. Ears, Nose, Throat: normal pharynx Neck: normal inspection, supple Respiratory: normal breath sounds, chest non-tender, no respiratory distress, lungs clear Cardiovascular: regular rate/rhythm, normal peripheral pulses Gastrointestinal: normal bowel sounds, soft Extremities: no edema Core Measures ACS in differential dx? No CVA/TIA Diagnosis: No Sepsis Present: No Sepsis Focused Exam Completed? No Progress Differential Diagnoses I considered the following diagnoses in my evaluation of the patient: [ Hypoglycemia, sepsis] Plan of Care: Orders Procedure Date/time Status Heart Healthy Diet 11/27 B Active LACTIC ACID 11/26 2014 Active Patient Data 11/26 1928 Active ED Holding Orders 11/26 1921 Active Admit to inpatient 11/26 1921 Active Vital Signs 11/26 1921 Active Code Status 11/26 1921 Active Intake & Output 11/26 181 Active FingerStick- Glucose 11/26 1721 Active BLOOD CULTURE 11/26 171 Active LACTIC ACID 11/26 1715 Complete ARTERIAL BLOOD GAS (GEN) 11/26 170 Active Telemetry/Manager Product Design 11/26 170 Active URINALYSIS 11/26 170 Complete TROPONIN LEVEL 11/26 1704 Complete COMPREHENSIVE METABOLIC PANEL 11/26 170 Complete CBC WITHOUT DIFFERENTIAL 11/26 170 Active EKG 11/26 170 Active Current Medications Sig/Jonny Start time Last Medication Dose Stop Time Status Admin Naloxone HCl 0.4 MG ONCE ONE 11/26 173 CAN (Narcan) 11/26 1731 Laboratory Tests 11/26/17 191: Urine Color YEL, Urine Clarity CLEAR, Urine pH 6.5, Ur Specific [place] 1.010, Urine Protein 100 H, Urine Ketones NEG, Urine Nitrite NEG, Urine Bilirubin NEG, Urine Urobilinogen 0.2, Ur Leukocyte Esterase SMALL H, Ur Microscopic SEDIMENT EXAMINED, Urine RBC 5-10 H, Urine WBC > 75 H, Ur Epithelial Cells OCCAS, Urine Hemoglobin SMALL H, Urine Glucose NEG 11/26/17 1753: Lactic Acid 0.7 11/26/17 175: Anion Gap 5, Estimated GFR > 60, BUN/Creatinine Ratio 14.2, Glucose 246 H, Calcium 8.6, Total Bilirubin 0.3, AST 20, ALT 18 L, Alkaline Phosphatase 150 H , Troponin I < 0.01, Total Protein 7.4, Albumin 3.1 L, Globulin 4.3 H, Albumin /Globulin Ratio 0.7 L, CBC w Diff MAN DIFF ORDERED, RBC 4.79, MCV 72.4 L, MCH 23.1 L, MCHC 31.9 L, RDW 23.2 H, MPV 7.3 L, Segmented Neutrophils Pending 11/26/171704: pH 7.33 L, pCO2 44, pO2 55 L, HCO3 23, ABG O2 Sat (Measured) 85.0 L, P-50 ( Temp Corrected) Y, Carboxyhemoglobin 6.7 *H, O2 Concentration % 100%, Temperature 94.2 L, O2 Delivery Method NRB, Phlebotomy Draw Site RIGHT RADIAL Microbiology 11/26 1714 BLOOD: Blood Culture - ORD 11/26 1714 BLOOD: Blood Culture - ORD Initial ED EKG: SR, NSSTT CHANGES, NO CHANGE FROM PRIOR Prior EKG: unchanged Rhythm Strip: normal sinus rhythm Comments: Patient is currently awake alert and oriented 3 after 25 g of 50% dextrose was pushed IV. Patient states he took his 34 units of insulin today. Patient's current complaint is pain to his left shoulder in the area where the inter osseous has been placed. Departure Departure Disposition: STILL A PATIENT Condition: Guarded Clinical Impression Primary Impression: Hypoglycemia Referrals: Mariely WU,Nader Bond (PCP/Family) Departure Forms: Customer Survey General Discharge Information Admission Note Spoke With: Candy Soria MD Documentation of Exam: Documentation of any treatments & extenuating circumstances including Concerns Regarding Discharge (functional status, medication knowledge or non-compliance, living conditions, etc.) that warrant an admission rather than observation: [ Strick glucose monitoring, endocrinology consultation, plastics consultation] Critical Care Note Critical Care Note Critical Care Time: mins: (90 MIN)
[2017-11-26 18:12] LABS: HEMATOCRIT 34.7 % (42-52); MEAN CORPUSCULAR HGB 23.1 PG (27.0-31.0); MEAN CORPUSCULAR HGB CONC 31.9 G/DL (33.0-37.0); MEAN CORPUSCULAR VOLUME 72.4 FL (80.0-94.0); MEAN PLATELET VOLUME 7.3 FL (7.4-10.4); PLATELET COUNT 587 /CUMM (130-400); RBC DISTRIBUTION WIDTH 23.2 % (11.5-14.5); RED BLOOD CELL CT 4.79 /CUMM (4.70-6.10); WHITE BLOOD CELL COUNT 13.8 /CUMM (4.8-10.8)
--- NOTE | 2017-11-26 18:32 | RADIOLOGY REPORT ---
EXAMINATION: XR PORTABLE CHEST CLINICAL INFORMATION: Unresponsive. COMPARISON: None TECHNIQUE: Portable frontal view of the chest was obtained. FINDINGS: The lungs are well-expanded and clear of acute process. The heart size and pulmonary vascularity is normal. No gross bony abnormality seen. IMPRESSION: Unremarkable chest exam.
--- NOTE | 2017-11-26 19:33 | History & Physical ---
General Information and HPI Allergies/Medications Allergies: Coded Allergies: NO KNOWN ALLERGIES (07/16/15) Home Med list Albuterol Sulfate (Ventolin Hfa) 90 MCG HFA.AER.AD 2 PUF INH PRN COPD ( Reported) Amitriptyline HCl 100 MG TABLET 1 TAB PO QHS UNKNOWN (Reported) Buprenorphine HCl/Naloxone HCl (Suboxone 8 MG-2 MG Sl Film) 8 MG-2 MG FILM 2 STR SL DAILY CHRONIC PAIN (Reported) Buprenorphine HCl/Naloxone HCl (Suboxone 8 MG-2 MG Sl Film) 8 MG-2 MG FILM 1 STR SL QPM CHRONIC PAIN (Reported) Buspirone HCl 10 MG TABLET 1 TAB PO TID MENTAL HEALTH (Reported) Cholecalciferol (Vitamin D3) 1,000 UNIT TABLET 1 TAB PO DAILY VITAMIN SUPPORT (Reported) Duloxetine HCl 30 MG CAPSULE.DR 1 CAP PO QAM DEPRESSION (Reported) Esomeprazole (Nexium) 40 MG CAPSULE.DR 1 CAP PO DAILY GI (Reported) Fluticasone/Salmeterol (Advair 250-50 Diskus) 250 MCG-50 MCG/DOSE BLST.W.DEV 1 PUF INH BID COPD (Reported) Folic Acid 0.8 MG TABLET 1 TAB PO DAILY VITAMIN SUPPORT (Reported) Gabapentin (Neurontin) 800 MG TABLET 1 TAB PO TID PAIN (Reported) Insulin Aspart (Novolog) 100 UNIT/ML VIAL 0 UNITS SC TIDAC/HS DM BEFORE MEALS Blood Insulin Sugar Units <80 0 81-100 6 101-120 6 121-150 6 151-200 7 201-250 8 251-300 9 301-350 10 351-400 11 More than 400 12units Insulin Degludec (Tresiba Flextouch U-100) 100 UNIT/ML (3 ML) INSULN.PEN 30 UNITS SC BID DEABETES (Reported) Magnesium Oxide 400 MG TABLET 1 TAB PO BID SUPPLEMENT (Reported) Multivitamin (Daily Multiple Vitamin) 1 EACH TABLET 1 TAB PO DAILY VITAMIN SUPPORT (Reported) Primidone 50 MG TABLET 100 MG PO TID UNKNOWN (Reported) Propranolol HCl 40 MG TABLET 1 TAB PO BID BP (Reported) Quetiapine Fumarate (Seroquel) 100 MG TABLET 1 TAB PO 8AM, NOON, 6PM MENTAL HEALTH (Reported) Quetiapine Fumarate (Seroquel) 300 MG TABLET 1 TAB PO QHS MENTAL HEALTH ( Reported) Quinapril HCl (Accupril) 20 MG TABLET 1 TAB PO QAM HEART (Reported) Ranitidine HCl 150 MG CAPSULE 300 MG PO DAILY GERD (Reported) Rosuvastatin Calcium (Crestor) 10 MG TABLET 1 TAB PO QHS CHOLESTEROL ( Reported) Sucralfate (Carafate) 1 GM TABLET 1 TAB PO 4 TIMES/DAY GI (Reported) Tramadol HCl 50 MG TABLET 1 TAB PO Q6 PAIN (Reported) Past History Travel History Traveled to [place] past 21 day No Medical History Neurological: peripheral neuropathy EENT: NONE Cardiovascular: hypertension, PVD, MRSA endocarditis Respiratory: COPD Gastrointestinal: diverticulitis, GERD, GASTROPARESIS Hepatic: NONE Renal: NONE Musculoskeletal: osteomyelitis Psychiatric: anxiety, chronic pain disorder, depression Endocrine: diabetes, diabetic ketoacidosis, hypoglycemia Blood Disorders: MRSA Cancer(s): NONE 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 self Services at Home: Nursing Primary Language: Indonesian ETOH Use: 5 Name of POA/HCP: Spencer Chaudhari Functional Ability ADLs Independent: dressing, eating, toileting, bathing. Ambulation: cane, walker IADLs Independent: finances. Unknown: shopping, housework, food prep, telephone, transportation, medication admin. Core Measures/Misc (12/03) Sepsis (View protocol) Sepsis Present: No If YES complete Sepsis Event Note If YES complete Sepsis Event Note
--- NOTE | 2017-11-26 20:12 | History & Physical ---
Cameron Su MD 11/26/172010: General Information and HPI MD Statement: I have seen and personally examined BRANDIN BONILLA and documented this H&P. The patient is a 52 year old M who presented with a patient stated chief complaint of [low blood sugar]. Source of Information: family, EMS Exam Limitations: unable to give history, clinical condition History of Present Illness: Mr Bonilla is a 52 year old man with multiple medical problems significant for insulin-dependent diabetes mellitus, COPD, hypertension, PVD, DKA, osteomyelitis s/p left BKA and right transmetatarsal amputation, opiod use disorder on suboxone, who was brought to the ED by EMS after he was found to be unresponsive with a blood glucose of 11. He initially received 1 mg of glucagon by EMS without any noticeable improvement. On arrival to the ED he received an amp of dextrose after which the patient transiently regained consciousness and was able to give brief history to the ED physician. Soon afterwards, he became lethargic. A dose of Narcan was given without any effect. Further doses were not given to avoid withdrawal as the patient is on suboxone. History has been obtained from the sister who is the POA. The sister states that the patient has been doing well since the last time he was here. He lives in a residential facility and has an aide. The nurse aide left him earlier in the afternoon at 2pm at which time he was in his usual state of health. He was found unresponsive around 4pm when his neighbours checked in on him. The sister mentions that the patient has a poor appetite and often skips meals with resulting episodes of hypoglycemia when he takes his insulin. She believes this is likely what happened earlier today. When inquired about his lower extremities wounds, the sister states that the patient follows up with some surgeon and he was due to get a graft from his thigh to his legs on Sunday. At the time of interview, the patient is lethargic but arousable and verbally responsive to commands. He is unable to state any complaints but denies being in any pain anywhere. ROS is limited due to patient's condition. Allergies/Medications Allergies: Coded Allergies: NO KNOWN ALLERGIES (07/16/15) Home Med list Albuterol Sulfate (Ventolin Hfa) 90 MCG HFA.AER.AD 2 PUF INH PRN COPD ( Reported) Amitriptyline HCl 100 MG TABLET 1 TAB PO QHS NEUROPATHY (Reported) Aspirin (Ecotrin*) 81 MG TABLET.DR 1 TAB PO DAILY HEART HEALTH (Reported) Buprenorphine HCl/Naloxone HCl (Suboxone 8 MG-2 MG Sl Film) 8 MG-2 MG FILM 2 STR SL DAILY CHRONIC PAIN (Reported) Buprenorphine HCl/Naloxone HCl (Suboxone 8 MG-2 MG Sl Film) 8 MG-2 MG FILM 1 STR SL QPM CHRONIC PAIN (Reported) Buspirone HCl 10 MG TABLET 1 TAB PO TID MENTAL HEALTH (Reported) Cholecalciferol (Vitamin D3) 1,000 UNIT TABLET 1 TAB PO DAILY VITAMIN SUPPORT (Reported) Collagenase Clostridium Hist. (Santyl) 250 UNIT/GRAM OINT...G. RASH (Reported) APPLY SUFFICIENT AMOUNT TO AFFECTED AREA DAILY Duloxetine HCl (Cymbalta) 60 MG CAPSULE.DR 1 CAP PO DAILY DEPRESSION ( Reported) Duloxetine HCl 30 MG CAPSULE.DR 1 CAP PO QAM DEPRESSION (Reported) Esomeprazole (Nexium) 40 MG CAPSULE.DR 1 CAP PO DAILY GI (Reported) Fluticasone Propionate 50 MCG/ACTUATION SPRAY.SUSP 2 SPRAY NASB DAILY NASAL IRRITATION (Reported) Fluticasone/Salmeterol (Advair 250-50 Diskus) 250 MCG-50 MCG/DOSE BLST.W.DEV 1 PUF INH BID COPD (Reported) Folic Acid 0.8 MG TABLET 1 TAB PO DAILY VITAMIN SUPPORT (Reported) Furosemide (Lasix) 20 MG TABLET 1 TAB PO DAILY NEEDED PRN Fluid Retention (Reported) Gabapentin (Neurontin) 800 MG TABLET 1 TAB PO TID PAIN (Reported) Hydroxyzine Pamoate (Vistaril) 50 MG CAPSULE 1 CAP PO BID PRN Itching ( Reported) Insulin Aspart (Novolog) 100 UNIT/ML VIAL 0 UNITS SC TIDAC/HS DM BEFORE MEALS Blood Insulin Sugar Units <80 0 81-100 6 101-120 6 121-150 6 151-200 7 201-250 8 251-300 9 301-350 10 351-400 11 More than 400 12units Insulin Degludec (Tresiba Flextouch U-100) 100 UNIT/ML (3 ML) INSULN.PEN 30 UNITS SC BID DEABETES (Reported) Magnesium Oxide 400 MG TABLET 1 TAB PO BID SUPPLEMENT (Reported) Multivitamin (Daily Multiple Vitamin) 1 EACH TABLET 1 TAB PO DAILY VITAMIN SUPPORT (Reported) Primidone 50 MG TABLET 100 MG PO TID UNKNOWN (Reported) Propranolol HCl 40 MG TABLET 1 TAB PO BID BP (Reported) Quetiapine Fumarate (Seroquel) 100 MG TABLET 1 TAB PO 8AM, NOON, 6PM MENTAL HEALTH (Reported) Quetiapine Fumarate (Seroquel) 300 MG TABLET 1 TAB PO QHS MENTAL HEALTH ( Reported) Quinapril HCl (Accupril) 20 MG TABLET 1 TAB PO QAM HEART (Reported) Ranitidine HCl 150 MG CAPSULE 300 MG PO DAILY GERD (Reported) Rosuvastatin Calcium (Crestor) 10 MG TABLET 1 TAB PO QHS CHOLESTEROL ( Reported) Sucralfate (Carafate) 1 GM TABLET 1 TAB PO 4 TIMES/DAY GI (Reported) Tiotropium Apollo (Spiriva) 18 MCG CAP.W.DEV 1 CAP INH DAILY ASTHMA ( Reported) Tramadol HCl 50 MG TABLET 1 TAB PO Q6 PAIN (Reported) Past History Travel History Traveled to [place] past 21 day No Medical History Neurological: peripheral neuropathy Cardiovascular: hypertension, PVD, MRSA endocarditis Respiratory: COPD Gastrointestinal: GERD, GASTROPARESIS Musculoskeletal: osteomyelitis Psychiatric: anxiety, chronic pain disorder, depression Endocrine: diabetes Blood Disorders: MRSA Cancer(s): NONE 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 self Services at Home: Nursing Primary Language: Andorran ETOH Use: occasional use, 5 Illicit Drug Use: hISTORY OF OPIATE ABUSE Name of POA/HCP: Spencer Chaudhari Functional Ability ADLs Independent: dressing, eating, toileting, bathing. Ambulation: cane, walker IADLs Independent: finances. Unknown: shopping, housework, food prep, telephone, transportation, medication admin. Review of Systems Review of Systems Constitutional: Reports: see HPI. Exam & Diagnostic Data Last 24 Hrs of Vital Signs/I&O Vital Signs Date Time Temp Pulse Resp B/P B/P Pulse O2 O2 Flow FiO2 Mean Ox Delivery Rate 11/27 2111 93 160/110 11/26 2046 95.2 94 20 184/112 11/26 2046 95.2 94 20 184/112 11/26 2046 95.2 94 20 184/112 11/26 2046 94 20 184/112 98 Nasal 4.0L Cannula 11/27 2011 95.2 110 20 190/118 99 Nasal 4.0L Cannula 11/26 1915 97 20 189/107 100 Non 10L ReBreather 11/26 1711 94.2 96 164/88 Physical Exam General Appearance Mild Distress, lethargic, arousable, verbally responsive to commands Skin widespread wounds on bilateral lower extremities Skin Temp/Moisture Exam: Warm/Dry Sepsis Skin Exam (color): Normal for Ethnicity HEENT Atraumatic Cardiovascular Normal S1, Normal S2, No Murmurs Lungs Normal Air Movement, crackles in left lower lobe Abdomen Soft, No Tenderness Extremities left BKA, right transmetatarsal amputation, right LE edema Assessment/Plan Assessment: Mr Bonilla is a 52 year old man with multiple medical problems significant for insulin-dependent diabetes mellitus, COPD, hypertension, PVD, DKA, osteomyelitis s/p left BKA and right transmetatarsal amputation, opiod use disorder on suboxone, who was brought to the ED by EMS after he was found to be unresponsive with a blood glucose of 11. Assessment: 1. Altered Mental Status 2. Hypoglycemia 3. Hypertensive Urgency - BP of 190/118 4. Acute Hypoxic Respiratory Failure 5. Bilateral lower extremity wounds on presentation 6. History of IDDM 7. History of Hypertension and PVD 8. History of Opiod use disorder on Suboxone Plan: * Admit patient to telemetry * Obtain stat Head CT for AMS * Urine toxicology is positive for barbiturates but that is likely because the patient is on Primidone (a barbiturate derivative) * Monitor blood glucose q2 for now. * Start on novolin insulin q6 * Hydrate with D5-1/2NS @100ml/hr * He received a dose of Lisinopril, propanolol and IV metoprolol 5mg in the ER. Further blood pressure can be controlled with IV Hydralazine prn * Continue supplemental oxygen to maintain target sats > 92%. Currently on 4L. Will wean off as tolerated. * Consider Endo and wound consult * Hold suboxone and tramadol for now. * Please obtain medication list in am from the sister. She has been asked to fax it over to the ER in morning. * Diet: NPO for now. * DVT Prophylaxis: SC Lovenox * Code: Full Code As Ranked By This Provider Problem List: 1. Hypoglycemia Core Measures/Misc (12/03) Acute Coronary Syndrome ACS Diagnosis: No Congestive Heart Failure Congestive Heart Failure Diagnosis No Cerebrovascular Accident CVA/TIA Diagnosis: No VTE (View Protocol) VTE Risk Factors Age>40 No Mechanical VTE Prophylaxis d/t N/A MechProphylax Ordered No VTE Pharm Prophylaxis d/t NA PharmProphylax ordered Sepsis (View protocol) Sepsis Present: No If YES complete Sepsis Event Note If YES complete Sepsis Event Note Candy Soria MD 11/26/17 5267: Core Measures/Misc (12/03) Sepsis (View protocol) If YES complete Sepsis Event Note If YES complete Sepsis Event Note Attending MD Review Statement Attending Statement Attending MD Statement: examined this patient, discuss w/resident/PA/DIMENSION QUARRY SUPERVISOR, agreed w/resident/PA/DIMENSION QUARRY SUPERVISOR, reviewed EMR data (avail), discussed with nursing, discussed with case mgmt, amended to note Attending Assessment/Plan: Patient seen and examined. History of documented above. He presents again unresponsive and found to be severely hypoglycemic. He has had similar episodes in the past. Blood glucose levels have improved following the administration of glucagon. In the ER he was found to be severely hypertensive. He did receive metoprolol and propranolol as well as lisinopril in the ER with a decrease of the systolic blood pressure from 190s-150, diastolic remains in the 100s. He is currently very lethargic but responsive to stimuli. He does answer some questions appropriately when questions or falls right back to sleep. He is currently protecting his airway adequately. On examination, pupils a round, equal and reactive. Heart sounds are regular. Lungs are clear bilaterally. Abdomen is soft and nontender. He has no peripheral edema. He has multiple small ulcerations at different stages of healing all over his lower extremities. Has an intact dressing over the stump of the right foot. He is status post AKA on the left and BKA on the right. Urine toxicology is positive for benzos opioids and barbiturates. He does not have any benzodiazepines in his medication regimen. He has an elevated white cell count however is currently no clear focus of infection at present. Problems: 1. Altered mental status; likely combination of hypoglycemia and medication induced. 2. Severe hypoglycemia; recurrent 3. Hypertensive urgency 4. Chronic leg ulcer. 5. Insulin-dependent diabetes mellitus 6. Substance abuse; currently on Suboxone. 7. Peripheral neuropathy. Plan: -Admit to the inpatient medical service. -Due to his uncontrolled high blood pressure, will place on the telemetry unit. -Due to his altered mentation, keep n.p.o. for now. -Administer hydralazine 12.5 mg IV 3 times daily. Gradually controlled blood pressure. Avoid rapid decrease of blood pressure. -Once patient is more alert and safely able to tolerate oral intake may resume his propranolol. -Hydrated with D5 half normal saline at 100cc an hour. -Placed on sliding scale coverage starting when glucose levels are greater than 200. -Chemical DVT prophylaxis. Maintain aspiration precautions at all times.-
--- NOTE | 2017-11-26 22:46 | CT SCAN REPORT ---
EXAMINATION: CT HEAD WITHOUT CONTRAST CLINICAL INFORMATION: Altered mental status. COMPARISON: None TECHNIQUE: Contiguous axial imaging was performed from the skull base to vertex without intravenous administration of contrast. DLP: 382 mGy-cm FINDINGS: There is no evidence of acute intracranial hemorrhage or territorial infarction. No abnormal mass effect or midline shift is seen. Navarro to white matter differentiation is well preserved. No extra-axial fluid collections are identified. The ventricles are normal in size. There is no abnormal attenuation within the brain parenchyma. The osseous structures and soft tissues are normal. There is mild mucoperiosteal thickening left maxillary sinus. Rest of the paranasal sinuses and mastoid air cells are well-aerated. IMPRESSION: No acute intracranial process seen. Mild chronic left maxillary sinus inflammatory changes.
[2017-11-26 23:27] VITALS: BP 150/98
[2017-11-27] MEDS ORDERED: LASIX20 M1 PO (00:16)
[2017-11-27] MEDS ORDERED: SANTYL30 GM (00:19)
[2017-11-27] MEDS ORDERED: ASPIRIN EC81 M1 PO (00:21)
[2017-11-27] MEDS ORDERED: CYMBALTA60 M1 PO (00:24)
[2017-11-27] MEDS ORDERED: SPIRIVA18 MCG INH (00:24)
[2017-11-27] MEDS ORDERED: FLUTICASONE PRO16 GM NASB (00:25)
[2017-11-27] MEDS ORDERED: VISTARIL50 M1 PO (00:25)
[2017-11-27 05:36] VITALS: BP 128/80
[2017-11-27 07:53] LABS: HEMATOCRIT 32.1 % (42-52); MEAN CORPUSCULAR HGB 23.4 PG (27.0-31.0); MEAN CORPUSCULAR HGB CONC 31.7 G/DL (33.0-37.0); MEAN CORPUSCULAR VOLUME 73.9 FL (80.0-94.0); MEAN PLATELET VOLUME 7.3 FL (7.4-10.4); PLATELET COUNT 594 /CUMM (130-400); RBC DISTRIBUTION WIDTH 22.3 % (11.5-14.5); RED BLOOD CELL CT 4.34 /CUMM (4.70-6.10); WHITE BLOOD CELL COUNT 12.3 /CUMM (4.8-10.8)
--- NOTE | 2017-11-27 08:03 | PN- Housestaff ---
Xiang WU,Willy 11/27/17 0802: Subjective Follow-up For: Hypoglycemia Subjective: Seen and examined at bedside. He is AOX3, but appears tired. He complains of left shoulder. Deneis any confusion,fever/chills/nausea/vomiting/abdominal pain. morning BG 183, ON D5 at 100ml/hr Review of Systems Constitutional: Reports: see HPI. Objective Last 24 Hrs of Vital Signs/I&O Vital Signs Date Time Temp Pulse Resp B/P B/P Pulse O2 O2 Flow FiO2 Mean Ox Delivery Rate 11/27 0536 97.6 106 22 128/80 96 Nasal Cannula 11/267 97.5 99 20 150/98 95 Nasal 4.0L Cannula 11/27 2251 Nasal 4.0L Cannula 11/26 2142 96.2 96 20 150/104 97 Nasal 4.0L Cannula 11/26 2112 93 160/110 11/26 2046 95.2 94 20 184/112 11/26 2046 95.2 94 20 184/112 11/26 2046 95.2 94 20 184/112 11/26 2046 94 20 184/112 98 Nasal 4.0L Cannula 11/27 2011 95.2 110 20 190/118 99 Nasal 4.0L Cannula 11/26 1915 97 20 189/107 100 Non 10L ReBreather 11/26 1711 94.2 96 164/88 Intake & Output 11/27 1600 11/27 0800 11/27 0000 Intake Total 920 250 Output Total 800 Balance 120 250 Intake, IV 800 250 Intake, Oral 120 Output, Urine 800 Patient 67.132 kg Weight Weight Bed scale Measurement Method Physical Exam General Appearance: Alert, Oriented X3, Cooperative, appears tired Other Physical Findings: Skin widespread wounds on bilateral lower extremities Skin Temp/Moisture Exam: Warm/Dry Sepsis Skin Exam (color): Normal for Ethnicity HEENT Atraumatic Cardiovascular Normal S1, Normal S2, No Murmurs Lungs Normal Air Movement, crackles in left lower lobe Abdomen Soft, No Tenderness Extremities left BKA, right transmetatarsal amputation, right LE edema Current Medications: Current Medications Sig/Jonny Start time Last Medication Dose Route Stop Time Status Admin Acetaminophen 650 MG Q6P PRN 11/26 2014 AC PO Amitriptyline HCl 100 MG AT BEDTIME 11/27 2099 AC PO Aspirin Buffered 81 MG DAILY 09/11 0900 AC PO Atorvastatin Calcium 40 MG 1700 11/27 1700 UNVr PO Buprenorphine/ 1 EACH QPM 11/27 2100 UNVr Naloxone SL Buprenorphine/ 2 EACH DAILY 11/27 899 UNVr Naloxone SL Buspirone HCl 10 MG TID 11/27 899 UNVr PO Cholecalciferol 1,000 IU DAILY 11/27 899 UNVr PO Dextrose 25 GM ONCE ONE 11/26 1730 DC 11/26 IV 11/261 1715 Dextrose/Sodium 1,000 ML Q10H 11/26 2114 AC 11/26 Chloride IV 2140 Duloxetine HCl 60 MG DAILY 11/27 899 UNVr PO Duloxetine HCl 30 MG QAM 11/27 899 UNVr PO Enoxaparin Sodium 40 MG DAILY 11/27 899 AC SC Folic Acid 1 MG DAILY 11/27 899 UNVr PO Insulin Human Regular 0 Q6 11/27 06 AC 11/27 SC 0502 Insulin Human Regular 0 Q6 11/26 2359 DC SC Lisinopril 20 MG DAILY 11/27 899 UNVr PO Lisinopril 0 .STK-MED ONE 11/26 2033 DC PO Lisinopril 20 MG ONCE ONE 11/26 2029 DC 11/26 PO 11/26 Metoprolol Tartrate 0 .STK-MED ONE 11/26 2033 DC IV Metoprolol Tartrate 5 MG ONCE ONE 11/26 2029 DC 11/26 IV 11/26 Naloxone HCl 0.4 MG ONCE ONE 11/26 193 DC 11/26 IV 11/26 1930 193 Naloxone HCl 0 .STK-MED ONE 11/26 1928 DC .ROUTE Naloxone HCl 0.4 MG ONCE ONE 11/26 1730 CAN IV 11/26 1730 Omeprazole 40 MG DAILY AC 11/28 07 UNVr PO Primidone 100 MG TID 11/27 899 UNVr PO Propranolol HCl 40 MG BID 11/27 899 UNVr PO Propranolol HCl 40 MG ONCE ONE 11/26 2029 DC 11/26 PO 11/26 Quetiapine Fumarate 300 MG QPM 11/27 2100 UNVr PO Last 24 Hrs of Lab/Bart Results Last 24 Hrs of Labs/Mics: Laboratory Tests 11/27/17 0645: Sodium Pending, Potassium Pending, Chloride Pending, Carbon Dioxide Pending, Anion Gap Pending, BUN Pending, Creatinine Pending, BUN/Creatinine Ratio Pending , CBC w Diff MAN DIFF ORDERED, WBC Pending, RBC Pending, Hgb Pending, Hct Pending, MCV Pending, MCH Pending, MCHC Pending, RDW Pending, Plt Count Pending, MPV Pending, Segmented Neutrophils Pending 11/26/172014: Lactic Acid Cancelled 11/26/17 1918: Urine Opiates Screen 197, Methadone Screen 57, Barbiturate Screen 475 H, Ur Phencyclidine Scrn < 6.00, Amphetamines Screen < 100, U Benzodiazepines Scrn 356 H, Urine Cocaine Screen < 50, Urine Cannabis Screen < 5.00, Urine Color YEL, Urine Clarity CLEAR, Urine pH 6.5, Ur Specific [place] 1.010, Urine Protein 100 H, Urine Ketones NEG, Urine Nitrite NEG, Urine Bilirubin NEG, Urine Urobilinogen 0.2, Ur Leukocyte Esterase SMALL H, Ur Microscopic SEDIMENT EXAMINED, Urine RBC 5-10 H, Urine WBC > 75 H, Ur Epithelial Cells OCCAS, Urine Hemoglobin SMALL H , Urine Glucose NEG 11/26/17 1753: Lactic Acid 0.7 11/26/17 175: Anion Gap 5, Estimated GFR > 60, BUN/Creatinine Ratio 14.2, Glucose 246 H, Calcium 8.6, Total Bilirubin 0.3, AST 20, ALT 18 L, Alkaline Phosphatase 150 H , Troponin I < 0.01, Total Protein 7.4, Albumin 3.1 L, Globulin 4.3 H, Albumin /Globulin Ratio 0.7 L, CBC w Diff MAN DIFF ORDERED, RBC 4.79, MCV 72.4 L, MCH 23.1 L, MCHC 31.9 L, RDW 23.2 H, MPV 7.3 L, Segmented Neutrophils 90 H, Band Neutrophils 1, Lymphocytes 6 L, Monocytes 1 L, Platelet Estimate VERIFIED BY SMEAR, Anisocytosis 2+, Microcytic Cells 1+, Fld Total RBCs Counted 100 11/26/17 170: pH 7.33 L, pCO2 44, pO2 55 L, HCO3 23, ABG O2 Sat (Measured) 85.0 L, P-50 ( Temp Corrected) Y, Carboxyhemoglobin 6.7 *H, O2 Concentration % 100%, Temperature 94.2 L, O2 Delivery Method NRB, Phlebotomy Draw Site RIGHT RADIAL Microbiology 11/26 1714 BLOOD: Blood Culture - CAN Cancelled: SPECIMEN NOT RECEIVED IN LABORATORY 11/26 1714 BLOOD: Blood Culture - CAN Cancelled: SPECIMEN NOT RECEIVED IN LABORATORY Assessment/Plan Assessment: 52 year old man with multiple medical problems significant for insulin-dependent diabetes mellitus, COPD, hypertension, PVD, DKA, osteomyelitis s/p left BKA and right transmetatarsal amputation, opiod use disorder on suboxone, who was brought to the ED by EMS after he was found to be unresponsive with a blood glucose of 11. Impression: * Acute metabolic encephalopathy due to Hypoglycemia as evident by glucose reading obtained by EMS. Resolved after administration of IV glucose. * Hypoglycemia. Appears to be from continous insulin use at prescribed doses in the setting of reduced oral intake by the patient. * Hypertensive Urgency - BP of 190/118 with no chest pain * Acute hypoxemia. Moderate as evident by a PAo2 of 55 requiring non breather at one point. Now resolved. * Leukocytosis. No bandemeia, afebrile with no obvious source of infection * Uncontrolled Diabetes with complications. As evident by an AIC of 10.1 on admission, with proteinuria on UA and hx of neuropathy requiring medications. * Mild Hyponatremia * History of chronic diseases: Bilateral lower extremity wounds, IDDM, History of Hypertension and PVD, History of Opiod use disorder on Suboxone Plan -Continue with IV dextrose and may consider stopping if 2 reading above 200 consecutively and pt is able to tolerate po food intake (we will defer this decision to endocrine) -Appears more alert, we can advance to carb dietlater in the evening with probably low coverage scale q4h (Will however defer this to endocrine). -Restart all of his oral meds including BP meds, Suboxone, and psych meds -Add Tylenol 1 gram q6h in adition to tramadol for pain -Await left shoulder xray, unlikely there is a fracture, physical exam revealed intact ROM with no discoloration albeit some pain. -f/u on BC, Urine culture -Watch of ABx -Will consider social consult -DVT PPX: Enoxaparin Code status: Problem List: 1. Hypoglycemia 2. Hyponatremia 3. Hypoxemia 4. Acute metabolic encephalopathy due to hypoglycemia 5. Leukocytosis Pain Ratin Pain Location: shoulder Pain Goal: Pain 4 or less Pain Plan: per pathway Tomorrow's Labs & Rationales: bep-hyponatremia cbc-leukocytosis Rafa WU,Ivis 11/27/17 1120: Attending MD Review Statement Attending Statement Attending MD Statement: examined this patient, discuss w/resident/PA/BANK APPRAISER, agreed w/resident/PA/BANK APPRAISER, reviewed EMR data (avail), discussed with nursing, discussed with case mgmt, reviewed images, amended to note Attending Assessment/Plan: Patient seen and examined, he is somewhat lethargic this morning. He is easily arousable. He states that he is feeling sore. Patient admitted with unresponsiveness and significant hypoglycemia. Vital Signs Date Time Temp Pulse Resp B/P B/P Pulse O2 O2 Flow FiO2 Mean Ox Delivery Rate 11/27 0800 Nasal 4.0L Cannula 11/27 0536 97.6 106 22 128/80 96 Nasal Cannula 11/26 2327 97.5 99 20 150/98 95 Nasal 4.0L Cannula 11/26 2252 Nasal 4.0L Cannula 11/263 96.2 96 20 150/104 97 Nasal 4.0L Cannula 11/26 2112 93 160/110 11/26 2046 95.2 94 20 184/112 11/26 2046 95.2 94 20 184/112 11/26 2046 95.2 94 20 184/112 11/26 204 94 20 184/112 98 Nasal 4.0L Cannula 11/27 2011 95.2 110 20 190/118 99 Nasal 4.0L Cannula 11/26 1915 97 20 189/107 100 Non 10L ReBreather 11/26 1711 94.2 96 164/88 on exam; aox3, nad. cv; s1, s2, rrr resp; clear abd; soft, nt, bs+ skin: multiple scar elias. Laboratory Tests 11/2745 2014 Chemistry Sodium (137 - 145 mmol/L) 131 L Potassium (3.5 - 5.1 mmol/L) 4.3 Chloride (98 - 107 mmol/L) 103 Carbon Dioxide (22 - 30 mmol/L) 23 Anion Gap (5 - 16) 5 BUN (9 - 20 mg/dL) 15 Creatinine (0.7 - 1.2 mg/dL) 1.0 Estimated GFR (>60 ml/min) > 60 BUN/Creatinine Ratio (7 - 25 %) 15.0 Lactic Acid Cancelled Hematology CBC w Diff MAN DIFF ORDERED WBC (4.8 - 10.8 /CUMM) 12.3 H RBC (4.70 - 6.10 /CUMM) 4.34 L Hgb (14.0 - 18.0 G/DL) 10.2 L Hct (42 - 52 %) 32.1 L MCV (80.0 - 94.0 FL) 73.9 L MCH (27.0 - 31.0 PG) 23.4 L MCHC (33.0 - 37.0 G/DL) 31.7 L RDW (11.5 - 14.5 %) 22.3 H Plt Count (130 - 400 /CUMM) 594 H MPV (7.4 - 10.4 FL) 7.3 L Segmented Neutrophils (42.2 - 75.2 %) 83 H Lymphocytes (20.5 - 51.1 %) 10 L Monocytes (1.7 - 9.3 %) 6 Eosinophils (0 - 5.0 %) 1 Platelet Estimate (ADEQUATE) INCREASED Polychromasia 1+ Hypochromic-Microcytic 1+ Poikilocytosis 1+ Anisocytosis 1+ Microcytic Cells 1+ Ovalocytes 1+ 11/26 1753 Chemistry Lactic Acid (0.7 - 2.1 mmol/L) 0.7 Toxicology Urine Opiates Screen (>2000 NG/ML) 197 Methadone Screen (>300 NG/ML) 57 Barbiturate Screen (>200 NG/ML) 475 H Ur Phencyclidine Scrn (>25 NG/ML) < 6.00 Amphetamines Screen (>1000 NG/ML) < 100 U Benzodiazepines Scrn (>200 NG/ML) 356 H Urine Cocaine Screen (>300 NG/ML) < 50 Urine Cannabis Screen (>50 NG/ML) < 5.00 Urines Urine Color (YEL,AMB,STR) YEL Urine Clarity (CLEAR) CLEAR Urine pH (5.0 - 8.0) 6.5 Ur Specific [place] (1.001 - 1.035) 1.010 Urine Protein (NEG,<30 MG/DL) 100 H Urine Ketones (NEG) NEG Urine Nitrite (NEG) NEG Urine Bilirubin (NEG) NEG Urine Urobilinogen (0.1 - 1.0 EU/dl) 0.2 Ur Leukocyte Esterase (NEG) SMALL H Ur Microscopic SEDIMENT EXAMINED Urine RBC (0 - 5 /HPF) 5-10 H Urine WBC (0 - 2 /HPF) > 75 H Ur Epithelial Cells (NONE,FEW) OCCAS Urine Hemoglobin (NEG) SMALL H Urine Glucose (N MG/DL) NEG 11/26 11/26 1753 1705 Blood Gas pH (7.35 - 7.45 PH) 7.33 L pCO2 (35 - 45 TORR) 44 pO2 (80 - 100 TORR) 55 L HCO3 (21 - 28 MEQ/L) 23 ABG O2 Sat (Measured) (>96.0 %) 85.0 L P-50 (Temp Corrected) Y Carboxyhemoglobin (1.5 - 5.0 %) 6.7 *H O2 Concentration % 100% Temperature (97.0 - 100.0 FARH) 94.2 L O2 Delivery Method NRB Chemistry Sodium (137 - 145 mmol/L) 131 L Potassium (3.5 - 5.1 mmol/L) 5.0 Chloride (98 - 107 mmol/L) 101 Carbon Dioxide (22 - 30 mmol/L) 25 Anion Gap (5 - 16) 5 BUN (9 - 20 mg/dL) 17 Creatinine (0.7 - 1.2 mg/dL) 1.2 Estimated GFR (>60 ml/min) > 60 BUN/Creatinine Ratio (7 - 25 %) 14.2 Glucose (65 - 99 mg/dL) 246 H Hemoglobin A1c (4.2 - 5.8 %) 10.1 H Calcium (8.4 - 10.2 mg/dL) 8.6 Total Bilirubin (0.2 - 1.3 mg/dL) 0.3 AST (17 - 59 U/L) 20 ALT (21 - 72 U/L) 18 L Alkaline Phosphatase (< 127 U/L) 150 H Troponin I (<0.11 ng/ml) < 0.01 Total Protein (6.3 - 8.2 g/dL) 7.4 Albumin (3.5 - 5.0 g/dL) 3.1 L Globulin (1.9 - 4.2 gm/dL) 4.3 H Albumin/Globulin Ratio (1.1 - 2.2 %) 0.7 L Hematology CBC w Diff MAN DIFF ORDERED WBC (4.8 - 10.8 /CUMM) 13.8 H RBC (4.70 - 6.10 /CUMM) 4.79 Hgb (14.0 - 18.0 G/DL) 11.1 L Hct (42 - 52 %) 34.7 L MCV (80.0 - 94.0 FL) 72.4 L MCH (27.0 - 31.0 PG) 23.1 L MCHC (33.0 - 37.0 G/DL) 31.9 L RDW (11.5 - 14.5 %) 23.2 H Plt Count (130 - 400 /CUMM) 587 H MPV (7.4 - 10.4 FL) 7.3 L Segmented Neutrophils (42.2 - 75.2 %) 90 H Band Neutrophils (0.0 - 5.0 %) 1 Lymphocytes (20.5 - 51.1 %) 6 L Monocytes (1.7 - 9.3 %) 1 L Platelet Estimate (ADEQUATE) VERIFIED BY SMEAR Anisocytosis 2+ Microcytic Cells 1+ Miscellaneous Phlebotomy Draw Site RIGHT RADIAL Other Body Source Fld Total RBCs Counted (%) 100 A/P; 52 y/o M with pmh sig for insulin-dependent diabetes mellitus, COPD, hypertension, PVD, DKA, osteomyelitis s/p left BKA and right transmetatarsal amputation, opiod use disorder on suboxone, admitted with unresponsiveness and severe hypoglycemia. Patient still lethargic but able to be aroused. Blood sugars are improved. Patient is getting dextrose IV fluids and has been started on Levemir per endocrinology recommendations. Blood sugars will be monitored. Will resume back his Suboxone and tramadol which are his home medications. His shoulder x- ray is pending which was ordered secondary to patient complaining of pain. Continue other current medications. Patient on Lovenox for DVT prophylaxis.
--- NOTE | 2017-11-27 11:06 | Cons- Endocrinology ---
General Information and HPI Consulting Request Date of Consult: 11/27/17 Requested By: Medical team Reason for Consult: Diabetes type 1/ severe hypoglycemia Source of Information: patient, old records Exam Limitations: no limitations History of Present Illness: 52 year old man with multiple medical problems significant for DM type 1, COPD, hypertension, PVD, DKA, osteomyelitis s/p left BKA and right transmetatarsal amputation, opiod use disorder on suboxone, was brought to the ED by EMS after he was found to be unresponsive with a blood glucose of 11. Patient was admitted to tele. Overnight, he was put on D5 1/2 NS at 100 ml/hour and RISS every 6 hours. His FSGs were 251, 238, 244, 201, 166, 236. He stated that he felt nauseous. Patient has been kept NPO. At home, he was on Tresiba 34 units daily and Humalog coverage before meals. Allergies/Medications Allergies: Coded Allergies: NO KNOWN ALLERGIES (07/16/15) Home Med List: Albuterol Sulfate (Ventolin Hfa) 90 MCG HFA.AER.AD 2 PUF INH PRN COPD ( Reported) Amitriptyline HCl 100 MG TABLET 1 TAB PO QHS NEUROPATHY (Reported) Aspirin (Ecotrin*) 81 MG TABLET.DR 1 TAB PO DAILY HEART HEALTH (Reported) Buprenorphine HCl/Naloxone HCl (Suboxone 8 MG-2 MG Sl Film) 8 MG-2 MG FILM 2 STR SL DAILY CHRONIC PAIN (Reported) Buprenorphine HCl/Naloxone HCl (Suboxone 8 MG-2 MG Sl Film) 8 MG-2 MG FILM 1 STR SL QPM CHRONIC PAIN (Reported) Buspirone HCl 10 MG TABLET 1 TAB PO TID MENTAL HEALTH (Reported) Cholecalciferol (Vitamin D3) 1,000 UNIT TABLET 1 TAB PO DAILY VITAMIN SUPPORT (Reported) Collagenase Clostridium Hist. (Santyl) 250 UNIT/GRAM OINT...G. RASH (Reported) APPLY SUFFICIENT AMOUNT TO AFFECTED AREA DAILY Duloxetine HCl (Cymbalta) 60 MG CAPSULE.DR 1 CAP PO DAILY DEPRESSION ( Reported) Duloxetine HCl 30 MG CAPSULE.DR 1 CAP PO QAM DEPRESSION (Reported) Esomeprazole (Nexium) 40 MG CAPSULE.DR 1 CAP PO DAILY GI (Reported) Fluticasone Propionate 50 MCG/ACTUATION SPRAY.SUSP 2 SPRAY NASB DAILY NASAL IRRITATION (Reported) Fluticasone/Salmeterol (Advair 250-50 Diskus) 250 MCG-50 MCG/DOSE BLST.W.DEV 1 PUF INH BID COPD (Reported) Folic Acid 0.8 MG TABLET 1 TAB PO DAILY VITAMIN SUPPORT (Reported) Furosemide (Lasix) 20 MG TABLET 1 TAB PO DAILY NEEDED PRN Fluid Retention (Reported) Gabapentin (Neurontin) 800 MG TABLET 1 TAB PO TID PAIN (Reported) Hydroxyzine Pamoate (Vistaril) 50 MG CAPSULE 1 CAP PO BID PRN Itching ( Reported) Insulin Aspart (Novolog) 100 UNIT/ML VIAL 0 UNITS SC TIDAC/HS DM BEFORE MEALS Blood Insulin Sugar Units <80 0 81-100 6 101-120 6 121-150 6 151-200 7 201-250 8 251-300 9 301-350 10 351-400 11 More than 400 12units Insulin Degludec (Tresiba Flextouch U-100) 100 UNIT/ML (3 ML) INSULN.PEN 30 UNITS SC BID DEABETES (Reported) Magnesium Oxide 400 MG TABLET 1 TAB PO BID SUPPLEMENT (Reported) Multivitamin (Daily Multiple Vitamin) 1 EACH TABLET 1 TAB PO DAILY VITAMIN SUPPORT (Reported) Primidone 50 MG TABLET 100 MG PO TID UNKNOWN (Reported) Propranolol HCl 40 MG TABLET 1 TAB PO BID BP (Reported) Quetiapine Fumarate (Seroquel) 100 MG TABLET 1 TAB PO 8AM, NOON, 6PM MENTAL HEALTH (Reported) Quetiapine Fumarate (Seroquel) 300 MG TABLET 1 TAB PO QHS MENTAL HEALTH ( Reported) Quinapril HCl (Accupril) 20 MG TABLET 1 TAB PO QAM HEART (Reported) Ranitidine HCl 150 MG CAPSULE 300 MG PO DAILY GERD (Reported) Rosuvastatin Calcium (Crestor) 10 MG TABLET 1 TAB PO QHS CHOLESTEROL ( Reported) Sucralfate (Carafate) 1 GM TABLET 1 TAB PO 4 TIMES/DAY GI (Reported) Tiotropium Starr (Spiriva) 18 MCG CAP.W.DEV 1 CAP INH DAILY ASTHMA ( Reported) Tramadol HCl 50 MG TABLET 1 TAB PO Q6 PAIN (Reported) Review of Systems Review of Systems Constitutional: Reports: malaise. Cardiovascular: Denies: chest pain. Respiratory: Denies: short of breath. GI: Reports: nausea. Hematologic/Endocrine: Denies: polyuria, polydipsia. 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 self Services at Home: Nursing Primary Language: Bulgarian Smoking Status: Current Everyday Smoker ETOH Use: occasional use, 5 Illicit Drug Use: hISTORY OF OPIATE ABUSE Name of POA/HCP: Spencer Chaudhari Functional Ability ADLs Independent: dressing, eating, toileting, bathing. Ambulation: cane, walker IADLs Independent: finances. Unknown: shopping, housework, food prep, telephone, transportation, medication admin. Exam & Diagnostic Data Last 24 Hrs of Vital Signs/I&O Vital Signs Date Time Temp Pulse Resp B/P B/P Pulse O2 O2 Flow FiO2 Mean Ox Delivery Rate 11/27 0536 97.6 106 22 128/80 96 Nasal Cannula 11/26 2326 97.5 99 20 150/98 95 Nasal 4.0L Cannula 11/27 2251 Nasal 4.0L Cannula 11/26 2142 96.2 96 20 150/104 97 Nasal 4.0L Cannula 11/26 2112 93 160/110 11/26 2046 95.2 94 20 184/112 11/26 2046 95.2 94 20 184/112 11/26 2046 95.2 94 20 184/112 11/26 2046 94 20 184/112 98 Nasal 4.0L Cannula 11/27 2011 95.2 110 20 190/118 99 Nasal 4.0L Cannula 11/26 191 97 20 189/107 100 Non 10L ReBreather 11/26 171 94.2 96 164/88 Intake & Output 11/27 1600 11/27 0800 11/27 0000 Intake Total 920 250 Output Total 800 Balance 120 250 Intake, IV 800 250 Intake, Oral 120 Output, Urine 800 Patient 148 lb Weight Weight Bed scale Measurement Method Physical Exam General Appearance: lethargic Neck: normal inspection, supple Respiratory: decreased breath sounds Cardiovascular: regular rate/rhythm Extremities: s/p amputations Labs/Bart Results: Laboratory Tests 11/27 Chemistry Sodium (137 - 145 mmol/L) 131 L Potassium (3.5 - 5.1 mmol/L) 4.3 Chloride (98 - 107 mmol/L) 103 Carbon Dioxide (22 - 30 mmol/L) 23 Anion Gap (5 - 16) 5 BUN (9 - 20 mg/dL) 15 Creatinine (0.7 - 1.2 mg/dL) 1.0 Estimated GFR (>60 ml/min) > 60 BUN/Creatinine Ratio (7 - 25 %) 15.0 Lactic Acid Cancelled Hematology CBC w Diff MAN DIFF ORDERED WBC (4.8 - 10.8 /CUMM) 12.3 H RBC (4.70 - 6.10 /CUMM) 4.34 L Hgb (14.0 - 18.0 G/DL) 10.2 L Hct (42 - 52 %) 32.1 L MCV (80.0 - 94.0 FL) 73.9 L MCH (27.0 - 31.0 PG) 23.4 L MCHC (33.0 - 37.0 G/DL) 31.7 L RDW (11.5 - 14.5 %) 22.3 H Plt Count (130 - 400 /CUMM) 594 H MPV (7.4 - 10.4 FL) 7.3 L Segmented Neutrophils (42.2 - 75.2 %) 83 H Lymphocytes (20.5 - 51.1 %) 10 L Monocytes (1.7 - 9.3 %) 6 Eosinophils (0 - 5.0 %) 1 Platelet Estimate (ADEQUATE) INCREASED Polychromasia 1+ Hypochromic-Microcytic 1+ Poikilocytosis 1+ Anisocytosis 1+ Microcytic Cells 1+ Ovalocytes 1+ 11/26 1753 Chemistry Lactic Acid (0.7 - 2.1 mmol/L) 0.7 Toxicology Urine Opiates Screen (>2000 NG/ML) 197 Methadone Screen (>300 NG/ML) 57 Barbiturate Screen (>200 NG/ML) 475 H Ur Phencyclidine Scrn (>25 NG/ML) < 6.00 Amphetamines Screen (>1000 NG/ML) < 100 U Benzodiazepines Scrn (>200 NG/ML) 356 H Urine Cocaine Screen (>300 NG/ML) < 50 Urine Cannabis Screen (>50 NG/ML) < 5.00 Urines Urine Color (YEL,AMB,STR) YEL Urine Clarity (CLEAR) CLEAR Urine pH (5.0 - 8.0) 6.5 Ur Specific [place] (1.001 - 1.035) 1.010 Urine Protein (NEG,<30 MG/DL) 100 H Urine Ketones (NEG) NEG Urine Nitrite (NEG) NEG Urine Bilirubin (NEG) NEG Urine Urobilinogen (0.1 - 1.0 EU/dl) 0.2 Ur Leukocyte Esterase (NEG) SMALL H Ur Microscopic SEDIMENT EXAMINED Urine RBC (0 - 5 /HPF) 5-10 H Urine WBC (0 - 2 /HPF) > 75 H Ur Epithelial Cells (NONE,FEW) OCCAS Urine Hemoglobin (NEG) SMALL H Urine Glucose (N MG/DL) NEG 11/26 11/26 1753 1705 Blood Gas pH (7.35 - 7.45 PH) 7.33 L pCO2 (35 - 45 TORR) 44 pO2 (80 - 100 TORR) 55 L HCO3 (21 - 28 MEQ/L) 23 ABG O2 Sat (Measured) (>96.0 %) 85.0 L P-50 (Temp Corrected) Y Carboxyhemoglobin (1.5 - 5.0 %) 6.7 *H O2 Concentration % 100% Temperature (97.0 - 100.0 FARH) 94.2 L O2 Delivery Method NRB Chemistry Sodium (137 - 145 mmol/L) 131 L Potassium (3.5 - 5.1 mmol/L) 5.0 Chloride (98 - 107 mmol/L) 101 Carbon Dioxide (22 - 30 mmol/L) 25 Anion Gap (5 - 16) 5 BUN (9 - 20 mg/dL) 17 Creatinine (0.7 - 1.2 mg/dL) 1.2 Estimated GFR (>60 ml/min) > 60 BUN/Creatinine Ratio (7 - 25 %) 14.2 Glucose (65 - 99 mg/dL) 246 H Hemoglobin A1c (4.2 - 5.8 %) 10.1 H Calcium (8.4 - 10.2 mg/dL) 8.6 Total Bilirubin (0.2 - 1.3 mg/dL) 0.3 AST (17 - 59 U/L) 20 ALT (21 - 72 U/L) 18 L Alkaline Phosphatase (< 127 U/L) 150 H Troponin I (<0.11 ng/ml) < 0.01 Total Protein (6.3 - 8.2 g/dL) 7.4 Albumin (3.5 - 5.0 g/dL) 3.1 L Globulin (1.9 - 4.2 gm/dL) 4.3 H Albumin/Globulin Ratio (1.1 - 2.2 %) 0.7 L Hematology CBC w Diff MAN DIFF ORDERED WBC (4.8 - 10.8 /CUMM) 13.8 H RBC (4.70 - 6.10 /CUMM) 4.79 Hgb (14.0 - 18.0 G/DL) 11.1 L Hct (42 - 52 %) 34.7 L MCV (80.0 - 94.0 FL) 72.4 L MCH (27.0 - 31.0 PG) 23.1 L MCHC (33.0 - 37.0 G/DL) 31.9 L RDW (11.5 - 14.5 %) 23.2 H Plt Count (130 - 400 /CUMM) 587 H MPV (7.4 - 10.4 FL) 7.3 L Segmented Neutrophils (42.2 - 75.2 %) 90 H Band Neutrophils (0.0 - 5.0 %) 1 Lymphocytes (20.5 - 51.1 %) 6 L Monocytes (1.7 - 9.3 %) 1 L Platelet Estimate (ADEQUATE) VERIFIED BY SMEAR Anisocytosis 2+ Microcytic Cells 1+ Miscellaneous Phlebotomy Draw Site RIGHT RADIAL Other Body Source Fld Total RBCs Counted (%) 100 Assessment/Plan Assessment/Plan 52 year old man with multiple medical problems significant for DM type 1, COPD, hypertension, PVD, DKA, osteomyelitis s/p left BKA and right transmetatarsal amputation, opiod use disorder on suboxone, was brought to the ED by EMS after he was found to be unresponsive with a blood glucose of 11. Overnight, he was put on D5 1/2 NS at 100 ml/hour and RISS every 6 hours. His FSGs were in the 200s. But he still appears lethargic and patient feels nauseous. He has been kept NPO. Plan: 1. continue the current IVF for now; 2. restart Levemir 12 units twice a day; 3. stop RISS every 6 hours; 4. start Novolog coverage every 4 hours; detail see the inpatient DM orders; 5. monitor FSGs and electrolytes will follow. Please inform me if his IVF and /or nutrition status changes and then his insulin orders will be adjusted accordingly. Inpatient Diabetes Orders Every 4 Hours: Bolus Insulin: Novolog < 80 mg/dl: no coverage 80-100 mg/dl: no coverage 101-120 mg/dl: no coverage 121-150 mg/dl: no covearge 151-200 mg/dl: 2 units 201-250 mg/dl: 4 units 251-300 mg/dl: 6 units 301-350 mg/dl: 8 units 351-400 mg/dl: 9 units > 400 mg/dl: 10 units Consult Acknowledgment - Thank you for your consult request.
--- NOTE | 2017-11-27 12:02 | RADIOLOGY REPORT ---
EXAMINATION: XR SHOULDER, LEFT CLINICAL INFORMATION: Fell on shoulder, pain. COMPARISON: Chest radiograph 11/26/2017, left shoulder radiograph 02/21/2017 TECHNIQUE: AP external rotation, Grashey, scapular Y, and axillary views of the left shoulder. FINDINGS: The bones and soft tissues are normal. No fracture. Glenohumeral and acromioclavicular alignment is anatomic with normal joint space. No abnormal soft tissue calcifications. IMPRESSION: No fracture or dislocation.
[2017-11-27 14:56] VITALS: BP 110/76; BP 90/58
[2017-11-27 22:51] VITALS: BP 120/70
[2017-11-28 07:00] VITALS: BP 130/80
[2017-11-28 07:55] LABS: HEMATOCRIT 28.2 % (42-52); MEAN CORPUSCULAR HGB 23.4 PG (27.0-31.0); MEAN CORPUSCULAR HGB CONC 32.1 G/DL (33.0-37.0); MEAN CORPUSCULAR VOLUME 72.9 FL (80.0-94.0); MEAN PLATELET VOLUME 7.1 FL (7.4-10.4); PLATELET COUNT 531 /CUMM (130-400); RBC DISTRIBUTION WIDTH 22.6 % (11.5-14.5); RED BLOOD CELL CT 3.87 /CUMM (4.70-6.10); WHITE BLOOD CELL COUNT 7.5 /CUMM (4.8-10.8)
--- NOTE | 2017-11-28 08:19 | PN- Diabetes ---
Assessment/Plan Diabetes Assessment: 52 year old man with multiple medical problems significant for DM type 1, COPD, hypertension, PVD, DKA, osteomyelitis s/p left BKA and right transmetatarsal amputation, opiod use disorder on suboxone, was brought to the ED by EMS after he was found to be unresponsive with a blood glucose of 11. He was sleepy and lethargic. He was kept NPO and was on D5 1/2 NS, Levemir 12 units twice a day and Novolog coverage every 4 hours. His FSGs were 88, 83, 83, 92, 69 and 60. Midnight lab showed K 2.7 and sodium 121. IVF was changed to D5 NS with 40 meq of KCL at 75 ml/hour. The am lab from this morning is still pending. Plan: 1. continue the current IVF; 2. decrease Levemir to 8 units twice a day; 3. continue the current Novolog coverage every 4 hours; 4. monitor FSGs and electrolytes. will follow. Subjective Subjective: He is still sleepy. Objective Last 24 Hrs of Vital Signs/I&O Vital Signs Date Time Temp Pulse Resp B/P B/P Pulse O2 O2 Flow FiO2 Mean Ox Delivery Rate 11/28 0700 97.7 110 16 130/80 96 Nasal Cannula 11/28 0000 Nasal 4.0L Cannula 11/27 2251 97.9 100 18 120/70 97 Nasal Cannula 11/27 1600 Nasal 4.0L Cannula 11/27 1456 97.9 90 20 90/58 98 Nasal Cannula Intake & Output 11/28 1600 11/28 0800 11/28 0000 Intake Total 950 800 Output Total 825 Balance 950 -25 Intake, IV 950 800 Output, Urine 825 Patient 137 lb Weight Weight Bed scale Measurement Method Findings Pertinent Lab/Bart Results: Laboratory Tests 11/28 11/28 0632 0057 Chemistry Sodium (137 - 145 mmol/L) Pending 121 L Potassium (3.5 - 5.1 mmol/L) Pending 2.7 *L Chloride (98 - 107 mmol/L) Pending 102 Carbon Dioxide (22 - 30 mmol/L) Pending 15 L Anion Gap (5 - 16) Pending 4 L BUN (9 - 20 mg/dL) Pending 9 Creatinine (0.7 - 1.2 mg/dL) Pending 0.6 L Estimated GFR (>60 ml/min) > 60 BUN/Creatinine Ratio (7 - 25 %) Pending 15.0 Hematology CBC w Diff MAN DIFF ORDERED WBC (4.8 - 10.8 /CUMM) Pending RBC (4.70 - 6.10 /CUMM) Pending Hgb (14.0 - 18.0 G/DL) Pending Hct (42 - 52 %) Pending MCV (80.0 - 94.0 FL) Pending MCH (27.0 - 31.0 PG) Pending MCHC (33.0 - 37.0 G/DL) Pending RDW (11.5 - 14.5 %) Pending Plt Count (130 - 400 /CUMM) Pending MPV (7.4 - 10.4 FL) Pending Segmented Neutrophils (42.2 - 75.2 %) Pending
--- NOTE | 2017-11-28 10:28 | PN- Housestaff ---
[facility] WU[facility] 11/28[facility]17 1025: Subjective Follow-up For: Hypoglycemia Tele-Events Since Last Visit: Sinus tachycardia 108-112 Subjective: Saw pt this AM. He is AO but seems a little quiter and unrespnsive compared to previous days according to nursing staff. He was difficult to rouse this AM. His BS was 60 this am adn subsequently 155 unsure if anything was administered to ameliorate the blood sugar. His NA came back at 121 from 131 last night and his K was 2.7. Seems to be an error as his labs have corrected this AM. Pt denies any complaints. Review of Systems Constitutional: Reports: no symptoms. EENTM: Reports: blurred vision. Cardiovascular: Denies: chest pain. Respiratory: Denies: short of breath. Gastrointestinal: Denies: abdominal pain, nausea. Genitourinary: Reports: no symptoms. Musculoskeletal: Reports: no symptoms. Skin: Reports: no symptoms. Objective Last 24 Hrs of Vital Signs/I&O Vital Signs Date Time Temp Pulse Resp B/P B/P Pulse O2 O2 Flow FiO2 Mean Ox Delivery Rate 11/28 0700 97.7 110 16 130/80 96 Nasal Cannula 11/28 0000 Nasal 4.0L Cannula 11/27 2251 97.9 100 18 120/70 97 Nasal Cannula 11/27 1600 Nasal 4.0L Cannula 11/27 1456 97.9 90 20 90/58 98 Nasal Cannula Intake & Output 11/28 1600 11/28 0800 11/28 0000 Intake Total 950 800 Output Total 300 825 Balance -300 950 -25 Intake, IV 950 800 Output, Urine 300 825 Patient 61.944 kg Weight Weight Bed scale Measurement Method Physical Exam General Appearance: Alert, Oriented X3, Cooperative, No Acute Distress, slightly lethargic HEENT: Atraumatic, PERRLA, EOMI Cardiovascular: Regular Rate, Normal S1, Normal S2, No Murmurs Lungs: Normal Air Movement Abdomen: Soft, No Tenderness Extremities: R. transmetatarsal amputation, L. BKA Current Medications: Current Medications Sig/Jonny Start time Last Medication Dose Route Stop Time Status Admin Acetaminophen 1,000 MG Q6P PRN 11/27 914 AC 11/27 N/A 1 UNIT IV 41 Acetaminophen 650 MG Q6P PRN 11/26 2014 AC PO Amitriptyline HCl 100 MG AT BEDTIME 11/27 2100 AC 11/27 PO 6 Aspirin Buffered 81 MG DAILY 11/27 0900 AC 11/27 PO 0942 Atorvastatin Calcium 40 MG 1700 11/27 1700 AC 11/27 PO 1703 Buprenorphine/ 1 EACH QPM 11/27 2100 AC 11/27 Naloxone SL 2116 Buprenorphine/ 2 EACH DAILY 11/27 0900 AC 11/27 Naloxone SL 0941 Buspirone HCl 10 MG TID 11/27 09 AC 11/27 PO 2117 Cholecalciferol 1,000 IU DAILY 11/27 09 AC 11/27 PO 0942 Dextrose 0 .STK-MED ONE 11/28 0637 DC IV Dextrose 25 GM ONCE ONE 11/28 0630 DC 11/28 IV 11/28 0631 0636 Dextrose/Sodium 1,000 ML Q10H 11/26 2114 DC 11/27 Chloride IV 1703 Docusate Sodium 100 MG BIDPRN PRN 11/27 1545 AC PO Duloxetine HCl 60 MG DAILY 11/27 09 AC 11/27 PO 0942 Enoxaparin Sodium 40 MG DAILY 11/27 0900 AC 11/28 SC 0947 Folic Acid 1 MG DAILY 11/27 1056 CAN PO Folic Acid 1 MG DAILY 11/27 0900 AC 11/27 PO 0942 Insulin Aspart 0 Q4 11/27 1000 AC 11/27 SC 1339 Insulin Detemir 10 UNITS BID 11/28 09 DC SC Insulin Detemir 8 UNITS BID 11/28 0900 AC 11/28 SC 0947 Insulin Detemir 12 UNITS BID 11/27 0900 DC 11/27 SC 2117 Lisinopril 20 MG DAILY 11/27 0900 AC 11/27 PO 0942 Omeprazole 40 MG DAILY AC 11/28 0700 AC PO Patient Medication 1 ED ONE ONE 11/27 1930 DC Teaching ED 11/27 193 Polyethylene Glycol 17 GM DAILY 11/27 1538 AC PO Potassium Chloride 40 MEQ Q13H 11/28 0430 AC 11/28 Dextrose/Sodium 1,000 ML IV 11/29 0629 0444 Chloride Potassium Chloride 40 MEQ 75 MLS/HR 11/28 0400 CAN IV 11/29 0401 Potassium Chloride 0 .STK-MED ONE 11/28 0211 DC IV Potassium Chloride 40 MEQ Q4 11/28 0200 DC PO 11/28 0601 Potassium Chloride 10 MEQ Q1H 11/28 0200 DC 11/28 IV 11/28 0301 0356 Primidone 100 MG TID 11/27 09 AC 11/27 PO 2116 Propranolol HCl 40 MG BID 11/27 899 AC 11/27 PO 941 Quetiapine Fumarate 300 MG QPM 11/27 2100 AC 11/27 PO 2115 Quetiapine Fumarate 100 MG 0800,1200,1800 11/27 1200 AC 11/27 PO 1758 Sucralfate 1,000 MG 4 TIMES/DAY 11/27 1300 AC 11/27 PO 1703 Thiamine HCl 100 MG DAILY 11/27 1056 AC 11/27 PO 1125 Tramadol HCl 50 MG Q4 HRS NEEDED PRN 11/27 1030 AC 11/27 PO 1125 Last 24 Hrs of Lab/Bart Results Last 24 Hrs of Labs/Mics: Laboratory Tests 11/28/17 0632: Anion Gap 2 L, Estimated GFR > 60, BUN/Creatinine Ratio 13.3, CBC w Diff MAN DIFF ORDERED, RBC 3.87 L, MCV 72.9 L, MCH 23.4 L, MCHC 32.1 L, RDW 22.6 H, MPV 7.1 L, Segmented Neutrophils 74, Lymphocytes 22, Monocytes 3, Eosinophils 1 , Platelet Estimate INCREASED, Anisocytosis 1+, Microcytic Cells 1+ 11/28/17 0057: Anion Gap 4 L, Estimated GFR > 60, BUN/Creatinine Ratio 15.0 Microbiology 11/27 1526 BLOOD: Blood Culture - CAN Cancelled: SPECIMEN NOT RECEIVED IN LABORATORY 11/27 152 BLOOD: Blood Culture - CAN Cancelled: SPECIMEN NOT RECEIVED IN LABORATORY Assessment/Plan Assessment: This is a 52 year old man with PMH of insulin-dependent diabetes mellitus, COPD , hypertension, PVD, DKA, osteomyelitis s/p left BKA and right transmetatarsal amputation, opiod use disorder on suboxone, who was brought to the ED by EMS after he was found to be unresponsive with a blood glucose of 11. In field he was given dextrose and glucagon. He does take insulin at home and there seems to be some discrepancy in his administration of the medication. PLAN: Hypoglycemia: This AM 60; subsequently 155. * Con't D5 * Con't FS monitoring * Appreciate Endo recs * Levermir decreased to 8u Lethargy: Pt seemed to be a little slow to respond this AM. He was a little difficult to wake up. Per nursing staff he is not at his base line. Notably he is on a lot of psych meds at considerable doses. * Currently on Amitryptaline, Suboxone, Cymbalta, Buspar, Quetiapine. * Will place psych consult to possibly optimize his regimen * He sees Liat Vallejo APRN outside the hospital DM: Last a1c 10.1 (Nov 2017). * FS * Con't Levemir as above Sinus tach: This AM his HR was between 110-112. Avery unsure if he is withdrawing from any substances. He did have BZ and barbituates in his Utox on admission. * EKG * Add on troponin Leukocytosis. No bandemeia, afebrile with no obvious source of infection Hyponatremia: Reading at midnight was 121, (from 131). He was switched from D5+1 /2NS to NS+D5W. This AM reading 134. I suspect that the midnight reading was false. * Con't Monitor * Con't NS Hypokalemia: Yesterday midnight was at 2.7; repleted and now back to normal. Acute hypoxemia: Moderate as evident by a PAo2 of 55 requiring non breather at one point. Now resolved. Hypertensive Urgency: BP of 190/118 with no chest pain. Today BP 130/80. Chronic issues: Bilateral lower extremity wounds: * Wound care History of Hypertension and PVD History of Opiod use disorder on Suboxone * Con't suboxone. Problem List: 1. Hypoglycemia Pain Ratin Pain Location: none Pain Goal: Remain pain free Pain Plan: current meds Tomorrow's Labs & Rationales: cbc bep Shanda Hansen 11/28/17 1344: Attending MD Review Statement Attending Statement Attending MD Statement: examined this patient, discuss w/resident/PA/BULK FOLDER, agreed w/resident/PA/BULK FOLDER, reviewed EMR data (avail), discussed with nursing, discussed with case mgmt Attending Assessment/Plan: Hypoglycemia- pt had low BS this am of 60. His BS Has been running on the lower side last 24 hrs, his levemir was decreased to 8U bid. pt not eating very good. did not eat his breakfast today. Drowsiness/ lethargy- pt on high dose of seroquel and multiple other [facility] meds and suboxone too. will get pscyhiatry consult to reassess and see if we can decrease the dosage on some of his meds. case was discussed with case management and they are going to talk to pts rocky to get more information. Rafa WU,[place] 11/29/17 1143: Attending MD Review Statement Attending Statement Attending Assessment/Plan: This patient was seen by Dr. Chung Hansen and note signed by him.
[2017-11-28 14:34] VITALS: BP 160/98
[2017-11-28 22:01] VITALS: BP 120/64
[2017-11-29 06:44] VITALS: BP 194/100
[2017-11-29 07:58] LABS: MEAN CORPUSCULAR HGB 23.1 PG (27.0-31.0); MEAN CORPUSCULAR HGB CONC 31.6 G/DL (33.0-37.0); MEAN CORPUSCULAR VOLUME 73.2 FL (80.0-94.0); MEAN PLATELET VOLUME 7.3 FL (7.4-10.4); PLATELET COUNT 636 /CUMM (130-400); RBC DISTRIBUTION WIDTH 22.9 % (11.5-14.5); RED BLOOD CELL CT 4.23 /CUMM (4.70-6.10); WHITE BLOOD CELL COUNT 6.6 /CUMM (4.8-10.8)
--- NOTE | 2017-11-29 09:01 | PN- Diabetes ---
Assessment/Plan Diabetes Assessment: 52 year old man with multiple medical problems significant for DM type 1, COPD, hypertension, PVD, DKA, osteomyelitis s/p left BKA and right transmetatarsal amputation, opiod use disorder on suboxone, was brought to the ED by EMS after he was found to be unresponsive with a blood glucose of 11. He has been kept NPO and D5 NS with KCL at 75 ml/hour, Levemir 8 units twice a day and Novolog coverage every 4 hours. His sodium level improved. He still had another episode of hypogycemia and Levemir was held last night. His BP has been elevated. His FSG was 174 this morning. He is alert and awake. He has epigastric pain along with nausea. Plan: 1. check am cortisol and TFT just to make sure ( added on to am lab); 2. further decrease Levemir to 8 units daily; 3. recommend increasing IVF to 100 ml/hour; 4. continue the current Novolog coverage every 4 hours; 5. recommend GI consult. will follow. Subjective Subjective: He still has epigastric abdominal pain. Objective Last 24 Hrs of Vital Signs/I&O Vital Signs Date Time Temp Pulse Resp B/P B/P Pulse O2 O2 Flow FiO2 Mean Ox Delivery Rate 11/29 0644 98.4 71 20 194/100 92 Room Air 11/29 0606 90 190/90 11/29 0000 93 Nasal 4.0L Cannula 11/28 2201 98.1 96 20 120/64 93 Room Air 11/28 1434 97.9 106 20 160/98 92 Room Air 11/28 1114 98.1 113 16 148/68 11/28 1113 98.1 113 16 148/68 Intake & Output 11/29 1600 11/29 0800 11/29 0000 Intake Total 725 750 Output Total 500 200 Balance 225 550 Intake, IV 525 600 Intake, Oral 200 150 Output, Urine 500 200 Patient 135 lb Weight Weight Bed scale Measurement Method Findings Pertinent Lab/Bart Results: Laboratory Tests 11/29 11/28 0634 2100 Chemistry Sodium (137 - 145 mmol/L) 137 137 Potassium (3.5 - 5.1 mmol/L) 4.7 4.3 Chloride (98 - 107 mmol/L) 109 H 111 H Carbon Dioxide (22 - 30 mmol/L) 23 24 Anion Gap (5 - 16) 5 2 L BUN (9 - 20 mg/dL) 8 L 9 Creatinine (0.7 - 1.2 mg/dL) 0.8 0.8 Estimated GFR (>60 ml/min) > 60 > 60 BUN/Creatinine Ratio (7 - 25 %) 10.0 11.3 TSH (0.270 - 4.200 uIU/mL) Pending Free T4 (0.64 - 1.79 ng/dL) Pending Cortisol AM Sample (4.46 - 22.7 ug/dL) Pending Hematology CBC w Diff MAN DIFF ORDERED WBC (4.8 - 10.8 /CUMM) 6.6 RBC (4.70 - 6.10 /CUMM) 4.23 L Hgb (14.0 - 18.0 G/DL) 9.8 L Hct (42 - 52 %) 31.0 L MCV (80.0 - 94.0 FL) 73.2 L MCH (27.0 - 31.0 PG) 23.1 L MCHC (33.0 - 37.0 G/DL) 31.6 L RDW (11.5 - 14.5 %) 22.9 H Plt Count (130 - 400 /CUMM) 636 H MPV (7.4 - 10.4 FL) 7.3 L Segmented Neutrophils (42.2 - 75.2 %) Pending
--- NOTE | 2017-11-29 11:58 | PN- Att Addend ---
Attending Addendum Attending Brief Note Patient seen and examined, he was not feeling well this morning. He was complaining of feeling nauseous. He is still becoming hypoglycemic which happened this am. He is complaining of abdominal pain. Vital Signs Date Time Temp Pulse Resp B/P B/P Pulse O2 O2 Flow FiO2 Mean Ox Delivery Rate 11/29 0644 98.4 71 20 194/100 92 Room Air 11/29 0606 90 190/90 11/29 0000 93 Nasal 4.0L Cannula 11/28 2201 98.1 96 20 120/64 93 Room Air 11/28 1434 97.9 106 20 160/98 92 Room Air on exam; aox3, nad. cv; s1, s2, rrr resp; clear abd; soft, nt, bs+ ext; no edema skin: multiple scar elias. left bka. Laboratory Tests 11/29 11/28 0634 2100 Chemistry Sodium (137 - 145 mmol/L) 137 137 Potassium (3.5 - 5.1 mmol/L) 4.7 4.3 Chloride (98 - 107 mmol/L) 109 H 111 H Carbon Dioxide (22 - 30 mmol/L) 23 24 Anion Gap (5 - 16) 5 2 L BUN (9 - 20 mg/dL) 8 L 9 Creatinine (0.7 - 1.2 mg/dL) 0.8 0.8 Estimated GFR (>60 ml/min) > 60 > 60 BUN/Creatinine Ratio (7 - 25 %) 10.0 11.3 TSH (0.270 - 4.200 uIU/mL) 2.540 Free T4 (0.64 - 1.79 ng/dL) 1.36 Cortisol AM Sample (4.46 - 22.7 ug/dL) 18.9 Hematology CBC w Diff MAN DIFF ORDERED WBC (4.8 - 10.8 /CUMM) 6.6 RBC (4.70 - 6.10 /CUMM) 4.23 L Hgb (14.0 - 18.0 G/DL) 9.8 L Hct (42 - 52 %) 31.0 L MCV (80.0 - 94.0 FL) 73.2 L MCH (27.0 - 31.0 PG) 23.1 L MCHC (33.0 - 37.0 G/DL) 31.6 L RDW (11.5 - 14.5 %) 22.9 H Plt Count (130 - 400 /CUMM) 636 H MPV (7.4 - 10.4 FL) 7.3 L Segmented Neutrophils (42.2 - 75.2 %) 76 H Lymphocytes (20.5 - 51.1 %) 16 L Monocytes (1.7 - 9.3 %) 5 Eosinophils (0 - 5.0 %) 3 Platelet Estimate (ADEQUATE) INCREASED Polychromasia 1+ Hypochromic-Microcytic 1+ Anisocytosis 1+ Microcytic Cells 1+ A/P: 52 y/o M with pmh sig for insulin-dependent diabetes mellitus, COPD, hypertension, PVD, DKA, osteomyelitis s/p left BKA and right transmetatarsal amputation, opiod use disorder on suboxone, admitted with unresponsiveness and severe hypoglycemia. Lethargy is better today, patient was still feeling nauseous this morning. Also noted the patient on extensive psychiatric medications regimen. He was also complaining of abdominal pain this morning We will consult psychiatry. Please follow endocrinology recommendations in terms of insulin management. Will encourage p.o. intake. Continue the patient on IV fluids still be make sure that patient does not become hypoglycemic. Currently on a lower dose of Levemir. We will add IV PPI. If nausea does not resolve then will add IV Reglan provided QTC is normal. We are obtaining abdominal x-ray. Will also obtain chest x-ray secondary to this new hypoxia. If no significant finding, will proceed with chest CTA to rule out PE with patient being tachycardic as well as hypoxic. Continue the rest of the management. Pharmacologic DVT prophylaxis. Please order PT evaluation.
--- NOTE | 2017-11-29 12:50 | PN- Housestaff ---
Subjective Follow-up For: DM Hypoglycemia Subjective: Saw pt at bedside this AM. He seems to be a little bit better than yesterday in terms of responsiveness and lethargy but his BP was >190 systolic and he c/o nausea and abdominal pain. Review of Systems Constitutional: Reports: malaise. Denies: chills, fever. EENTM: Denies: no symptoms. Respiratory: Reports: short of breath. Gastrointestinal: Reports: no symptoms. Genitourinary: Reports: no symptoms. Objective Last 24 Hrs of Vital Signs/I&O Vital Signs Date Time Temp Pulse Resp B/P B/P Pulse O2 O2 Flow FiO2 Mean Ox Delivery Rate 11/29 0644 98.4 71 20 194/100 92 Room Air 11/29 0606 90 190/90 11/29 0000 93 Nasal 4.0L Cannula 11/28 2201 98.1 96 20 120/64 93 Room Air 11/28 1434 97.9 106 20 160/98 92 Room Air Intake & Output 11/29 1600 11/29 0800 11/29 0000 Intake Total 725 750 Output Total 500 200 Balance 225 550 Intake, IV 525 600 Intake, Oral 200 150 Output, Urine 500 200 Patient 61.235 kg Weight Weight Bed scale Measurement Method Physical Exam General Appearance: Alert, Oriented X3, Cooperative, No Acute Distress Skin: open wounds all over his body. no purulent drainage noted HEENT: Atraumatic, PERRLA, EOMI Cardiovascular: Regular Rate, Normal S1, Normal S2, No Murmurs Lungs: Normal Air Movement Abdomen: tenderness in epigastric and right side Extremities: L. BKA AND R. TRANSMETATARSAL AMPUTATION Current Medications: Current Medications Sig/Jonny Start time Last Medication Dose Route Stop Time Status Admin Acetaminophen 1,000 MG Q6P PRN 11/27 914 AC 11/27 N/A 1 UNIT IV 0941 Acetaminophen 650 MG Q6P PRN 11/26 2014 AC PO Amitriptyline HCl 100 MG AT BEDTIME 11/27 2099 AC 11/28 PO 191 Aspirin Buffered 81 MG DAILY 11/27 899 AC 11/27 PO 0942 Atorvastatin Calcium 40 MG 1700 11/27 1700 AC 11/28 PO 1700 Buprenorphine/ 1 EACH QPM 11/27 2099 AC 11/28 Naloxone SL 1940 Buprenorphine/ 2 EACH DAILY 11/27 899 AC 11/29 Naloxone SL 0936 Buspirone HCl 10 MG TID 11/27 0900 AC 11/28 PO 1412 Cholecalciferol 1,000 IU DAILY 11/27 0900 AC 11/27 PO 0942 Dextrose 25 GM ONCE ONE 11/29 2345 CAN IV 11/29 2346 Dextrose 25 GM ONCE ONE 11/29 0145 DC 11/29 IV 11/29 0146 0143 Dextrose 0 .STK-MED ONE 11/28 2331 DC IV Docusate Sodium 100 MG BIDPRN PRN 11/27 1545 AC PO Duloxetine HCl 60 MG DAILY 11/27 09 AC 11/27 PO 0942 Enoxaparin Sodium 40 MG DAILY 11/27 09 AC 11/29 SC 1012 Folic Acid 1 MG DAILY 11/27 09 AC 11/27 PO 0942 Insulin Aspart 0 Q4 11/27 1000 AC 11/29 SC 1010 Insulin Detemir 8 UNITS DAILY 11/29 0900 AC 11/29 SC 1011 Insulin Detemir 8 UNITS BID 11/28 0900 DC 11/28 SC 0947 Lisinopril 20 MG DAILY 11/27 0900 AC 11/29 PO 0606 Omeprazole 40 MG DAILY AC 11/28 0700 AC 11/29 PO 0552 Ondansetron HCl 4 MG Q6P PRN 11/29 0900 AC 11/29 IV 0936 Polyethylene Glycol 17 GM DAILY 11/27 1538 AC PO Potassium Chloride 40 MEQ Q13H 11/28 0430 DC 11/28 Dextrose/Sodium 1,000 ML IV 11/29 0629 1947 Chloride Primidone 100 MG TID 11/27 09 AC 11/28 PO 191 Propranolol HCl 40 MG BID 11/27 0900 AC 11/27 PO 0942 Quetiapine Fumarate 300 MG QPM 11/27 2100 AC 11/28 PO 191 Quetiapine Fumarate 100 MG 0800,1200,1800 11/27 1200 AC 11/28 PO 1703 Sucralfate 1,000 MG 4 TIMES/DAY 11/27 1300 AC 11/28 PO 1412 Thiamine HCl 100 MG DAILY 11/27 1056 AC 11/27 PO 1125 Tramadol HCl 50 MG Q4 HRS NEEDED PRN 11/27 1030 AC 11/27 PO 1125 Last 24 Hrs of Lab/Bart Results Last 24 Hrs of Labs/Mics: Laboratory Tests 11/29/17 0634: Anion Gap 5, Estimated GFR > 60, BUN/Creatinine Ratio 10.0, TSH 2.540, Free T4 1.36, Cortisol AM Sample 18.9, CBC w Diff MAN DIFF ORDERED, RBC 4.23 L, MCV 73.2 L, MCH 23.1 L, MCHC 31.6 L, RDW 22.9 H, MPV 7.3 L, Segmented Neutrophils 76 H, Lymphocytes 16 L, Monocytes 5, Eosinophils 3, Platelet Estimate INCREASED, Polychromasia 1+, Hypochromic-Microcytic 1+, Anisocytosis 1+ , Microcytic Cells 1+ 11/28/17 2100: Anion Gap 2 L, Estimated GFR > 60, BUN/Creatinine Ratio 11.3 Assessment/Plan Assessment: This is a 52 year old man with PMH of insulin-dependent diabetes mellitus, COPD , hypertension, PVD, DKA, osteomyelitis s/p left BKA and right transmetatarsal amputation, opiod use disorder on suboxone, who was brought to the ED by EMS after he was found to be unresponsive with a blood glucose of 11. In field he was given dextrose and glucagon. He does take insulin at home and there seems to be some discrepancy in his administration of the medication. PLAN: Hypoglycemia: This AM was 50 and then went up to >150. He seems to be hypoglycemic every morning. Notably he isn't eating much given the lethargy and the abdominal pain * Con't D5 * Con't FS monitoring * Appreciate Endo recs * Levermir decreased to 8u ONCE a day instead of BID Lethargy: Pt seemed better this AM compared to yesterday. He is still slow to respond and seems to almost respong through a fog. Per nursing staff he is not at his base line. Notably he is on a lot of psych meds at considerable doses. * Currently on Amitryptaline, Suboxone, Cymbalta, Buspar, Quetiapine. * Will place psych consult to possibly optimize his regimen * Will attempt to call his home nurse for further details on medication administration DM: Last a1c 10.1 (Nov 2017). * FS * Con't Levemir as above Abd pain: He describes nausea and some vague right sided and epigastric abdominal pain which is new this admission. * abdominal plain film * Zofran PRN. Sinus tach: Resolved. I am unsure if he was withdrawing from any substances or if he was in pain. He did have BZ and barbituates in his Utox on admission. * EKG * Add on troponin Leukocytosis. No bandemeia, afebrile with no obvious source of infection Hyponatremia: WNL. * Con't Monitor * Con't NS Hypokalemia: WNL. * Con't monitor Acute hypoxemia: Moderate as evident by a PAo2 of 55 requiring non breather at one point. He is on 4-5 L o2 in room. Will taper as he does not use O2 at home * get CXR today Hypertensive Urgency: BP of 190/118 with no chest pain on admission. Today back to 190 systolic but he hadn't taken his AM meds bc he was nausesous. * administer propanolol 40mg * con't Lisinopril Chronic issues: Bilateral lower extremity wounds: * Wound care History of Hypertension and PVD History of Opiod use disorder on Suboxone * Con't suboxone. Problem List: 1. Hypoxemia 2. Hypoglycemia Pain Ratin Pain Location: none Pain Goal: Remain pain free Pain Plan: current reg Tomorrow's Labs & Rationales: cbc bep
--- NOTE | 2017-11-29 14:07 | Cons- Psychiatry ---
Psychiatric Consult Date of Consult: 11/29/17 Reason for Consult: Medication assessment History of Present Illness: 52-year-old male who was found unresponsive by a neighbor who called EMS. Blood glucose was 12 at that time. The patient has been very lethargic. The patient was unable to participate in an interview with me due to sedation. He was oriented to place but not time. The patient is on Suboxone, tramadol, primidone, amitriptyline, Cymbalta, buspirone and quetiapine. The patient states that his project manager entertainment and media prescribes all of his medications but internal medicine is checked with endocrinology and they are not prescribing these medications for him. There is no medication claim history since May 2017. The patient apparently has a visiting nurse but the medical team has been unable to contact them. There is no pharmacy on record. [facility] confirms that tramadol is being prescribed by Dr. Schuster and also that the patient is regularly receiving Suboxone. Past psychiatric history, substance abuse history, family history, social and personal history unavailable from the patient. 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 He was discharged on Cymbalta 90 mg daily, Remeron 15 mg nightly, buspirone 10 mg 4 times daily, Neurontin 1600 mg in the morning and 2400 mg at night, Seroquel 50 mg at night, Suboxone 8/2 mg 2 sublingual tablets daily at 8 AM and 5 PM. He was also seen in consultation in 2013 and . He continued to abuse opiates and benzodiazepines. He was referred to [facility]. There is no documented history of suicide attempts or deliberate self-harm. Allergies: Coded Allergies: NO KNOWN ALLERGIES (07/16/15) Current Medications: Med Acetaminophen 650 MG PO Q6P PRN 11/26/172014 Acetaminophen 1,000 MG IV Q6P PRN 11/27/17 0915 N/A 1 UNIT Amitriptyline HCl 100 MG PO AT BEDTIME 11/27/172099 Aspirin Buffered 81 MG PO DAILY 11/27/17 0900 Atorvastatin Calcium 40 MG PO 1700 11/27/17 1700 Buprenorphine/Naloxone 1 EACH SL QPM 11/27/17 2100 Buprenorphine/Naloxone 2 EACH SL DAILY 11/27/17 0900 Buspirone HCl 10 MG PO TID 11/27/17 0900 Cholecalciferol 1,000 IU PO DAILY 11/27/17 0900 Docusate Sodium 100 MG PO BIDPRN PRN 11/27/17 1545 Duloxetine HCl 60 MG PO DAILY 11/27/17 0900 Enoxaparin Sodium 40 MG SC DAILY 11/27/17 0900 Folic Acid 1 MG PO DAILY 11/27/17 0900 Insulin Aspart SC Q4 11/27/17 1000 Insulin Detemir 8 UNITS SC DAILY 11/29/17 0900 Lisinopril 20 MG PO DAILY 11/27/17 0900 Omeprazole 40 MG PO DAILY AC 11/28/17 0700 Ondansetron HCl 4 MG IV Q6P PRN 11/29/17 0900 Pantoprazole Sodium 40 MG IV DAILY 11/29/17 1323 Polyethylene Glycol 17 GM PO DAILY 11/27/17 1538 Potassium Chloride 40 MEQ IV Q10H 11/29/17 1500 Dextrose/Sodium Chloride 1,000 ML Primidone 100 MG PO TID 11/27/17 0900 Propranolol HCl 40 MG PO BID 11/27/17 0900 Quetiapine Fumarate 300 MG PO QPM 11/27/17 2100 Quetiapine Fumarate 100 MG PO 0800,1200,1800 11/27/17 1200 Sucralfate 1,000 MG PO 4 TIMES/DAY 11/27/17 1300 Thiamine HCl 100 MG PO DAILY 11/27/17 1056 Tramadol HCl 50 MG PO Q4 HRS NEEDED PRN 11/27/17 1030 Past History Past Medical History Neurological: peripheral neuropathy Cardiovascular: hypertension, PVD, MRSA endocarditis Respiratory: COPD Gastrointestinal: GERD, GASTROPARESIS Musculoskeletal: osteomyelitis Psychiatric: anxiety, chronic pain disorder, depression Endocrine: diabetes Blood Disorders: MRSA Cancer(s): NONE TAIL SAWYER/Reproductive: NONE Past Surgical History Surgical History: RIGHT TMA LEFT BKA Substance Abuse Treatment Comments: Psychiatric and substance abuse history unobtainable from the patient. Assessment/Plan Mental Status Orientation: Person, Place Mental Status Exam: The patient is a pale, thin, 52-year-old male who looks far older than his stated age. He was somewhat disheveled. He was oriented to place but not time or situation. He was sedated and too drowsy to participate in an interview. Eye contact was poor. Speech was slow, slightly slurred. He was unable to describe his mood. There was no evidence of psychosis. It was not possible to assess intelligence level or memory. It was not possible to assess insight. Judgment impaired due to sedation. Diffential Diagnosis: No evidence of acute psychiatric diagnosis at this time. Impression: The patient is oversedated. He is on a multiplicity of psychiatric medications. Records indicate that he has not been taking them since May of this year. This is all the more likely given his level of sedation since the medications were recommenced. As mentioned tramadol and Suboxone have been verified. Provisional Treatment Plan: -Suggest team continue to try and verify medications with the patient's visiting nurse service. -In the interim I suggest stopping psychiatric medications. Can continue duloxetine at 30 mg until medication verified her otherwise as stopping this medication suddenly is likely to precipitate withdrawals. Quetiapine can be ordered at 50-100 mg to help with sleep. -Other medications per Dr. Schuster who is reportedly the patient's main prescriber. -The patient would benefit from being reconnected with care on discharge. Psychiatry is happy to collaborate on managing the patient's medication regime once these medications have been established with his home nursing service. Thank you for consulting us on this patient
--- NOTE | 2017-11-29 14:09 | RADIOLOGY REPORT ---
EXAMINATION: XR PORTABLE CHEST XR PORTABLE ABDOMEN CLINICAL INFORMATION: Vague abdominal pain and nausea. Persistently hypoxic. Rule out pneumonia. COMPARISON: Chest radiograph dated 11/26/2017 TECHNIQUE: AP portable upright view of the chest. Supine view of the abdomen. FINDINGS: CHEST: Lung volumes are low. Mild dependent atelectasis is present in the lung bases. No consolidation, pneumothorax, or pleural effusion. Cardiac and mediastinal contours are normal. Pulmonary vasculature is unremarkable. Mild degenerative disc disease is present in the thoracic spine. ABDOMEN: There is a nondilated bowel gas pattern. The left flank is only partially included on the study. No gross evidence of pneumoperitoneum though sensitivity is limited on this supine study. No pathologic calcifications are identified. There is multilevel degenerative disc disease in the lumbar spine, most severe at the lumbosacral junction. No acute osseous findings. IMPRESSION: 1. Mild bibasilar atelectasis. No acute pulmonary findings. 2. Nondilated bowel gas pattern.
[2017-11-29 14:30] VITALS: BP 184/102
[2017-11-29 20:34] VITALS: BP 178/84
[2017-11-29 23:04] VITALS: BP 166/90
--- NOTE | 2017-11-29 23:14 | CT SCAN REPORT ---
EXAMINATION: CT PULMONARY EMBOLISM STUDY CLINICAL INFORMATION: Hypoxia and tachycardia. COMPARISON: 02/12/2015. TECHNIQUE: Contiguous helical images of the chest were obtained following the administration of IV contrast. Multiplanar reconstructions were performed. MIPS were obtained and reviewed. DLP: 382 mGy-cm. CONTRAST: 95 mL of Optiray 320 were administered without incident. FINDINGS: The heart is of normal size. There is no pericardial effusion. The great vessels are unremarkable. Specifically, there is no pulmonary arterial filling defect. There is no CT evidence for pulmonary embolism. There are no chest wall masses. Review of lung windows demonstrates that there are neither pleural effusions nor pneumothoraces. There is consolidation within the posterior basal segment right lower lobe. There is dependent atelectasis at the left lung base. There are no pulmonary parenchymal nodules. Limited evaluation of the upper abdomen demonstrates that the liver is of normal size and attenuation without focal lesions. Normal adrenal glands are identified. IMPRESSION: No CT evidence for pulmonary embolism. Posterior basal segment right lower lobe consolidation concerning for pneumonia. Recommendation is for a followup chest series to be obtained following treatment and/or resolution of symptoms to assure resolution of this appearance.
[2017-11-30 07:18] VITALS: BP 154/86
[2017-11-30 07:49] LABS: HEMATOCRIT 29.2 % (42-52); MEAN CORPUSCULAR HGB 23.6 PG (27.0-31.0); MEAN CORPUSCULAR HGB CONC 32.7 G/DL (33.0-37.0); MEAN CORPUSCULAR VOLUME 72.2 FL (80.0-94.0); PLATELET COUNT 555 /CUMM (130-400); RBC DISTRIBUTION WIDTH 22.3 % (11.5-14.5); RED BLOOD CELL CT 4.05 /CUMM (4.70-6.10); WHITE BLOOD CELL COUNT 6.8 /CUMM (4.8-10.8)
--- NOTE | 2017-11-30 08:01 | PN- Housestaff ---
Miguelito WU,Marcos 11/30/17 0801: Subjective Follow-up For: HYPOGLYCEMIA Subjective: Pt's blood sugar was again in the 70s today. He c/o abdominal pain and doesn't want to eat because of it. He is unable to identify any particular source of pain. He is still some what somnolent but better than yesterday. Review of Systems Constitutional: Reports: no symptoms, malaise, weakness. EENTM: Reports: no symptoms. Cardiovascular: Reports: no symptoms. Respiratory: Reports: cough, short of breath. Gastrointestinal: Reports: abdominal pain. Genitourinary: Reports: no symptoms. Musculoskeletal: Reports: back pain, joint pain. Objective Last 24 Hrs of Vital Signs/I&O Vital Signs Date Time Temp Pulse Resp B/P B/P Pulse O2 O2 Flow FiO2 Mean Ox Delivery Rate 11/30 0930 80 154/86 11/30 0718 97.3 80 18 154/86 98 Nasal 4.0L Cannula 11/30 0000 Nasal 3.0L Cannula 11/29 2304 98.3 89 16 166/90 100 Nasal 4.0L Cannula 11/29 2206 100 166/90 11/29 2034 99 178/84 11/29 1525 98.6 101 20 100 Nasal Cannula 11/29 1430 184/102 11/29 1356 Room Air 4.0L 11/29 1340 Room Air 4.0L Intake & Output 11/30 1600 11/30 0800 11/30 0000 Intake Total 250 920 Output Total 500 450 Balance -250 470 Intake, IV 200 800 Intake, Oral 50 120 Output, Urine 500 450 Patient 63.645 kg Weight Weight Bed scale Measurement Method Physical Exam General Appearance: Alert, Cooperative HEENT: Atraumatic, PERRLA, EOMI Cardiovascular: Regular Rate, Normal S1, Normal S2 Lungs: Normal Air Movement Abdomen: Soft, endorses some tenderness on palpation but no rebound or rigidity. Extremities: bilat amputations. BKA in right and transmetatarsal on left. Assessment/Plan Assessment: This is a 52 year old man with PMH of insulin-dependent diabetes mellitus, COPD , hypertension, PVD, DKA, osteomyelitis s/p left BKA and right transmetatarsal amputation, opiod use disorder on suboxone, chronic psychiatric conditions (of which he does not entirely disclose) who was brought to the ED by EMS after he was found to be unresponsive with a blood glucose of 11. In field he was given dextrose and glucagon. He does take insulin at home and there seems to be some discrepancy in his administration of the medication. -------- PLAN: Anorexia and hypoglycemia: This AM was in 70s. He is refusing to eat all his meals due to abdominal pain. Given the continued abdominal pain, resulting anorexia and hypoglycemia we will consult GI. Of note, per GI note in 2009 he has hx of reflux w/o Huang's, at one point he had kristen esophagitis, phytobezoar and GI motility d/o given DM. Current work up shows nml TFT, abdominal xry, and cortisol lvl. * Con't D5 given his hypoglycemia but only at 50cc at this time. * Con't FS monitoring * Appreciate Endo recs * Levermir decreased to 7u ONCE a day * Placed GI consult today * IV PPI * IV Zofran * PO reglan started on 11/30 Lethargy: We consulted psych yesterday and they suggested we stop most of his psych meds other than cymbalta nad his suboxone. Dr. Schuster is his PCP and is prescriber of his psychiatric medications. I called [facility] and they confirmed that all his meds were recently picked up and they verified the dosage and frequency. * Currently HOLDING Amitryptaline, Buspar * Con't Suboxone (prescribed by Dr. Couch) * Cymbalta dose decreased but continued given risk of withdrawl * Con't (decreased dose) now PRN Quetiapine * Con't Primidone as sudden d/c of barbituates could precipitate life- threatening withdrawl. * Appreciate psych recs * We called his home nursing services and their medication list is going to be placed in his chart * Upon D/C he is going to need psych follow up. DM: Last a1c 10.1 (Nov 2017). * FS * Con't Levemir as above Acute hypoxemia: Moderate as evident by a PAo2 of 55 requiring non breather at one point. He is on 4-5 L o2 in room. Will taper as he does not use O2 at home. C/O PNA as CT shows c/o posterior segment consolidation. * Started Unasyn on 11/30/2017 for trt of aspiration despite nml white count and no fever. However, the persistent hypoxia is a problem. * Titrate o2 as tolerated Sinus tach: Resolved. I am unsure if he was withdrawing from any substances or if he was in pain. He did have BZ and barbituates in his Utox on admission. * EKG WNL * Add on troponin WNL * CT-PE showed pna but no evidence of PE * Pt is now off telemetry monitoring Leukocytosis. No bandemia, afebrile with no obvious source of infection Hyponatremia: WNL. * Con't Monitor * Con't NS Hypokalemia: WNL. * Con't monitor Hypertensive Urgency: BP of 190/118 with no chest pain on admission. * administer propanolol 40mg * His Lisinopril dose was increased today from 20mg to 40mg Chronic issues: Bilateral lower extremity wounds: * Wound care History of Opiod use disorder on Suboxone * Con't suboxone. Problem List: 1. Hypoxemia 2. Acute metabolic encephalopathy due to hypoglycemia Pain Ratin Pain Location: none Pain Goal: Remain pain free Pain Plan: none Tomorrow's Labs & Rationales: cbc bep Rafa WU,[facility] 11/30/17 1036: Attending MD Review Statement Attending Statement Attending MD Statement: examined this patient, discuss w/resident/PA/SPECIAL EVENTS MANAGER, agreed w/resident/PA/SPECIAL EVENTS MANAGER, reviewed EMR data (avail), discussed with nursing, discussed with case mgmt, reviewed images, amended to note Attending Assessment/Plan: Patient seen and examined, Says he is not feeling good. he is still c/o abd pain , he feels nauseous. He is refusing his meals. His Chest CTA was neg for PE but it did show right sided infiltrate. Vital Signs Date Time Temp Pulse Resp B/P B/P Pulse O2 O2 Flow FiO2 Mean Ox Delivery Rate 11/30 0930 80 154/86 11/30 0718 97.3 80 18 154/86 98 Nasal 4.0L Cannula 11/30 0000 Nasal 3.0L Cannula 11/29 2304 98.3 89 16 166/90 100 Nasal 4.0L Cannula 11/29 2206 100 166/90 11/29 2034 99 178/84 11/29 1525 98.6 101 20 100 Nasal Cannula 11/29 1430 184/102 11/29 1356 Room Air 4.0L 11/29 1340 Room Air 4.0L on exam; aox3, nad. cv; s1,s2, rrr resp; decreased bs at b/l bases. abd; soft, nt, bs+ ext; left bka skin; has multiple scar elias and some of them are open. Laboratory Tests 12/01 627 Chemistry Sodium (137 - 145 mmol/L) 137 Potassium (3.5 - 5.1 mmol/L) 4.7 Chloride (98 - 107 mmol/L) 111 H Carbon Dioxide (22 - 30 mmol/L) 23 Anion Gap (5 - 16) 4 L BUN (9 - 20 mg/dL) 7 L Creatinine (0.7 - 1.2 mg/dL) 0.8 Estimated GFR (>60 ml/min) > 60 BUN/Creatinine Ratio (7 - 25 %) 8.8 Hematology CBC w Diff MAN DIFF ORDERED WBC (4.8 - 10.8 /CUMM) 6.8 RBC (4.70 - 6.10 /CUMM) 4.05 L Hgb (14.0 - 18.0 G/DL) 9.6 L Hct (42 - 52 %) 29.2 L MCV (80.0 - 94.0 FL) 72.2 L MCH (27.0 - 31.0 PG) 23.6 L MCHC (33.0 - 37.0 G/DL) 32.7 L RDW (11.5 - 14.5 %) 22.3 H Plt Count (130 - 400 /CUMM) 555 H MPV (7.4 - 10.4 FL) 7.0 L Segmented Neutrophils (42.2 - 75.2 %) 65 Lymphocytes (20.5 - 51.1 %) 26 Monocytes (1.7 - 9.3 %) 4 Eosinophils (0 - 5.0 %) 5 Platelet Estimate (ADEQUATE) INCREASED Poikilocytosis 1+ Anisocytosis 1+ A/P: 52 y/o M with pmh sig for insulin-dependent diabetes mellitus, COPD, hypertension, PVD, DKA, osteomyelitis s/p left BKA and right transmetatarsal amputation, opiod use disorder on suboxone, admitted with unresponsiveness and severe hypoglycemia. Patient continues to complain of abdominal pain. Abdominal x-ray did not show any acute finding yesterday. He started the patient on antiemetics as well as IV Protonix. Patient does have a history of gastroparesis. We will add Reglan today. We will also consult GI. Chest CTA is consistent with right-sided infiltrate and negative for pulmonary embolism. We will start the patient on Unasyn as there is always a possibility of aspiration pneumonia with patient being unresponsive. Patient is hypoxic and he did come in with leukocytosis. He has a nonproductive cough. Patient looks depressed. As noted previously, patient does take psychiatric medications and we have consulted psychiatry. We will follow initial recommendations but continue to request psychiatric follow-up. I spoke with the psychiatrist today. Apparently patient's primary care doctor was prescribing all these medications. But will follow further recommendations from the psychiatrist. We cannot abruptly stop his primidone secondary to the risk of bad withdrawal. Wound care consult has been placed and patient has been seen by the wound care. He is being followed by endocrinology for his brittle diabetes and hypoglycemia. He is currently on IV fluids as he is refusing to take anything by mouth. His insulin has been decreased. No further hypoglycemic events last night. Pharmocologic DVT px. Tele has been discontinued.
--- NOTE | 2017-11-30 08:33 | PN- Diabetes ---
Assessment/Plan Diabetes Assessment: 52 year old man with multiple medical problems significant for DM type 1, COPD, hypertension, PVD, DKA, osteomyelitis s/p left BKA and right transmetatarsal amputation, opiod use disorder on suboxone, was brought to the ED by EMS after he was found to be unresponsive with a blood glucose of 11. At home, he was on Tresiba 34 units daily and Humalog coverage before meals. He has been kept NPO as he still feels abdominal pain. GI consult is pending. IVF was discontinued on 11/29/2017 after the event of having tachycardia and hypoxemia. Currently he is on Levemir 8 units daily and Novolog coverage every 4 hours. His FSGs were 174, 180, 140, 150, 157 and 97. His am cortisol was 18.9, TSH was 2.54 and free T4 was 1.36. Plan: 1. decrease Levemir to 7 units daily; 2. continue the current Novolog coverage every 4 hours; 3. monitor FSGs and electrolytes. will follow. Subjective Subjective: He still has epigastric abdominal pain. Objective Last 24 Hrs of Vital Signs/I&O Vital Signs Date Time Temp Pulse Resp B/P B/P Pulse O2 O2 Flow FiO2 Mean Ox Delivery Rate 11/30 0718 97.3 80 18 154/86 98 Nasal 4.0L Cannula 11/30 0000 Nasal 3.0L Cannula 11/29 2304 98.3 89 16 166/90 100 Nasal 4.0L Cannula 11/29 2206 100 166/90 11/29 2034 99 178/84 11/29 1525 98.6 101 20 100 Nasal Cannula 11/29 1430 184/102 11/29 1356 Room Air 4.0L 11/29 1340 Room Air 4.0L Intake & Output 11/30 1600 11/30 0800 11/30 0000 Intake Total 250 920 Output Total 500 450 Balance -250 470 Intake, IV 200 800 Intake, Oral 50 120 Output, Urine 500 450 Patient 140 lb Weight Weight Bed scale Measurement Method Findings Pertinent Lab/Bart Results: Laboratory Tests 11/30 0628 Chemistry Sodium (137 - 145 mmol/L) 137 Potassium (3.5 - 5.1 mmol/L) 4.7 Chloride (98 - 107 mmol/L) 111 H Carbon Dioxide (22 - 30 mmol/L) 23 Anion Gap (5 - 16) 4 L BUN (9 - 20 mg/dL) 7 L Creatinine (0.7 - 1.2 mg/dL) 0.8 Estimated GFR (>60 ml/min) > 60 BUN/Creatinine Ratio (7 - 25 %) 8.8 Hematology CBC w Diff MAN DIFF ORDERED WBC (4.8 - 10.8 /CUMM) Pending RBC (4.70 - 6.10 /CUMM) Pending Hgb (14.0 - 18.0 G/DL) Pending Hct (42 - 52 %) Pending MCV (80.0 - 94.0 FL) Pending MCH (27.0 - 31.0 PG) Pending MCHC (33.0 - 37.0 G/DL) Pending RDW (11.5 - 14.5 %) Pending Plt Count (130 - 400 /CUMM) Pending MPV (7.4 - 10.4 FL) Pending Segmented Neutrophils (42.2 - 75.2 %) Pending
[2017-11-30 14:00] VITALS: BP 160/110
--- NOTE | 2017-11-30 19:02 | Cons- Gastroenterology ---
General Information and HPI Consulting Request Date of Consult: 11/30/17 Requested By: Estella WU,Candy Reason for Consult: Abdominal pain Allergies/Medications Allergies: Coded Allergies: NO KNOWN ALLERGIES (07/16/15) Home Med List: Albuterol Sulfate (Ventolin Hfa) 90 MCG HFA.AER.AD 2 PUF INH PRN COPD ( Reported) Amitriptyline HCl 100 MG TABLET 1 TAB PO QHS NEUROPATHY (Reported) Aspirin (Ecotrin*) 81 MG TABLET.DR 1 TAB PO DAILY HEART HEALTH (Reported) Buprenorphine HCl/Naloxone HCl (Suboxone 8 MG-2 MG Sl Film) 8 MG-2 MG FILM 2 STR SL DAILY CHRONIC PAIN (Reported) Buprenorphine HCl/Naloxone HCl (Suboxone 8 MG-2 MG Sl Film) 8 MG-2 MG FILM 1 STR SL QPM CHRONIC PAIN (Reported) Buspirone HCl 10 MG TABLET 1 TAB PO TID MENTAL HEALTH (Reported) Cholecalciferol (Vitamin D3) 1,000 UNIT TABLET 1 TAB PO DAILY VITAMIN SUPPORT (Reported) Collagenase Clostridium Hist. (Santyl) 250 UNIT/GRAM OINT...G. RASH (Reported) APPLY SUFFICIENT AMOUNT TO AFFECTED AREA DAILY Duloxetine HCl (Cymbalta) 60 MG CAPSULE.DR 1 CAP PO DAILY DEPRESSION ( Reported) Duloxetine HCl 30 MG CAPSULE.DR 1 CAP PO QAM DEPRESSION (Reported) Esomeprazole (Nexium) 40 MG CAPSULE.DR 1 CAP PO DAILY GI (Reported) Fluticasone Propionate 50 MCG/ACTUATION SPRAY.SUSP 2 SPRAY NASB DAILY NASAL IRRITATION (Reported) Fluticasone/Salmeterol (Advair 250-50 Diskus) 250 MCG-50 MCG/DOSE BLST.W.DEV 1 PUF INH BID COPD (Reported) Folic Acid 0.8 MG TABLET 1 TAB PO DAILY VITAMIN SUPPORT (Reported) Furosemide (Lasix) 20 MG TABLET 1 TAB PO DAILY NEEDED PRN Fluid Retention (Reported) Gabapentin (Neurontin) 800 MG TABLET 1 TAB PO TID PAIN (Reported) Hydroxyzine Pamoate (Vistaril) 50 MG CAPSULE 1 CAP PO BID PRN Itching ( Reported) Insulin Aspart (Novolog) 100 UNIT/ML VIAL 0 UNITS SC TIDAC/HS DM BEFORE MEALS Blood Insulin Sugar Units <80 0 81-100 6 101-120 6 121-150 6 151-200 7 201-250 8 251-300 9 301-350 10 351-400 11 More than 400 12units Insulin Degludec (Tresiba Flextouch U-100) 100 UNIT/ML (3 ML) INSULN.PEN 30 UNITS SC BID DEABETES (Reported) Magnesium Oxide 400 MG TABLET 1 TAB PO BID SUPPLEMENT (Reported) Multivitamin (Daily Multiple Vitamin) 1 EACH TABLET 1 TAB PO DAILY VITAMIN SUPPORT (Reported) Primidone 50 MG TABLET 100 MG PO TID UNKNOWN (Reported) Propranolol HCl 40 MG TABLET 1 TAB PO BID BP (Reported) Quetiapine Fumarate (Seroquel) 100 MG TABLET 1 TAB PO 8AM, NOON, 6PM MENTAL HEALTH (Reported) Quetiapine Fumarate (Seroquel) 300 MG TABLET 1 TAB PO QHS MENTAL HEALTH ( Reported) Quinapril HCl (Accupril) 20 MG TABLET 1 TAB PO QAM HEART (Reported) Ranitidine HCl 150 MG CAPSULE 300 MG PO DAILY GERD (Reported) Rosuvastatin Calcium (Crestor) 10 MG TABLET 1 TAB PO QHS CHOLESTEROL ( Reported) Sucralfate (Carafate) 1 GM TABLET 1 TAB PO 4 TIMES/DAY GI (Reported) Tiotropium Haskell (Spiriva) 18 MCG CAP.W.DEV 1 CAP INH DAILY ASTHMA ( Reported) Tramadol HCl 50 MG TABLET 1 TAB PO Q6 PAIN (Reported) Current Medications: Current Medications Sig/Jonny Start time Last Medication Dose Route Stop Time Status Admin Acetaminophen 1,000 MG Q6P PRN 11/27 0915 AC 11/27 N/A 1 UNIT IV 0941 Acetaminophen 650 MG Q6P PRN 11/26 2015 AC PO Ampicillin Sodium/ 1,500 MG Q6 11/30 1200 AC 11/30 Sulbactam Sodium IV 1718 Sodium Chloride 100 ML Aspirin Buffered 81 MG DAILY 11/27 0900 AC 11/30 PO 0930 Atorvastatin Calcium 40 MG 1700 11/27 1700 AC 11/28 PO 1700 Buprenorphine/ 1 EACH QPM 11/27 2100 AC 11/29 Naloxone SL 2253 Buprenorphine/ 2 EACH DAILY 11/27 0900 AC 11/30 Naloxone SL 0942 Cholecalciferol 1,000 IU DAILY 11/27 0900 AC 11/27 PO 0942 Docusate Sodium 100 MG BIDPRN PRN 11/27 1545 AC PO Duloxetine HCl 30 MG DAILY 11/30 0900 AC 11/30 PO 1012 Enoxaparin Sodium 40 MG DAILY 11/27 0900 AC 11/30 SC 0949 Folic Acid 1 MG DAILY 11/27 0900 AC 11/27 PO 0942 Gabapentin 400 MG Q8 11/30 1400 AC 11/30 PO 1229 Insulin Aspart 0 Q4 11/27 1000 AC 11/29 SC 1505 Insulin Detemir 7 UNITS DAILY 11/30 0900 [facility] Insulin Detemir 8 UNITS DAILY 11/29 0900 DC 11/29 SC 1011 Lisinopril 40 MG DAILY 11/30 0900 AC 11/30 PO 0930 Lisinopril 20 MG DAILY 11/27 0900 DC 11/29 PO 0606 Metoclopramide HCl 5 MG AC & AT BEDTIME 11/30 1200 AC 11/30 PO 1719 Omeprazole 40 MG DAILY AC 11/28 0700 DC 11/30 PO 0610 Ondansetron HCl 4 MG Q6P PRN 11/29 0900 AC 11/29 IV 0936 Pantoprazole Sodium 40 MG DAILY 11/29 1323 AC 11/30 IV 0928 Polyethylene Glycol 17 GM DAILY 11/27 1538 AC PO Potassium Chloride 40 MEQ Q20H 11/30 1030 AC 11/30 Dextrose/Sodium 1,000 ML IV 12/01 0629 1030 Chloride Potassium Chloride 40 MEQ Q10H 11/29 1500 DC 11/29 Dextrose/Sodium 1,000 ML IV 11/30 0059 1506 Chloride Primidone 100 MG TID 11/27 0900 AC 11/30 PO 1230 Propranolol HCl 40 MG BID 11/27 0900 AC 11/30 PO 0930 Quetiapine Fumarate 50 MG QPM 11/29 2100 AC 11/29 PO 2202 Sucralfate 1,000 MG 4 TIMES/DAY 11/27 1300 AC 11/30 PO 1230 Thiamine HCl 100 MG DAILY 11/27 1056 AC 11/27 PO 1125 Tramadol HCl 50 MG Q4 HRS NEEDED PRN 11/27 1030 DC 11/27 PO 1125 Past History Travel History Traveled to [place] past 21 day No Medical History Neurological: peripheral neuropathy Cardiovascular: hypertension, PVD, MRSA endocarditis Respiratory: COPD Gastrointestinal: GERD, GASTROPARESIS Musculoskeletal: osteomyelitis Psychiatric: anxiety, chronic pain disorder, depression Endocrine: diabetes Blood Disorders: MRSA Cancer(s): NONE AUTOMOBILE DAMAGE 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 self Services at Home: Nursing Primary Language: Sinhala Smoking Status: Current Everyday Smoker ETOH Use: occasional use, 5 Illicit Drug Use: hISTORY OF OPIATE ABUSE Name of POA/HCP: Spencer Chaudhari Functional Ability ADLs Independent: dressing, eating, toileting, bathing. Ambulation: cane, walker IADLs Independent: finances. Unknown: shopping, housework, food prep, telephone, transportation, medication admin. Exam & Diagnostic Data Vital Signs and I&O Vital Signs Date Time Temp Pulse Resp B/P B/P Pulse O2 O2 Flow FiO2 Mean Ox Delivery Rate 11/30 1400 98.9 87 20 160/110 94 Nasal 3.0L Cannula 11/30 0930 80 154/86 11/30 0800 98 Nasal 3.0L Cannula 11/30 0718 97.3 80 18 154/86 98 Nasal 4.0L Cannula 11/30 0000 Nasal 3.0L Cannula 11/29 2304 98.3 89 16 166/90 100 Nasal 4.0L Cannula 11/29 2206 100 166/90 11/29 2034 99 178/84 Intake & Output 11/30 1600 11/30 0400 11/29 1600 11/29 0400 11/28 1600 11/28 0400 Intake Total 293 786 2741 750 1550 800 Output Total 5524 678 9617 200 1000 825 Balance -450 470 -25 550 550 -25 Intake, IV 257 695 2510 600 1550 800 Intake, Oral 100 120 200 150 0 Output, Urine 1499 378 9729 200 1000 825 Patient 140 lb 136 lb 135 lb 137 lb Weight Weight Bed scale Bed scale Bed scale Measurement Method Results Pertinent Lab Results: Laboratory Tests 11/30 11/29 0628 0634 Chemistry Sodium (137 - 145 mmol/L) 137 137 Potassium (3.5 - 5.1 mmol/L) 4.7 4.7 Chloride (98 - 107 mmol/L) 111 H 109 H Carbon Dioxide (22 - 30 mmol/L) 23 23 Anion Gap (5 - 16) 4 L 5 BUN (9 - 20 mg/dL) 7 L 8 L Creatinine (0.7 - 1.2 mg/dL) 0.8 0.8 Estimated GFR (>60 ml/min) > 60 > 60 BUN/Creatinine Ratio (7 - 25 %) 8.8 10.0 TSH (0.270 - 4.200 uIU/mL) 2.540 Free T4 (0.64 - 1.79 ng/dL) 1.36 Cortisol AM Sample (4.46 - 22.7 ug/dL) 18.9 Hematology CBC w Diff MAN DIFF ORDERED MAN DIFF ORDERED WBC (4.8 - 10.8 /CUMM) 6.8 6.6 RBC (4.70 - 6.10 /CUMM) 4.05 L 4.23 L Hgb (14.0 - 18.0 G/DL) 9.6 L 9.8 L Hct (42 - 52 %) 29.2 L 31.0 L MCV (80.0 - 94.0 FL) 72.2 L 73.2 L MCH (27.0 - 31.0 PG) 23.6 L 23.1 L MCHC (33.0 - 37.0 G/DL) 32.7 L 31.6 L RDW (11.5 - 14.5 %) 22.3 H 22.9 H Plt Count (130 - 400 /CUMM) 555 H 636 H MPV (7.4 - 10.4 FL) 7.0 L 7.3 L Segmented Neutrophils (42.2 - 75.2 %) 65 76 H Lymphocytes (20.5 - 51.1 %) 26 16 L Monocytes (1.7 - 9.3 %) 4 5 Eosinophils (0 - 5.0 %) 5 3 Platelet Estimate (ADEQUATE) INCREASED INCREASED Polychromasia 1+ Hypochromic-Microcytic 1+ Poikilocytosis 1+ Anisocytosis 1+ 1+ Microcytic Cells 1+ 11/28 11/28 11/28 2100 0632 0057 Chemistry Sodium (137 - 145 mmol/L) 137 134 L 121 L Potassium (3.5 - 5.1 mmol/L) 4.3 4.4 2.7 *L Chloride (98 - 107 mmol/L) 111 H 108 H 102 Carbon Dioxide (22 - 30 mmol/L) 24 24 15 L Anion Gap (5 - 16) 2 L 2 L 4 L BUN (9 - 20 mg/dL) 9 12 9 Creatinine (0.7 - 1.2 mg/dL) 0.8 0.9 0.6 L Estimated GFR (>60 ml/min) > 60 > 60 > 60 BUN/Creatinine Ratio (7 - 25 %) 11.3 13.3 15.0 Troponin I (<0.11 ng/ml) < 0.01 Hematology CBC w Diff MAN DIFF ORDERED WBC (4.8 - 10.8 /CUMM) 7.5 RBC (4.70 - 6.10 /CUMM) 3.87 L Hgb (14.0 - 18.0 G/DL) 9.1 L Hct (42 - 52 %) 28.2 L MCV (80.0 - 94.0 FL) 72.9 L MCH (27.0 - 31.0 PG) 23.4 L MCHC (33.0 - 37.0 G/DL) 32.1 L RDW (11.5 - 14.5 %) 22.6 H Plt Count (130 - 400 /CUMM) 531 H MPV (7.4 - 10.4 FL) 7.1 L Segmented Neutrophils (42.2 - 75.2 %) 74 Lymphocytes (20.5 - 51.1 %) 22 Monocytes (1.7 - 9.3 %) 3 Eosinophils (0 - 5.0 %) 1 Platelet Estimate (ADEQUATE) INCREASED Anisocytosis 1+ Microcytic Cells 1+ Assessment/Plan Assessment/Recommendations: Full consult note to follow At present, the patient is pain-free. Will follow-up tomorrow, with any further recommendations. Consult Acknowledgment - Thank you for your consult request.
[2017-11-30 23:00] VITALS: BP 170/100
[2017-12-01 00:49] VITALS: BP 162/90
[2017-12-01 07:13] VITALS: BP 152/90
[2017-12-01 08:17] LABS: HEMATOCRIT 28.5 % (42-52); MEAN CORPUSCULAR HGB 23.6 PG (27.0-31.0); MEAN CORPUSCULAR VOLUME 73.6 FL (80.0-94.0); MEAN PLATELET VOLUME 7.1 FL (7.4-10.4); PLATELET COUNT 534 /CUMM (130-400); RBC DISTRIBUTION WIDTH 22.6 % (11.5-14.5); RED BLOOD CELL CT 3.87 /CUMM (4.70-6.10); WHITE BLOOD CELL COUNT 7.5 /CUMM (4.8-10.8)
--- NOTE | 2017-12-01 08:37 | PN- Housestaff ---
Naseem[place]halla 12/01/17 0837: Subjective Follow-up For: Hypoglycemia, improved Aspiration pneumonia Tele-Events Since Last Visit: Of telemetry Subjective: No overnight events. Patient remained afebrile. Seen and examined this morning. He denies chest pain, short of breath, nausea, vomiting or chill, fever, abdominal pain dysuria. Review of Systems Constitutional: Denies: chills, fever. EENTM: Reports: no symptoms. Cardiovascular: Denies: chest pain, palpitations. Respiratory: Denies: cough, short of breath, sputum production. Gastrointestinal: Denies: abdominal pain, constipation, diarrhea, nausea, vomiting. Genitourinary: Reports: no symptoms. Neurological/Psychological: Reports: no symptoms. Objective Last 24 Hrs of Vital Signs/I&O Vital Signs Date Time Temp Pulse Resp B/P B/P Pulse O2 O2 Flow FiO2 Mean Ox Delivery Rate 12/01 0713 98.4 82 20 152/90 99 Nasal Cannula 12/01 0049 162/90 11/30 2300 97.2 80 20 170/100 95 Room Air 11/30 2221 87 160/110 11/30 1400 98.9 87 20 160/110 94 Nasal 3.0L Cannula Intake & Output 12/01 1600 12/01 0800 12/01 0000 Intake Total 500 800 Output Total 600 700 Balance -100 100 Intake, IV 300 400 Intake, Oral 200 400 Output, Urine 600 700 Patient 141 lb Weight Weight Bed scale Measurement Method Physical Exam General Appearance: Alert, Oriented X3, Cooperative Skin: multiple chronic wounds Skin Temp/Moisture Exam: Warm/Dry Sepsis Skin Exam (color): Normal for Ethnicity HEENT: Atraumatic, PERRLA, EOMI Neck: Supple Cardiovascular: Normal S1, Normal S2 Lungs: Clear to Auscultation Abdomen: Soft, No Tenderness Neurological: Normal Speech, Normal Tone Extremities: left BKA, RIGHT TRANSMATATARSAL Assessment/Plan Assessment: 52 year old man with PMH of insulin-dependent diabetes mellitus, COPD, hypertension, PVD, DKA, osteomyelitis s/p left BKA and right transmetatarsal amputation, opiod use disorder on suboxone, chronic psychiatric conditions (of which he does not entirely disclose) who was brought to the ED by EMS after he was found to be unresponsive with a blood glucose of 11. In field he was given dextrose and glucagon. He does take insulin at home and there seems to be some discrepancy in his administration of the medication. Seeing the patient for following problems. Anorexia and hypoglycemia: This AM was in 117. He has poor appetite. Given the continued abdominal pain, resulting anorexia and hypoglycemia we will consult GI. Of note, per GI note in 2009 he has hx of reflux w/o Huang's, at one point he had kristen esophagitis, phytobezoar and GI motility d/o given DM. Current work up shows nml TFT, abdominal xry, and cortisol lvl. -Con't FS monitoring -Appreciate Endo recs -Levermir decreased to 7 UNITS ONCE a day -IV PPI -IV Zofran -PO reglan started on 11/30 Acute hypoxemia due to aspiration pneumonia: -Patient is on 3 L of oxygen and maintaining saturation 99%. -Continue Unasyn day 2. -Follow-up WBC count. His blood cultures has been canceled. Lethargy: We consulted psych yesterday and they suggested we stop most of his psych meds other than cymbalta nad his suboxone. Dr. Schuster is his PCP and is prescriber of his psychiatric medications. I called [facility] and they confirmed that all his meds were recently picked up and they verified the dosage and frequency. -Currently HOLDING Amitryptaline, Buspar -Con't Suboxone (prescribed by Dr. Couch) -Cymbalta dose decreased but continued given risk of withdrawl -Con't (decreased dose) now PRN Quetiapine -Con't Primidone as sudden d/c of barbituates could precipitate life-threatening withdrawl. -Appreciate psych recs -We called his home nursing services and their medication list is going to be placed in his chart Upon D/C he is going to need psych follow up. DM: -Last a1c 10.1 (Nov 2017). -FS, 117 this morning -Con't Levemir as above -Continue insulin NovoLog according to sliding scale If the patient develops abdominal pain again and is not able to tolerate food ,please use bedtime sliding scale for mealtime. Sinus tach: Resolved. -Possibly due to withdrawal of benzos and barbiturates. -EKG WNL -Add on troponin WNL -CT-PE showed pna but no evidence of PE -Pt is now off telemetry monitoring Leukocytosis. -No bandemia, afebrile with no obvious source of infection Hyponatremia: -WNL. -Con't Monitor -Con't NS Hypokalemia: -WNL. -Con't monitor Hypertensive Urgency: -Patient's blood pressure is not good controlled we will add amlodipine along with lisinopril and propranolol. Chronic issues: Bilateral lower extremity wounds: -Wound care History of Opiod use disorder on Suboxone -Con't suboxone. DVT prophylaxis: Lovenox subcutaneous CODE STATUS; Full code Problem List: 1. Acute metabolic encephalopathy due to hypoglycemia 2. Pneumonia Pain Ratin Pain Location: NONE Pain Goal: Remain pain free (PA) Pain Plan: PAIN PATHWAY Tomorrow's Labs & Rationales: CBC/BEP Brandi Davis MD 12/01/17 0920: Attending MD Review Statement Attending Statement Attending MD Statement: examined this patient, discuss w/resident/PA/ICE CREAM MIXER, agreed w/resident/PA/ICE CREAM MIXER, reviewed EMR data (avail), discussed with nursing, reviewed images Attending Assessment/Plan: 52-year-old male multiple medical problems including diabetes, BKA, difficult to control blood sugar who is actively being treated with IV Unasyn for a pneumonia found on chest CT. Ongoing issues active abdominal pain of unclear etiology. He is going to be seen by GI and we are feeding him right now. Endocrine is helping us with the sugars. I started him on Norvasc 5 mg a day in addition to his TIFFANY inhibitor and propranolol for his difficult to control blood pressure and will follow closely.
--- NOTE | 2017-12-01 10:34 | PN- Diabetes ---
Assessment/Plan Diabetes Assessment: 52 year old man with multiple medical problems significant for DM type 1, COPD, hypertension, PVD, DKA, osteomyelitis s/p left BKA and right transmetatarsal amputation, opiod use disorder on suboxone, was brought to the ED by EMS after he was found to be unresponsive with a blood glucose of 11. At home, he was on Tresiba 34 units daily and Humalog coverage before meals. His abdominal pain has resolved, and he is able to eat breakfast today Plan: Continue 7 units of Levemir daily. Change to carbohydrate level 1 diet. Check BG achs. Use novolog before each meal and at bedtime according to the scale below. If the patient develops abdominal pain again and is not able to tolerate food ,please use bedtime sliding scale for mealtime. Will follow Inpatient Diabetes Orders Before Each Meal: < 80 mg/dl: 0 80-100 mg/dl: 2 101-120 mg/dl: 2 121-150 mg/dl: 2 151-200 mg/dl: 3 201-250 mg/dl: 3 251-300 mg/dl: 4 301-350 mg/dl: 4 351-400 mg/dl: 5 > 400 mg/dl: 6 Bedtime: < 80 mg/dl: 0 80-100 mg/dl: 0 101-120 mg/dl: 0 121-150 mg/dl: 0 151-200 mg/dl: 1 201-250 mg/dl: 1 251-300 mg/dl: 2 301-350 mg/dl: 2 351-400 mg/dl: 3 > 400 mg/dl: 4 Subjective Subjective: His abdominal pain has resolved and he is able to eat now. Objective Last 24 Hrs of Vital Signs/I&O Vital Signs Date Time Temp Pulse Resp B/P B/P Pulse O2 O2 Flow FiO2 Mean Ox Delivery Rate 12/01 0713 98.4 82 20 152/90 99 Nasal Cannula 12/01 0049 162/90 11/30 2300 97.2 80 20 170/100 95 Room Air 11/30 2221 87 160/110 11/30 1400 98.9 87 20 160/110 94 Nasal 3.0L Cannula Intake & Output 12/01 1600 12/01 0800 12/01 0000 Intake Total 500 800 Output Total 600 700 Balance -100 100 Intake, IV 300 400 Intake, Oral 200 400 Output, Urine 600 700 Patient 141 lb Weight Weight Bed scale Measurement Method
--- NOTE | 2017-12-01 12:34 | PN- Gastroenterology ---
Assessment/Plan GI Assessment/Recommendations: 1. Abdominal pain. This has resolved, and may have been due to such factors as Suboxone withdrawal, pneumonia, gastroparesis, etc. In any event, he is asymptomatic. 2. Gastroparesis. Stable off of any prokinetic therapy. The patient is maintained on a PPI and sucralfate. He has requested outpatient follow-up with me, and this will be arranged. Will discuss his case with Dr. Schuster. Thank you very much for having allowed GI participation in this patient's care. I will no longer follow him in the hospital. Please call or reconsult as needed. Subjective Subjective: The patient denies abdominal pain, nausea, distention, diarrhea. He is tolerating his diet. Objective Vital Signs and I&Os Vital Signs Date Time Temp Pulse Resp B/P B/P Pulse O2 O2 Flow FiO2 Mean Ox Delivery Rate 12/01 712 98.4 82 20 152/90 99 Nasal Cannula 12/01 0049 162/90 11/30 2300 97.2 80 20 170/100 95 Room Air 11/30 2221 87 160/110 11/30 1400 98.9 87 20 160/110 94 Nasal 3.0L Cannula Intake & Output 12/01 1600 12/01 0400 11/30 1600 11/30 0400 11/29 1600 11/29 0400 Intake Total 500 800 228 394 6062 750 Output Total 338 849 7065 450 1400 200 Balance -100 100 -450 470 -25 550 Intake, IV 300 400 194 957 3931 600 Intake, Oral 200 400 100 120 200 150 Output, Urine 477 852 0750 450 1400 200 Patient 141 lb 140 lb 136 lb 135 lb Weight Weight Bed scale Bed scale Bed scale Measurement Method Physical Exam: Alert and oriented. Anicteric sclera. Abdomen nondistended, soft, nontender. Current Medications: Current Medications Sig/Jonny Start time Last Medication Dose Route Stop Time Status Admin Acetaminophen 1,000 MG Q6P PRN 11/27 N/A 1 UNIT IV 0941 Acetaminophen 650 MG Q6P PRN 11/26 2014 AC PO Amlodipine Besylate 5 MG DAILY 12/01 918 AC 12/01 PO 1225 Ampicillin Sodium/ 1,500 MG Q6 11/30 1200 AC 12/01 Sulbactam Sodium IV 1225 Sodium Chloride 100 ML Aspirin Buffered 81 MG DAILY 11/27 899 AC 12/01 PO 0854 Atorvastatin Calcium 40 MG 1700 11/27 1700 AC 11/30 PO 1700 Buprenorphine/ 1 EACH QPM 11/27 2100 AC 11/30 Naloxone SL 2223 Buprenorphine/ 2 EACH DAILY 11/27 0900 AC 12/01 Naloxone SL 0910 Cholecalciferol 1,000 IU DAILY 11/27 0900 AC 12/01 PO 0854 Docusate Sodium 100 MG BIDPRN PRN 11/27 1545 AC PO Duloxetine HCl 30 MG DAILY 11/30 0900 AC 12/01 PO 0854 Enoxaparin Sodium 40 MG DAILY 11/27 0900 AC 12/01 SC 0850 Folic Acid 1 MG DAILY 11/27 0900 AC 12/01 PO 0854 Gabapentin 400 MG Q8 11/30 1400 AC 12/01 PO 1225 Insulin Aspart 0 Q4 11/27 1000 AC 12/01 SC 1224 Insulin Detemir 7 UNITS DAILY 11/30 0900 AC 12/01 SC 0851 Lisinopril 40 MG DAILY 11/30 0900 AC 12/01 PO 0854 Metoclopramide HCl 5 MG AC & AT BEDTIME 11/30 1200 AC 12/01 PO 1225 Ondansetron HCl 4 MG Q6P PRN 11/29 0900 AC 11/29 IV 0936 Pantoprazole Sodium 40 MG DAILY 11/29 1323 AC 12/01 IV 0852 Patient Medication 1 ED ONE ONE 12/01 1999 OK Teaching ED 11/30 2000 Polyethylene Glycol 17 GM DAILY 11/27 1538 AC PO Potassium Chloride 40 MEQ Q20H 11/30 1030 DC 11/30 Dextrose/Sodium 1,000 ML IV 12/01 0629 1030 Chloride Primidone 100 MG TID 11/27 09 AC 12/01 PO 1225 Propranolol HCl 40 MG BID 11/27 0900 AC 12/01 PO 0854 Quetiapine Fumarate 50 MG QPM 11/29 2100 AC 11/30 PO 2221 Sucralfate 1,000 MG 4 TIMES/DAY 11/27 1300 AC 12/01 PO 1225 Thiamine HCl 100 MG DAILY 11/27 1056 AC 12/01 PO 0854 Results Pertinent Lab Results: Laboratory Tests 12/01 11/30 0625 0628 Chemistry Sodium (137 - 145 mmol/L) 135 L 137 Potassium (3.5 - 5.1 mmol/L) 4.5 4.7 Chloride (98 - 107 mmol/L) 109 H 111 H Carbon Dioxide (22 - 30 mmol/L) 23 23 Anion Gap (5 - 16) 3 L 4 L BUN (9 - 20 mg/dL) 15 7 L Creatinine (0.7 - 1.2 mg/dL) 0.9 0.8 Estimated GFR (>60 ml/min) > 60 > 60 BUN/Creatinine Ratio (7 - 25 %) 16.7 8.8 Hematology CBC w Diff MAN DIFF ORDERED MAN DIFF ORDERED WBC (4.8 - 10.8 /CUMM) 7.5 6.8 RBC (4.70 - 6.10 /CUMM) 3.87 L 4.05 L Hgb (14.0 - 18.0 G/DL) 9.1 L 9.6 L Hct (42 - 52 %) 28.5 L 29.2 L MCV (80.0 - 94.0 FL) 73.6 L 72.2 L MCH (27.0 - 31.0 PG) 23.6 L 23.6 L MCHC (33.0 - 37.0 G/DL) 32.0 L 32.7 L RDW (11.5 - 14.5 %) 22.6 H 22.3 H Plt Count (130 - 400 /CUMM) 534 H 555 H MPV (7.4 - 10.4 FL) 7.1 L 7.0 L Segmented Neutrophils (42.2 - 75.2 %) 53 65 Lymphocytes (20.5 - 51.1 %) 33 26 Monocytes (1.7 - 9.3 %) 10 H 4 Eosinophils (0 - 5.0 %) 3 5 Basophils (0.0 - 2.0 %) 1 Platelet Estimate (ADEQUATE) INCREASED INCREASED Hypochromic-Microcytic 1+ Poikilocytosis 1+ Anisocytosis 1+ 1+ Microcytic Cells 1+ 11/29 11/28 0634 2100 Chemistry Sodium (137 - 145 mmol/L) 137 137 Potassium (3.5 - 5.1 mmol/L) 4.7 4.3 Chloride (98 - 107 mmol/L) 109 H 111 H Carbon Dioxide (22 - 30 mmol/L) 23 24 Anion Gap (5 - 16) 5 2 L BUN (9 - 20 mg/dL) 8 L 9 Creatinine (0.7 - 1.2 mg/dL) 0.8 0.8 Estimated GFR (>60 ml/min) > 60 > 60 BUN/Creatinine Ratio (7 - 25 %) 10.0 11.3 TSH (0.270 - 4.200 uIU/mL) 2.540 Free T4 (0.64 - 1.79 ng/dL) 1.36 Cortisol AM Sample (4.46 - 22.7 ug/dL) 18.9 Hematology CBC w Diff MAN DIFF ORDERED WBC (4.8 - 10.8 /CUMM) 6.6 RBC (4.70 - 6.10 /CUMM) 4.23 L Hgb (14.0 - 18.0 G/DL) 9.8 L Hct (42 - 52 %) 31.0 L MCV (80.0 - 94.0 FL) 73.2 L MCH (27.0 - 31.0 PG) 23.1 L MCHC (33.0 - 37.0 G/DL) 31.6 L RDW (11.5 - 14.5 %) 22.9 H Plt Count (130 - 400 /CUMM) 636 H MPV (7.4 - 10.4 FL) 7.3 L Segmented Neutrophils (42.2 - 75.2 %) 76 H Lymphocytes (20.5 - 51.1 %) 16 L Monocytes (1.7 - 9.3 %) 5 Eosinophils (0 - 5.0 %) 3 Platelet Estimate (ADEQUATE) INCREASED Polychromasia 1+ Hypochromic-Microcytic 1+ Anisocytosis 1+ Microcytic Cells 1+
[2017-12-01 13:54] VITALS: BP 174/85
[2017-12-01 23:45] VITALS: BP 160/90
[2017-12-02 07:04] VITALS: BP 158/82
[2017-12-02 08:09] LABS: HEMATOCRIT 27.7 % (42-52); MEAN CORPUSCULAR HGB 23.3 PG (27.0-31.0); MEAN CORPUSCULAR VOLUME 72.9 FL (80.0-94.0); MEAN PLATELET VOLUME 7.2 FL (7.4-10.4); PLATELET COUNT 474 /CUMM (130-400); RBC DISTRIBUTION WIDTH 21.9 % (11.5-14.5); WHITE BLOOD CELL COUNT 7.4 /CUMM (4.8-10.8)
--- NOTE | 2017-12-02 08:34 | PN- Housestaff ---
Xiang WU,Willy 12/02/17 0834: Subjective Follow-up For: Hypoglycemia Subjective: Seen and examined at bedside He appears in apleasent mood and offers no complaint. o/n his sugars seems to be uncrontrolled nad running high Review of Systems Constitutional: Reports: see HPI. Objective Last 24 Hrs of Vital Signs/I&O Vital Signs Date Time Temp Pulse Resp B/P B/P Pulse O2 O2 Flow FiO2 Mean Ox Delivery Rate 12/02 1513 98.2 92 17 138/76 95 Room Air 12/02 0845 99 158/82 12/02 0844 99 158/82 12/02 0844 158/82 12/02 0704 98.7 99 20 158/82 94 Room Air 12/01 2345 97.6 93 18 160/90 96 Room Air 12/01 2113 99 158/86 Intake & Output 12/02 1600 12/02 0800 12/02 0000 Intake Total 600 100 400 Output Total 400 900 300 Balance 200 -800 100 Intake, IV 120 100 Intake, Oral 480 400 Output, Urine 400 900 300 Patient 60.781 kg Weight Physical Exam General Appearance: Alert, Oriented X3, Cooperative Other Physical Findings: HEENT: Atraumatic, PERRLA, EOMI Cardiovascular: Regular Rate, Normal S1, Normal S2 Lungs: Normal Air Movement Abdomen: Soft, endorses some tenderness on palpation but no rebound or rigidity. Extremities: bilat amputations. BKA in right and transmetatarsal on left. Current Medications: Current Medications Sig/Jonny Start time Last Medication Dose Route Stop Time Status Admin Acetaminophen 1,000 MG Q6P PRN 11/27 914 AC 11/27 N/A 1 UNIT IV 0941 Acetaminophen 650 MG Q6P PRN 11/26 2014 AC PO Amlodipine Besylate 5 MG DAILY 12/01 918 AC 12/02 PO 0844 Ampicillin Sodium/ 1,500 MG Q6 11/30 1200 AC 12/03 Sulbactam Sodium IV 0559 Sodium Chloride 100 ML Aspirin Buffered 81 MG DAILY 11/27 899 AC 12/02 PO 0844 Atorvastatin Calcium 40 MG 1700 11/27 1700 AC 12/02 PO 1816 Buprenorphine/ 1 EACH QPM 11/27 2100 AC 12/02 Naloxone SL 2201 Buprenorphine/ 2 EACH DAILY 11/27 899 AC 12/02 Naloxone SL 0846 Cholecalciferol 1,000 IU DAILY 11/27 899 AC 12/02 PO 0844 Docusate Sodium 100 MG BIDPRN PRN 11/27 1545 AC PO Duloxetine HCl 30 MG DAILY 11/30 0900 AC 12/02 PO 0844 Enoxaparin Sodium 40 MG DAILY 11/27 0900 AC 12/02 SC 0845 Folic Acid 1 MG DAILY 11/27 0900 AC 12/02 PO 0844 Gabapentin 400 MG Q8 11/30 1400 AC 12/03 PO 0559 Insulin Aspart 0 TIDAC/HS 12/01 1700 AC 12/02 SC 2203 Insulin Detemir 12 UNITS DAILY 12/03 0900 AC SC Insulin Detemir 0 .STK-MED ONE 12/02 2157 DC SC Insulin Detemir 0 .STK-MED ONE 12/02 2157 DC SC Insulin Detemir 5 UNITS ONCE ONE 12/02 1930 DC 12/02 SC 12/02 1930 2203 Insulin Detemir 7 UNITS DAILY 11/30 09 DC 12/02 SC 0843 Lisinopril 40 MG DAILY 11/30 0900 AC 12/02 PO 0844 Metoclopramide HCl 5 MG AC & AT BEDTIME 11/30 1200 AC 12/02 PO 2200 Ondansetron HCl 4 MG Q6P PRN 11/29 0900 AC 11/29 IV 0936 Pantoprazole Sodium 40 MG DAILY 11/29 1323 AC 12/02 IV 0845 Polyethylene Glycol 17 GM DAILY 11/27 1538 AC PO Primidone 100 MG TID 11/27 0900 AC 12/02 PO 2159 Propranolol HCl 40 MG BID 11/27 0900 AC 12/02 PO 2159 Quetiapine Fumarate 50 MG QPM 11/29 2100 AC 12/02 PO 2200 Sucralfate 1,000 MG 4 TIMES/DAY 11/27 1300 AC 12/02 PO 2159 Thiamine HCl 100 MG DAILY 11/27 1056 AC 12/02 PO 0844 Last 24 Hrs of Lab/Bart Results Last 24 Hrs of Labs/Mics: .. Assessment/Plan Assessment: Assessment/Plan Assessment: This is a 52 year old man with PMH of insulin-dependent diabetes mellitus, COPD , hypertension, PVD, DKA, osteomyelitis s/p left BKA and right transmetatarsal amputation, opiod use disorder on suboxone, chronic psychiatric conditions (of which he does not entirely disclose) who was brought to the ED by EMS after he was found to be unresponsive with a blood glucose of 11. In field he was given dextrose and glucagon. He does take insulin at home and there seems to be some discrepancy in his administration of the medication. -------- PLAN: Anorexia and hypoglycemia: He states his appetite is improving. Given the continued abdominal pain, resulting anorexia and hypoglycemia we will consult GI. Of note, per GI note in 2009 he has hx of reflux w/o Huang's, at one point he had kristen esophagitis, phytobezoar and GI motility d/o given DM. Current work up shows nml TFT, abdominal xry, and cortisol lvl. * continue carb diet * Con't FS monitoring * Appreciate Endo recs * Consider increasing Levemir dose * IV PPI * IV Zofran * PO reglan started on 11/30 Lethargy: much improved today. * Currently HOLDING Amitryptaline, Buspar * Con't Suboxone (prescribed by Dr. Couch) * Cymbalta dose decreased but continued given risk of withdrawl * Con't (decreased dose) now PRN Quetiapine * Con't Primidone as sudden d/c of barbituates could precipitate life- threatening withdrawl. * Appreciate psych recs * We called his home nursing services and their medication list is going to be placed in his chart * Upon D/C he is going to need psych follow up. DM: Last a1c 10.1 (Nov 2017). * FS * Con't Levemir as above Acute hypoxemia: Moderate as evident by a PAo2 of 55 requiring non breather at one point. He is now on room air * cont Unasyn, Day4 for tx of aspiration despite nml white count and no fever. However, the persistent hypoxia is a problem. * Titrate o2 as tolerated Leukocytosis. No bandemia, afebrile with no obvious source of infection Hyponatremia: WNL. * Con't Monitor * Con't NS Hypokalemia: WNL. * Con't monitor Hypertensive Urgency: BP of 190/118 with no chest pain on admission. * administer propanolol 40mg * His Lisinopril dose was increased today from 20mg to 40mg Chronic issues: Bilateral lower extremity wounds: * Wound care History of Opiod use disorder on Suboxone * Con't suboxone. Problem List: 1. Hypoglycemia Pain Ratin Pain Location: none Pain Goal: Remain pain free Pain Plan: per pathway Tomorrow's Labs & Rationales: cbc bep Brandi Davis MD 12/02/17 0901: Attending MD Review Statement Attending Statement Attending MD Statement: examined this patient, discuss w/resident/PA/HEALTHCARE PROF, agreed w/resident/PA/HEALTHCARE PROF, reviewed EMR data (avail), discussed with nursing, reviewed images Attending Assessment/Plan: Patient remains on IV Unasyn for presumed aspiration pneumonia. He is diabetic, previous history of DKA came in with hypoglycemia and continues to have poor appetite with poor p.o. intake. Many of his psych medicines are on hold and will need to follow-up regarding that
--- NOTE | 2017-12-02 14:00 | PN- Diabetes ---
Assessment/Plan Diabetes Assessment: 52 year old man with multiple medical problems significant for DM type 1, COPD, hypertension, PVD, DKA, osteomyelitis s/p left BKA and right transmetatarsal amputation, opiod use disorder on suboxone, was brought to the ED by EMS after he was found to be unresponsive with a blood glucose of 11. At home, he was on Tresiba 34 units daily and Humalog coverage before meals. His abdominal pain has resolved, and he is able to eat now Plan: Check BG ACHS Please increase Levemir to 12 units daily. Give 5 units now. Please increase Novolog coverage according to the scale below. Inpatient Diabetes Orders Before Each Meal: < 80 mg/dl: 0 80-100 mg/dl: 3 101-120 mg/dl: 4 121-150 mg/dl: 4 151-200 mg/dl: 5 201-250 mg/dl: 6 251-300 mg/dl: 7 301-350 mg/dl: 8 351-400 mg/dl: 9 > 400 mg/dl: 10 Bedtime: < 80 mg/dl: 0 80-100 mg/dl: 0 101-120 mg/dl: 0 121-150 mg/dl: 0 151-200 mg/dl: 1 201-250 mg/dl: 2 251-300 mg/dl: 3 301-350 mg/dl: 4 351-400 mg/dl: 5 > 400 mg/dl: 6 Subjective Subjective: He is able to tolerate food. His BG has been in the 300 to 400 range over the past 24 hours. Objective Last 24 Hrs of Vital Signs/I&O Vital Signs Date Time Temp Pulse Resp B/P B/P Pulse O2 O2 Flow FiO2 Mean Ox Delivery Rate 12/02 0845 99 158/82 12/02 0844 99 158/82 12/02 0844 158/82 12/02 0704 98.7 99 20 158/82 94 Room Air 12/01 2345 97.6 93 18 160/90 96 Room Air 12/01 2113 99 158/86 Intake & Output 12/02 1600 12/02 0800 12/02 0000 Intake Total 100 400 Output Total 400 900 300 Balance -400 -800 100 Intake, IV 100 Intake, Oral 400 Output, Urine 400 900 300 Patient 134 lb Weight
[2017-12-02 15:13] VITALS: BP 138/76
[2017-12-02 22:10] VITALS: BP 150/100
[2017-12-03 07:09] VITALS: BP 146/94
--- NOTE | 2017-12-03 08:25 | PN- Diabetes ---
Assessment/Plan Diabetes Assessment: 52 year old man with multiple medical problems significant for DM type 1, COPD, hypertension, PVD, DKA, osteomyelitis s/p left BKA and right transmetatarsal amputation, opiod use disorder on suboxone, was brought to the ED by EMS after he was found to be unresponsive with a blood glucose of 11. At home, he was on Tresiba 34 units daily and Humalog coverage before meals. His abdominal pain has resolved, and he has tolerated meals. Currently he is on Levemir 12 units daily, Novolog coverage before meals and Novolog coverage at bedtime. His FSGs were 447, 304, 447, 219, 265, 333 and 211. Plan: 1. increase Levemir to 16 units daily; 2. adjust Novolog coverage before meals and Novolog coverage at bedtime. Before Each Meal: < 80 mg/dl: 0 80-100 mg/dl: 5 units 101-120 mg/dl: 6 units 121-150 mg/dl: 6 units 151-200 mg/dl: 7 units 201-250 mg/dl: 8 units 251-300 mg/dl: 9 units 301-350 mg/dl: 10 units 351-400 mg/dl: 11 units > 400 mg/dl: 12 units Bedtime: < 80 mg/dl: 0 80-100 mg/dl: 0 101-120 mg/dl: 0 121-150 mg/dl: 0 151-200 mg/dl: 0 201-250 mg/dl: 0 251-300 mg/dl: 2 units 301-350 mg/dl: 3 units 351-400 mg/dl: 4 units > 400 mg/dl: 5 units 3. monitor FSGs. 4. if patient is medically stable for discharge, the discharge plan for diabetes ---Tresiba 16 units daily; ---Novolog coverage before meals < 80 mg/dl: 0 80-100 mg/dl: 5 units 101-120 mg/dl: 6 units 121-150 mg/dl: 6 units 151-200 mg/dl: 7 units 201-250 mg/dl: 8 units 251-300 mg/dl: 9 units 301-350 mg/dl: 10 units 351-400 mg/dl: 11 units > 400 mg/dl: 12 units ---monitor FSGs at least x 4 times a day; ---f/u with Dr. Schuster in office after discharge. Subjective Subjective: He feels better this morning. Objective Last 24 Hrs of Vital Signs/I&O Vital Signs Date Time Temp Pulse Resp B/P B/P Pulse O2 O2 Flow FiO2 Mean Ox Delivery Rate 12/03 0709 98.3 74 12 146/94 94 Room Air 12/02 2210 98.4 74 12 150/100 95 Room Air 12/02 2159 74 150/100 12/02 1513 98.2 92 17 138/76 95 Room Air 12/02 0845 99 158/82 12/02 0844 99 158/82 12/02 0844 158/82 Intake & Output 12/03 1600 12/03 0800 12/03 0000 Intake Total 900 Output Total 675 Balance 225 Intake, Oral 900 Output, Urine 675 Findings Pertinent Lab/Bart Results: Laboratory Tests 12/03 0722 Chemistry Sodium Pending Potassium Pending Chloride Pending Carbon Dioxide Pending Anion Gap Pending BUN Pending Creatinine Pending BUN/Creatinine Ratio Pending Hematology CBC w Diff Pending WBC Pending RBC Pending Hgb Pending Hct Pending MCV Pending MCH Pending MCHC Pending RDW Pending Plt Count Pending MPV Pending
[2017-12-03 08:30] LABS: HEMATOCRIT 29.6 % (42-52); MEAN CORPUSCULAR HGB 23.5 PG (27.0-31.0); MEAN CORPUSCULAR HGB CONC 32.2 G/DL (33.0-37.0); MEAN CORPUSCULAR VOLUME 73.1 FL (80.0-94.0); PLATELET COUNT 501 /CUMM (130-400); RBC DISTRIBUTION WIDTH 21.3 % (11.5-14.5); RED BLOOD CELL CT 4.05 /CUMM (4.70-6.10); WHITE BLOOD CELL COUNT 5.9 /CUMM (4.8-10.8)
[2017-12-03 10:01] VITALS: BP 1630/80
[2017-12-03] MEDS ORDERED: AMOX-CLAV 875-1 EACH PO ×2 (10:45→15:41)
[2017-12-03] MEDS ORDERED: CYMBALTA30 M1 PO ×2 (10:45→15:41)
[2017-12-03] MEDS ORDERED: AMLODIPINE BESYL5 M1 PO ×2 (10:45→15:41)
[2017-12-03] MEDS ORDERED: MUPIROCIN22 GM TOP ×2 (10:45→15:41)
[2017-12-03] MEDS ORDERED: LISINOPRIL20 M1 PO ×2 (10:45→15:41)
[2017-12-03] MEDS ORDERED: SEROQUEL50 M1 PO (10:45)
--- NOTE | 2017-12-03 10:50 | Patient Discharge Instructions ---
Discharge Instructions General Discharge Information You were seen/treated for: 1. altered mental status 2. abdominal pain You had these procedures: 1. medication changes Watch for these problems: 1. Confusion 2. Headache 3. Chest pain 4. Fever Special Instructions: 1. Please follow up with your PCP regarding your psych meds 2. Please follow up with [facility] outpatient. 3. Please check your blood sugars at least 4 times a day. Have visiting nursing help you with insulin titration. If you have any questions please follow up with Dr. Schuster. 4. Prior to administering insulin kindly ensure that your have eaten a proper and balanced meal. Diet Continue normal diet: Yes Activity Full Activity/No Limits: No Activity Self Limited: Yes Acute Coronary Syndrome Inclusion Criteria At DC or during hospital stay patient has or had the following: ACS DIAGNOSIS No Discharge Core Measures Meds if any: Prescribed or Continued at Discharge Meds if any: NOT Prescribed or Continued at Discharge Congestive Heart Failure Inclusion Criteria At DC or during hospital stay patient has or had the following: CHF DIAGNOSIS No Discharge Core Measures Meds if any: Prescribed or Continued at Discharge Meds if any: NOT Prescribed or Continued at Discharge Cerebrovascular accident Inclusion Criteria At DC or during hospital stay patient has or had the following: CVA/TIA Diagnosis No Discharge Core Measures Meds if any: Prescribed or Continued at Discharge Meds if any: NOT Prescribed or Continued at Discharge Venous thromboembolism Inclusion Criteria VTE Diagnosis No VTE Type NONE VTE Confirmed by (Test) NONE Discharge Core Measures - Per Current guidelines, there needs to be overlap - treatment for the first 5 days of Warfarin therapy. - If discharged on Warfarin prior to 5 days of - overlap therapy, the patient will need to be - assessed for post discharge needs including - *Post discharge parental anticoagulation - *Warfarin and/or parental anticoagulation education - *Follow up date to check INR post discharge At least 5 days overlap therapy as Inpatient No Meds if any: Prescribed or Continued at Discharge Note: Overlap Therapy is Warfarin and Anticoagulant Meds if any: NOT Prescribed or Continued at Discharge
[2017-12-03] MEDS ORDERED: TRESIBA FL100 UNIT/1 SQ ×2 (10:58→15:41)
[2017-12-03] MEDS ORDERED: NOVOLOG FL100 UNIT/1 SQ ×2 (10:58→15:41)
--- NOTE | 2017-12-03 11:21 | PN- Att Addend ---
Attending Addendum Attending Brief Note Patient seen and examined, overall doing much better. Much more awake and talking. Denies any abdominal pain. Seen by GI and they did not make any further recommendations as patient's abdominal pain and symptoms have improved. No more hypoglycemic episodes. Patient was hyperglycemic and his insulin has been adjusted per endocrinology. Vital Signs Date Time Temp Pulse Resp B/P B/P Pulse O2 O2 Flow FiO2 Mean Ox Delivery Rate 12/03 1001 88 1630/80 12/03 0959 88 130/80 12/03 0959 88 130/80 12/03 0709 98.3 74 12 146/94 94 Room Air 12/03 0000 96 Room Air 12/02 2210 98.4 74 12 150/100 95 Room Air 12/02 2159 74 150/100 12/02 1513 98.2 92 17 138/76 95 Room Air on exam; aox3, nad. cv; s1, s2, rrr resp; clear abd; soft, nt, bs+ ext; no edema Laboratory Tests 12/03 721 Chemistry Sodium (137 - 145 mmol/L) 134 L Potassium (3.5 - 5.1 mmol/L) 4.2 Chloride (98 - 107 mmol/L) 104 Carbon Dioxide (22 - 30 mmol/L) 25 Anion Gap (5 - 16) 5 BUN (9 - 20 mg/dL) 15 Creatinine (0.7 - 1.2 mg/dL) 0.9 Estimated GFR (>60 ml/min) > 60 BUN/Creatinine Ratio (7 - 25 %) 16.7 Hematology CBC w Diff MAN DIFF ORDERED WBC (4.8 - 10.8 /CUMM) 5.9 RBC (4.70 - 6.10 /CUMM) 4.05 L Hgb (14.0 - 18.0 G/DL) 9.5 L Hct (42 - 52 %) 29.6 L MCV (80.0 - 94.0 FL) 73.1 L MCH (27.0 - 31.0 PG) 23.5 L MCHC (33.0 - 37.0 G/DL) 32.2 L RDW (11.5 - 14.5 %) 21.3 H Plt Count (130 - 400 /CUMM) 501 H MPV (7.4 - 10.4 FL) 7.0 L Segmented Neutrophils (42.2 - 75.2 %) 53 Lymphocytes (20.5 - 51.1 %) 36 Monocytes (1.7 - 9.3 %) 5 Eosinophils (0 - 5.0 %) 6 H Platelet Estimate (ADEQUATE) INCREASED Anisocytosis 1+ A/P; 52 y/o M with pmh sig for insulin-dependent diabetes mellitus, COPD, hypertension, PVD, DKA, osteomyelitis s/p left BKA and right transmetatarsal amputation, opiod use disorder on suboxone, admitted with unresponsiveness and severe hypoglycemia. Last week patient had abdominal pain and was continuously nauseous. We added IV PPI and Reglan. Symptoms improved. Seen by GI and no further recommendations were recommended. We have also adjusted patient's psychiatric medications and we have reduced the dosing of most of the psychiatric medications. We kept him on the same dose of primidone. Patient is much more awake and improved. Seen by endocrinology and they have made recommendations for home insulin regimen. We will switch him to oral antibiotic and complete a total of 5-day course for possible aspiration pneumonia. Patient will be seen by physical therapy. Patient to be discharged on a new psychiatric medications regimen. We will let the PCP now. Patient was very lethargic on presentation and even afterwards during the hospital course. After these changes have been made in the psychiatric medications and patient has been treated for pneumonia, his mental status has improved. His abdominal pain symptoms and nausea is also improved. I would recommend that patient should follow-up with outpatient psychiatry. He is reluctant to do that but I will still make that recommendation. Patient to be seen by physical therapy and if no other issues then he can likely be discharged home today with home services.
[2017-12-03] MEDS ORDERED: GABAPENTIN400 M2 PO ×2 (11:50→15:41)
--- NOTE | 2017-12-03 12:22 | PN- Housestaff ---
Subjective Follow-up For: AMS Hypoglycemia Subjective: Pt is like a new person today. He is not confused and much more alert and oriented. His sugars have finally been going up as he is now eating. Review of Systems Constitutional: Reports: no symptoms. Objective Last 24 Hrs of Vital Signs/I&O Vital Signs Date Time Temp Pulse Resp B/P B/P Pulse O2 O2 Flow FiO2 Mean Ox Delivery Rate 12/03 1001 88 1630/80 12/03 0959 88 130/80 12/03 0959 88 130/80 12/03 0709 98.3 74 12 146/94 94 Room Air 12/03 0000 96 Room Air 12/02 2210 98.4 74 12 150/100 95 Room Air 12/02 2159 74 150/100 Intake & Output 12/03 1600 12/03 0800 12/03 0000 Intake Total 800 250 900 Output Total 600 1050 675 Balance 200 -800 225 Intake, IV 200 Intake, Oral 800 50 900 Output, Urine 600 1050 675 Physical Exam General Appearance: Alert, Oriented X3, Cooperative HEENT: Atraumatic, PERRLA, EOMI Cardiovascular: Regular Rate, Normal S1, Normal S2 Lungs: Normal Air Movement Abdomen: Soft, No Tenderness Vascular: has r. transmetatarsal amputation and l. bka Current Medications: Current Medications Sig/Jonny Start time Last Medication Dose Route Stop Time Status Admin Acetaminophen 1,000 MG Q6P PRN 11/27 0815 AC 11/27 N/A 1 UNIT IV 0941 Acetaminophen 650 MG Q6P PRN 11/26 2014 AC PO Amlodipine Besylate 5 MG DAILY 12/01 918 AC 12/03 PO 0959 Amoxicillin/ 875 MG Q12 12/03 2100 DC Clavulanate Potassium PO Amoxicillin/ 875 MG Q12 12/03 1200 AC 12/03 Clavulanate Potassium PO 1328 Ampicillin Sodium/ 1,500 MG Q6 11/30 1200 DC 12/03 Sulbactam Sodium IV 0559 Sodium Chloride 100 ML Aspirin Buffered 81 MG DAILY 11/27 09 AC 12/03 PO 0959 Atorvastatin Calcium 40 MG 1700 11/27 1700 AC 12/02 PO 1816 Buprenorphine/ 1 EACH QPM 11/27 2100 AC 12/02 Naloxone SL 2201 Buprenorphine/ 2 EACH DAILY 11/27 09 AC 12/03 Naloxone SL 0844 Cholecalciferol 1,000 IU DAILY 11/27 0900 AC 12/03 PO 0959 Docusate Sodium 100 MG BIDPRN PRN 11/27 1545 AC PO Duloxetine HCl 30 MG DAILY 11/30 0900 AC 12/03 PO 0959 Enoxaparin Sodium 40 MG DAILY 11/27 0900 AC 12/03 SC 0959 Folic Acid 1 MG DAILY 11/27 0900 AC 12/03 PO 0959 Gabapentin 400 MG Q8 11/30 1400 AC 12/03 PO 1329 Insulin Aspart 0 TIDAC/HS 12/01 1700 AC 12/03 SC 1329 Insulin Detemir 12 UNITS DAILY 12/03 0900 DC SC Insulin Detemir 16 UNITS DAILY 12/03 0900 AC 12/03 SC 0844 Insulin Detemir 0 .STK-MED ONE 12/02 2157 DC SC Insulin Detemir 0 .STK-MED ONE 12/02 2157 DC SC Insulin Detemir 5 UNITS ONCE ONE 12/02 1930 DC 12/02 SC 12/02 193 2203 Insulin Detemir 7 UNITS DAILY 11/30 09 DC 12/02 SC 0843 Lisinopril 40 MG DAILY 11/30 0900 AC 12/03 PO 1001 Metoclopramide HCl 5 MG AC & AT BEDTIME 11/30 1200 AC 12/03 PO 1328 Mupirocin 1 AAMIR TIDPRN PRN 12/03 1015 AC TOP Omeprazole 20 MG DAILY AC 12/04 0700 DC PO Omeprazole 40 MG DAILY AC 12/04 0700 AC PO Ondansetron HCl 4 MG Q6P PRN 11/29 0900 AC 11/29 IV 0936 Pantoprazole Sodium 40 MG DAILY 11/29 1323 DC 12/03 IV 0959 Polyethylene Glycol 17 GM DAILY 11/27 1538 AC PO Primidone 100 MG TID 11/27 0900 AC 12/03 PO 1329 Propranolol HCl 40 MG BID 11/27 0900 AC 12/03 PO 0959 Quetiapine Fumarate 50 MG QPM 11/29 2100 AC 12/02 PO 2200 Sucralfate 1,000 MG 4 TIMES/DAY 11/27 1300 AC 12/03 PO 1329 Thiamine HCl 100 MG DAILY 11/27 1056 AC 12/03 PO 0959 Last 24 Hrs of Lab/Bart Results Last 24 Hrs of Labs/Mics: Laboratory Tests 12/03/17721: Anion Gap 5, Estimated GFR > 60, BUN/Creatinine Ratio 16.7, CBC w Diff MAN DIFF ORDERED, RBC 4.05 L, MCV 73.1 L, MCH 23.5 L, MCHC 32.2 L, RDW 21.3 H, MPV 7.0 L, Segmented Neutrophils 53, Lymphocytes 36, Monocytes 5, Eosinophils 6 H, Platelet Estimate INCREASED, Anisocytosis 1+ Assessment/Plan Assessment: This is a 52 year old man with PMH of insulin-dependent diabetes mellitus, COPD , hypertension, PVD, DKA, osteomyelitis s/p left BKA and right transmetatarsal amputation, opiod use disorder on suboxone, chronic psychiatric conditions (of which he does not entirely disclose) who was brought to the ED by EMS after he was found to be unresponsive with a blood glucose of 11. In field he was given dextrose and glucagon. He does take insulin at home and there seems to be some discrepancy in his administration of the medication. -------- PLAN: Anorexia and hypoglycemia: This AM was in 70s. He is refusing to eat all his meals due to abdominal pain. Given the continued abdominal pain, resulting anorexia and hypoglycemia we will consult GI. Of note, per GI note in 2009 he has hx of reflux w/o Huang's, at one point he had kristen esophagitis, phytobezoar and GI motility d/o given DM. Current work up shows nml TFT, abdominal xry, and cortisol lvl. * Con't FS monitoring * Appreciate Endo recs * Levermir decreased to 16u ONCE a day * IV PPI * IV Zofran * PO reglan started on 11/30 Lethargy: We consulted psych yesterday and they suggested we stop most of his psych meds other than cymbalta nad his suboxone. Dr. Schuster is his PCP and is prescriber of his psychiatric medications. I called [facility] and they confirmed that all his meds were recently picked up and they verified the dosage and frequency. * Currently HOLDING Amitryptaline, Buspar * Con't Suboxone (prescribed by Dr. Couch) * Cymbalta dose decreased but continued given risk of withdrawl * Con't (decreased dose) now PRN Quetiapine * Con't Primidone as sudden d/c of barbituates could precipitate life- threatening withdrawl. * Appreciate psych recs * We called his home nursing services and their medication list is going to be placed in his chart * Upon D/C he is going to need psych follow up. DM: Last a1c 10.1 (Nov 2017). * FS * Con't Levemir as above Acute hypoxemia: Moderate as evident by a PAo2 of 55 requiring non breather at one point. He is on 4-5 L o2 in room. Will taper as he does not use O2 at home. C/O PNA as CT shows c/o posterior segment consolidation. * Started Unasyn on 11/30/2017 for trt of aspiration despite nml white count and no fever. However, the persistent hypoxia is a problem. * Titrate o2 as tolerated Sinus tach: Resolved. I am unsure if he was withdrawing from any substances or if he was in pain. He did have BZ and barbituates in his Utox on admission. * EKG WNL * Add on troponin WNL * CT-PE showed pna but no evidence of PE * Pt is now off telemetry monitoring Leukocytosis. No bandemia, afebrile with no obvious source of infection Hyponatremia: WNL. * Con't Monitor * Con't NS Hypokalemia: WNL. * Con't monitor Hypertensive Urgency: BP of 190/118 with no chest pain on admission. * administer propanolol 40mg * His Lisinopril dose was increased today from 20mg to 40mg Chronic issues: Bilateral lower extremity wounds: * Wound care History of Opiod use disorder on Suboxone * Con't suboxone. Problem List: 1. Depression Pain Ratin Pain Location: none Pain Goal: Remain pain free Pain Plan: current reg Tomorrow's Labs & Rationales: none
== END 2017-12-03 15:00 | disposition home health service (06) | DRG 637 ==
LOC: ERH 17:00 → ERHI 19:22 → 1NO 19:22 → EDBEDREQ 19:39 → ENRESERV 21:29 → ENTRNSPT 21:56 → EDTRNSPTSTS 22:14 → EDTRNSPT 22:14 → 1NO 22:17 → CMPTRNSPT 22:43 → ENPENDDIS 12-03 14:02 → ENTRNSPT 12-03 14:54 → 1NO 12-03 15:00 → EDTRNSPTSTS 12-03 15:17 → CMPTRNSPT 12-03 15:28
PROVIDERS: Emergency Medicine; Internal Medicine; Nurse Practitioner Adult Health; Student in an Organized Health Care Education/Training Program
DX: E10.649 Type 1 diabetes mellitus with hypoglycemia without coma (principal); G93.41 Metabolic encephalopathy; J69.0 Pneumonitis due to inhalation of food and vomit; E87.1 Hypo-osmolality and hyponatremia; L97.419 Non-pressure chronic ulcer of right heel and midfoot with unspecified severity; L97.919 Non-pressure chronic ulcer of unspecified part of right lower leg with unspecified severity; E78.5 Hyperlipidemia, unspecified; F17.200 Nicotine dependence, unspecified, uncomplicated; Z89.512 Acquired absence of left leg below knee; Z89.421 Acquired absence of other right toe(s); Z79.4 Long term (current) use of insulin; I10 Essential (primary) hypertension; G89.4 Chronic pain syndrome; F41.9 Anxiety disorder, unspecified; F32.9 Major depressive disorder, single episode, unspecified; K21.9 Gastro-esophageal reflux disease without esophagitis; J44.9 Chronic obstructive pulmonary disease, unspecified; Z87.39 Personal history of other diseases of the musculoskeletal system and connective tissue; Z86.14 Personal history of Methicillin resistant Staphylococcus aureus infection; I16.0 Hypertensive urgency; R41.82 Altered mental status, unspecified; T38.3X5A Adverse effect of insulin and oral hypoglycemic [antidiabetic] drugs, initial encounter; R09.02 Hypoxemia; R80.9 Proteinuria, unspecified; E10.42 Type 1 diabetes mellitus with diabetic polyneuropathy; F19.90 Other psychoactive substance use, unspecified, uncomplicated; E10.621 Type 1 diabetes mellitus with foot ulcer; R63.0 Anorexia; Z68.26 Body mass index [BMI] 26.0-26.9, adult; R11.0 Nausea; R00.0 Tachycardia, unspecified; E10.51 Type 1 diabetes mellitus with diabetic peripheral angiopathy without gangrene; Z79.82 Long term (current) use of aspirin; Z79.51 Long term (current) use of inhaled steroids; F11.21 Opioid dependence, in remission; R10.13 Epigastric pain; E10.43 Type 1 diabetes mellitus with diabetic autonomic (poly)neuropathy; K31.84 Gastroparesis; E87.6 Hypokalemia; E10.622 Type 1 diabetes mellitus with other skin ulcer; L98.429 Non-pressure chronic ulcer of back with unspecified severity
CPT/HCPCS: 1NP; 36415; 36592; 71045; 73030-LT; 74018; 80307; 81001; 82436; 87040; 87086; 93005; 93010; 94799; 96374; 99291; J0131; J1650; J1815; J2310; J2405; J3490; J7042

== ENCOUNTER 2017-12-03 17:58 | Emergency (ER) | payer OTHER, MEDICARE ==
[~2017-12-03 17:58] MED LIST changes: +AMLODIPINE BESYL5 M1 PO; +AMOX-CLAV 875-1 EACH PO; +ASPIRIN EC81 M1 PO; +CYMBALTA30 M1 PO; +CYMBALTA60 M1 PO; +FLUTICASONE PRO16 GM NASB; +GABAPENTIN400 M2 PO; +LASIX20 M1 PO; +LISINOPRIL20 M1 PO; +MUPIROCIN22 GM TOP; +NOVOLOG FL100 UNIT/1 SQ; +SANTYL30 GM; +SEROQUEL50 M1 PO; +TRESIBA FL100 UNIT/1 SQ; +VISTARIL50 M1 PO
[2017-12-03 18:09] VITALS: BP 159/69
--- NOTE | 2017-12-03 18:57 | ED GENERAL ADULT ---
History of Present Illness General Chief Complaint: Altered Mental Status Stated Complaint: BIBA AMS Source: patient, old records, EMS Exam Limitations: no limitations Vital Signs & Intake/Output Vital Signs & Intake/Output Vital Signs Date Time Temp Pulse Resp B/P B/P Pulse O2 O2 Flow FiO2 Mean Ox Delivery Rate 12/03 1824 96 Room Air Room Air 12/03 1809 64 18 159/69 96 Room Air Allergies Coded Allergies: NO KNOWN ALLERGIES (07/16/15) Reconcile Medications Albuterol Sulfate (Ventolin Hfa) 90 MCG HFA.AER.AD 2 PUF INH PRN COPD ( Reported) Amlodipine Besylate 5 MG TABLET 1 TAB PO DAILY HTN . Amoxicillin/Clavulanate Potass (Amox-Clav 875-125 MG Tablet) 875 MG-125 MG TABLET 1 TAB PO Q12 PNA . Aspirin (Ecotrin*) 81 MG TABLET.DR 1 TAB PO DAILY HEART HEALTH (Reported) Buprenorphine HCl/Naloxone HCl (Suboxone 8 MG-2 MG Sl Film) 8 MG-2 MG FILM 2 STR SL DAILY CHRONIC PAIN (Reported) Buprenorphine HCl/Naloxone HCl (Suboxone 8 MG-2 MG Sl Film) 8 MG-2 MG FILM 1 STR SL QPM CHRONIC PAIN (Reported) Cholecalciferol (Vitamin D3) 1,000 UNIT TABLET 1 TAB PO DAILY VITAMIN SUPPORT (Reported) Collagenase Clostridium Hist. (Santyl) 250 UNIT/GRAM OINT...G. RASH (Reported) APPLY SUFFICIENT AMOUNT TO AFFECTED AREA DAILY Duloxetine Hydrochloride (Cymbalta) 30 MG CAPSULE.DR 1 TAB PO DAILY DEPRESSION . Esomeprazole (Nexium) 40 MG CAPSULE.DR 1 CAP PO DAILY GI (Reported) Fluticasone Propionate 50 MCG/ACTUATION SPRAY.SUSP 2 SPRAY NASB DAILY NASAL IRRITATION (Reported) Fluticasone/Salmeterol (Advair 250-50 Diskus) 250 MCG-50 MCG/DOSE BLST.W.DEV 1 PUF INH BID COPD (Reported) Folic Acid 0.8 MG TABLET 1 TAB PO DAILY VITAMIN SUPPORT (Reported) Furosemide (Lasix) 20 MG TABLET 1 TAB PO DAILY NEEDED PRN Fluid Retention (Reported) Gabapentin 400 MG CAPSULE 400 MG PO Q8 PAIN . Insulin Aspart, Recombinant (Novolog Flexpen) 100 UNIT/ML INSULN.PEN 1 UNIT SQ SEE ADMIN DM . Insulin Degludec (Tresiba Flextouch U-100) 100 UNIT/ML (3 ML) INSULN.PEN 16 UNIT SQ DAILY DM . Lisinopril 20 MG TABLET 2 TAB PO DAILY HTN . Magnesium Oxide 400 MG TABLET 1 TAB PO BID SUPPLEMENT (Reported) Multivitamin (Daily Multiple Vitamin) 1 EACH TABLET 1 TAB PO DAILY VITAMIN SUPPORT (Reported) Mupirocin 2 % OINT...G. 1 AAMIR TOP TIDPRN PRN WOUNDS . Primidone 50 MG TABLET 100 MG PO TID UNKNOWN (Reported) Propranolol HCl 40 MG TABLET 1 TAB PO BID BP (Reported) Quetiapine Fumarate (Seroquel) 50 MG TABLET 1 TAB PO QPM PRN INSOMNIA Rosuvastatin Calcium (Crestor) 10 MG TABLET 1 TAB PO QHS CHOLESTEROL ( Reported) Sucralfate (Carafate) 1 GM TABLET 1 TAB PO 4 TIMES/DAY GI (Reported) Tiotropium [place] (Spiriva) 18 MCG CAP.W.DEV 1 CAP INH DAILY ASTHMA ( Reported) Tramadol HCl 50 MG TABLET 1 TAB PO Q6 PAIN (Reported) Triage Note: PT BIBA AFTER BEING FOUND UNRESPOSNIVE AT HOME, BS BY EMS WAS 22. PT GIVEN IM GLUCOGON AND PATIENT BECAME SLEEPY BUT ORIENTED. PATIENT ARRIVED ALERT AND ORIENTED. PT DENIES COMPLAINTS. PT WAS D/C FROM [facility]AGGS AT 1500. Triage Nurses Notes Reviewed? yes Onset: Abrupt Duration: hour(s): (1), better, gone now Timing: recent history Injury Environment: home Severity: mild, moderate No Modifying Factors: none HPI: 52-year-old male history of hypoglycemia, diabetes, COPD, peripheral vascular disease, hypertension presents for evaluation of hypoglycemia. Patient was just released from the hospital and 30 today after being admitted with an episode of hypoglycemia and then aspiration pneumonia. Patient states the only insulin he used today was what he received from the hospital he did eat earlier today. He was found unresponsive in his house with the sugars in the 20s. He was given glucagon by EMS and arrives still in a confused state. After receiving D50 he is alert and oriented 3 and offers no complaints. He states he is not sure why this happened. He reports he had not used any insulin abnormal is given in the hospital however he did not eat much today. Patient has had multiple similar episodes in the past. Denies slurred speech change in vision one-sided weakness. Denies alcohol or drug use. (Jason ACEVEDO,Deejay) Past History Travel History Traveled to [place] past 21 day No Medical History Any Pertinent Medical History? 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 No (Deejay Preciado) Review of Systems Review of Systems Constitutional: Reports: no symptoms. EENTM: Reports: no symptoms. Respiratory: Reports: no symptoms. Cardiovascular: Reports: no symptoms. GI: Reports: no symptoms. Genitourinary: Reports: no symptoms. Musculoskeletal: Reports: no symptoms. Skin: Reports: no symptoms. Neurological/Psychological: Reports: no symptoms. Hematologic/Endocrine: Reports: no symptoms. Immunologic/Allergic: Reports: no symptoms. All Other Systems: Reviewed and Negative (Deejay Preciado) Physical Exam Physical Exam General Appearance: well developed/nourished, no apparent distress, alert, awake Head: atraumatic, normal appearance Eyes: Bilateral: normal appearance, PERRL, EOMI. Ears, Nose, Throat: normal pharynx, normal ENT inspection, hearing grossly normal Neck: normal inspection, supple, full range of motion Respiratory: no respiratory distress, rhonchi Cardiovascular: regular rate/rhythm, normal peripheral pulses Peripheral Pulses: 2+ radial (R), 2+ radial (L) Gastrointestinal: soft, non-tender Back: normal inspection, normal range of motion, no vertebral tenderness Extremities: normal range of motion, left bka Neurologic/Psych: no motor/sensory deficits, awake, alert, oriented x 3 Skin: intact, normal color, warm/dry, multiple superficial abrasions and ulcerations Core Measures ACS in differential dx? No CVA/TIA Diagnosis: No Sepsis Present: No Sepsis Focused Exam Completed? No (Deejay Preciado) Progress Differential Diagnoses I considered the following diagnoses in my evaluation of the patient: [ Hypoglycemia, insulin overdose, electrolyte abnormality, sepsis, CVA/TIA, arrhythmia] Plan of Care: Orders Procedure Date/time Status Regular Diet 12/04 B Active Laboratory Tests 12/03/171808: Serum Alcohol Cancelled 12/03/171808: CBC w Diff Cancelled, WBC Cancelled, RBC Cancelled, Hgb Cancelled, Hct Cancelled , MCV Cancelled, MCH Cancelled, MCHC Cancelled, RDW Cancelled, Plt Count Cancelled, MPV Cancelled, Methadone Screen Cancelled, Barbiturate Screen Cancelled, Ur Phencyclidine Scrn Cancelled, Amphetamines Screen Cancelled, U Benzodiazepines Scrn Cancelled, Urine Cocaine Screen Cancelled, Urine Cannabis Screen Cancelled, Urine Color Cancelled, Urine Clarity Cancelled, Urine pH Cancelled, Ur Specific [place] Cancelled, Urine Protein Cancelled, Urine Ketones Cancelled, Urine Nitrite Cancelled, Urine Bilirubin Cancelled, Urine Urobilinogen Cancelled, Ur Leukocyte Esterase Cancelled, Ur Microscopic Cancelled, Urine Hemoglobin Cancelled, Urine Glucose Cancelled Sugar is 208 after d50 and eating a sandwich/oj. Patient refuses any additional evaluation or observation. He is alert and oriented 3 discussed with patient in detail about possible effects of premature discharge include premature or disability. Patient is completely aware of these risks. He is able to communicate them back to me. He does not appear to be intoxicated. AGAINST MEDICAL ADVICE form signed patient was instructed to continue to eat at home follow-up with the primary care doctor and financial reserve clerk avoid additional insulin use today. Discussed return precautions case discussed with Dr. Friedman agrees Initial ED EKG: none (Deejay Preciado) Departure Departure Disposition: LEFT AGAINST MEDICAL ADVICE Condition: Stable Clinical Impression Primary Impression: Hypoglycemic reaction Referrals: Mariely WU,Nader Bond (PCP/Family) Additional Instructions: You are leaving AGAINST MEDICAL ADVICE is recommended he stay for further evaluation and treatment. Premature discharge could result in negative health effects include permanent disability or . It is recommended YOU follow-up with a primary care doctor as soon as possible. Avoid further insulin use today. Continue to eat while at home. Return to the emergency department any time if any concern. Please go over all results of today's visit with your primary care doctor. Contact your primary care doctor to let them know you were here in the emergency room. There may be nonspecific findings which may not be related to your visit today here in the emergency room but may require further evaluation and chronic monitoring by your primary care doctor. If you had a laceration today the chance of foreign body always remains. You should follow-up with your primary care doctor for recheck in 3-5 days for a wound check. If you had an x-ray done there is a chance that a fracture could have been missed on initial read and you should follow-up with your primary care doctor for repeat x-rays if symptoms persist. If your blood pressure was elevated here in the emergency room please have rechecked by [facility] primary care doctor within the next 48. If you were prescribed a narcotic here in the emergency room or any type of controlled substances you're not allowed to drive while taking this medication or operate any type of heavy machinery. Narcotics can make you feel lightheaded dizziness nausea and can cause constipation. You may need to pickling operator a stool softener. Thank you for choosing [facility] emergency room. Please return to the emergency room immediately if you have any other concerns worsening of symptoms. Departure Forms: Customer Survey General Discharge Information (Deejay Preciado) PA/INSURANCE SERVICE REPRESENTATIVE Co-Sign Statement Statement: ED Attending supervision documentation- [] I saw and evaluated the patient. I have also reviewed all the pertinent lab results and diagnostic results. I agree with the findings and the plan of care as documented in the PA's/INSURANCE SERVICE REPRESENTATIVE's documentation. [X] I have reviewed the ED Record and agree with the PA's/INSURANCE SERVICE REPRESENTATIVE's documentation. [] Additions or exceptions (if any) to the PAs/INSURANCE SERVICE REPRESENTATIVE's note and plan are summarized below: [] (Idalia WU,Nader Kwon) Critical Care Note Critical Care Note Critical Care Time: 30-74 min (Deejay Preciado)
== END 2017-12-03 19:43 | disposition left against medical advice (07) ==
LOC: ERH 17:58
DX: E11.649 Type 2 diabetes mellitus with hypoglycemia without coma (principal); I10 Essential (primary) hypertension; J44.9 Chronic obstructive pulmonary disease, unspecified; F41.9 Anxiety disorder, unspecified; Z79.4 Long term (current) use of insulin; Z79.82 Long term (current) use of aspirin
CPT/HCPCS: 80307; 96374; G0480